=== PATIENT | male | born 1950 | race Caucasian/White ===

== ENCOUNTER → 2016-09-09 | Outpatient (CLI) | payer MEDICARE ==
[~2016-09-09] MED LIST: ALPR1TAB7 PO; ATO40T PO; BUPR100T14 PO; HYDR-3682 PO; LISI-285 PO; LUBI24CA6 PO; MORP60TA25 PO; OXYC30TA50 PO; POLY335015 PO; ZOLP10TA6 PO
[2016-09-09 11:48] LABS: Basophils # (auto) 0 uL; Basophils % (auto) 0.6 % (0.0-2.0); Eosinophils # (auto) 0.1 uL; Eosinophils % (auto) 1.3 % (0.0-7.0); Hematocrit 43.7 % (41.0-53.0); Hemoglobin 13.8 g/dL (13.5-17.5); Lymphocytes # (auto) 1.8 uL; Lymphocytes % (auto) 26.9 % (10.0-50.0); Mean Corpuscular Hemoglobin 28.5 pg (28.0-32.0); Mean Corpuscular Hgb Conc. 31.6 g/dL (32.0-36.0); Mean Corpuscular Volume 90.1 fL (80.0-100.0); Mean Platelet Volume 8.8 fL (7.4-10.4); Monocytes # (auto) 0.6 uL; Monocytes % (auto) 8.8 % (0.0-12.0); Neutrophils # (auto) 4.1 uL; Neutrophils % (auto) 62.4 % (37.0-80.0); Platelet Count (auto) 281 10^3/uL (140-450); Red Cell Distribution Width 14.2 % (11.6-16.0); White Blood Cell 6.5 10^3/uL (4.4-10.8)
[2016-09-09 12:27] LABS: Albumin 3.5 g/dL (3.4-5.0); BUN/Creatinine Ratio 10.4; Potassium 3.2 mmol/L (3.5-5.1); Total Protein 7.3 g/dL (6.4-8.2)
== END | disposition home or self-care (01) ==
LOC: LAB 10:18
DX: F33.3 Major depressive disorder, recurrent, severe with psychotic symptoms (principal)
CPT/HCPCS: 36415; 80053; 80061; 84439; 84443; 85025

== ENCOUNTER → 2017-02-18 | Outpatient (CLI) | payer MEDICARE ==
[2017-02-18 10:31] LABS: Basophils # (auto) 0.1 uL; Basophils % (auto) 1.1 % (0.0-2.0); CONDITION Y; Eosinophils # (auto) 0.1 uL; Eosinophils % (auto) 0.9 % (0.0-7.0); Hematocrit 45.3 % (41.0-53.0); Hemoglobin 15.1 g/dL (13.5-17.5); Lymphocytes # (auto) 2.7 uL; Lymphocytes % (auto) 30.8 % (10.0-50.0); Mean Corpuscular Hemoglobin 29.3 pg (28.0-32.0); Mean Corpuscular Hgb Conc. 33.3 g/dL (32.0-36.0); Mean Corpuscular Volume 88.1 fL (80.0-100.0); Mean Platelet Volume 8.5 fL (7.4-10.4); Monocytes # (auto) 0.7 uL; Monocytes % (auto) 8.5 % (0.0-12.0); Neutrophils # (auto) 5.1 uL; Neutrophils % (auto) 58.7 % (37.0-80.0); Platelet Count (auto) 320 10^3/uL (140-450); Red Cell Distribution Width 13.4 % (11.6-16.0); White Blood Cell 8.7 10^3/uL (4.4-10.8)
[2017-02-18 15:36] LABS: Cholesterol 141 mg/dL (< 200); HDL Cholesterol 52 mg/dL (40-59); LDL Cholesterol 76 mg/dL (< 100); Triglycerides 124 mg/dL (< 150)
== END | disposition home or self-care (01) ==
LOC: LAB 10:10
PROVIDERS: ATTEND Internal Medicine
DX: N40.0 Benign prostatic hyperplasia without lower urinary tract symptoms (principal); I10 Essential (primary) hypertension; K59.00 Constipation, unspecified
CPT/HCPCS: 36415; 80061; 84153; 85025

== ENCOUNTER → 2017-12-21 | Outpatient (CLI) | payer MEDICARE ==
[2017-12-21 15:01] LABS: Basophils # (auto) 0 uL; Basophils % (auto) 0.7 % (0.0-2.0); Eosinophils # (auto) 0.1 uL; Eosinophils % (auto) 1.3 % (0.0-7.0); Hematocrit 46.1 % (41.0-53.0); Hemoglobin 15.3 g/dL (13.5-17.5); Lymphocytes # (auto) 1.9 uL; Lymphocytes % (auto) 32.4 % (10.0-50.0); Mean Corpuscular Hemoglobin 28.4 pg (28.0-32.0); Mean Corpuscular Hgb Conc. 33.2 g/dL (32.0-36.0); Mean Corpuscular Volume 85.4 fL (80.0-100.0); Monocytes # (auto) 0.6 uL; Monocytes % (auto) 9.2 % (0.0-12.0); Neutrophils # (auto) 3.4 uL; Neutrophils % (auto) 56.4 % (37.0-80.0); Nucleated Red Blood Cells % 0.1 %; Platelet Count (auto) 254 10^3/uL (140-450); Red Cell Distribution Width 13.3 % (11.8-14.3)
[2017-12-21 15:08] LABS: Urine Bacteria NONE SEEN /hpf (None Seen); Urine Blood TRACE /uL (Negative); Urine Specific Gravity 1.019 (1.001-1.035); Urine WBC 6 /hpf (0 - 3)
[2017-12-21 18:02] LABS: Albumin 3.5 g/dL (3.4-5.0); BUN/Creatinine Ratio 11.2; Bilirubin, Total 0.8 mg/dL (0.2-1.0); Calcium 9.1 mg/dL (8.5-10.1); Total Protein 7.8 g/dL (6.4-8.2)
[2017-12-21 18:37] LABS: Potassium 2.8 mmol/L (3.5-5.1)
== END | disposition home or self-care (01) ==
LOC: LAB 14:23
PROVIDERS: ATTEND Internal Medicine
DX: I10 Essential (primary) hypertension (principal); E78.00 Pure hypercholesterolemia, unspecified; M06.9 Rheumatoid arthritis, unspecified
CPT/HCPCS: 36415; 80053; 80061; 81001; 82043; 84439; 84443; 85025; 85652

== ENCOUNTER → 2018-03-07 | Outpatient (CLI) | payer MEDICARE ==
[2018-03-07 11:37] LABS: Magnesium 2.1 mg/dL (1.6-2.6)
== END | disposition home or self-care (01) ==
LOC: LAB 11:04
PROVIDERS: ATTEND Internal Medicine
DX: E83.51 Hypocalcemia (principal); R25.1 Tremor, unspecified; I10 Essential (primary) hypertension; Z79.899 Other long term (current) drug therapy; Z86.73 Personal history of transient ischemic attack (TIA), and cerebral infarction without residual deficits
CPT/HCPCS: 36415; 83735; 84132; 84439; 84443

== ENCOUNTER → 2018-07-22 | Outpatient (CLI) | payer MEDICARE ==
[2018-07-22 15:39] LABS: Basophils # (auto) 0 uL; Basophils % (auto) 0.5 % (0.0-2.0); Eosinophils # (auto) 0.1 uL; Eosinophils % (auto) 1.6 % (0.0-7.0); Hemoglobin 13.7 g/dL (13.5-17.5); Lymphocytes % (auto) 32.2 % (10.0-50.0); Mean Corpuscular Hemoglobin 27.8 pg (28.0-32.0); Mean Corpuscular Hgb Conc. 32.7 g/dL (32.0-36.0); Mean Corpuscular Volume 85.1 fL (80.0-100.0); Monocytes # (auto) 0.7 uL; Monocytes % (auto) 11.1 % (0.0-12.0); Neutrophils # (auto) 3.4 uL; Neutrophils % (auto) 54.6 % (37.0-80.0); Nucleated Red Blood Cells % 0.1 %; Platelet Count (auto) 199 10^3/uL (140-450); Red Blood Cells 4.94 10^6/uL (4.5-5.90); Red Cell Distribution Width 13.8 % (11.8-14.3); White Blood Cell 6.2 10^3/uL (4.4-10.8)
[2018-07-22 16:32] LABS: Albumin 3.5 g/dL (3.4-5.0); Calcium 8.6 mg/dL (8.5-10.1); Potassium 3.7 mmol/L (3.5-5.1)
[2018-07-22 16:38] LABS: BUN/Creatinine Ratio 9.9; Bilirubin, Total 1.5 mg/dL (0.2-1.0); Total Protein 7.3 g/dL (6.4-8.2)
[2018-07-22 16:43] LABS: Free T4 (Free Thyroxine) 0.96 ng/dL (0.89-1.76); Prostate Specific Antigen 0.31 ng/mL (0.0-4.0)
[2018-07-22 16:44] LABS: Free T3 3.48 pg/mL (2.3-4.2)
== END | disposition home or self-care (01) ==
LOC: LAB 14:56
PROVIDERS: ATTEND Internal Medicine
DX: I10 Essential (primary) hypertension (principal); E78.5 Hyperlipidemia, unspecified; R35.1 Nocturia; Z79.899 Other long term (current) drug therapy
CPT/HCPCS: 36415; 80053; 80061; 82306; 82607; 84153; 84403; 84436; 84439; 84443; 84481; 85025; 86376

== ENCOUNTER → 2018-09-07 | Outpatient (CLI) | payer MEDICARE ==
[2018-09-07 13:08] LABS: Basophils # (auto) 0 uL; Basophils % (auto) 0.3 % (0.0-2.0); Eosinophils # (auto) 0.1 uL; Eosinophils % (auto) 0.9 % (0.0-7.0); Hematocrit 42.8 % (41.0-53.0); Hemoglobin 14.3 g/dL (13.5-17.5); Lymphocytes # (auto) 2.5 uL; Lymphocytes % (auto) 38.5 % (10.0-50.0); Mean Corpuscular Hgb Conc. 33.4 g/dL (32.0-36.0); Mean Corpuscular Volume 83.9 fL (80.0-100.0); Monocytes # (auto) 0.7 uL; Monocytes % (auto) 11.1 % (0.0-12.0); Neutrophils # (auto) 3.2 uL; Neutrophils % (auto) 49.2 % (37.0-80.0); Nucleated Red Blood Cells % 0.1 %; Platelet Count (auto) 194 10^3/uL (140-450); Red Cell Distribution Width 13.7 % (11.8-14.3); White Blood Cell 6.4 10^3/uL (4.4-10.8)
[2018-09-07 13:41] LABS: Chloride 103 mmol/L (98-107); Potassium 3.4 mmol/L (3.5-5.1); Sodium 139 mmol/L (136-145)
[2018-09-07 13:54] LABS: Alanine Aminotransferase 38 U/L (16-61); Albumin 3.5 g/dL (3.4-5.0); Alkaline Phosphatase 153 U/L (45-117); Anion Gap 4 (5-15); Aspartate Aminotransferase 21 U/L (15-37); BUN/Creatinine Ratio 12.4; Blood Urea Nitrogen 14 mg/dL (7-18); Calcium 8.6 mg/dL (8.5-10.1); Carbon Dioxide 32 mmol/L (21-32); GFR African American 83 mL/min; GFR Non-African American 69 mL/min; Glucose 113 mg/dL (74-106); Magnesium 2.3 mg/dL (1.6-2.6); Total Protein 7.2 g/dL (6.4-8.2)
== END | disposition home or self-care (01) ==
LOC: LAB 11:50
PROVIDERS: ATTEND Internal Medicine
DX: R42 Dizziness and giddiness (principal); I10 Essential (primary) hypertension
CPT/HCPCS: 36415; 80053; 83735; 84439; 84443; 84484; 85025

== ENCOUNTER 2018-11-13 02:09 | Emergency (ER) | payer MEDICARE ==
[~2018-11-13] VITALS: Ht 175.3 cm; Wt 122.5 kg
[2018-11-13 04:36] LABS: Basophils # (auto) 0 uL; Basophils % (auto) 0.5 % (0.0-2.0); Eosinophils # (auto) 0 uL; Eosinophils % (auto) 0.1 % (0.0-7.0); Hematocrit 45.3 % (41.0-53.0); Hemoglobin 14.9 g/dL (13.5-17.5); Lymphocytes # (auto) 1.6 uL; Lymphocytes % (auto) 18.9 % (10.0-50.0); Mean Corpuscular Hemoglobin 28.2 pg (28.0-32.0); Mean Corpuscular Hgb Conc. 32.8 g/dL (32.0-36.0); Mean Corpuscular Volume 85.9 fL (80.0-100.0); Monocytes # (auto) 0.6 uL; Monocytes % (auto) 7.3 % (0.0-12.0); Neutrophils # (auto) 6.2 uL; Neutrophils % (auto) 73.2 % (37.0-80.0); Platelet Count (auto) 230 10^3/uL (140-450); Red Blood Cells 5.27 10^6/uL (4.5-5.90); Red Cell Distribution Width 14.1 % (11.8-14.3); White Blood Cell 8.5 10^3/uL (4.4-10.8)
[2018-11-13 04:42] LABS: Alanine Aminotransferase 74 U/L (16-61); Albumin 3.5 g/dL (3.4-5.0); Anion Gap 7 (5-15); Aspartate Aminotransferase 64 U/L (15-37); BUN/Creatinine Ratio 18.4; Blood Urea Nitrogen 21 mg/dL (7-18); Calcium 8.4 mg/dL (8.5-10.1); Carbon Dioxide 28 mmol/L (21-32); Chloride 103 mmol/L (98-107); GFR African American 83 mL/min; GFR Non-African American 68 mL/min; Glucose 133 mg/dL (74-106); Potassium 3.4 mmol/L (3.5-5.1); Sodium 138 mmol/L (136-145)
[2018-11-13 04:47] LABS: Alkaline Phosphatase 139 U/L (45-117); Bilirubin, Total 1.1 mg/dL (0.2-1.0); Total Protein 7.6 g/dL (6.4-8.2)
[2018-11-13] MEDS ORDERED: SODIUM CHLORIDE 0.9% 1,000 ML IV ONE (08:51)
[2018-11-13] MEDS ORDERED: POTASSIUM CHL 10% (20 MEQ/15ML) 15ml ORAL SOLN PO ONE (09:00)
[2018-11-13] MEDS ORDERED: FUROSEMIDE 20 MG/2 ML VIAL IV ONE (09:00)
[2018-11-13] MEDS ORDERED: LORazepam 2MG/ML-1ML VIAL IV ONE (09:00)
[2018-11-13] MEDS ORDERED: MECLIZINE HCL 25 MG TAB PO ONE (09:00)
[2018-11-13 10:59] LABS: Urine Bacteria NONE SEEN /hpf (None Seen); Urine Blood Negative /uL (Negative); Urine Mucus FEW (None Seen); Urine WBC <1 /hpf (0 - 3)
[2018-11-13 11:56] LABS: Alcohol, Urine < 3.0 mg/dL (0-5); Amphetamine Screen, Urine NEGATIVE (NEGATIVE); Barbiturate Scree,Urine NEGATIVE (NEGATIVE); Benzodiazephine Screen, Urine NEGATIVE (NEGATIVE); Cannabinoid Screen, Urine NEGATIVE (NEGATIVE); Cocaine Screen, Urine NEGATIVE (NEGATIVE); Opiate Scree,Urine POSITIVE (NEGATIVE); Phencyclidine Screen, Urine NEGATIVE (NEGATIVE)
[2018-11-13] MEDS ORDERED: PROMETHAZINE HCL 25 MG/ML 1ML ONE (12:29)
[2018-11-13] MEDS ORDERED: MORPHINE SULF INJ 2 MG/ML SYRINGE 1ML ONE (12:29)
[2018-11-13] MEDS ORDERED: PROMETHAZINE HCL 25 MG/ML 1ML IV ONE (12:45)
[2018-11-13 13:04] VITALS: BP 143/86
[2018-11-15] MEDS ORDERED: MORPHINE SULF INJ 2 MG/ML SYRINGE 1ML IV ONE (09:15)
== END 2018-11-13 13:27 | disposition home or self-care (01) ==
LOC: ER 02:10
DX: R42 Dizziness and giddiness (principal); G89.4 Chronic pain syndrome; F11.20 Opioid dependence, uncomplicated; E87.6 Hypokalemia; R73.9 Hyperglycemia, unspecified; R74.8 Abnormal levels of other serum enzymes; I10 Essential (primary) hypertension; E78.5 Hyperlipidemia, unspecified; Z86.73 Personal history of transient ischemic attack (TIA), and cerebral infarction without residual deficits; Z90.49 Acquired absence of other specified parts of digestive tract
CPT/HCPCS: 36415; 70450; 71046; 80053; 80307; 81001; 82962; 83735; 84443; 84484; 85025; 93005; 94761; 96361; 96374; 96375; 99284; J1940; J2060; J2270; J2550; J7030; J8597

== ENCOUNTER → 2019-03-22 | Outpatient (CLI) | payer MEDICARE ==
[2019-03-22 16:34] LABS: Potassium 3.3 mmol/L (3.5-5.1)
== END | disposition home or self-care (01) ==
LOC: LAB 14:46
PROVIDERS: ATTEND Internal Medicine
DX: I10 Essential (primary) hypertension (principal); E87.6 Hypokalemia; F41.1 Generalized anxiety disorder
CPT/HCPCS: 36415; 84132; 84450; 84460

== ENCOUNTER → 2019-03-24 | Outpatient (CLI) | payer MEDICARE | END | disposition home or self-care (01) | LOC: LAB 11:25 | PROVIDERS: ATTEND Internal Medicine | DX: E87.6 Hypokalemia (principal); R63.5 Abnormal weight gain | CPT/HCPCS: 36415; 82088; 84132; 84439; 84443 ==

== ENCOUNTER → 2019-05-03 | Outpatient (CLI) | payer MEDICARE ==
[2019-05-03 13:58] LABS: BUN/Creatinine Ratio 15.4; Calcium 8.8 mg/dL (8.5-10.1)
== END | disposition home or self-care (01) ==
LOC: LAB 12:55
PROVIDERS: ATTEND Internal Medicine
DX: I10 Essential (primary) hypertension (principal)
CPT/HCPCS: 36415; 80048; 83735

== ENCOUNTER → 2019-06-05 | Outpatient (CLI) | payer MEDICARE ==
[~2019-06-05] MED LIST changes: +ALBUTEROL SULF 2.5 MG/0.5ML(0.5%) NEB SOLN ONE
== END | disposition home or self-care (01) ==
LOC: RT 08:41
PROVIDERS: ATTEND Internal Medicine
DX: R06.02 Shortness of breath (principal); F41.9 Anxiety disorder, unspecified; F17.210 Nicotine dependence, cigarettes, uncomplicated
CPT/HCPCS: 94060; J7611; 36415; 80048

== ENCOUNTER → 2019-06-05 | Outpatient (CLI) | payer MEDICARE ==
[~2019-06-05] MED LIST changes: -ALBUTEROL SULF 2.5 MG/0.5ML(0.5%) NEB SOLN ONE
[2019-06-05 10:54] LABS: BUN/Creatinine Ratio 10.3; Calcium 8.7 mg/dL (8.5-10.1); Potassium 3.9 mmol/L (3.5-5.1)
== END | disposition home or self-care (01) ==
LOC: LAB 09:54
PROVIDERS: ATTEND Internal Medicine
DX: E78.5 Hyperlipidemia, unspecified (principal); I10 Essential (primary) hypertension; E87.6 Hypokalemia; F41.9 Anxiety disorder, unspecified
CPT/HCPCS: 36415; 80048

== ENCOUNTER → 2019-06-21 | Outpatient (CLI) | payer MEDICARE | END | disposition home or self-care (01) | LOC: XYW 07:41 | PROVIDERS: ATTEND Internal Medicine | DX: I37.1 Nonrheumatic pulmonary valve insufficiency (principal); I11.0 Hypertensive heart disease with heart failure; I50.9 Heart failure, unspecified; E78.5 Hyperlipidemia, unspecified; F41.9 Anxiety disorder, unspecified; Z86.73 Personal history of transient ischemic attack (TIA), and cerebral infarction without residual deficits; Z90.49 Acquired absence of other specified parts of digestive tract; Z79.899 Other long term (current) drug therapy | CPT/HCPCS: 36415; 80061; 82607; 83036; 84153; 84207; 93306 ==

== ENCOUNTER → 2019-06-21 | Outpatient (CLI) | payer MEDICARE ==
[2019-06-21 09:54] LABS: Cholesterol 127 mg/dL (< 200); HDL Cholesterol 49 mg/dL (40-59); LDL Cholesterol 72 mg/dL (< 100); Triglycerides 133 mg/dL (< 150)
[2019-06-21 09:55] LABS: Prostate Specific Antigen 0.45 ng/mL (0.0-4.0)
== END | disposition home or self-care (01) ==
LOC: LAB 08:56
PROVIDERS: ATTEND Internal Medicine
DX: N40.0 Benign prostatic hyperplasia without lower urinary tract symptoms (principal); I10 Essential (primary) hypertension; G62.9 Polyneuropathy, unspecified; R73.01 Impaired fasting glucose
CPT/HCPCS: 36415; 80061; 82607; 83036; 84153; 84207

== ENCOUNTER 2019-07-18 07:47 | Emergency (ER) | payer MEDICARE ==
[~2019-07-18] VITALS: Ht 172.7 cm; Wt 131.5 kg
[~2019-07-18 07:47] MED LIST changes: +MORP1TAB14 PO; -MORP60TA25 PO
[2019-07-18 08:15] VITALS: BP 151/76
== END 2019-07-18 09:37 | disposition home or self-care (01) ==
LOC: ER 07:47
DX: M79.605 Pain in left leg (principal); I11.0 Hypertensive heart disease with heart failure; I50.9 Heart failure, unspecified; E78.00 Pure hypercholesterolemia, unspecified; Z90.49 Acquired absence of other specified parts of digestive tract; Z90.89 Acquired absence of other organs; Z79.899 Other long term (current) drug therapy; W19.XXXA Unspecified fall, initial encounter; Y93.89 Activity, other specified; Y92.89 Other specified places as the place of occurrence of the external cause; Y99.8 Other external cause status
CPT/HCPCS: 93971

== ENCOUNTER 2019-08-30 08:40 | Day surgery (SDC) | payer MEDICARE ==
[~2019-08-30] VITALS: Ht 175.3 cm; Wt 133.8 kg
[~2019-08-30 08:40] MED LIST changes: -ALPR1TAB7 PO; +ASPI-404 PO; -BUPR100T14 PO; +BUSP30TA11 PO; +FURO40TA4 PO; -HYDR-3682 PO; +HYDR50CA2 PO; -LISI-285 PO; +LISI-646 PO; -LUBI24CA6 PO; +ONDA-144 PO; +OXYC-904 PO; -OXYC30TA50 PO; +POTA-220 PO; +PREG20SO PO; +TAMS0.4C36 PO
[2019-08-30 09:29] LABS: Basophils # (auto) 0 uL; Basophils % (auto) 0.5 % (0.0-2.0); Eosinophils # (auto) 0.1 uL; Eosinophils % (auto) 1.4 % (0.0-7.0); Hematocrit 42.4 % (41.0-53.0); Lymphocytes # (auto) 2.3 uL; Lymphocytes % (auto) 31.1 % (10.0-50.0); Mean Corpuscular Hemoglobin 29.2 pg (28.0-32.0); Mean Corpuscular Volume 88.5 fL (80.0-100.0); Monocytes # (auto) 0.7 uL; Monocytes % (auto) 9.7 % (0.0-12.0); Neutrophils # (auto) 4.2 uL; Neutrophils % (auto) 57.3 % (37.0-80.0); Nucleated Red Blood Cells % 0.1 %; Platelet Count (auto) 213 10^3/uL (140-450); Red Blood Cells 4.79 10^6/uL (4.5-5.90); Red Cell Distribution Width 14.1 % (11.8-14.3); White Blood Cell 7.4 10^3/uL (4.4-10.8)
[2019-08-30 09:31] LABS: INR 1.05 (0.9-1.15); Partial Thromboplastin Time 27.4 sec (23.64-32.05)
[2019-08-30 09:35] LABS: Albumin 3.4 g/dL (3.4-5.0); Calcium 8.8 mg/dL (8.5-10.1); Potassium 3.8 mmol/L (3.5-5.1)
[2019-08-30 09:39] LABS: BUN/Creatinine Ratio 12.2; Bilirubin, Total 1.6 mg/dL (0.2-1.0); Total Protein 7.7 g/dL (6.4-8.2)
[2019-08-30] MEDS ORDERED: VERAPAMIL 2.5MG/ML INJ 2ML VIAL IV ONE (10:14)
[2019-08-30] MEDS ORDERED: ANGIOMAX 250 MG VIAL IV ONE (10:14)
[2019-08-30] MEDS ORDERED: fentaNYL CITRATE 100 MCG/2 ML VL ONE (10:14)
[2019-08-30] MEDS ORDERED: MIDAZOLAM HCL 1MG/1ML-2 ML VIAL ONE ×2 (10:14→11:11)
[2019-08-30] MEDS ORDERED: SODIUM CHL 0.9% 0 ML ONE (10:15)
[2019-08-30] MEDS ORDERED: IOHEXOL 350 MG/ML 100ML IJ ONE (10:18)
[2019-08-30] MEDS ORDERED: LIDOCAINE 2%HCL (LOCAL ANESTH.) INJ 20ML MDV ONE (10:18)
[2019-08-30] MEDS ORDERED: diphenhdrAMINE HCL 50 MG/1 ML VL ONE (11:11)
== END 2019-08-30 14:22 | disposition home or self-care (01) ==
LOC: CATH 08:40
PROVIDERS: ATTEND Internal Medicine
DX: R07.9 Chest pain, unspecified (principal); I10 Essential (primary) hypertension; E78.5 Hyperlipidemia, unspecified; J44.9 Chronic obstructive pulmonary disease, unspecified; E66.01 Morbid (severe) obesity due to excess calories; F41.9 Anxiety disorder, unspecified; Z79.82 Long term (current) use of aspirin; Z79.899 Other long term (current) drug therapy; Z68.42 Body mass index [BMI] 45.0-49.9, adult; Z87.891 Personal history of nicotine dependence
CPT/HCPCS: 36415; 80053; 85025; 85610; 85730; 93460; C1751; C1760; C1894; J1200; J1644; J2250; J3010; Q9967; 99152; 99153

== ENCOUNTER → 2019-09-11 | Outpatient (CLI) | payer MEDICARE ==
[2019-09-11 14:16] LABS: BUN/Creatinine Ratio 14.5; Calcium 8.3 mg/dL (8.5-10.1); Magnesium 2.1 mg/dL (1.6-2.6); Potassium 3.7 mmol/L (3.5-5.1)
== END | disposition home or self-care (01) ==
LOC: LAB 13:31
PROVIDERS: ATTEND Internal Medicine
DX: I50.23 Acute on chronic systolic (congestive) heart failure (principal); R06.02 Shortness of breath; R60.9 Edema, unspecified
CPT/HCPCS: 36415; 80048; 83735; 83880

== ENCOUNTER → 2019-10-02 | Outpatient (CLI) | payer MEDICARE ==
[2019-10-02 12:36] LABS: BUN/Creatinine Ratio 14.4; Calcium 8.6 mg/dL (8.5-10.1); Potassium 3.6 mmol/L (3.5-5.1)
== END | disposition home or self-care (01) ==
LOC: LAB 10:29
PROVIDERS: ATTEND Internal Medicine
DX: I48.91 Unspecified atrial fibrillation (principal); I10 Essential (primary) hypertension; J44.9 Chronic obstructive pulmonary disease, unspecified; R60.9 Edema, unspecified; R06.02 Shortness of breath
CPT/HCPCS: 36415; 80048; 83880

== ENCOUNTER → 2019-10-30 | Outpatient (CLI) | payer MEDICARE ==
[2019-10-30 10:50] LABS: Calcium 8.8 mg/dL (8.5-10.1); Potassium 3.6 mmol/L (3.5-5.1)
== END | disposition home or self-care (01) ==
LOC: LAB 10:11
PROVIDERS: ATTEND Internal Medicine
DX: I50.813 Acute on chronic right heart failure (principal); R60.9 Edema, unspecified
CPT/HCPCS: 36415; 80048; 83880

== ENCOUNTER → 2019-11-27 | Outpatient (CLI) | payer MEDICARE ==
[2019-11-27 11:14] LABS: BUN/Creatinine Ratio 13.9; Calcium 8.3 mg/dL (8.5-10.1); Potassium 3.8 mmol/L (3.5-5.1)
== END | disposition home or self-care (01) ==
LOC: LAB 10:18
PROVIDERS: ATTEND Internal Medicine
DX: R06.02 Shortness of breath (principal); I10 Essential (primary) hypertension
CPT/HCPCS: 36415; 80048; 83880

== ENCOUNTER → 2020-01-17 | Outpatient (CLI) | payer MEDICARE ==
[~2020-01-17] MED LIST changes: -ASPI-404 PO; +ASPI-543 PO
== END | disposition home or self-care (01) ==
LOC: XYW 11:10
PROVIDERS: ATTEND Internal Medicine
DX: I35.8 Other nonrheumatic aortic valve disorders (principal); I50.23 Acute on chronic systolic (congestive) heart failure
CPT/HCPCS: 93306

== ENCOUNTER → 2020-03-27 | Outpatient (CLI) | payer MEDICARE ==
[2020-03-27 10:16] LABS: Basophils # (auto) 0.1 10 ^3/uL (0-0.2); Basophils % (auto) 0.6 % (0.0-2.0); Eosinophils # (auto) 0.1 10 ^3/uL (0-0.8); Eosinophils % (auto) 1.7 % (0.0-7.0); Hematocrit 41.6 % (41.0-53.0); Hemoglobin 13.6 g/dL (13.5-17.5); Lymphocytes # (auto) 2.2 10 ^3/uL (0.4-5.4); Lymphocytes % (auto) 27.3 % (10.0-50.0); Mean Corpuscular Hemoglobin 28.9 pg (28.0-32.0); Mean Corpuscular Hgb Conc. 32.8 g/dL (32.0-36.0); Mean Corpuscular Volume 88.3 fL (80.0-100.0); Monocytes # (auto) 0.8 10 ^3/uL (0-1.3); Monocytes % (auto) 10.4 % (0.0-12.0); Neutrophils # (auto) 4.9 10 ^3/uL (1.6-8.6); Nucleated Red Blood Cells % 0.1 %; Platelet Count (auto) 238 10^3/uL (140-450); Red Blood Cells 4.71 10^6/uL (4.5-5.90); Red Cell Distribution Width 14.7 % (11.8-14.3); White Blood Cell 8.1 10^3/uL (4.4-10.8)
[2020-03-27 10:41] LABS: Potassium 3.9 mmol/L (3.5-5.1)
[2020-03-27 10:52] LABS: Albumin 3.4 g/dL (3.4-5.0); BUN/Creatinine Ratio 14.5; Bilirubin, Total 0.8 mg/dL (0.2-1.0); Calcium 8.7 mg/dL (8.5-10.1); Total Protein 7.2 g/dL (6.4-8.2)
== END | disposition home or self-care (01) ==
LOC: LAB 09:56
PROVIDERS: ATTEND Internal Medicine
DX: I10 Essential (primary) hypertension (principal); R35.0 Frequency of micturition; R73.03 Prediabetes
CPT/HCPCS: 36415; 80053; 83036; 85025

== ENCOUNTER 2020-04-21 18:58 | Emergency (ER) | payer MEDICARE ==
[~2020-04-21] VITALS: Ht 172.7 cm; Wt 133.8 kg
[2020-04-21] MEDS ORDERED: cloNIDine HCL 0.1 MG TAB PO ONE (19:45)
[2020-04-21] MEDS ORDERED: ONDANSETRON ODT 4 MG TAB PO ONE (20:30)
[2020-04-21 22:00] LABS: Basophils # (auto) 0 10 ^3/uL (0-0.2); Basophils % (auto) 0.6 % (0.0-2.0); Eosinophils # (auto) 0 10 ^3/uL (0-0.8); Eosinophils % (auto) 0.3 % (0.0-7.0); Hematocrit 43.8 % (41.0-53.0); Hemoglobin 14.1 g/dL (13.5-17.5); Lymphocytes # (auto) 1.4 10 ^3/uL (0.4-5.4); Lymphocytes % (auto) 17.9 % (10.0-50.0); Mean Corpuscular Hemoglobin 28.8 pg (28.0-32.0); Mean Corpuscular Hgb Conc. 32.2 g/dL (32.0-36.0); Mean Corpuscular Volume 89.3 fL (80.0-100.0); Monocytes # (auto) 0.6 10 ^3/uL (0-1.3); Monocytes % (auto) 8.2 % (0.0-12.0); Neutrophils # (auto) 5.8 10 ^3/uL (1.6-8.6); Platelet Count (auto) 207 10^3/uL (140-450); Red Cell Distribution Width 15.3 % (11.8-14.3); White Blood Cell 7.9 10^3/uL (4.4-10.8)
[2020-04-21 22:29] LABS: INR 1.08 (0.9-1.15); Partial Thromboplastin Time 27.8 sec (23.0-31.2)
[2020-04-21 22:30] LABS: Chloride 105 mmol/L (98-107); Potassium 4.2 mmol/L (3.5-5.1); Sodium 140 mmol/L (136-145)
[2020-04-21 22:43] LABS: Alanine Aminotransferase 41 U/L (16-61); Albumin 3.5 g/dL (3.4-5.0); Alkaline Phosphatase 111 U/L (45-117); Anion Gap 1 (5-15); Aspartate Aminotransferase 22 U/L (15-37); BUN/Creatinine Ratio 17.1; Blood Urea Nitrogen 21 mg/dL (7-18); Calcium 8.9 mg/dL (8.5-10.1); Carbon Dioxide 34 mmol/L (21-32); GFR African American 75 mL/min; GFR Non-African American 62 mL/min; Glucose 132 mg/dL (74-106); Total Protein 7.5 g/dL (6.4-8.2)
[2020-04-21 23:01] VITALS: BP 154/99
== END 2020-04-22 00:20 | disposition home or self-care (01) ==
LOC: ER 18:58
DX: R06.02 Shortness of breath (principal); F41.9 Anxiety disorder, unspecified; I11.0 Hypertensive heart disease with heart failure; I50.9 Heart failure, unspecified; R42 Dizziness and giddiness; E78.5 Hyperlipidemia, unspecified; F32.9 Major depressive disorder, single episode, unspecified; Z86.73 Personal history of transient ischemic attack (TIA), and cerebral infarction without residual deficits
CPT/HCPCS: 36415; 71045; 80053; 83880; 84484; 85025; 85610; 85730; 87426; 99285; Q0162

== ENCOUNTER 2020-04-23 18:46 | Emergency (ER) | payer MEDICARE ==
[~2020-04-23] VITALS: Ht 175.3 cm; Wt 133.8 kg
[2020-04-23] MEDS ORDERED: cloNIDine HCL 0.1 MG TAB PO ONE (19:45)
[2020-04-23 20:46] VITALS: BP 191/86
== END 2020-04-23 21:02 | disposition home or self-care (01) ==
LOC: ER 18:46
DX: I16.0 Hypertensive urgency (principal); E78.5 Hyperlipidemia, unspecified; I11.0 Hypertensive heart disease with heart failure; I50.9 Heart failure, unspecified; F41.9 Anxiety disorder, unspecified; Z79.899 Other long term (current) drug therapy; Z79.82 Long term (current) use of aspirin

== ENCOUNTER → 2020-05-01 | Outpatient (CLI) | payer MEDICARE ==
[2020-05-01 09:44] LABS: Urine Bacteria NONE SEEN /hpf (None Seen); Urine Blood TRACE /uL (Negative); Urine Mucus FEW (None Seen); Urine Specific Gravity 1.027 (1.001-1.035); Urine WBC 1 /hpf (0 - 3)
[2020-05-01 10:10] LABS: Amphetamine Screen, Urine NEGATIVE (NEGATIVE); Barbiturate Scree,Urine NEGATIVE (NEGATIVE); Benzodiazephine Screen, Urine NEGATIVE (NEGATIVE); Cannabinoid Screen, Urine NEGATIVE (NEGATIVE); Cocaine Screen, Urine NEGATIVE (NEGATIVE)
[2020-05-01 10:18] LABS: Opiate Scree,Urine POSITIVE (NEGATIVE); Phencyclidine Screen, Urine NEGATIVE (NEGATIVE)
== END | disposition home or self-care (01) ==
LOC: LAB 09:15
PROVIDERS: ATTEND Internal Medicine
DX: I10 Essential (primary) hypertension (principal); R09.89 Other specified symptoms and signs involving the circulatory and respiratory systems; Z79.899 Other long term (current) drug therapy
CPT/HCPCS: 80307; 81001; 82088; 82384

== ENCOUNTER 2020-05-24 09:21 | Inpatient (IN) | payer MEDICARE ==
[~2020-05-24] VITALS: Ht 175.3 cm; Wt 128.0 kg
[2020-05-24] MEDS ORDERED: SODIUM CHLORIDE 0.9% 1,000 ML IV ONE (10:00)
[2020-05-24] MEDS ORDERED: cefTRIAXone 1GM/50ML D5W 50 ML IV ONE ×2 (10:00→11:45)
[2020-05-24] MEDS ORDERED: CLINDAMYCIN 600MG IV 50 ML IV ONE (10:00)
[2020-05-24] MEDS ORDERED: MORPHINE SULF INJ 2 MG/ML SYRINGE 1ML IV PRN ×2 (10:15→10:30)
[2020-05-24] MEDS ORDERED: NITROGLYCERIN 0.4 MG SL TAB SL PRN ×2 (10:15→10:30)
[2020-05-24] MEDS ORDERED: DOCUSATE SOD 100 MG CAP PO PRN (10:30)
[2020-05-24] MEDS ORDERED: ALUM & MAG HYDROX-SIMETH LIQ(MAALOX) 30 ML PO PRN (10:30)
[2020-05-24] MEDS ORDERED: ACETAMINOPHEN 325 MG TAB PO PRN (10:30)
[2020-05-24 10:42] LABS: Basophils # (auto) 0 10 ^3/uL (0-0.2); Basophils % (auto) 0.3 % (0.0-2.0); Eosinophils # (auto) 0 10 ^3/uL (0-0.8); Eosinophils % (auto) 0.3 % (0.0-7.0); Hematocrit 40.6 % (41.0-53.0); Hemoglobin 13.2 g/dL (13.5-17.5); Lymphocytes # (auto) 1.7 10 ^3/uL (0.4-5.4); Lymphocytes % (auto) 19.1 % (10.0-50.0); Mean Corpuscular Hemoglobin 28.2 pg (28.0-32.0); Mean Corpuscular Hgb Conc. 32.6 g/dL (32.0-36.0); Mean Corpuscular Volume 86.5 fL (80.0-100.0); Monocytes # (auto) 1.1 10 ^3/uL (0-1.3); Monocytes % (auto) 11.9 % (0.0-12.0); Neutrophils # (auto) 6.1 10 ^3/uL (1.6-8.6); Neutrophils % (auto) 68.4 % (37.0-80.0); Nucleated Red Blood Cells % 0.1 %; Platelet Count (auto) 198 10^3/uL (140-450); Red Blood Cells 4.69 10^6/uL (4.5-5.90); Red Cell Distribution Width 13.7 % (11.8-14.3)
[2020-05-24 10:59] LABS: INR 1.03 (0.9-1.15); Partial Thromboplastin Time 24.4 sec (23.0-31.2)
[2020-05-24 11:02] LABS: Albumin 3.1 g/dL (3.4-5.0); Anion Gap 7 (5-15); Blood Urea Nitrogen 11 mg/dL (7-18); Calcium 8.8 mg/dL (8.5-10.1); Carbon Dioxide 27 mmol/L (21-32); Chloride 100 mmol/L (98-107); Glucose 142 mg/dL (74-106); Potassium 3.1 mmol/L (3.5-5.1); Sodium 134 mmol/L (136-145)
[2020-05-24 11:06] LABS: Alanine Aminotransferase 97 U/L (16-61); Alkaline Phosphatase 197 U/L (45-117); Aspartate Aminotransferase 43 U/L (15-37); BUN/Creatinine Ratio 11.1; Bilirubin, Total 1.4 mg/dL (0.2-1.0); GFR African American 97 mL/min; GFR Non-African American 80 mL/min; Total Protein 7.5 g/dL (6.4-8.2)
[2020-05-24] MEDS ORDERED: POTASSIUM CHLORIDE 40 MEQ, LIDOCAINE 1% (LOCAL ANESTH.) 4 ML in SODIUM CHL 0.9% 250 ML IV ONE (11:15)
[2020-05-24] MEDS ORDERED: FUROSEMIDE 40 MG/4 ML VIAL IV ONE (11:15)
[2020-05-24] MEDS ORDERED: hydrALAZINE HCL 25 MG TAB PO PRN (11:15)
[2020-05-24 11:16] LABS: Cholesterol 136 mg/dL (< 200); HDL Cholesterol 55 mg/dL (40-59); LDL Cholesterol 74 mg/dL (< 100); Triglycerides 107 mg/dL (< 150)
[2020-05-24] MEDS ORDERED: ENOXAPARIN SOD 40 MG/0.4 ML SYRINGE SC ONE (11:45)
[2020-05-24] MEDS ORDERED: ASPirin 81 mg TAB PO ONE (11:45)
[2020-05-24] MEDS ORDERED: LISINOPRIL 10 MG TAB PO ONE (11:45)
[2020-05-24] MEDS ORDERED: busPIRone HCL 10 MG TAB PO ONE (11:45)
[2020-05-24] MEDS ORDERED: CARVEDILOL 3.125 MG TAB PO ONE (11:45)
[2020-05-24] MEDS ORDERED: PREGABALIN 25 MG CAP PO ONE (11:45)
[2020-05-24] MEDS ORDERED: NIFEdipine ER 30 MG TAB PO ONE (11:45)
[2020-05-24] MEDS ORDERED: POTASSIUM CHL 20 Meq TABLET PO ONE (11:45)
[2020-05-24] MEDS ORDERED: SACUBITRIL-VALSARTAN 24mg/26mg TAB PO ONE (11:45)
--- NOTE | 2020-05-24 13:15 | NUR ---
Report Received report from [employer] WORKER, Tristan Amin.
[2020-05-24 13:20] VITALS: BP 117/57
--- NOTE | 2020-05-24 13:20 | NUR ---
Patient Arrived Patient arrived to unit from ER. No signs of distress at this time. Respirations even and unlabored; VS within normal limits. Safety precautions are in place. Will continue to monitor q 1hr and PRN.
[2020-05-24] MEDS ORDERED: LISI40TA11 PO (13:38)
[2020-05-24] MEDS ORDERED: PREG75CA PO (13:38)
[2020-05-24] MEDS ORDERED: MULT-1018 PO (13:39)
[2020-05-24] MEDS ORDERED: OMEP-260 PO (13:39)
[2020-05-24] MEDS ORDERED: VITA100T3 PO (13:39)
[2020-05-24] MEDS ORDERED: AMLO10TA13 PO (13:40)
[2020-05-24] MEDS ORDERED: CLON0.1D TD (13:41)
[2020-05-24] MEDS ORDERED: ONDA-155 PO (13:42)
[2020-05-24] MEDS: MORPHINE SULF INJ 2 MG/ML SYRINGE 1ML IV PRN ×2 (14:01→20:14)
[2020-05-24 16:00] LABS: Urine Bacteria FEW /hpf (None Seen); Urine Blood Negative /uL (Negative); Urine Mucus FEW (None Seen); Urine Specific Gravity 1.006 (1.001-1.035); Urine WBC <1 /hpf (0 - 3)
[2020-05-24 16:14] LABS: Alcohol, Urine < 3.0 mg/dL (0-10); Amphetamine Screen, Urine NEGATIVE (NEGATIVE); Barbiturate Scree,Urine NEGATIVE (NEGATIVE); Benzodiazephine Screen, Urine NEGATIVE (NEGATIVE); Cannabinoid Screen, Urine NEGATIVE (NEGATIVE); Cocaine Screen, Urine NEGATIVE (NEGATIVE); Opiate Scree,Urine POSITIVE (NEGATIVE); Phencyclidine Screen, Urine NEGATIVE (NEGATIVE)
[2020-05-24] MEDS: metroNIDAZOLE 500MG/100ML 100 ML IV SCH ×2 (16:56→21:44)
[2020-05-24 17:00] VITALS: BP 123/73
[2020-05-24] MEDS: LORazepam 0.5 MG TAB PO PRN ×2 (17:10→23:27)
[2020-05-24] MEDS: HYDROcodone-ACET 5/325MG TAB PO PRN (17:10)
[2020-05-24] MEDS: TAMSULOSIN HYDROCHLORIDE 0.4 MG CAP PO SCH (18:11)
[2020-05-24] MEDS: FUROSEMIDE 40 MG/4 ML VIAL IV SCH (18:11)
--- NOTE | 2020-05-24 18:27 | NUR ---
COVID Swab Covid swab obtained per Dr. Rodriguez orders; patient tolerated well with no signs of distress at this time. Specimen walked and signed into lab.
[2020-05-24] MEDS: ONDANSETRON HCL 4 MG/2 ML VIAL IV PRN ×2 (18:55→21:56)
--- NOTE | 2020-05-24 19:17 | NUR ---
Closing Shift Note Report given to NOC RN, Remedios. Patient shows no signs of distress at this time. Respirations even and unlabored. Endorsed med rec to RN as patient's just dropped off list.
--- NOTE | 2020-05-24 20:00 | NUR ---
Opening Shift Note Assumed care of patient, awake and alert. No S/S of distress/SOB or pain. Instructed on POC and to call for assist PRN, will continue to monitor for changes Q1hr and PRN.Right lower extremities is very red and warmth o touch.
[2020-05-24] MEDS: ATORVASTATIN 20 MG TAB PO SCH (21:30)
[2020-05-24] MEDS: traZODone HCL 50 MG TAB PO SCH (21:30)
[2020-05-24] MEDS: busPIRone HCL 10 MG TAB PO SCH (21:31)
[2020-05-24] MEDS: PREGABALIN 25 MG CAP PO SCH (21:31)
[2020-05-24] MEDS: SACUBITRIL-VALSARTAN 24mg/26mg TAB PO SCH ×2 (21:38→22:00)
[2020-05-24 22:00] VITALS: BP 124/76
[2020-05-24] MEDS: CARVEDILOL 3.125 MG TAB PO SCH (22:04)
[2020-05-25] MEDS: MORPHINE SULF INJ 2 MG/ML SYRINGE 1ML IV PRN ×2 (02:11→10:34)
[2020-05-25] MEDS: ONDANSETRON HCL 4 MG/2 ML VIAL IV PRN ×2 (04:13→17:40)
[2020-05-25 05:00] VITALS: BP 124/77
[2020-05-25] MEDS: metroNIDAZOLE 500MG/100ML 100 ML IV SCH (05:37)
[2020-05-25] MEDS: FUROSEMIDE 40 MG/4 ML VIAL IV SCH ×2 (05:37→17:43)
--- NOTE | 2020-05-25 07:36 | NUR ---
Opening Shift Note Assumed care of patient from noc shift rn, asleep but aroused by name and light touch. Requested to have 2L NC on. No S/S of distress, denies pain at this time. Instructed on POC and to call for assist PRN. Bed in locked and lowest position. Will continue to monitor for changes Q1hr and PRN. Noted redness on right lower extremities, warm to touch. Patient encouraged to eat breakfast.
[2020-05-25 08:00] VITALS: BP 105/52
[2020-05-25] MEDS: cefTRIAXone 1GM/50ML D5W 50 ML IV SCH (08:37)
[2020-05-25 08:40] VITALS: BP 105/52
[2020-05-25] MEDS: ASPirin 81 mg TAB PO SCH (09:48)
[2020-05-25] MEDS: POTASSIUM CHL 20 Meq TABLET PO SCH (09:49)
[2020-05-25] MEDS: CARVEDILOL 3.125 MG TAB PO SCH ×2 (09:49→21:53)
[2020-05-25] MEDS: PREGABALIN 25 MG CAP PO SCH ×2 (09:50→21:26)
[2020-05-25] MEDS: NIFEdipine ER 30 MG TAB PO SCH (09:50)
[2020-05-25] MEDS: ENOXAPARIN SOD 40 MG/0.4 ML SYRINGE SC SCH (09:50)
[2020-05-25] MEDS: LISINOPRIL 10 MG TAB PO SCH (09:51)
[2020-05-25] MEDS: busPIRone HCL 10 MG TAB PO SCH ×2 (09:51→21:26)
[2020-05-25] MEDS: SACUBITRIL-VALSARTAN 24mg/26mg TAB PO SCH (09:52)
[2020-05-25] MEDS: LORazepam 0.5 MG TAB PO PRN ×3 (10:35→23:15)
--- NOTE | 2020-05-25 11:25 | NUR ---
Dr. Marissa Gaytan at bedside, discussed plan of care with patient. Per MD, discontinue Flagyl and Entresto. Will start Vancomycin. Discontinue morphine 2mg to 4mg Q4 Will carry out order accordingly.
[2020-05-25 12:30] VITALS: BP 107/72
[2020-05-25] MEDS ORDERED: LOPERAMIDE HCL 2 MG CAP PO ONE (12:30)
[2020-05-25] MEDS ORDERED: LOPERAMIDE HCL 2 MG CAP PO PRN (12:30)
[2020-05-25] MEDS: MORPHINE SULFATE 4 MG/ML SYR/VIAL IV PRN ×2 (16:01→20:22)
[2020-05-25 16:39] VITALS: BP 111/71
[2020-05-25] MEDS: TAMSULOSIN HYDROCHLORIDE 0.4 MG CAP PO SCH (17:46)
[2020-05-25] MEDS ORDERED: VANCOMYCIN 1GM/250ML 250 ML IV ONE ×2 (19:15→20:00)
[2020-05-25] MEDS ORDERED: VANCOMYCIN PER PHARMACY 0 MG IV SCH (20:00)
--- NOTE | 2020-05-25 20:22 | NUR ---
Opening Shift Note Assumed care of patient, awake and alert. No S/S of distress/SOB c/o right leg pain. Instructed on POC and to call for assist PRN, will continue to monitor for changes Q1hr and PRN.Medicated with Morphine 4mg.i.v.p. for pain level of 7/10 as needed.Right leg still very red little bit subsiding.
[2020-05-25] MEDS: traZODone HCL 50 MG TAB PO SCH (21:26)
[2020-05-25] MEDS: ATORVASTATIN 20 MG TAB PO SCH (21:27)
[2020-05-25 22:00] VITALS: BP 105/60
[2020-05-26] MEDS: MORPHINE SULFATE 4 MG/ML SYR/VIAL IV PRN ×4 (03:04→22:25)
[2020-05-26 05:00] VITALS: BP 104/67
[2020-05-26] MEDS: FUROSEMIDE 40 MG/4 ML VIAL IV SCH ×2 (05:44→17:20)
[2020-05-26] MEDS: LORazepam 0.5 MG TAB PO PRN ×2 (05:53→14:43)
--- NOTE | 2020-05-26 07:19 | NUR ---
Report given to Mateo Eisenberg, patient is resting no distress.
--- NOTE | 2020-05-26 07:30 | NUR ---
Opening Shift Note Assumed care of patient, resting comfortably. No S/S of distress/SOB or pain. Instructed on POC and to call for assist PRN, will continue to monitor for changes Q1hr and PRN. Bed in low and locked position, rails up x2, no-slip socks on.
[2020-05-26 08:57] VITALS: BP 100/63
[2020-05-26] MEDS: cefTRIAXone 1GM/50ML D5W 50 ML IV SCH (09:09)
[2020-05-26] MEDS: ASPirin 81 mg TAB PO SCH (09:09)
[2020-05-26] MEDS: busPIRone HCL 10 MG TAB PO SCH ×2 (09:10→22:21)
[2020-05-26] MEDS: CARVEDILOL 3.125 MG TAB PO SCH ×2 (09:10→22:23)
[2020-05-26] MEDS: HYDROcodone-ACET 5/325MG TAB PO PRN ×2 (09:10→16:46)
[2020-05-26] MEDS: NIFEdipine ER 30 MG TAB PO SCH (09:10)
[2020-05-26] MEDS: PREGABALIN 25 MG CAP PO SCH ×2 (09:11→22:22)
[2020-05-26] MEDS: LISINOPRIL 10 MG TAB PO SCH (09:11)
[2020-05-26] MEDS: POTASSIUM CHL 20 Meq TABLET PO SCH (09:11)
[2020-05-26] MEDS: ENOXAPARIN SOD 40 MG/0.4 ML SYRINGE SC SCH (09:12)
--- NOTE | 2020-05-26 10:30 | NUR ---
DR Bertha TRONCOSO AT BEDSIDE NEW ORDERS ADDED FOR CPAP AND AMBIEN HS PRN.
[2020-05-26] MEDS: VANCOMYCIN 1GM/250ML 250 ML IV SCH ×2 (11:03→22:24)
[2020-05-26 12:29] VITALS: BP 97/64
--- NOTE | 2020-05-26 13:30 | NUR ---
IV insertion/IV removal IV access obtained, via clean sterile technique by inserting 20 gauge catheter at left forearm after 1 attempt. IV secured properly. No trauma to site. Patient tolerated well. IV DC'd with clean sterile technique to right AC due to pain and reddness to site, catheter fully intact. Pressure dressing applied to site. Patient tolerated well.
[2020-05-26 16:55] VITALS: BP 121/73
[2020-05-26] MEDS: TAMSULOSIN HYDROCHLORIDE 0.4 MG CAP PO SCH (17:19)
[2020-05-26] MEDS: ONDANSETRON HCL 4 MG/2 ML VIAL IV PRN ×2 (18:15→22:25)
--- NOTE | 2020-05-26 19:30 | NUR ---
Opening Shift Note Assumed care of patient, awake and alert. No S/S of distress/SOB or pain. Instructed on POC and to call for assist PRN, will continue to monitor for changes Q1hr and PRN.
[2020-05-26 21:00] VITALS: BP 108/65
[2020-05-26 21:16] VITALS: BP 121/73
[2020-05-26] MEDS: ATORVASTATIN 20 MG TAB PO SCH (22:22)
[2020-05-26] MEDS: traZODone HCL 50 MG TAB PO SCH (22:22)
[2020-05-26] MEDS: ZOLPIDEM TARTRATE 5 MG TAB PO PRN (23:00)
--- NOTE | 2020-05-27 02:00 | NUR ---
Respiratory note: ENTERED PT'S ROOM FOR ROUTINE CPAP CHECK. PT REMOVED CPAP OFF HIMSELF STATING HE DID NOT WANT TO WEAR THE CPAP ANY LONGER. PLACED PT BACK ON 2L NC. NO S/S OF ANY DISTRESS NOTED. HERNÁN MARK.
[2020-05-27] MEDS: MORPHINE SULFATE 4 MG/ML SYR/VIAL IV PRN ×4 (04:01→21:26)
[2020-05-27] MEDS: ONDANSETRON HCL 4 MG/2 ML VIAL IV PRN ×2 (04:01→21:26)
[2020-05-27 05:00] VITALS: BP 114/60
[2020-05-27] MEDS: FUROSEMIDE 40 MG/4 ML VIAL IV SCH ×2 (06:11→17:25)
--- NOTE | 2020-05-27 08:00 | NUR ---
Opening Shift Note Assumed care of patient, awake and alert. No S/S of distress/SOB or pain. Instructed on POC and to call for assist PRN. Will continue to monitor for changes Q1hr and PRN.
[2020-05-27] MEDS: cefTRIAXone 1GM/50ML D5W 50 ML IV SCH (08:21)
[2020-05-27] MEDS: ASPirin 81 mg TAB PO SCH (08:21)
[2020-05-27] MEDS: NIFEdipine ER 30 MG TAB PO SCH (08:22)
[2020-05-27] MEDS: PREGABALIN 25 MG CAP PO SCH ×2 (08:22→22:36)
[2020-05-27] MEDS: POTASSIUM CHL 20 Meq TABLET PO SCH (08:22)
[2020-05-27] MEDS: CARVEDILOL 3.125 MG TAB PO SCH ×2 (08:23→22:35)
[2020-05-27] MEDS: LORazepam 0.5 MG TAB PO PRN ×2 (08:23→19:55)
[2020-05-27] MEDS: LISINOPRIL 10 MG TAB PO SCH (08:23)
[2020-05-27] MEDS: busPIRone HCL 10 MG TAB PO SCH ×2 (08:29→22:35)
[2020-05-27 08:30] LABS: Basophils # (auto) 0.1 10 ^3/uL (0-0.2); Basophils % (auto) 0.6 % (0.0-2.0); Eosinophils # (auto) 0.1 10 ^3/uL (0-0.8); Eosinophils % (auto) 1.4 % (0.0-7.0); Hematocrit 44.7 % (41.0-53.0); Hemoglobin 14.6 g/dL (13.5-17.5); Lymphocytes # (auto) 2.7 10 ^3/uL (0.4-5.4); Lymphocytes % (auto) 28.3 % (10.0-50.0); Mean Corpuscular Hemoglobin 28.2 pg (28.0-32.0); Mean Corpuscular Hgb Conc. 32.6 g/dL (32.0-36.0); Mean Corpuscular Volume 86.4 fL (80.0-100.0); Monocytes % (auto) 10.7 % (0.0-12.0); Neutrophils # (auto) 5.6 10 ^3/uL (1.6-8.6); Nucleated Red Blood Cells % 0.1 %; Platelet Count (auto) 335 10^3/uL (140-450); Red Blood Cells 5.17 10^6/uL (4.5-5.90); Red Cell Distribution Width 13.3 % (11.8-14.3); White Blood Cell 9.5 10^3/uL (4.4-10.8)
[2020-05-27 08:57] LABS: BUN/Creatinine Ratio 18.4; Calcium 8.9 mg/dL (8.5-10.1); Potassium 3.4 mmol/L (3.5-5.1)
[2020-05-27 09:43] VITALS: BP 107/73
[2020-05-27] MEDS: VANCOMYCIN 1GM/250ML 250 ML IV SCH ×2 (09:55→22:34)
[2020-05-27] MEDS: ENOXAPARIN SOD 40 MG/0.4 ML SYRINGE SC SCH (10:00)
--- NOTE | 2020-05-27 11:40 | NUR ---
MD ROUNDS DR Bertha TRONCOSO AT BEDSIDE. NEW ORDERS RECEIVED/WILL CARRY OUT. WILL CONTINUE TO MONITOR
[2020-05-27] MEDS ORDERED: PANTOPRAZOLE 40 MG/10 ML VIAL INJ IV ONE (12:00)
[2020-05-27 13:00] VITALS: BP 119/76
--- NOTE | 2020-05-27 14:44 | NUR ---
Nutrition Assessment Notes please see attached link for complete assessment Est energy needs ABW 100 [id number] kcal (17-20 kcal/kg ABW) Est protein needs: 100-110 g (1-1.1 g/kg ABW) Will reassess prn. Addendum: 05/27/20 at [address] Amended: Links added.
[2020-05-27 17:00] VITALS: BP 140/77
[2020-05-27] MEDS: TAMSULOSIN HYDROCHLORIDE 0.4 MG CAP PO SCH (17:25)
[2020-05-27] MEDS: HYDROcodone-ACET 5/325MG TAB PO PRN (17:29)
[2020-05-27 22:00] VITALS: BP 129/64
[2020-05-27] MEDS: traZODone HCL 50 MG TAB PO SCH (22:36)
[2020-05-27] MEDS: ATORVASTATIN 20 MG TAB PO SCH (22:36)
[2020-05-27] MEDS: ZOLPIDEM TARTRATE 5 MG TAB PO PRN (22:37)
--- NOTE | 2020-05-28 00:40 | NUR ---
Respiratory note: PT TAKEN OFF CPAP AT THIS TIME. PT STATED THAT HE CAN'T GET USED TO THE HOSPITAL MACHINE AND MASK AND HAVEN'T BEEN ABLE TO SLEEP. PT PLACED BACK ON 2L NASAL CANNULA. PT AWARE TO CALL IF HE WISHES TO TRY WEARING CPAP AGAIN.
[2020-05-28] MEDS: MORPHINE SULFATE 4 MG/ML SYR/VIAL IV PRN (03:26)
[2020-05-28] MEDS: ONDANSETRON HCL 4 MG/2 ML VIAL IV PRN ×2 (03:27→08:04)
[2020-05-28] MEDS: LORazepam 0.5 MG TAB PO PRN ×2 (05:30→11:26)
[2020-05-28] MEDS: FUROSEMIDE 40 MG/4 ML VIAL IV SCH (05:37)
[2020-05-28 05:45] VITALS: BP 109/57
[2020-05-28] MEDS: ASPirin 81 mg TAB PO SCH (08:04)
[2020-05-28] MEDS: cefTRIAXone 1GM/50ML D5W 50 ML IV SCH (08:04)
[2020-05-28] MEDS: PREGABALIN 25 MG CAP PO SCH (08:04)
[2020-05-28] MEDS: ENOXAPARIN SOD 40 MG/0.4 ML SYRINGE SC SCH (08:04)
[2020-05-28] MEDS: POTASSIUM CHL 20 Meq TABLET PO SCH (08:05)
[2020-05-28] MEDS: busPIRone HCL 10 MG TAB PO SCH (08:05)
[2020-05-28] MEDS: HYDROcodone-ACET 5/325MG TAB PO PRN (08:07)
[2020-05-28] MEDS: VANCOMYCIN 1GM/250ML 250 ML IV SCH (09:16)
[2020-05-28] MEDS: CARVEDILOL 3.125 MG TAB PO SCH (09:17)
[2020-05-28] MEDS: LISINOPRIL 10 MG TAB PO SCH (09:17)
[2020-05-28] MEDS: NIFEdipine ER 30 MG TAB PO SCH (09:18)
[2020-05-28] MEDS ORDERED: PANTOPRAZOLE 40 MG/10 ML VIAL INJ IV SCH (10:00)
[2020-05-28 12:14] VITALS: BP 112/65
--- NOTE | 2020-05-28 12:38 | NUR ---
FAX FAXED PATIENT HEALTH SUMMARY TO DR BRUNER
--- NOTE | 2020-05-28 13:54 | NUR ---
Discharge instructions given as ordered. Encourage to follow up with PMD as instructed. All questions and concerns addressed. Patient verbalized understanding. IV removed with catheter intact, pressure dressing applied. Telemetry unit returned to ICU. Patient taken to vehicle via wheelchair with all personal belongings, accompanied by staff. No distress noted at time of departure.
== END 2020-05-28 14:00 | disposition home or self-care (01) | DRG 602 ==
LOC: ER 09:21 → TELE 09:22 → TELE-WESTW 14:07
PROVIDERS: ADMIT Hospitalist; ATTEND Family Medicine
DX: L03.115 Cellulitis of right lower limb (principal); I50.33 Acute on chronic diastolic (congestive) heart failure; E87.1 Hypo-osmolality and hyponatremia; Z68.41 Body mass index [BMI] 40.0-44.9, adult; D64.9 Anemia, unspecified; E66.01 Morbid (severe) obesity due to excess calories; E78.5 Hyperlipidemia, unspecified; E87.6 Hypokalemia; F32.9 Major depressive disorder, single episode, unspecified; F41.9 Anxiety disorder, unspecified; K76.0 Fatty (change of) liver, not elsewhere classified; M19.90 Unspecified osteoarthritis, unspecified site; N40.0 Benign prostatic hyperplasia without lower urinary tract symptoms; G62.9 Polyneuropathy, unspecified; G47.30 Sleep apnea, unspecified; G47.00 Insomnia, unspecified; E78.00 Pure hypercholesterolemia, unspecified; I11.0 Hypertensive heart disease with heart failure; K21.9 Gastro-esophageal reflux disease without esophagitis; Z79.899 Other long term (current) drug therapy; Z79.82 Long term (current) use of aspirin; Z79.891 Long term (current) use of opiate analgesic; Z90.49 Acquired absence of other specified parts of digestive tract; Z80.9 Family history of malignant neoplasm, unspecified; Z82.49 Family history of ischemic heart disease and other diseases of the circulatory system; Z86.73 Personal history of transient ischemic attack (TIA), and cerebral infarction without residual deficits
CPT/HCPCS: 36415; 71045; 80048; 80053; 80061; 80202; 80307; 81001; 83036; 83605; 83880; 84484; 85025; 85379; 85610; 85730; 87040; 87086; 93971; 94660; C9113; G0378; J0696; J2001; J2405; J3490

== ENCOUNTER → 2020-06-11 | Outpatient (CLI) | payer MEDICARE ==
[~2020-06-11] MED LIST changes: +AMLO10TA13 PO; +CLON0.1D TD; -LISI-646 PO; +LISI40TA11 PO; +MULT-1018 PO; +OMEP-260 PO; -ONDA-144 PO; +ONDA-155 PO; -POLY335015 PO; -PREG20SO PO; +PREG75CA PO; +VITA100T3 PO
[2020-06-11 15:56] LABS: Albumin 3.1 g/dL (3.4-5.0); BUN/Creatinine Ratio 10.4; Calcium 8.5 mg/dL (8.5-10.1); Potassium 4.3 mmol/L (3.5-5.1)
[2020-06-11 15:59] LABS: Bilirubin, Total 1.2 mg/dL (0.2-1.0); Total Protein 7.4 g/dL (6.4-8.2)
== END | disposition home or self-care (01) ==
LOC: LAB 15:01
PROVIDERS: ATTEND Internal Medicine
DX: I10 Essential (primary) hypertension (principal); G62.9 Polyneuropathy, unspecified; E55.9 Vitamin D deficiency, unspecified
CPT/HCPCS: 36415; 80053; 82306; 82550; 82607; 84207

== ENCOUNTER → 2020-09-05 | Outpatient (CLI) | payer MEDICARE ==
[~2020-09-05] MED LIST changes: +AMLO-496 PO; -AMLO10TA13 PO; +BUSP30TA PO; -BUSP30TA11 PO; +PREG-109 PO; -PREG75CA PO
== END | disposition home or self-care (01) ==
LOC: XY 10:53
PROVIDERS: ATTEND Internal Medicine
DX: I70.203 Unspecified atherosclerosis of native arteries of extremities, bilateral legs (principal)
CPT/HCPCS: 93925

== ENCOUNTER → 2021-02-25 | Outpatient (CLI) | payer MEDICARE | END | disposition home or self-care (01) | LOC: XYW 10:52 | PROVIDERS: ATTEND Internal Medicine | DX: I11.9 Hypertensive heart disease without heart failure (principal) | CPT/HCPCS: 93306 ==

== ENCOUNTER 2021-06-22 13:26 | Inpatient (IN) | payer MEDICARE ==
[~2021-06-22] VITALS: Ht 175.3 cm; Wt 136.1 kg
[2021-06-22 14:26] LABS: Urine Bacteria NONE SEEN /hpf (None Seen); Urine Blood 1+ /uL (Negative); Urine Mucus FEW (None Seen); Urine Specific Gravity 1.033 (1.001-1.035); Urine WBC 2 /hpf (0 - 3)
[2021-06-22 16:25] LABS: Basophils # (auto) 0.1 10 ^3/uL (0-0.2); Basophils % (auto) 0.6 % (0.0-2.0); Eosinophils # (auto) 0 10 ^3/uL (0-0.8); Eosinophils % (auto) 0.2 % (0.0-7.0); Hematocrit 43.7 % (41.0-53.0); Lymphocytes # (auto) 1.4 10 ^3/uL (0.4-5.4); Lymphocytes % (auto) 11.3 % (10.0-50.0); Mean Corpuscular Hemoglobin 29.2 pg (28.0-32.0); Mean Corpuscular Hgb Conc. 32.1 g/dL (32.0-36.0); Mean Corpuscular Volume 90.8 fL (80.0-100.0); Monocytes % (auto) 7.9 % (0.0-12.0); Neutrophils # (auto) 9.9 10 ^3/uL (1.6-8.6); Nucleated Red Blood Cells % 0.1 %; Red Blood Cells 4.81 10^6/uL (4.5-5.90); Red Cell Distribution Width 13.7 % (11.8-14.3); White Blood Cell 12.4 10^3/uL (4.4-10.8)
[2021-06-22 16:37] LABS: Albumin 2.6 g/dL (3.4-5.0); Calcium 8.3 mg/dL (8.5-10.1)
[2021-06-22 16:47] LABS: BUN/Creatinine Ratio 21.3; Bilirubin, Total 1.3 mg/dL (0.2-1.0); Total Protein 7.2 g/dL (6.4-8.2)
[2021-06-22] MEDS ORDERED: SODIUM CHLORIDE 0.9% 1,000 ML IV ONE (21:00)
[2021-06-22] MEDS ORDERED: PIPERACILLIN-TAZOB 3.375GM 100 ML IV ONE (21:00)
[2021-06-22] MEDS ORDERED: VANCOMYCIN 1GM/250ML 250 ML IV ONE (21:00)
[2021-06-22] MEDS ORDERED: ACETAMINOPHEN 325 MG TAB PO PRN (22:00)
[2021-06-22] MEDS: busPIRone HCL 10 MG TAB PO SCH (22:51)
[2021-06-22] MEDS: ATORVASTATIN 20 MG TAB PO SCH (22:51)
[2021-06-22] MEDS: HYDROcodone-ACET 5/325MG TAB PO PRN (23:05)
[2021-06-23] VITALS (7 sets, daily range): BP systolic 112–131; BP diastolic 73–88
[2021-06-23 00:04] LABS: INR 1.08 (0.9-1.15)
[2021-06-23] MEDS: TEMAZEPAM 15 MG CAP PO PRN ×2 (02:17→22:53)
[2021-06-23] MEDS: MORPHINE SULFATE 4 MG/ML SYR/VIAL IV PRN ×2 (02:38→08:50)
[2021-06-23] MEDS: HYDROcodone-ACET 5/325MG TAB PO PRN ×2 (05:35→11:35)
[2021-06-23] MEDS: ONDANSETRON HCL 4 MG/2 ML VIAL IV PRN ×2 (05:45→08:49)
[2021-06-23 06:04] LABS: Basophils # (auto) 0.1 10 ^3/uL (0-0.2); Basophils % (auto) 0.4 % (0.0-2.0); Eosinophils # (auto) 0.1 10 ^3/uL (0-0.8); Eosinophils % (auto) 1.1 % (0.0-7.0); Hematocrit 39.5 % (41.0-53.0); Hemoglobin 12.8 g/dL (13.5-17.5); Lymphocytes # (auto) 1.8 10 ^3/uL (0.4-5.4); Lymphocytes % (auto) 14.6 % (10.0-50.0); Mean Corpuscular Hemoglobin 29.4 pg (28.0-32.0); Mean Corpuscular Hgb Conc. 32.5 g/dL (32.0-36.0); Mean Corpuscular Volume 90.6 fL (80.0-100.0); Monocytes # (auto) 1.2 10 ^3/uL (0-1.3); Monocytes % (auto) 9.4 % (0.0-12.0); Neutrophils # (auto) 9.2 10 ^3/uL (1.6-8.6); Neutrophils % (auto) 74.5 % (37.0-80.0); Red Blood Cells 4.36 10^6/uL (4.5-5.90); Red Cell Distribution Width 13.6 % (11.8-14.3); White Blood Cell 12.4 10^3/uL (4.4-10.8)
[2021-06-23] MEDS ORDERED: HYDR-4798 PO (06:17)
[2021-06-23] MEDS ORDERED: CLON0.1T PO (06:17)
[2021-06-23] MEDS ORDERED: CLON0.1D TD (06:17)
[2021-06-23 06:19] LABS: Potassium 4.1 mmol/L (3.5-5.1)
[2021-06-23 06:25] LABS: Albumin 2.2 g/dL (3.4-5.0); Calcium 8.4 mg/dL (8.5-10.1)
[2021-06-23 06:38] LABS: Bilirubin, Total 1.1 mg/dL (0.2-1.0); Total Protein 5.7 g/dL (6.4-8.2)
[2021-06-23] MEDS: PANTOPRAZOLE 40 MG TAB PO SCH (08:48)
[2021-06-23] MEDS: busPIRone HCL 10 MG TAB PO SCH ×2 (08:48→21:30)
[2021-06-23] MEDS: PREGABALIN CAPSULE 75 MG CAP PO SCH (08:48)
[2021-06-23] MEDS: LISINOPRIL 20 MG TAB PO SCH (08:48)
[2021-06-23] MEDS: amLODIPine BESYLATE 5 MG TAB PO SCH (08:49)
[2021-06-23] MEDS: ENOXAPARIN SOD 40 MG/0.4 ML SYRINGE SC SCH (08:50)
[2021-06-23] MEDS ORDERED: MORPHINE SULFATE INJECTION 2 MG/ML SYRG IV PRN (11:30)
[2021-06-23] MEDS ORDERED: FUROSEMIDE 20 MG/2 ML VIAL IV ONE (13:00)
[2021-06-23] MEDS ORDERED: POTASSIUM CHL 20 Meq TABLET PO ONE (13:00)
[2021-06-23] MEDS ORDERED: MORPHINE SULF 30 mg ER tab PO ONE (13:00)
[2021-06-23] MEDS ORDERED: CLINDAMYCIN 600MG IV 50 ML IV ONE (13:00)
[2021-06-23] MEDS ORDERED: metroNIDAZOLE 500 MG TAB PO SCH (14:00)
[2021-06-23] MEDS ORDERED: levoFLOXacin 500MG 100 ML IV ONE (14:30)
[2021-06-23] MEDS: CLINDAMYCIN 600MG IV 50 ML IV SCH ×2 (15:43→21:59)
[2021-06-23] MEDS: TAMSULOSIN HYDROCHLORIDE 0.4 MG CAP PO SCH (18:21)
[2021-06-23] MEDS: OXYCODONE W/ ACETAMINOPHEN 5/325MG TABLET PO PRN (18:25)
[2021-06-23] MEDS: MORPHINE SULF 30 mg ER tab PO SCH (21:31)
[2021-06-23] MEDS: ATORVASTATIN 20 MG TAB PO SCH (21:31)
[2021-06-24 05:22] VITALS: BP 122/80
[2021-06-24] MEDS: CLINDAMYCIN 600MG IV 50 ML IV SCH ×3 (06:00→21:42)
[2021-06-24 07:31] LABS: Hematocrit 41.1 % (41.0-53.0); Hemoglobin 13.7 g/dL (13.5-17.5); Mean Corpuscular Hemoglobin 29.7 pg (28.0-32.0); Mean Corpuscular Hgb Conc. 33.3 g/dL (32.0-36.0); Mean Corpuscular Volume 89.1 fL (80.0-100.0); Red Blood Cells 4.61 10^6/uL (4.5-5.90); Red Cell Distribution Width 13.5 % (11.8-14.3); White Blood Cell 8.2 10^3/uL (4.4-10.8)
[2021-06-24 07:50] LABS: Basophils % (manual) 0 (0.0-2.0); Blast Cells 0; Metamyelocytes % 0; Myelocytes % 0; Promyelocytes % 0; Reactive Lymphocytes 0
[2021-06-24 07:56] LABS: BUN/Creatinine Ratio 17.5; Calcium 8.1 mg/dL (8.5-10.1)
[2021-06-24] MEDS: OXYCODONE W/ ACETAMINOPHEN 5/325MG TABLET PO PRN ×2 (08:13→20:07)
[2021-06-24 08:15] VITALS: BP 131/77
[2021-06-24 08:20] LABS: Band Neutrophils % (manual) 7; Eosinophils % (manual) 4 (0-7); Lymphocytes % (manual) 22 (10.0-50.0); Monocytes % (manual) 15 (0-12)
[2021-06-24 09:00] VITALS: BP 131/77
[2021-06-24] MEDS ORDERED: levoFLOXacin 500MG 100 ML IV SCH (10:00)
[2021-06-24] MEDS: MORPHINE SULF 30 mg ER tab PO SCH ×2 (10:21→21:56)
[2021-06-24] MEDS: busPIRone HCL 10 MG TAB PO SCH ×2 (10:22→21:55)
[2021-06-24] MEDS: amLODIPine BESYLATE 5 MG TAB PO SCH (10:22)
[2021-06-24] MEDS: PANTOPRAZOLE 40 MG TAB PO SCH (10:22)
[2021-06-24] MEDS: LISINOPRIL 20 MG TAB PO SCH (10:22)
[2021-06-24] MEDS: PREGABALIN CAPSULE 75 MG CAP PO SCH (10:23)
[2021-06-24] MEDS: ENOXAPARIN SOD 40 MG/0.4 ML SYRINGE SC SCH (10:27)
[2021-06-24 13:00] VITALS: BP 101/72
[2021-06-24] MEDS ORDERED: AMPICILLIN & SULBACTAM SODIUM 3 GM in SODIUM CHL 0.9% 100 ML IV SCH (13:00)
[2021-06-24] MEDS ORDERED: POTASSIUM CHL 20 Meq TABLET PO ONE (13:00)
[2021-06-24] MEDS ORDERED: ZOLPIDEM TARTRATE 5 MG TAB PO PRN (13:00)
[2021-06-24] MEDS ORDERED: FUROSEMIDE 20 MG/2 ML VIAL IV ONE (13:00)
[2021-06-24] MEDS: AMPICILLIN & SULBACTAM SODIUM 3 GM in SODIUM CHL 0.9% 100 ML IV SCH ×2 (16:45→22:49)
[2021-06-24 16:47] VITALS: BP 116/78
[2021-06-24] MEDS: TAMSULOSIN HYDROCHLORIDE 0.4 MG CAP PO SCH (16:56)
[2021-06-24] MEDS: ATORVASTATIN 20 MG TAB PO SCH (21:56)
[2021-06-24 22:00] VITALS: BP 118/67
[2021-06-25] MEDS: AMPICILLIN & SULBACTAM SODIUM 3 GM in SODIUM CHL 0.9% 100 ML IV SCH ×4 (04:00→23:14)
[2021-06-25 05:08] VITALS: BP 120/77
[2021-06-25] MEDS: CLINDAMYCIN 600MG IV 50 ML IV SCH ×3 (06:11→21:16)
[2021-06-25 09:00] VITALS: BP 112/82
[2021-06-25] MEDS: PREGABALIN CAPSULE 75 MG CAP PO SCH (09:14)
[2021-06-25] MEDS: FLORASTOR (S. BOULARDII) 250 MG CAP PO SCH (09:14)
[2021-06-25] MEDS: amLODIPine BESYLATE 5 MG TAB PO SCH (09:15)
[2021-06-25] MEDS: PANTOPRAZOLE 40 MG TAB PO SCH (09:15)
[2021-06-25] MEDS: ONDANSETRON HCL 4 MG/2 ML VIAL IV PRN (09:16)
[2021-06-25] MEDS: ENOXAPARIN SOD 40 MG/0.4 ML SYRINGE SC SCH (09:16)
[2021-06-25] MEDS: busPIRone HCL 10 MG TAB PO SCH ×2 (10:24→21:16)
[2021-06-25] MEDS: MORPHINE SULF 30 mg ER tab PO SCH ×2 (10:25→21:17)
[2021-06-25] MEDS: LISINOPRIL 20 MG TAB PO SCH (10:25)
[2021-06-25] MEDS ORDERED: FUROSEMIDE 20 MG TAB PO ONE (11:45)
[2021-06-25] MEDS ORDERED: POTASSIUM CHL 10 Meq TABLET PO ONE (11:45)
[2021-06-25 13:00] VITALS: BP 118/63
[2021-06-25] MEDS: OXYCODONE W/ ACETAMINOPHEN 5/325MG TABLET PO PRN (15:40)
[2021-06-25 17:00] VITALS: BP 123/82
[2021-06-25] MEDS: TAMSULOSIN HYDROCHLORIDE 0.4 MG CAP PO SCH (17:51)
[2021-06-25] MEDS: ATORVASTATIN 20 MG TAB PO SCH (21:17)
[2021-06-25] MEDS: TEMAZEPAM 15 MG CAP PO PRN (23:16)
[2021-06-26] MEDS: AMPICILLIN & SULBACTAM SODIUM 3 GM in SODIUM CHL 0.9% 100 ML IV SCH ×4 (04:19→22:50)
[2021-06-26] MEDS: ONDANSETRON HCL 4 MG/2 ML VIAL IV PRN (04:50)
[2021-06-26 05:00] VITALS: BP 134/89
[2021-06-26] MEDS: CLINDAMYCIN 600MG IV 50 ML IV SCH ×3 (05:32→21:07)
[2021-06-26 08:00] VITALS: BP 135/78
[2021-06-26] MEDS: POTASSIUM CHL 10 Meq TABLET PO SCH (08:42)
[2021-06-26] MEDS: busPIRone HCL 10 MG TAB PO SCH ×2 (08:43→21:05)
[2021-06-26] MEDS: FLORASTOR (S. BOULARDII) 250 MG CAP PO SCH (08:43)
[2021-06-26] MEDS: FUROSEMIDE 20 MG TAB PO SCH (08:43)
[2021-06-26] MEDS: LISINOPRIL 20 MG TAB PO SCH (08:44)
[2021-06-26] MEDS: amLODIPine BESYLATE 5 MG TAB PO SCH (08:45)
[2021-06-26] MEDS: PANTOPRAZOLE 40 MG TAB PO SCH (08:46)
[2021-06-26] MEDS: ENOXAPARIN SOD 40 MG/0.4 ML SYRINGE SC SCH (08:46)
[2021-06-26] MEDS: PREGABALIN CAPSULE 75 MG CAP PO SCH (08:46)
[2021-06-26 09:00] VITALS: BP 135/78
[2021-06-26] MEDS: MORPHINE SULF 30 mg ER tab PO SCH ×2 (10:05→21:05)
[2021-06-26 13:00] VITALS: BP 106/64
[2021-06-26] MEDS: OXYCODONE W/ ACETAMINOPHEN 5/325MG TABLET PO PRN (14:36)
[2021-06-26 17:00] VITALS: BP 125/69
[2021-06-26] MEDS: TAMSULOSIN HYDROCHLORIDE 0.4 MG CAP PO SCH (18:23)
[2021-06-26] MEDS: ATORVASTATIN 20 MG TAB PO SCH (21:05)
[2021-06-26 22:00] VITALS: BP 114/68
[2021-06-26] MEDS: TEMAZEPAM 15 MG CAP PO PRN (22:57)
[2021-06-27] MEDS: AMPICILLIN & SULBACTAM SODIUM 3 GM in SODIUM CHL 0.9% 100 ML IV SCH ×2 (04:13→10:08)
[2021-06-27 05:00] VITALS: BP 112/81
[2021-06-27] MEDS: CLINDAMYCIN 600MG IV 50 ML IV SCH (05:36)
[2021-06-27] MEDS: busPIRone HCL 10 MG TAB PO SCH ×2 (08:32→20:45)
[2021-06-27] MEDS: ONDANSETRON HCL 4 MG/2 ML VIAL IV PRN (08:33)
[2021-06-27 09:00] VITALS: BP 139/67
[2021-06-27 09:03] LABS: Basophils # (auto) 0.1 10 ^3/uL (0-0.2); Basophils % (auto) 0.8 % (0.0-2.0); Eosinophils # (auto) 0.2 10 ^3/uL (0-0.8); Eosinophils % (auto) 2.8 % (0.0-7.0); Hematocrit 41.5 % (41.0-53.0); Hemoglobin 13.5 g/dL (13.5-17.5); Lymphocytes # (auto) 2.4 10 ^3/uL (0.4-5.4); Lymphocytes % (auto) 31.4 % (10.0-50.0); Mean Corpuscular Hemoglobin 29.3 pg (28.0-32.0); Mean Corpuscular Hgb Conc. 32.6 g/dL (32.0-36.0); Mean Corpuscular Volume 89.7 fL (80.0-100.0); Monocytes # (auto) 0.8 10 ^3/uL (0-1.3); Monocytes % (auto) 10.5 % (0.0-12.0); Neutrophils # (auto) 4.1 10 ^3/uL (1.6-8.6); Neutrophils % (auto) 54.5 % (37.0-80.0); Nucleated Red Blood Cells % 0.1 %; Red Blood Cells 4.63 10^6/uL (4.5-5.90); Red Cell Distribution Width 13.4 % (11.8-14.3); White Blood Cell 7.6 10^3/uL (4.4-10.8)
[2021-06-27 09:28] LABS: Potassium 4.1 mmol/L (3.5-5.1)
[2021-06-27 09:34] LABS: Albumin 2.5 g/dL (3.4-5.0); BUN/Creatinine Ratio 17.4; Bilirubin, Total 1.1 mg/dL (0.2-1.0); Calcium 8.2 mg/dL (8.5-10.1); Total Protein 6.6 g/dL (6.4-8.2)
[2021-06-27] MEDS: POTASSIUM CHL 10 Meq TABLET PO SCH (09:58)
[2021-06-27] MEDS: FUROSEMIDE 20 MG TAB PO SCH (09:59)
[2021-06-27] MEDS: amLODIPine BESYLATE 5 MG TAB PO SCH (09:59)
[2021-06-27] MEDS: LISINOPRIL 20 MG TAB PO SCH (10:00)
[2021-06-27] MEDS: PANTOPRAZOLE 40 MG TAB PO SCH (10:00)
[2021-06-27] MEDS: ENOXAPARIN SOD 40 MG/0.4 ML SYRINGE SC SCH (10:00)
[2021-06-27] MEDS: MORPHINE SULF 30 mg ER tab PO SCH ×3 (10:00→20:45)
[2021-06-27] MEDS: FLORASTOR (S. BOULARDII) 250 MG CAP PO SCH (10:08)
[2021-06-27] MEDS: PREGABALIN CAPSULE 75 MG CAP PO SCH (10:08)
[2021-06-27] MEDS ORDERED: OXYCODONE W/ ACETAMINOPHEN 5/325MG TABLET PO PRN (12:45)
[2021-06-27] MEDS ORDERED: cloNIDine 0.3 mg/24hr 7DAY PATCH TD ONE (12:45)
[2021-06-27 13:00] VITALS: BP 114/63
[2021-06-27] MEDS: CLINDAMYCIN HCL 150 MG CAP PO SCH ×2 (14:00→20:45)
[2021-06-27] MEDS ORDERED: AMPICILLIN & SULBACTAM SODIUM 3 GM in SODIUM CHL 0.9% 100 ML IV SCH (14:00)
[2021-06-27 17:00] VITALS: BP 114/68
[2021-06-27] MEDS: TAMSULOSIN HYDROCHLORIDE 0.4 MG CAP PO SCH (17:51)
[2021-06-27 20:00] VITALS: BP 135/84
[2021-06-27 22:00] VITALS: BP 135/84
[2021-06-27] MEDS: TEMAZEPAM 15 MG CAP PO PRN (22:56)
[2021-06-28 05:00] VITALS: BP 129/94
[2021-06-28] MEDS: CLINDAMYCIN HCL 150 MG CAP PO SCH (06:46)
[2021-06-28 07:20] LABS: Potassium 4.2 mmol/L (3.5-5.1)
[2021-06-28 07:27] LABS: Albumin 2.6 g/dL (3.4-5.0); BUN/Creatinine Ratio 12.8; Bilirubin, Total 1.2 mg/dL (0.2-1.0); Calcium 8.5 mg/dL (8.5-10.1); Total Protein 6.7 g/dL (6.4-8.2)
[2021-06-28 08:00] VITALS: BP 122/79
[2021-06-28] MEDS: ONDANSETRON HCL 4 MG/2 ML VIAL IV PRN (08:10)
[2021-06-28 09:00] VITALS: BP 122/79
[2021-06-28] MEDS: FLORASTOR (S. BOULARDII) 250 MG CAP PO SCH (09:32)
[2021-06-28] MEDS: ENOXAPARIN SOD 40 MG/0.4 ML SYRINGE SC SCH (09:32)
[2021-06-28] MEDS: PREGABALIN CAPSULE 75 MG CAP PO SCH (09:33)
[2021-06-28] MEDS: FUROSEMIDE 20 MG TAB PO SCH (09:34)
[2021-06-28] MEDS: amLODIPine BESYLATE 5 MG TAB PO SCH (09:34)
[2021-06-28] MEDS: PANTOPRAZOLE 40 MG TAB PO SCH (09:35)
[2021-06-28] MEDS: LISINOPRIL 20 MG TAB PO SCH (09:35)
[2021-06-28] MEDS: MORPHINE SULF 30 mg ER tab PO SCH (09:36)
[2021-06-28] MEDS: busPIRone HCL 10 MG TAB PO SCH (09:36)
[2021-06-28] MEDS: POTASSIUM CHL 10 Meq TABLET PO SCH (09:37)
[2021-06-28 12:06] VITALS: BP 122/79
[2021-06-28 12:42] VITALS: BP 117/84
[2021-07-04] MEDS ORDERED: cloNIDine 0.3 mg/24hr 7DAY PATCH TD SCH (12:45)
== END 2021-06-28 13:30 | disposition home or self-care (01) | DRG 871 ==
LOC: ER 13:26 → OVERFLOW 21:55 → WEST WING 23:27
PROVIDERS: ADMIT Nurse Practitioner; ATTEND Internal Medicine
DX: A41.9 Sepsis, unspecified organism (principal); I50.33 Acute on chronic diastolic (congestive) heart failure; L03.115 Cellulitis of right lower limb; Z68.42 Body mass index [BMI] 45.0-49.9, adult; G47.33 Obstructive sleep apnea (adult) (pediatric); E66.01 Morbid (severe) obesity due to excess calories; K76.0 Fatty (change of) liver, not elsewhere classified; I11.0 Hypertensive heart disease with heart failure; F32.A Depression, unspecified; N40.0 Benign prostatic hyperplasia without lower urinary tract symptoms; G89.29 Other chronic pain; Z20.822 Contact with and (suspected) exposure to COVID-19; F41.9 Anxiety disorder, unspecified; M54.9 Dorsalgia, unspecified; E78.5 Hyperlipidemia, unspecified; Z80.9 Family history of malignant neoplasm, unspecified; Z82.49 Family history of ischemic heart disease and other diseases of the circulatory system; Z86.73 Personal history of transient ischemic attack (TIA), and cerebral infarction without residual deficits; Z90.49 Acquired absence of other specified parts of digestive tract
CPT/HCPCS: 36415; 71046; 73590; 80048; 80053; 81001; 82962; 83605; 83880; 84484; 85007; 85025; 85027; 85610; 87040; 87426; 93005; 93971; 94640; 96361; 96365; 96366; G0378; J1956; J2405; J2543; J3490

== ENCOUNTER → 2021-07-21 | Outpatient (CLI) | payer MEDICARE ==
[~2021-07-21] MED LIST changes: +CLON0.1T PO; +HYDR-4798 PO
[2021-07-21 13:19] LABS: Basophils # (auto) 0.1 10 ^3/uL (0-0.2); Basophils % (auto) 0.7 % (0.0-2.0); Eosinophils # (auto) 0.2 10 ^3/uL (0-0.8); Eosinophils % (auto) 2.1 % (0.0-7.0); Hematocrit 39.5 % (41.0-53.0); Hemoglobin 12.9 g/dL (13.5-17.5); Lymphocytes # (auto) 2.4 10 ^3/uL (0.4-5.4); Mean Corpuscular Hemoglobin 29.5 pg (28.0-32.0); Mean Corpuscular Hgb Conc. 32.7 g/dL (32.0-36.0); Mean Corpuscular Volume 90.1 fL (80.0-100.0); Monocytes # (auto) 0.7 10 ^3/uL (0-1.3); Monocytes % (auto) 9.4 % (0.0-12.0); Neutrophils # (auto) 3.9 10 ^3/uL (1.6-8.6); Neutrophils % (auto) 54.8 % (37.0-80.0); Red Blood Cells 4.38 10^6/uL (4.5-5.90); Red Cell Distribution Width 13.6 % (11.8-14.3); White Blood Cell 7.2 10^3/uL (4.4-10.8)
[2021-07-21 13:55] LABS: Albumin 3.1 g/dL (3.4-5.0); Calcium 8.5 mg/dL (8.5-10.1); Magnesium 2.8 mg/dL (1.6-2.6); Potassium 4.3 mmol/L (3.5-5.1)
[2021-07-21 13:59] LABS: BUN/Creatinine Ratio 17.5
[2021-07-21 14:00] LABS: Bilirubin, Total 1.1 mg/dL (0.2-1.0); Total Protein 7.2 g/dL (6.4-8.2)
== END | disposition home or self-care (01) ==
LOC: LAB 13:03
PROVIDERS: ATTEND Internal Medicine
DX: I10 Essential (primary) hypertension (principal); R19.7 Diarrhea, unspecified
CPT/HCPCS: 36415; 80053; 83735; 85025; 87045; 87177; 87427; 87493

== ENCOUNTER 2022-05-17 10:18 | Inpatient (IN) | payer MEDICARE, OTHER ==
[~2022-05-17] VITALS: Ht 175.3 cm; Wt 135.2 kg
[2022-05-17 12:14] LABS: Basophils # (auto) 0.1 10 ^3/uL (0-0.2); Basophils % (auto) 0.5 % (0.0-2.0); Eosinophils # (auto) 0 10 ^3/uL (0-0.8); Hematocrit 43.9 % (41.0-53.0); Hemoglobin 14.1 g/dL (13.5-17.5); Lymphocytes # (auto) 0.9 10 ^3/uL (0.4-5.4); Lymphocytes % (auto) 7.5 % (10.0-50.0); Mean Corpuscular Hemoglobin 28.1 pg (28.0-32.0); Mean Corpuscular Hgb Conc. 32.2 g/dL (32.0-36.0); Mean Corpuscular Volume 87.2 fL (80.0-100.0); Monocytes # (auto) 0.9 10 ^3/uL (0-1.3); Monocytes % (auto) 7.5 % (0.0-12.0); Neutrophils # (auto) 9.7 10 ^3/uL (1.6-8.6); Neutrophils % (auto) 84.5 % (37.0-80.0); Red Blood Cells 5.04 10^6/uL (4.5-5.90); Red Cell Distribution Width 13.3 % (11.8-14.3); White Blood Cell 11.5 10^3/uL (4.4-10.8)
[2022-05-17 12:15] LABS: Albumin 3.3 g/dL (3.4-5.0); Calcium 8.5 mg/dL (8.5-10.1); Potassium 4.7 mmol/L (3.5-5.1)
[2022-05-17 12:18] LABS: BUN/Creatinine Ratio 12.7; Bilirubin, Total 1.2 mg/dL (0.2-1.0); Total Protein 7.3 g/dL (6.4-8.2)
[2022-05-17] MEDS ORDERED: NITROGLYCERIN 0.4 MG SL TAB SL PRN (17:45)
[2022-05-17] MEDS ORDERED: amLODIPine BESYLATE 5 MG TAB PO SCH (17:45)
[2022-05-17] MEDS ORDERED: MORPHINE SULFATE INJ 2 MG/ml SYRG IV PRN (17:45)
[2022-05-17] MEDS ORDERED: cefTRIAXone 1GM/50ML D5W 50 ML IV ONE (17:45)
[2022-05-17] MEDS ORDERED: FUROSEMIDE 40 MG/4 ML VIAL IV ONE (17:45)
[2022-05-17] MEDS ORDERED: ACETAMINOPHEN 325 MG TAB PO PRN (17:45)
[2022-05-17] MEDS ORDERED: cloNIDine HCL 0.1 MG TAB PO SCH (17:45)
[2022-05-17] MEDS: TAMSULOSIN HYDROCHLORIDE 0.4 MG CAP PO SCH (18:31)
[2022-05-17 18:51] LABS: Cholesterol 93 mg/dL (< 200); Triglycerides 83 mg/dL (< 150)
[2022-05-17 18:53] LABS: HDL Cholesterol 43 mg/dL (40-59); LDL Cholesterol 46 mg/dL (< 100)
[2022-05-17] MEDS: MORPHINE SULFATE INJ 2 MG/ml SYRG IV PRN (20:52)
[2022-05-17 21:38] LABS: Urine Bacteria NONE SEEN /hpf (None Seen); Urine Blood Negative /uL (Negative); Urine Mucus FEW (None Seen); Urine Specific Gravity 1.019 (1.001-1.035); Urine WBC <1 /hpf (0 - 3)
[2022-05-17 22:33] VITALS: BP 126/59
[2022-05-17] MEDS: CLINDAMYCIN 600MG IV 50 ML IV SCH (22:40)
[2022-05-17] MEDS: busPIRone HCL 10 MG TAB PO SCH (22:40)
[2022-05-17] MEDS: PREGABALIN CAPSULE 75 MG CAP PO SCH (22:40)
[2022-05-17] MEDS: HYDROcodone-ACET 5/325MG TAB PO PRN (23:41)
[2022-05-18] MEDS: ONDANSETRON HCL 4 MG/2 ML VIAL IV PRN ×3 (00:57→18:01)
[2022-05-18] MEDS: MORPHINE SULFATE INJ 2 MG/ml SYRG IV PRN ×2 (01:47→05:07)
[2022-05-18] MEDS ORDERED: SPIR50TA5 PO (02:14)
[2022-05-18 05:00] VITALS: BP 131/57
[2022-05-18] MEDS: CLINDAMYCIN 600MG IV 50 ML IV SCH ×3 (05:12→21:37)
[2022-05-18 06:17] LABS: Hematocrit 39.3 % (41.0-53.0); Hemoglobin 13.2 g/dL (13.5-17.5); Mean Corpuscular Hemoglobin 29.4 pg (28.0-32.0); Mean Corpuscular Hgb Conc. 33.5 g/dL (32.0-36.0); Mean Corpuscular Volume 87.8 fL (80.0-100.0); Red Blood Cells 4.48 10^6/uL (4.5-5.90); Red Cell Distribution Width 13.1 % (11.8-14.3); White Blood Cell 7.3 10^3/uL (4.4-10.8)
[2022-05-18 06:35] LABS: Albumin 2.8 g/dL (3.4-5.0); Calcium 8.4 mg/dL (8.5-10.1); Potassium 4.1 mmol/L (3.5-5.1)
[2022-05-18 06:41] LABS: BUN/Creatinine Ratio 12.5; Bilirubin, Total 0.8 mg/dL (0.2-1.0); Total Protein 6.8 g/dL (6.4-8.2)
[2022-05-18 06:43] LABS: Basophils % (manual) 0 (0.0-2.0); Blast Cells 0; Eosinophils % (manual) 0 (0-7); Metamyelocytes % 0; Myelocytes % 0; Promyelocytes % 0; Reactive Lymphocytes 0
[2022-05-18 08:10] VITALS: BP 141/70
[2022-05-18 08:56] LABS: Band Neutrophils % (manual) 1; Lymphocytes % (manual) 12 (10.0-50.0); Monocytes % (manual) 19 (0-12)
[2022-05-18] MEDS: ENOXAPARIN SOD 40 MG/0.4 ML SYRINGE SC SCH (09:37)
[2022-05-18] MEDS: ASPirin-EC 81 mg tab PO SCH (09:38)
[2022-05-18] MEDS: busPIRone HCL 10 MG TAB PO SCH ×2 (09:39→21:36)
[2022-05-18] MEDS: LISINOPRIL 20 MG TAB PO SCH (09:39)
[2022-05-18] MEDS: cefTRIAXone 1GM/50ML D5W 50 ML IV SCH (09:40)
[2022-05-18] MEDS: FUROSEMIDE 20 MG/2 ML VIAL IV SCH (09:40)
[2022-05-18] MEDS ORDERED: MORPHINE SULF 30 mg ER tab PO SCH (10:00)
[2022-05-18] MEDS ORDERED: OPTISON 3ml Vial for INJ IV ONE (10:45)
[2022-05-18] MEDS: MORPHINE SULF 30 mg ER tab PO SCH ×2 (11:11→21:34)
[2022-05-18 12:20] VITALS: BP 103/60
[2022-05-18 16:20] VITALS: BP 103/61
[2022-05-18] MEDS: TAMSULOSIN HYDROCHLORIDE 0.4 MG CAP PO SCH (18:01)
[2022-05-18 21:22] VITALS: BP 90/48
[2022-05-18] MEDS: PREGABALIN CAPSULE 75 MG CAP PO SCH (21:35)
[2022-05-18] MEDS: ATORVASTATIN 20 MG TAB PO SCH (21:36)
[2022-05-19 04:32] VITALS: BP 96/54
[2022-05-19] MEDS: CLINDAMYCIN 600MG IV 50 ML IV SCH ×3 (05:23→21:36)
[2022-05-19] MEDS: ONDANSETRON HCL 4 MG/2 ML VIAL IV PRN (05:23)
[2022-05-19 08:30] VITALS: BP 115/63
[2022-05-19] MEDS: POTASSIUM CHL 20 Meq TABLET PO SCH (09:14)
[2022-05-19] MEDS: ASPirin-EC 81 mg tab PO SCH (09:14)
[2022-05-19] MEDS: MORPHINE SULF 30 mg ER tab PO SCH ×2 (09:15→21:33)
[2022-05-19] MEDS: LISINOPRIL 20 MG TAB PO SCH (09:16)
[2022-05-19] MEDS: ENOXAPARIN SOD 40 MG/0.4 ML SYRINGE SC SCH (09:16)
[2022-05-19] MEDS: FUROSEMIDE 20 MG/2 ML VIAL IV SCH (09:16)
[2022-05-19] MEDS: busPIRone HCL 10 MG TAB PO SCH ×2 (09:16→21:35)
[2022-05-19] MEDS: cefTRIAXone 1GM/50ML D5W 50 ML IV SCH (09:17)
[2022-05-19 12:30] VITALS: BP 115/74
[2022-05-19 16:30] VITALS: BP 134/83
[2022-05-19] MEDS: TAMSULOSIN HYDROCHLORIDE 0.4 MG CAP PO SCH (16:58)
[2022-05-19] MEDS: PREGABALIN CAPSULE 75 MG CAP PO SCH (21:34)
[2022-05-19] MEDS: ATORVASTATIN 20 MG TAB PO SCH (21:35)
[2022-05-19 21:40] VITALS: BP 107/85
[2022-05-20] MEDS: HYDROcodone-ACET 5/325MG TAB PO PRN ×2 (04:40→16:03)
[2022-05-20 04:42] VITALS: BP 123/84
[2022-05-20] MEDS: CLINDAMYCIN 600MG IV 50 ML IV SCH ×3 (05:47→21:40)
[2022-05-20 09:00] VITALS: BP 123/80
[2022-05-20] MEDS: cefTRIAXone 1GM/50ML D5W 50 ML IV SCH (09:24)
[2022-05-20] MEDS: ENOXAPARIN SOD 40 MG/0.4 ML SYRINGE SC SCH (09:25)
[2022-05-20] MEDS: FUROSEMIDE 20 MG/2 ML VIAL IV SCH (09:26)
[2022-05-20] MEDS: LISINOPRIL 20 MG TAB PO SCH (09:27)
[2022-05-20] MEDS: ASPirin 81 mg TAB PO SCH (09:28)
[2022-05-20] MEDS: busPIRone HCL 10 MG TAB PO SCH ×2 (09:28→21:39)
[2022-05-20] MEDS: MORPHINE SULF 30 mg ER tab PO SCH ×2 (09:29→21:38)
[2022-05-20 13:00] VITALS: BP 106/68
[2022-05-20 16:39] VITALS: BP 119/78
[2022-05-20] MEDS: TAMSULOSIN HYDROCHLORIDE 0.4 MG CAP PO SCH (17:25)
[2022-05-20] MEDS: PREGABALIN CAPSULE 75 MG CAP PO SCH (21:39)
[2022-05-20] MEDS: ATORVASTATIN 20 MG TAB PO SCH (21:39)
[2022-05-20 22:00] VITALS: BP 129/75
[2022-05-21] VITALS (10 sets, daily range): BP systolic 103–165; BP diastolic 67–105
[2022-05-21] MEDS: HYDROcodone-ACET 5/325MG TAB PO PRN ×3 (03:53→19:58)
[2022-05-21] MEDS: ONDANSETRON HCL 4 MG/2 ML VIAL IV PRN (05:26)
[2022-05-21] MEDS: CLINDAMYCIN 600MG IV 50 ML IV SCH ×3 (05:26→21:21)
[2022-05-21] MEDS ORDERED: VANCOMYCIN 1GM/250ML 250 ML IV ONE ×2 (06:00→14:45)
[2022-05-21] MEDS: cefTRIAXone 1GM/50ML D5W 50 ML IV SCH (09:26)
[2022-05-21] MEDS: POTASSIUM CHL 20 Meq TABLET PO SCH (09:26)
[2022-05-21] MEDS: MORPHINE SULF 30 mg ER tab PO SCH ×2 (09:26→21:20)
[2022-05-21] MEDS: ASPirin 81 mg TAB PO SCH (09:27)
[2022-05-21] MEDS: ENOXAPARIN SOD 40 MG/0.4 ML SYRINGE SC SCH (09:28)
[2022-05-21] MEDS: FUROSEMIDE 20 MG/2 ML VIAL IV SCH (09:29)
[2022-05-21] MEDS: busPIRone HCL 10 MG TAB PO SCH ×2 (09:35→21:19)
[2022-05-21] MEDS: LISINOPRIL 20 MG TAB PO SCH (09:38)
[2022-05-21] MEDS: DAKINS QUARTER STR 0.125% (NaHypochlorite) 473 ML TOPICAL SOL TOP SCH ×2 (10:00→21:20)
[2022-05-21 14:56] LABS: INR 1.06 (0.9-1.15)
[2022-05-21] MEDS ORDERED: fentaNYL CITRATE 100 MCG/2 ML VL ONE (16:04)
[2022-05-21] MEDS ORDERED: VANCOMYCIN HCL 1000 MG VL ONE (16:04)
[2022-05-21] MEDS ORDERED: MIDAZOLAM HCL 2MG/2ML 2ml VIAL (1mg/ml) ONE (16:05)
[2022-05-21] MEDS ORDERED: LIDOCAINE 2%HCL (LOCAL ANESTH.) INJ 20ML MDV ONE (16:25)
[2022-05-21] MEDS: TAMSULOSIN HYDROCHLORIDE 0.4 MG CAP PO SCH (18:49)
[2022-05-21] MEDS: ATORVASTATIN 20 MG TAB PO SCH (21:19)
[2022-05-21] MEDS: PREGABALIN CAPSULE 75 MG CAP PO SCH (21:20)
[2022-05-21] MEDS: ceFAZolin 1GM/50ML 50 ML IV SCH (21:21)
[2022-05-22 05:00] VITALS: BP 131/65
[2022-05-22] MEDS: ceFAZolin 1GM/50ML 50 ML IV SCH ×2 (05:21→14:00)
[2022-05-22] MEDS: CLINDAMYCIN 600MG IV 50 ML IV SCH ×2 (05:21→14:00)
[2022-05-22] MEDS ORDERED: VANCOMYCIN 1GM/250ML 250 ML IV ONE (06:00)
[2022-05-22] MEDS: HYDROcodone-ACET 5/325MG TAB PO PRN (06:06)
[2022-05-22] MEDS: ONDANSETRON HCL 4 MG/2 ML VIAL IV PRN (07:32)
[2022-05-22 08:47] VITALS: BP 135/61
[2022-05-22] MEDS: ASPirin 81 mg TAB PO SCH (09:19)
[2022-05-22] MEDS: busPIRone HCL 10 MG TAB PO SCH (09:19)
[2022-05-22] MEDS: MORPHINE SULF 30 mg ER tab PO SCH (09:19)
[2022-05-22] MEDS: LISINOPRIL 20 MG TAB PO SCH (09:22)
[2022-05-22] MEDS: DAKINS QUARTER STR 0.125% (NaHypochlorite) 473 ML TOPICAL SOL TOP SCH (10:00)
[2022-05-22] MEDS ORDERED: METOPROLOL SUCCINATE XL 50 MG TAB PO SCH (10:00)
[2022-05-22] MEDS ORDERED: CLIN300C8 PO (11:21)
[2022-05-22] MEDS ORDERED: HYDR-4902 PO (11:21)
[2022-05-22 11:40] VITALS: BP 116/72
[2022-05-22] MEDS: FUROSEMIDE 20 MG/2 ML VIAL IV SCH (12:48)
== END 2022-05-22 14:55 | disposition home health service (06) | DRG 242 ==
LOC: ER 10:18 → TELE 17:42 → TELE-WESTW 22:18
PROVIDERS: ADMIT Registered Nurse; ATTEND Family Medicine
PROC: 0JH606Z Insertion of Pacemaker, Dual Chamber into Chest Subcutaneous Tissue and Fascia, Open Approach (ICD-10-PCS; principal; 2022-05-21)
PROC: 02H63JZ Insertion of Pacemaker Lead into Right Atrium, Percutaneous Approach (ICD-10-PCS; 2022-05-21)
PROC: 02HK3JZ Insertion of Pacemaker Lead into Right Ventricle, Percutaneous Approach (ICD-10-PCS; 2022-05-21)
PROC: B5171ZZ Fluoroscopy of Left Subclavian Vein using Low Osmolar Contrast (ICD-10-PCS; 2022-05-21)
DX: I49.5 Sick sinus syndrome (principal); I50.33 Acute on chronic diastolic (congestive) heart failure; L03.116 Cellulitis of left lower limb; Z68.41 Body mass index [BMI] 40.0-44.9, adult; G62.9 Polyneuropathy, unspecified; I48.0 Paroxysmal atrial fibrillation; E66.01 Morbid (severe) obesity due to excess calories; E78.00 Pure hypercholesterolemia, unspecified; F31.9 Bipolar disorder, unspecified; F41.9 Anxiety disorder, unspecified; Z20.822 Contact with and (suspected) exposure to COVID-19; G89.29 Other chronic pain; I11.0 Hypertensive heart disease with heart failure; N40.0 Benign prostatic hyperplasia without lower urinary tract symptoms; M54.9 Dorsalgia, unspecified; Z82.3 Family history of stroke; Z82.49 Family history of ischemic heart disease and other diseases of the circulatory system; Z86.73 Personal history of transient ischemic attack (TIA), and cerebral infarction without residual deficits; Z90.49 Acquired absence of other specified parts of digestive tract
CPT/HCPCS: 36415; 71045; 80053; 80061; 81001; 83036; 83880; 84443; 84484; 85007; 85025; 85027; 85610; 87205; 87426; 93005; 93306; 93925; 93970; 96365; 96375; 99152; C1785; G0378; J0690; J0696; J2250; J2405; J3490; Q9956

== ENCOUNTER 2022-05-30 11:03 | Emergency (ER) | payer MEDICARE ==
[~2022-05-30] VITALS: Ht 175.3 cm; Wt 135.9 kg
[~2022-05-30 11:03] MED LIST changes: +CLIN300C8 PO; +HYDR-4902 PO; +SPIR50TA5 PO
[2022-05-30 11:52] VITALS: BP 110/62
[2022-05-30] MEDS ORDERED: PRED20TA2 PO (12:32)
[2022-05-30] MEDS ORDERED: MELO7.5T9 PO (12:32)
== END 2022-05-30 12:40 | disposition home or self-care (01) ==
LOC: ER 11:03
DX: S83.91XA Sprain of unspecified site of right knee, initial encounter (principal); M17.9 Osteoarthritis of knee, unspecified; E66.01 Morbid (severe) obesity due to excess calories; Z68.41 Body mass index [BMI] 40.0-44.9, adult; I11.0 Hypertensive heart disease with heart failure; I50.9 Heart failure, unspecified; E78.5 Hyperlipidemia, unspecified; Z86.73 Personal history of transient ischemic attack (TIA), and cerebral infarction without residual deficits; Z90.49 Acquired absence of other specified parts of digestive tract; Z95.0 Presence of cardiac pacemaker; Z90.89 Acquired absence of other organs; Z79.82 Long term (current) use of aspirin; Z79.899 Other long term (current) drug therapy; Z79.2 Long term (current) use of antibiotics; W18.39XA Other fall on same level, initial encounter; Y93.89 Activity, other specified; Y92.89 Other specified places as the place of occurrence of the external cause; Y99.8 Other external cause status
CPT/HCPCS: 73562

== ENCOUNTER → 2022-06-15 | Outpatient (CLI) | payer MEDICARE ==
[~2022-06-15] VITALS: Ht 175.3 cm; Wt 135.6 kg
[~2022-06-15] MED LIST changes: +ADENOSINE 114 MG in GIVE UN-DILUTED 0 ML IV ONE; +ADENOSINE 90 MG/30 ML INJ IV ONE; +MELO7.5T9 PO; +PRED20TA2 PO
== END | disposition home or self-care (01) ==
LOC: Rad HDHVI 13:54
PROVIDERS: ATTEND Internal Medicine Cardiovascular Disease
DX: I11.0 Hypertensive heart disease with heart failure (principal); I50.33 Acute on chronic diastolic (congestive) heart failure; I87.2 Venous insufficiency (chronic) (peripheral); I49.5 Sick sinus syndrome; E78.5 Hyperlipidemia, unspecified; Z95.0 Presence of cardiac pacemaker
CPT/HCPCS: 78452; 93005; 96374; 96375; A9500; J0153

== ENCOUNTER → 2022-11-04 | Outpatient (CLI) | payer MEDICARE ==
[~2022-11-04] MED LIST changes: -ADENOSINE 114 MG in GIVE UN-DILUTED 0 ML IV ONE; -ADENOSINE 90 MG/30 ML INJ IV ONE
[2022-11-04 15:26] LABS: Basophils # (auto) 0.1 10 ^3/uL (0-0.2); Basophils % (auto) 0.8 % (0.0-2.0); Eosinophils # (auto) 0.2 10 ^3/uL (0-0.8); Eosinophils % (auto) 1.9 % (0.0-7.0); Hematocrit 43.3 % (41.0-53.0); Hemoglobin 14.1 g/dL (13.5-17.5); Lymphocytes # (auto) 2.4 10 ^3/uL (0.4-5.4); Lymphocytes % (auto) 29.5 % (10.0-50.0); Mean Corpuscular Hemoglobin 28.8 pg (28.0-32.0); Mean Corpuscular Hgb Conc. 32.5 g/dL (32.0-36.0); Mean Corpuscular Volume 88.8 fL (80.0-100.0); Monocytes # (auto) 0.9 10 ^3/uL (0-1.3); Monocytes % (auto) 11.1 % (0.0-12.0); Neutrophils # (auto) 4.5 10 ^3/uL (1.6-8.6); Neutrophils % (auto) 56.7 % (37.0-80.0); Red Blood Cells 4.87 10^6/uL (4.5-5.90); Red Cell Distribution Width 13.2 % (11.8-14.3)
[2022-11-04 15:59] LABS: Calcium 8.6 mg/dL (8.5-10.1); Potassium 3.8 mmol/L (3.5-5.1); Uric Acid 5.7 mg/dL (3.5-7.2)
[2022-11-04 16:02] LABS: Bilirubin, Total 1.5 mg/dL (0.2-1.0); Total Protein 7.5 g/dL (6.4-8.2)
[2022-11-05 07:07] LABS: Immunoglobulin G, Serum 1730 mg/dL (603-1613)
== END | disposition home or self-care (01) ==
LOC: LAB 15:08
PROVIDERS: ATTEND Internal Medicine
DX: E11.9 Type 2 diabetes mellitus without complications (principal); I10 Essential (primary) hypertension; M25.50 Pain in unspecified joint
CPT/HCPCS: 36415; 80053; 82784; 83036; 84550; 85025; 86200; 86334; 86431

== ENCOUNTER → 2023-09-02 | Outpatient (CLI) | payer MEDICARE ==
[~2023-09-02] MED LIST changes: -AMLO-496 PO; +AMLO1TAB23 PO; +CLIN300C70 PO; -CLIN300C8 PO; -CLON0.1D TD; +CLON0.1D13 TD; -LISI40TA11 PO; +LISI40TA16 PO; -OMEP-260 PO; +OMEP1CAP70 PO; -OXYC-904 PO; +OXYC-998 PO
[2023-09-02 16:24] LABS: Basophils # (auto) 0 10 ^3/uL (0-0.2); Basophils % (auto) 0.5 % (0.0-2.0); Eosinophils # (auto) 0.1 10 ^3/uL (0-0.8); Eosinophils % (auto) 1.2 % (0.0-7.0); Hematocrit 44.6 % (41.0-53.0); Hemoglobin 14.3 g/dL (13.5-17.5); Lymphocytes # (auto) 2.5 10 ^3/uL (0.4-5.4); Lymphocytes % (auto) 34.6 % (10.0-50.0); Mean Corpuscular Hemoglobin 28.6 pg (28.0-32.0); Mean Corpuscular Hgb Conc. 32.1 g/dL (32.0-36.0); Mean Corpuscular Volume 89.1 fL (80.0-100.0); Monocytes # (auto) 0.6 10 ^3/uL (0-1.3); Monocytes % (auto) 8.5 % (0.0-12.0); Neutrophils % (auto) 55.2 % (37.0-80.0); Red Cell Distribution Width 13.5 % (11.8-14.3); White Blood Cell 7.2 10^3/uL (4.4-10.8)
[2023-09-02 16:59] LABS: Erythrocyte Sedimentation Rate 4 mm/hr (0-20)
[2023-09-02 17:37] LABS: Prostate Specific Antigen 0.27 ng/mL (0.0-4.0)
[2023-09-02 17:38] LABS: Alanine Aminotransferase 57 U/L (7-40); Albumin 3.8 g/dL (3.2-4.8); Alkaline Phosphatase 164 U/L (46-116); Anion Gap 4 (5-15); Aspartate Aminotransferase 49 U/L (13-40); BUN/Creatinine Ratio 9.1 (10.0-20.0); Bilirubin, Total 1.3 mg/dL (0.2-1.0); Blood Urea Nitrogen 10 mg/dL (9-23); Calcium 9.1 mg/dL (8.5-10.1); Carbon Dioxide 27 mmol/L (20-30); Chloride 108 mmol/L (98-107); Glucose 120 mg/dL (74-106); Potassium 3.9 mmol/L (3.5-5.1); Sodium 139 mmol/L (136-145)
== END | disposition home or self-care (01) ==
LOC: LAB 16:02
PROVIDERS: ATTEND Internal Medicine
DX: I10 Essential (primary) hypertension (principal); E11.9 Type 2 diabetes mellitus without complications; I50.9 Heart failure, unspecified
CPT/HCPCS: 36415; 80053; 83036; 83880; 84153; 84439; 84443; 85025; 85652

== ENCOUNTER → 2023-10-11 | Outpatient (CLI) | payer MEDICARE ==
[~2023-10-11] VITALS: Ht 175.3 cm; Wt 140.6 kg
[~2023-10-11] MED LIST changes: +ADENOSINE 118 MG in GIVE UN-DILUTED 0 ML IV ONE; +ADENOSINE 90 MG/30 ML INJ IV ONE
== END | disposition home or self-care (01) ==
LOC: Rad HDHVI 14:20
PROVIDERS: ATTEND Internal Medicine Cardiovascular Disease
DX: I11.0 Hypertensive heart disease with heart failure (principal); I50.32 Chronic diastolic (congestive) heart failure; R07.9 Chest pain, unspecified; E11.42 Type 2 diabetes mellitus with diabetic polyneuropathy; I49.5 Sick sinus syndrome; E78.5 Hyperlipidemia, unspecified; I42.9 Cardiomyopathy, unspecified; Z95.0 Presence of cardiac pacemaker
CPT/HCPCS: 78452; 93005; 96374; 96375; A9500; J0153

== ENCOUNTER 2023-12-25 10:28 | Emergency (ER) | payer MEDICARE ==
[~2023-12-25] VITALS: Ht 172.7 cm; Wt 149.0 kg
[~2023-12-25 10:28] MED LIST changes: -ADENOSINE 118 MG in GIVE UN-DILUTED 0 ML IV ONE; -ADENOSINE 90 MG/30 ML INJ IV ONE; -ATO40T PO; +ATOR-507 PO; +CLIN1CAP70 PO; -CLIN300C70 PO; -PREG-109 PO; +PREG75CA90 PO
[2023-12-25] MEDS: SODIUM CHLORIDE 0.9% 250 ML IV ONE (11:30)
[2023-12-25] MEDS: ONDANSETRON HCL 4 MG/2 ML VIAL IV ONE (11:35)
[2023-12-25] MEDS: HYDROmorphone HCL 2 MG/ML VL/or syr IV ONE (11:37)
[2023-12-25 11:58] LABS: Basophils # (auto) 0.1 10 ^3/uL (0-0.2); Basophils % (auto) 0.9 % (0.0-2.0); Eosinophils # (auto) 0.1 10 ^3/uL (0-0.8); Eosinophils % (auto) 1.7 % (0.0-7.0); Hemoglobin 13.8 g/dL (13.5-17.5); Mean Corpuscular Hemoglobin 29.4 pg (28.0-32.0); Mean Corpuscular Hgb Conc. 32.9 g/dL (32.0-36.0); Mean Corpuscular Volume 89.3 fL (80.0-100.0); Monocytes # (auto) 0.9 10 ^3/uL (0-1.3); Monocytes % (auto) 11.4 % (0.0-12.0); Neutrophils # (auto) 4.6 10 ^3/uL (1.6-8.6); Red Blood Cells 4.71 10^6/uL (4.5-5.90); Red Cell Distribution Width 13.4 % (11.8-14.3); White Blood Cell 7.6 10^3/uL (4.4-10.8)
[2023-12-25 12:13] LABS: INR 1.11 (0.9-1.15); Partial Thromboplastin Time 25.8 SEC (24.5-34.5); Prothrombin Time 11.7 sec (9.3-11.8)
[2023-12-25 12:15] LABS: Alanine Aminotransferase 68 U/L (7-40); Albumin 3.7 g/dL (3.2-4.8); Alkaline Phosphatase 243 U/L (46-116); Anion Gap 3 (5-15); Aspartate Aminotransferase 54 U/L (13-40); Bilirubin, Total 1.1 mg/dL (0.2-1.0); Blood Urea Nitrogen 9 mg/dL (9-23); Calcium 9.5 mg/dL (8.5-10.1); Carbon Dioxide 30 mmol/L (20-30); Chloride 105 mmol/L (98-107); Glucose 185 mg/dL (74-106); Magnesium 1.9 mg/dL (1.6-2.6); Potassium 3.7 mmol/L (3.5-5.1); Sodium 138 mmol/L (136-145)
[2023-12-25] MEDS ORDERED: CYCL-839 PO (13:00)
[2023-12-25] MEDS ORDERED: DICL50TA2 PO (13:00)
[2023-12-25 13:07] VITALS: BP 141/86; PULSE 66; RESP 17; TEMP 97; O2SAT 97
== END 2023-12-25 12:54 | disposition home or self-care (01) ==
LOC: ER 10:28
DX: S70.02XA Contusion of left hip, initial encounter (principal); M16.12 Unilateral primary osteoarthritis, left hip; E11.65 Type 2 diabetes mellitus with hyperglycemia; R74.8 Abnormal levels of other serum enzymes; E66.01 Morbid (severe) obesity due to excess calories; Z95.0 Presence of cardiac pacemaker; Z68.42 Body mass index [BMI] 45.0-49.9, adult; W01.0XXA Fall on same level from slipping, tripping and stumbling without subsequent striking against object, initial encounter; Y93.89 Activity, other specified; Y92.098 Other place in other non-institutional residence as the place of occurrence of the external cause; Y99.8 Other external cause status
CPT/HCPCS: 36415; 71045; 73700; 80053; 83735; 85025; 85610; 85730; 96361; 96374; 96375; 99285; J1170; J2405; J7050

== ENCOUNTER → 2024-02-24 | Outpatient (CLI) | payer MEDICARE ==
[~2024-02-24] MED LIST changes: +CYCL-839 PO; +DICL50TA2 PO
[2024-02-24 14:36] LABS: Basophils # (auto) 0.1 10 ^3/uL (0-0.2); Eosinophils # (auto) 0.1 10 ^3/uL (0-0.8); Eosinophils % (auto) 1.5 % (0.0-7.0); Hematocrit 45.6 % (41.0-53.0); Hemoglobin 15.1 g/dL (13.5-17.5); Lymphocytes # (auto) 2.5 10 ^3/uL (0.4-5.4); Lymphocytes % (auto) 33.2 % (10.0-50.0); Mean Corpuscular Hemoglobin 29.5 pg (28.0-32.0); Mean Corpuscular Hgb Conc. 33.2 g/dL (32.0-36.0); Mean Corpuscular Volume 88.8 fL (80.0-100.0); Monocytes % (auto) 13.1 % (0.0-12.0); Neutrophils # (auto) 3.8 10 ^3/uL (1.6-8.6); Neutrophils % (auto) 51.2 % (37.0-80.0); Red Blood Cells 5.13 10^6/uL (4.5-5.90); Red Cell Distribution Width 13.4 % (11.8-14.3); White Blood Cell 7.4 10^3/uL (4.4-10.8)
[2024-02-24 15:30] LABS: Alanine Aminotransferase 63 U/L (7-40); Albumin 3.7 g/dL (3.2-4.8); Alkaline Phosphatase 237 U/L (46-116); Anion Gap 5 (5-15); Aspartate Aminotransferase 62 U/L (13-40); BUN/Creatinine Ratio 8.3 (10.0-20.0); Blood Urea Nitrogen 9 mg/dL (9-23); Calcium 9.2 mg/dL (8.7-10.4); Carbon Dioxide 29 mmol/L (20-30); Chloride 106 mmol/L (98-107); Glucose 139 mg/dL (74-106); Potassium 4.2 mmol/L (3.5-5.1); Sodium 140 mmol/L (136-145)
[2024-02-24 15:32] LABS: Bilirubin, Total 1.6 mg/dL (0.2-1.0); Total Protein 6.9 g/dL (5.7-8.2)
== END | disposition home or self-care (01) ==
LOC: LAB 14:21
PROVIDERS: ATTEND Internal Medicine
DX: I10 Essential (primary) hypertension (principal); E11.9 Type 2 diabetes mellitus without complications
CPT/HCPCS: 36415; 80053; 83036; 85025

== ENCOUNTER 2024-07-31 21:54 | Inpatient (IN) | payer MEDICARE ==
[~2024-07-31] VITALS: Ht 172.7 cm; Wt 148.6 kg
[~2024-07-31 21:54] MED LIST changes: +HYDR1CAP27 PO; +PREG100C66 PO; +QUET100T47 PO; +SPIR25TA8 PO; -TAMS0.4C36 PO; +TAMS0.4C39 PO; +ZOFR4T PO
--- NOTE | 2024-07-31 22:09 | ED.PDOC ---
History of Present Illness HPI Comments 74-year-old male with PMHx CHF presents with a chief complaint of chest pain and SOB x 2 days. Patient reports that his pain is localized to his sternal region, non-radiating, describes as heaviness/pressure like sensation. Patient reports that his main concern is his inability to catch his breath. Patient reports SOB at rest and with exertion. Patient is not on home O2. No other symptoms or modifying factors present at this time. Chief Complaint: Chest Pain Time Seen by MD: 22:02 Primary Care Provider: YANIRA MCKENZIE Reviewed Notes: Medications, Allergies Allergies: Coded Allergies: NO KNOWN ALLERGIES (Unverified , 08/29/19) Home Meds Active Scripts Cyclobenzaprine Hcl (Cyclobenzaprine Hcl) 10 Mg Tab, 10 MG PO TID for 5 Days, #15 TAB Prov:RUSTY COMBS MD 12/25/23 Diclofenac Potassium (Diclofenac Potassium) 50 Mg Tab, 1 TAB PO TIDP for 5 Days, #15 TAB Prov:RUSTY COMBS MD 12/25/23 Prednisone (Prednisone) 20 Mg Tab, 60 MG PO DAILY, #15 MG Prov:YAYA SOTO 05/30/22 Meloxicam (Mobic) 7.5 Mg Tab, 7.5 MG PO BID, #30 TAB Prov:YAYA SOTO 05/30/22 Hydrocodone-Acetaminophen (Hydrocodone Bitartrate/AC 5-325 mg) 1 Tab Tab, 1 TAB PO TID PRN, #30 TAB Prov:JULIANA TRONCOSO MD 05/22/22 Clindamycin Hcl (Clindamycin Hcl) 300 Mg Cap, 1 CAP PO TID, #60 CAP Prov:JULIANA TRONCOSO MD 05/22/22 Reported Medications Spironolactone (Spironolactone) 50 Mg Tab, 40 MG PO, TAB 05/18/22 Clonidine Hcl ([id number] PATCH) 0.1 Mg/24 Hr Ph, 0.1 MG TD, PATCH 06/23/21 Clonidine Hydrochloride (Clonidine Hcl) 0.1 Mg Tab, 0.1 MG PO PRN for SBP>160 for 30 Days, MG 06/23/21 Hydrocodone-Acetaminophen (Hydrocodone Bitartrate/AC 10-325 mg) 1 Tab Tab, 1 TAB PO Q6HR, TAB 06/23/21 Ondansetron HCl (Ondansetron) 4 Mg Tab, 4 MG PO Q6HP, TAB ONDANSETRON ODT 05/24/20 Amlodipine Besylate (Amlodipine Besylate) 10 Mg Tab, 1 TAB PO DAILY AT DINNER, #30 TAB 5 Refills 05/24/20 Omeprazole (Omeprazole Dr) 20 Mg Cap, 20 MG PO DAILY, CAP 05/24/20 Multiple Vitamin (Multivitamins) Tab, 1 TAB PO DAILY, #90 TAB 3 Refills 05/24/20 Alpha Tocopheryl Acid Succinat (VITAMIN E) Unknown Strength Tab, PO DAILY, TAB 05/24/20 Lisinopril (Lisinopril) 40 Mg Tab, 1 TAB PO BID, #30 TAB 5 Refills 05/24/20 Pregabalin (Pregabalin) 75 Mg Cap, 75 MG PO HS, CAP 05/24/20 Furosemide (Furosemide) 40 Mg Tab, 40 MG PO DAILY for 30 Days 08/29/19 Aspirin (Aspir-Low) 81 Mg Tab, 81 MG PO DAILY for 30 Days, MG 08/29/19 Potassium Chloride (Klor-Con M20) 20 Meq Tab, 1 TAB PO BID, TAB 08/29/19 Tamsulosin Hcl (Tamsulosin Hcl) 0.4 Mg Cap, 0.4 MG PO HS for 30 Days, MG 08/29/19 Hydroxyzine Pamoate (Hydroxyzine Pamoate) 50 Mg Cap, 100 MG PO HS, CAP 08/29/19 Buspirone Hcl (Buspirone Hcl) 30 Mg Tab, 30 MG PO BID, TAB 08/29/19 Oxycodone HCl (Oxycodone Hydrochloride) 10 Mg Tab, 10 MG PO Q6HR, TAB 08/29/19 Zolpidem Tartrate (Zolpidem Tartrate) 10 Mg Tab, 1 TAB PO QPM, #30 TAB 2 Refills 01/03/16 Morphine Sulfate (Morphine Sulfate Er) 60 Mg Tab, 1 TAB PO Q12HR, #60 TAB 01/03/16 Atorvastatin Calcium (Lipitor) 40 Mg Tab, 1 TAB PO HS, #90 TAB 1 Refill 01/03/16 Information Source: Patient Mode of Arrival: Ambulatory Severity: Moderate Timing: Days Duration: Since onset Prehospital treatment: None Past Medical History PAST MEDICAL HISTORY: Anxiety, CHF, Depression, High Lipids, HTN, TIA Surgical History: Cholecystectomy, Pacemaker, Tonsillectomy Family History Family History: Reviewed,noncontributory to illness, Family hx of Cancer, Family hx of HTN Social History Smoker: Non-Smoker Alcohol: Denies ETOH Use Drugs: Denies Drug Use Lives In: Home Constitutional: denies: chills, diaphoresis, fatigue, fever, malaise, sweats, weakness, others EENTM: denies: blurred vision, double vision, ear bleeding, ear discharge, ear drainage, ear pain, ear ringing, eye pain, eye redness, hearing loss, mouth pain, mouth swelling, nasal discharge, nose bleeding, nose congestion, nose pain, photophobia, tearing, throat pain, throat swelling, voice changes, others Respiratory: reports: shortness of breath; denies: cough, hemoptysis, orthopnea, SOB at rest, SOB with excertion, stridor, wheezing, others Cardiovascular: reports: chest pain; denies: dizzy spells, diaphoresis, Dyspnea on exertion, edema, irregular heart beat, left arm pain, lightheadedness, palpitations, PND, syncope, others Gastrointestinal: denies: abdomen distended, abdominal pain, blood streaked bowels, constipated, diarrhea, dysphagia, difficulty swallowing, hematemesis, melena, nausea, poor appetite, poor fluid intake, rectal bleeding, rectal pain, vomiting, others Genitourinary: denies: burning, dysuria, flank pain, frequency, hematuria, incontinence, penile discharge, penile sore, pain, testicle pain, testicle swelling, urgency, others Neurological: denies: dizziness, fainting, headache, left sided numbness, left sided weakness, numbness, paresthesia, pre-existing deficit, right sided numbness, right sided weakness, seizure, speech problems, tingling, tremors, weakness, others Musculoskeletal: denies: back pain, gout, joint pain, joint swelling, muscle pain, muscle stiffness, neck pain, others Integumetry: denies: bruises, change in color, change in hair/nails, dryness, laceration, lesions, lumps, rash, wounds, others Allergic/Immunocompromised: denies: Difficulty Healing, Frequent Infections, Hives, Itching, others Hematologic/Lymphatic: denies: anemia, blood clots, easy bleeding, easy bruising, swollen glands, others Endocrine: denies: excessive hunger, excessive sweating, excessive thirst, excessive urination, flushing, intolerance to cold, intolerance to heat, unexplained weight gain, unexplained weight loss, others Psychiatric: denies: anxiety, bipolar disorder, depression, hopeless, panic disorder, schizophrenia, sleepless, suicidal, others All Other Systems: Reviewed and Negative Physical Exam General Appearance: No Apparent Distress, Normal HEENT: Normal ENT Inspection, Pharynx Normal, TMs Normal Neck: Full Range of Motion, Non-Tender, Normal, Normal Inspection Respiratory: Chest Non-Tender, Lungs Clear, No Accessory Muscle Use, No Respira tory Distress, Normal Breath Sounds Cardiovascular: No Edema, No JVD, No Murmur, No Gallop, Normal Peripheral Pulses, Regular Rate/Rhythm Breast Exam: Deferred Gastrointestinal: No Organomegaly, Non Tender, No Pulsatile Mass, Normal Bowel Sounds, Soft Genitalia: Deferred Pelvic: Deferred Rectal: Deferred Extremities: No calf tenderness, Normal capillary refill, Normal inspection, Normal range of motion, Non-tender, No pedal edema Musculoskeletal : Apperance: Normal Neurologic: Alert, product sales engineer II-XII nml as Tested, No Motor Deficits, Normal Affect, Normal Mood, No Sensory Deficits Cerebellar Function: Normal Reflexes: Normal Skin: Dry, Normal Color, Warm Lymphatic: No Adenopathy Was a procedure done? Was a procedure done?: No Differential Dx Considerations may include: Differential diagnosis includes but not limited to: angina, myocardial infarction, pulmonary embolus, pleurisy, musculoskeletal etiology and others X-Ray, Labs, Meds, VS Vital Signs Date Time Temp Pulse Resp B/P (MAP) Pulse Ox O2 Delivery O2 Flow Rate FiO2 07/31/24 22:03 98.5 76 18 161/93 (115) 95 07/31/24 21:59 70 Lab Test 07/31/24 22:04 Range/Units White Blood Count 7.2 4.4-10.8 10^3/uL Red Blood Count 4.72 4.5-5.90 10^6/uL Hemoglobin 14.3 13.5-17.5 g/dL Hematocrit 43.5 41.0-53.0 % Mean Corpuscular Volume 92.1 80.0-100.0 fL Mean Corpuscular Hemoglobin 30.3 28.0-32.0 pg Mean Corpuscular Hemoglobin Concent 32.9 32.0-36.0 g/dL Red Cell Distribution Width 13.5 11.8-14.3 % Platelet Count 178 140-450 10^3/uL Mean Platelet Volume 9.0 6.9-10.8 fL Neutrophils (%) (Auto) 61.9 37.0-80.0 % Lymphocytes (%) (Auto) 26.7 10.0-50.0 % Monocytes (%) (Auto) 9.9 0.0-12.0 % Eosinophils (%) (Auto) 0.8 0.0-7.0 % Basophils (%) (Auto) 0.7 0.0-2.0 % Neutrophils # (Auto) 4.4 1.6-8.6 10 ^3/uL Lymphocytes # (Auto) 1.9 0.4-5.4 10 ^3/uL Monocytes # (Auto) 0.7 0-1.3 10 ^3/uL Eosinophils # (Auto) 0.1 0-0.8 10 ^3/uL Basophils # (Auto) 0 0-0.2 10 ^3/uL Nucleated Red Blood Cells 0.0 % Prothrombin Time 11.8 9.3-11.8 sec Prothrombin Time INR 1.12 0.9-1.15 Sodium Level 139 136-145 mmol/L Potassium Level 3.8 3.5-5.1 mmol/L Chloride Level 106 98-107 mmol/L Carbon Dioxide Level 27 20-31 mmol/L Anion Gap 6 5-15 Blood Urea Nitrogen 12 9-23 mg/dL Creatinine 1.06 0.700-1.30 mg/dL Glomerular Filtration Rate Calc 75 >90 mL/min BUN/Creatinine Ratio 11.3 10.0-20.0 Serum Glucose 197 H 74-106 mg/dL Calcium Level 9.2 8.7-10.4 mg/dL Total Bilirubin 1.6 H 0.2-1.0 mg/dL Aspartate Amino Transferase (AST) 51 H 13-40 U/L Alanine Aminotransferase (ALT) 61 H 7-40 U/L Alkaline Phosphatase 204 H 46-116 U/L Troponin I High Sensitivity 3 L </=54 ng/L Total Protein 6.8 5.7-8.2 g/dL Albumin 3.7 3.2-4.8 g/dL Time of 1ST Reevaluation: :32 Reevaluation 1ST: Unchanged Time of 2ND Reevaluation: 00:51 Reevaluation 2ND: Unchanged Patient Education/Counseling: Diagnosis, Treatment, Prognosis Family Education/Counseling: No Family Present Departure 1 Departure Time of Disposition: 00:51 Impression: Primary Impression: Unstable angina Disposition: ADMITTED INPATIENT Admit to: Tele Condition: Guarded Critical Care Note Critical Care Time?: No Stability Stability form required: No I personally scribed for RUSSELL HUMPHREY MD ([email or web address]) on 07/31/24 at 22:09. Electronically submitted by Brodie Mcconnell ([email or web address]). RUSSELL HUMPHREY MD Jul 31, 2024 22:09
[2024-07-31 22:28] LABS: Basophils # (auto) 0 10 ^3/uL (0-0.2); Basophils % (auto) 0.7 % (0.0-2.0); Eosinophils # (auto) 0.1 10 ^3/uL (0-0.8); Eosinophils % (auto) 0.8 % (0.0-7.0); Hematocrit 43.5 % (41.0-53.0); Hemoglobin 14.3 g/dL (13.5-17.5); Lymphocytes # (auto) 1.9 10 ^3/uL (0.4-5.4); Lymphocytes % (auto) 26.7 % (10.0-50.0); Mean Corpuscular Hemoglobin 30.3 pg (28.0-32.0); Mean Corpuscular Hgb Conc. 32.9 g/dL (32.0-36.0); Mean Corpuscular Volume 92.1 fL (80.0-100.0); Monocytes # (auto) 0.7 10 ^3/uL (0-1.3); Monocytes % (auto) 9.9 % (0.0-12.0); Neutrophils # (auto) 4.4 10 ^3/uL (1.6-8.6); Neutrophils % (auto) 61.9 % (37.0-80.0); Platelet Count (auto) 178 10^3/uL (140-450); Red Blood Cells 4.72 10^6/uL (4.5-5.90); Red Cell Distribution Width 13.5 % (11.8-14.3); White Blood Cell 7.2 10^3/uL (4.4-10.8)
[2024-07-31 22:40] LABS: INR 1.12 (0.9-1.15); Prothrombin Time 11.8 sec (9.3-11.8)
[2024-07-31 22:50] LABS: Albumin 3.7 g/dL (3.2-4.8); Anion Gap 6 (5-15); Blood Urea Nitrogen 12 mg/dL (9-23); Calcium 9.2 mg/dL (8.7-10.4); Carbon Dioxide 27 mmol/L (20-31); Chloride 106 mmol/L (98-107); Potassium 3.8 mmol/L (3.5-5.1); Sodium 139 mmol/L (136-145); Total Protein 6.8 g/dL (5.7-8.2)
--- NOTE | 2024-07-31 22:50 | DVH ---
CHEST RADIOGRAPH Indication: chest pain Technique: Single frontal view of the chest was obtained Comparison: XY CHEST PORTABLE on DOS: 12/25/23, CXR1 on DOS: 05/22/22, CHEST XRAY 1 VIEW on DOS: 05/22 FINDINGS: Lines and Tubes: Pacemaker is in place with pulse generator over the left chest. This does not appear significantly changed from 12/25/2023 Lungs: No focal consolidation. Pleura: No effusion. No pneumothorax. Cardiomediastinal contours: Unremarkable Bones: No acute osseous abnormality. IMPRESSION: 1. No acute cardiopulmonary disease. 2. No significant change from 12/25/2023 HS:Y
[2024-07-31 23:04] LABS: Alanine Aminotransferase 61 U/L (7-40); Alkaline Phosphatase 204 U/L (46-116); Aspartate Aminotransferase 51 U/L (13-40); Bilirubin, Total 1.6 mg/dL (0.2-1.0); Glucose 197 mg/dL (74-106)
[2024-07-31 23:13] LABS: BUN/Creatinine Ratio 11.3 (10.0-20.0)
[2024-08-01] MEDS: ASPirin 81 mg TAB PO ONE (01:44)
[2024-08-01 01:49] VITALS: RESP 18; O2SAT 98
[2024-08-01 01:51] LABS: INR 1.11 (0.9-1.15); Prothrombin Time 11.7 sec (9.3-11.8)
[2024-08-01] MEDS ORDERED: DEXTROSE (50%) 50ML SYRG IV PRN (04:45)
[2024-08-01] MEDS ORDERED: cloNIDine HCL 0.1 MG TAB PO PRN (04:45)
[2024-08-01 05:22] LABS: Albumin 3.8 g/dL (3.2-4.8); Anion Gap 10 (5-15); BUN/Creatinine Ratio 12.6 (10.0-20.0); Blood Urea Nitrogen 13 mg/dL (9-23); Calcium 9.6 mg/dL (8.7-10.4); Carbon Dioxide 24 mmol/L (20-31); Chloride 107 mmol/L (98-107); Potassium 4.3 mmol/L (3.5-5.1); Sodium 141 mmol/L (136-145)
[2024-08-01 05:23] LABS: Total Protein 6.9 g/dL (5.7-8.2)
[2024-08-01] MEDS: PANTOPRAZOLE 40 MG TAB PO SCH (05:37)
[2024-08-01 05:40] LABS: Alanine Aminotransferase 59 U/L (7-40); Alkaline Phosphatase 190 U/L (46-116); Aspartate Aminotransferase 53 U/L (13-40); Bilirubin, Total 1.7 mg/dL (0.2-1.0); Glucose 163 mg/dL (74-106)
[2024-08-01] MEDS: FUROSEMIDE 40 MG/4 ML VIAL IV ONE (05:57)
[2024-08-01] MEDS: ACCU-CHEK COMFORT CURVE STRIP VI SCH (07:58)
[2024-08-01] MEDS: InsuLIN REG 1unit/0.01ml Soln (100units/ml) SC SCH (07:59)
--- NOTE | 2024-08-01 09:42 | DVH ---
Bilateral lower extremity venous duplex Clinical History: rule of DVT Comparison: BLDVT on DOS: 05/17/22 Technique: Duplex Doppler evaluation of the deep venous systems of both lower extremities from the common femora l veins to the popliteal veins including color Doppler and spectral/pulsed waveform analysis was perf ormed. Findings: RIGHT SIDE: The common femoral vein demonstrates appropriate compressibility and waveform variability. There is compressibility/patency of the great saphenous vein at the proximal thigh. The femoral vein demonstrates appropriate compressibility and waveform variability. The deep femoral vein demonstrates appropriate compressibility and waveform variability. The popliteal vein demonstrates appropriate compressibility and waveform variability. There is normal compressibility at the tibioperoneal trunk. LEFT SIDE: The common femoral vein demonstrates appropriate compressibility and waveform variability. There is compressibility/patency of the great saphenous vein at the proximal thigh. The femoral vein demonstrates appropriate compressibility and waveform variability. The deep femoral vein demonstrates appropriate compressibility and waveform variability. The popliteal vein demonstrates appropriate compressibility and waveform variability. There is normal compressibility at the tibioperoneal trunk. Impression: No right or left femoropopliteal venous thrombosis.
[2024-08-01] MEDS: SPIRONOLACTONE 25 MG TAB PO SCH (09:46)
[2024-08-01] MEDS: ASPirin 81 mg TAB PO SCH (09:54)
[2024-08-01] MEDS: LISINOPRIL 20 MG TAB PO SCH (09:54)
[2024-08-01] MEDS: busPIRone HCL 10 MG TAB PO SCH (09:56)
[2024-08-01] MEDS: MORPHINE SULF 30 mg ER tab PO SCH (09:58)
[2024-08-01] MEDS ORDERED: oxyCODONE ER 10 MG TAB PO SCH (10:00)
--- NOTE | 2024-08-01 10:02 | DVHHPRES ---
History of Present Illness Resident Creating Document: JHGITARONDA RESIDENT History of Present Illness Patient is a 74-year-old male with past medical history of hypertension, hyperlipidemia, type 2 diabetes mellitus, congestive heart failure with ?Improved ejection fraction came to the ED with a chief complaint of chest pain and shortness of breath. Patient reported that since about a week he has been having episodes of sudden onset shortness of breath associated with a substernal chest pain which is nonradiating, sharp, short lasting and when during the episode he checks his blood pressure usually elevated with a his SBP in 180s and DBP in 90s and he also experiences shaking. Patient has been taking clonidine 0.1 mg which is his p.r.n. medication for high blood pressure. Before coming to the hospital today he took clonidine 4 times to lower his blood pressure and in the evening it was still high at 175/95 following which she came to the hospital for further evaluation. Patient's echocardiogram from October 2023 shows ejection fraction 55%, but he reports that previously 8 was low and he had been given something to wear around his neck for about 2 years. Past medical history: Hypertension, hyperlipidemia, type 2 diabetes mellitus, congestive heart failure with ?Improved ejection fraction, anxiety, depression Past surgical history: Pacemaker, cholecystectomy Social history: Patient lives at home denies smoking, alcohol, drug use Home medications: Lisinopril 20 mg, spironolactone 25 mg, atorvastatin 40 mg, tamsulosin 0.4 mg, buspirone 25 mg, quetiapine 100 mg Review of Systems Review of Systems Patient reports feeling better Denies shortness of breath, chest pain, any episode of shaking Denies dizziness, anxiety at present Allergies: Coded Allergies: NO KNOWN ALLERGIES (Unverified , 08/29/19) Medications Current Medications Medications Dose Ordered Sig/Camille Route Start Time Stop Time Status Last Admin Dose Admin Lisinopril 20 mg DAILY PO 08/01/24 10:00 Spironolactone 25 mg DAILY PO 08/01/24 10:00 Atorvastatin Calcium 40 mg HS PO 08/01/24 22:00 Pantoprazole Sodium 40 mg DAILY@0600 PO 08/01/24 06:00 08/01/24 05:37 40 MG Tamsulosin HCl 0.4 mg QPM PO 08/01/24 18:00 Diagnostic Test (Pha) 1 strip IQ4HR 08/01/24 08:00 08/01/24 07:58 1 STRIP Insulin Human Regular IQ4HR SC 08/01/24 08:00 08/01/24 07:59 3 UNITS Dextrose 50 ml UD PRN IV 08/01/24 04:45 Buspirone HCl 15 mg Q12HR PO 08/01/24 10:00 Morphine Sulfate 60 mg Q12HR PO 08/01/24 10:00 Oxycodone HCl 10 mg Q12HR PO 08/01/24 10:00 UNV Aspirin 81 mg DAILY PO 08/01/24 10:00 Clonidine HCl 0.1 mg Q6HP PRN PO 08/01/24 04:45 Exam Vital Signs Vital Signs Date Time Temp Pulse Resp B/P (MAP) Pulse Ox O2 Delivery O2 Flow Rate FiO2 08/01/24 06:31 98.3 70 16 153/79 (103) 99 98.3 08/01/24 01:49 Room Air* 0 21 Exam Physical Examination Constitutional: Patient was alert and oriented to time, place and person does not appear to be in any acute distress. Patient is morbidly obese Gen - no pallor, no icterus, no cyanosis, no clubbing, no LAD, 1+ bilateral pedal edema Skin - Patients skin is warm and dry. HEENT - normocephalic, atraumatic, moist mucous membranes. Neck - full ROM, no LAD, no JVD Pulmonary - B/L vesicular breath sounds. no crackles , no wheezing cardiovascular - faint S1,S2 heard. no murmurs heard. peripheral pulses radial 2+, pedal 2+. GI - soft abdomen without tenderness to palpation . no hepatospleenomegaly. Bowel sounds normoactive Neurological - Bilateral upper extremity strength 5/5, bilateral lower extremity strength 5/5, no facial droop, normal speech, no tremor, no sensory deficiets. Labs/Xrays Labs Test 08/01/24 07:51 08/01/24 01:23 08/01/24 00:26 07/31/24 22:04 Range/Units POC Glucose 170 H 70-106 mg/dl Prothrombin Time 11.7 9.3-11.8 sec Prothrombin Time INR 1.11 0.9-1.15 Sodium Level 141 136-145 mmol/L Potassium Level 4.3 3.5-5.1 mmol/L Chloride Level 107 98-107 mmol/L Carbon Dioxide Level 24 20-31 mmol/L Anion Gap 10 5-15 Blood Urea Nitrogen 13 9-23 mg/dL Creatinine 1.03 0.700-1.30 mg/dL Glomerular Filtration Rate Calc 77 >90 mL/min BUN/Creatinine Ratio 12.6 10.0-20.0 Serum Glucose 163 H 74-106 mg/dL Calcium Level 9.6 8.7-10.4 mg/dL Total Bilirubin 1.7 H 0.2-1.0 mg/dL Aspartate Amino Transferase (AST) 53 H 13-40 U/L Alanine Aminotransferase (ALT) 59 H 7-40 U/L Alkaline Phosphatase 190 H 46-116 U/L Troponin I High Sensitivity 5 </=54 ng/L Total Protein 6.9 5.7-8.2 g/dL Albumin 3.8 3.2-4.8 g/dL Thyroid Stimulating Hormone (TSH) 1.69 0.55-4.78 uIU/mL White Blood Count 7.2 4.4-10.8 10^3/uL Red Blood Count 4.72 4.5-5.90 10^6/uL Hemoglobin 14.3 13.5-17.5 g/dL Hematocrit 43.5 41.0-53.0 % Mean Corpuscular Volume 92.1 80.0-100.0 fL Mean Corpuscular Hemoglobin 30.3 28.0-32.0 pg Mean Corpuscular Hemoglobin Concent 32.9 32.0-36.0 g/dL Red Cell Distribution Width 13.5 11.8-14.3 % Platelet Count 178 140-450 10^3/uL Mean Platelet Volume 9.0 6.9-10.8 fL Neutrophils (%) (Auto) 61.9 37.0-80.0 % Lymphocytes (%) (Auto) 26.7 10.0-50.0 % Monocytes (%) (Auto) 9.9 0.0-12.0 % Eosinophils (%) (Auto) 0.8 0.0-7.0 % Basophils (%) (Auto) 0.7 0.0-2.0 % Neutrophils # (Auto) 4.4 1.6-8.6 10 ^3/uL Lymphocytes # (Auto) 1.9 0.4-5.4 10 ^3/uL Monocytes # (Auto) 0.7 0-1.3 10 ^3/uL Eosinophils # (Auto) 0.1 0-0.8 10 ^3/uL Basophils # (Auto) 0 0-0.2 10 ^3/uL Nucleated Red Blood Cells 0.0 % B-Type Natriuretic Peptide 64.16 0-100 pg/mL Assessment/Plan Assessment/Plan # Acute chest pain, rule out ACS # Hypertensive heart disease with uncontrolled hypertension # Suspected heart failure with improved versus preserved ejection fraction - ECG showed atrial paced rhythm with no acute ST segment or T-wave changes -troponin level trended under normal limits -patient on lisinopril 20 mg and spironolactone 25 mg q.d. - clonidine 0.1 mg q.6 p.r.n. - aspirin 81 mg and atorvastatin 40 mg q.d. - 1 dose of furosemide 20 mg IV given - echo pending - cardiology consulted # chronic pain syndrome, lower back - continued on home dose of morphine 60 mg q.12 hours # BPH - continued on tamsulosin 0.4 mg # h/o depression, anxiety - on buspirone 15 mg q.12 hours - at home also taking quetiapine 100 mg which can be continued. # T2DM - mild insulin sliding scale - on consistent carbohydrate diet DVT prophylaxis: Enoxaparin 40 mg sc q.d. Goals of care discussed with the patient and the daughter for over 25 minutes. Full code Plan discussed with Dr. Daugherty Plan discussed with: Patient, Daughter My Orders Orders - RONDA BANGURA RESIDENT Procedure Category Date Status Time Admit ADMIT 08/01/24 Transmitted 04:41 Stat Ekg For Chest [facility] 08/01/24 In Process Pain 04:41 Notify Md Of Changes SILVA 08/01/24 In Process From Base 04:41 Screwhead Polisher For SILVA 08/01/24 In Process 24 Hours 04:41 Emergency Dysrhythmia SILVA 08/01/24 In Process Protocol 04:41 Urinalysis LAB 08/01/24 Logged 04:41 Drug Screen LAB 08/01/24 Logged 04:41 Covid19 Antigen Areli LAB 08/01/24 Logged Rapid Influenza A&B LAB 08/01/24 Logged 04:41 Echo 2d Mode Cardiac US 08/01/24 Logged DOP 04:41 Lisinopril Tablet PHA 08/01/24 In Process (Zestril Tablet) 10:00 Spironolactone PHA 08/01/24 In Process (Aldactone) 10:00 Atorvastatin (Lipitor) PHA 08/01/24 In Process 22:00 Pantoprazole Tablet PHA 08/01/24 In Process (Protonix Tablet) 06:00 Tamsulosin PHA 08/01/24 In Process Hydrochloride (Flomax) 18:00 Glucose Blood PHA 08/01/24 In Process (Accu-Chek Comfort 08:00 Insulin R (Human) PHA 08/01/24 In Process (Insulin R) 08:00 Dextrose 50% Syringe PHA 08/01/24 In Process 04:45 Buspirone Hcl Tablet PHA 08/01/24 In Process (Buspar Tablet) 10:00 Morphine Extended PHA 08/01/24 In Process Release Tab (Oramorph 10:00 Aspirin Tablet PHA 08/01/24 In Process 10:00 Clonidine Hcl Tablet PHA 08/01/24 In Process (Catapres Tablet) 04:45 Code Status CODE 08/01/24 Transmitted 04:41 Cardiac DIET 08/01/24 Transmitted Diet-2gna,Lofat,Lochol Breakfast Consistent DIET 08/01/24 Transmitted Carb(Ccho)Diabetes Breakfast Bilat Lower Dvt US 08/01/24 Taken 04:55 * Cardiology Consult CONS 08/01/24 Transmitted 06:55 Date of Service: Aug 01, 2024 Billing Provider: ESTELLE DAUGHERTY MD Common Visit Codes: [id number] INP/OBS CARE (HIGH) Secondary Visit Codes: [id number] CARE PLAN 30 MINUTES RONDA BANGURA RESIDENT Aug 01, 2024 10:02 ESTELLE DAUGHERTY MD Aug 01, 2024 11:27
[2024-08-01] MEDS: ENOXAPARIN SOD 40 MG/0.4 ML SYRINGE SC SCH (11:24)
[2024-08-01 11:40] LABS: COVID19 ANTIGEN SOFIA FIA NEGATIVE (NEGATIVE)
[2024-08-01 11:40] LABS: Rapid Influenza A Negative (Negative); Rapid Influenza B Negative (Negative)
--- NOTE | 2024-08-01 13:05 | DVH ---
INDICATION: elevated lfts TECHNIQUE: Multiple real-time sonographic images were obtained of the right upper quadrant. COMPARISON: None FINDINGS: The liver demonstrates increased echotexture without focal mass lesions. The liver measures 17 cm. There is extrahepatic ductal dilatation. The common duct measures 18 mm. Gallbladder is surgically absent. The right kidney measures 11 cm. The right kidney is normal in contour, size, and shape. The echog enicity is normal. There is no hydronephrosis. The pancreas is not well visualized due to overlying bowel gas. IMPRESSION: Evaluation is limited due to obscuration from bowel gas. Hepatic steatosis. Status post cholecystecto my. Extrahepatic biliary ductal dilatation measuring 18 mm. This may be related to post reservoir eff ect however obstruction can not be excluded. Recommend correlation with MRCP.
--- NOTE | 2024-08-01 13:15 | DVHPN2 ---
Subjective Patient denies any chest pain at this time Reviewed: Care Plan, H&P, Labs, Medications Changes from previous H/P or p: No Changes General: Per HPI Objective Vitals Vital Signs Date Time Temp Pulse Resp B/P (MAP) Pulse Ox O2 Delivery O2 Flow Rate FiO2 08/01/24 09:54 138/78 08/01/24 06:31 98.3 70 16 99 98.3 08/01/24 01:49 Room Air* 0 21 General Appearance: Alert, Oriented X3, Cooperative, No acute distress HEENT: Atraumatic, PERRLA Lungs: Clear to auscultation, Normal air movement Cardiovascular: Normal S1, Normal S2 Abdomen: Normal bowel sounds, Soft Genitourinary: No Apparent Abnormalities Musculoskeletal: Normal sensory function, Normal motor function Neuro: Normal gait, Normal speech Psych/Mental Status: Mental status NL, Mood NL Medications Current Medications Medications Dose Ordered Sig/Camille Route Start Time Stop Time Status Last Admin Dose Admin Lisinopril 20 mg DAILY PO 08/01/24 10:00 08/01/24 09:54 20 MG Spironolactone 25 mg DAILY PO 08/01/24 10:00 08/01/24 09:46 25 MG Atorvastatin Calcium 40 mg HS PO 08/01/24 22:00 Pantoprazole Sodium 40 mg DAILY@0600 PO 08/01/24 06:00 08/01/24 05:37 40 MG Tamsulosin HCl 0.4 mg QPM PO 08/01/24 18:00 Diagnostic Test (Pha) 1 strip IQ4HR 08/01/24 08:00 08/01/24 11:55 1 STRIP Insulin Human Regular IQ4HR SC 08/01/24 08:00 08/01/24 11:48 3 UNITS Dextrose 50 ml UD PRN IV 08/01/24 04:45 Buspirone HCl 15 mg Q12HR PO 08/01/24 10:00 08/01/24 09:56 15 MG Morphine Sulfate 60 mg Q12HR PO 08/01/24 10:00 08/01/24 09:58 60 MG Oxycodone HCl 10 mg Q12HR PO 08/01/24 10:00 UNV Aspirin 81 mg DAILY PO 08/01/24 10:00 08/01/24 09:54 81 MG Clonidine HCl 0.1 mg Q6HP PRN PO 08/01/24 04:45 Enoxaparin Sodium 40 mg DAILY SC 08/01/24 10:00 08/01/24 11:24 40 MG Laboratory Results Laboratory Tests 07/31/24 22:04 08/01/24 00:26 Chemistry Test 07/31/24 22:04 08/01/24 00:26 Albumin 3.7 g/dL (3.2-4.8) 3.8 g/dL (3.2-4.8) Calcium Level 9.2 mg/dL (8.7-10.4) 9.6 mg/dL (8.7-10.4) Total Protein 6.8 g/dL (5.7-8.2) 6.9 g/dL (5.7-8.2) Coagulation Test 07/31/24 22:04 08/01/24 01:23 Prothrombin Time 11.8 sec (9.3-11.8) 11.7 sec (9.3-11.8) Prothrombin Time INR 1.12 (0.9-1.15) 1.11 (0.9-1.15) Cardiac Markers Test 07/31/24 22:04 B-Type Natriuretic Peptide 64.16 pg/mL (0-100) LFT Test 07/31/24 22:04 08/01/24 00:26 Alanine Aminotransferase (ALT) 61 U/L (7-40) H 59 U/L (7-40) H Alkaline Phosphatase 204 U/L (46-116) H 190 U/L (46-116) H Aspartate Amino Transferase (AST) 51 U/L (13-40) H 53 U/L (13-40) H Total Bilirubin 1.6 mg/dL (0.2-1.0) H 1.7 mg/dL (0.2-1.0) H HgA1c, TSH Test 08/01/24 00:26 08/01/24 10:36 Thyroid Stimulating Hormone (TSH) 1.69 uIU/mL (0.55-4.78) Hemoglobin A1c 7.4 % A1C (<5.7) H Urinalysis Test 08/01/24 09:40 Urine Color Pending Urine Clarity Pending Urine pH Pending Urine Specific [place] Pending Urine Protein Pending Urine Ketones Pending Urine Blood Pending Urine Nitrite Pending Urine Bilirubin Pending Urine Urobilinogen Pending Urine Leukocyte Esterase Pending Urine RBC Pending Urine WBC Pending Urine Squamous Epithelial Cells Pending Urine Bacteria Pending Urine Glucose Pending Labs and/or images reviewed: Labs reviewed by me, Image(s) reviewed by me Assessment/Plan Assessment/Plan Impression: -chest pain, rule out ACS -history of permanent pacemaker implant -transaminitis -chronic pain syndrome -primary hypertension -obstructive sleep apnea Plan: -cardiology consultation, pending -liver ultrasound -continue extended release morphine -hold statin given LFTs -CPAP at night -further course of care per Cardiology Total time spent with patient discussing and formulating plan of care: 35 minutes. This medical document was created using an electronic medical record system with [employer] dictation system. Although this document has been carefully reviewed, there may still be some phonetic and typographical errors. These areas are purely typographical due to imperfections of the software programs, and do not reflect any compromise in the patient's medical care. Plan discussed with: Patient, Other (RN) My Orders Orders - KULWINDER SHEEHAN NP Procedure Category Date Status Time Gallbladder 08/01/24 Resulted 11:59 Date of Service: Aug 01, 2024 Billing Provider: KULWINDER SHEEHAN NP Common Visit Codes: [id number] INP/OBS CARE(HIGH) KULWINDER SHEEHAN NP Aug 01, 2024 13:15
[2024-08-01 13:32] LABS: Albumin 3.8 g/dL (3.2-4.8); Anion Gap 5 (5-15); BUN/Creatinine Ratio 9.9 (10.0-20.0); Blood Urea Nitrogen 11 mg/dL (9-23); Calcium 9.7 mg/dL (8.7-10.4); Chloride 102 mmol/L (98-107); Potassium 4.3 mmol/L (3.5-5.1); Sodium 138 mmol/L (136-145)
[2024-08-01 13:37] LABS: Triglycerides 111 mg/dL (< 150)
[2024-08-01 13:38] LABS: LDL Cholesterol 59 mg/dL (< 100)
[2024-08-01 13:39] LABS: HDL Cholesterol 56 mg/dL (40-59)
[2024-08-01 13:40] LABS: Cholesterol 135 mg/dL (< 200)
[2024-08-01 13:43] LABS: Alanine Aminotransferase 66 U/L (7-40); Alkaline Phosphatase 199 U/L (46-116); Aspartate Aminotransferase 63 U/L (13-40); Bilirubin, Total 2.4 mg/dL (0.2-1.0); Carbon Dioxide 31 mmol/L (20-31); Glucose 169 mg/dL (74-106)
[2024-08-01 14:06] VITALS: BP 138/78; PULSE 70; RESP 16; TEMP 98.3; O2SAT 95
[2024-08-01 14:13] VITALS: RESP 16; O2SAT 95
[2024-08-01] MEDS: HYDROmorphone HCL 2 MG/ML VL/or syr IV PRN (15:56)
[2024-08-01] MEDS: TAMSULOSIN HYDROCHLORIDE 0.4 MG CAP PO SCH (17:50)
[2024-08-01] MEDS: hydrOXYzine HCL 10 MG TAB PO PRN (18:48)
[2024-08-01 20:20] VITALS: O2SAT 96
[2024-08-01 20:30] VITALS: RESP 20; O2SAT 97
[2024-08-01] MEDS ORDERED: ATORVASTATIN 20 MG TAB PO SCH (22:00)
[2024-08-02] VITALS (9 sets, daily range): BP systolic 115–156; BP diastolic 57–92; PULSE 60–81; RESP 16–20; TEMP 97.7–98.3; O2SAT 94–98
[2024-08-02 09:14] LABS: Urine Bacteria FEW /hpf (None Seen); Urine Blood Negative /uL (Negative); Urine Clarity Clear (Clear); Urine Color Yellow (Yellow); Urine Protein, UAD Negative (Negative); Urine Specific Gravity 1.018 (1.001-1.035); Urine Squamous Epithelial Cell FEW /hpf (<5); Urine Urobilinogen 8 mg/dL (Negative); Urine WBC 2 /hpf (0 - 3); Urine pH 7.5 (5.0-9.0)
[2024-08-02 09:31] LABS: Amphetamine Screen, Urine Neg (NEGATIVE); Barbiturate Scree,Urine Neg (NEGATIVE); Benzodiazephine Screen, Urine Neg (NEGATIVE); Cannabinoid Screen, Urine Neg (NEGATIVE); Cocaine Screen, Urine Neg (NEGATIVE); Opiate Scree,Urine Pos (NEGATIVE); Phencyclidine Screen, Urine Neg (NEGATIVE)
[2024-08-02] MEDS ORDERED: DEXTROSE (50%) 50ML SYRG IV PRN (09:45)
--- NOTE | 2024-08-02 09:53 | DVHPN2 ---
Subjective Patient reporting lower back pain, left lower extremity pain. Patient also reports having shortness of breath and requested oxygen last night. Also reports that he did not want to wear CPAP provided by the hospital. Reviewed: Care Plan, H&P, Labs, Medications Changes from previous H/P or p: Changes General: Per HPI Objective Vitals Vital Signs Date Time Temp Pulse Resp B/P (MAP) Pulse Ox O2 Delivery O2 Flow Rate FiO2 08/02/24 05:00 97.9 62 17 139/80 (99) 98 97.9 08/01/24 20:36 Room Air 08/01/24 20:30 0 21 Intake/Output Intake and Output 08/02/24 06:59 Intake Total 350 ml Balance 350 ml Intake Oral 350 ml # Voids 2 General Appearance: Alert, Oriented X3, Cooperative, No acute distress HEENT: Atraumatic, PERRLA Lungs: Clear to auscultation, Normal air movement Cardiovascular: Normal S1, Normal S2 Abdomen: Normal bowel sounds, Soft Genitourinary: No Apparent Abnormalities Musculoskeletal: Normal sensory function, Normal motor function Neuro: Normal gait, Normal speech Psych/Mental Status: Mental status NL, Mood NL Medications Current Medications Medications Dose Ordered Sig/Camille Route Start Time Stop Time Status Last Admin Dose Admin Lisinopril 20 mg DAILY PO 08/01/24 10:00 08/01/24 09:54 20 MG Spironolactone 25 mg DAILY PO 08/01/24 10:00 08/01/24 09:46 25 MG Pantoprazole Sodium 40 mg DAILY@0600 PO 08/01/24 06:00 08/02/24 06:16 40 MG Tamsulosin HCl 0.4 mg QPM PO 08/01/24 18:00 08/01/24 17:50 0.4 MG Diagnostic Test (Pha) 1 strip IQ4HR 08/01/24 08:00 08/02/24 04:00 1 STRIP Dextrose 50 ml UD PRN IV 08/01/24 04:45 Buspirone HCl 15 mg Q12HR PO 08/01/24 10:00 08/01/24 22:03 15 MG Morphine Sulfate 60 mg Q12HR PO 08/01/24 10:00 08/01/24 22:03 60 MG Oxycodone HCl 10 mg Q12HR PO 08/01/24 10:00 UNV Aspirin 81 mg DAILY PO 08/01/24 10:00 08/01/24 09:54 81 MG Clonidine HCl 0.1 mg Q6HP PRN PO 08/01/24 04:45 Enoxaparin Sodium 40 mg DAILY SC 08/01/24 10:00 08/01/24 11:24 40 MG Hydromorphone HCl 0.5 mg Q3HPRN PRN IV 08/01/24 14:30 08/02/24 03:10 0.5 MG Hydroxyzine HCl 20 mg BID PRN PO 08/01/24 18:15 08/01/24 18:48 20 MG Diagnostic Test (Pha) 1 strip ACHS 08/02/24 11:30 UNV Insulin Human Regular ACHS SC 08/02/24 11:30 UNV Dextrose 50 ml UD PRN IV 08/02/24 09:45 UNV Laboratory Results Laboratory Tests 07/31/24 22:04 08/01/24 10:36 Chemistry Test 08/01/24 10:36 Albumin 3.8 g/dL (3.2-4.8) Calcium Level 9.7 mg/dL (8.7-10.4) Total Protein 7.0 g/dL (5.7-8.2) Lipid panel Test 08/01/24 13:36 Cholesterol Level 135 mg/dL (< 200) HDL Cholesterol 56 mg/dL (40-59) Lipase 33 U/L (12-53) Triglycerides Level 111 mg/dL (< 150) LFT Test 08/01/24 10:36 Alanine Aminotransferase (ALT) 66 U/L (7-40) H Alkaline Phosphatase 199 U/L (46-116) H Aspartate Amino Transferase (AST) 63 U/L (13-40) H Total Bilirubin 2.4 mg/dL (0.2-1.0) H HgA1c, TSH Test 08/01/24 10:36 Hemoglobin A1c 7.4 % A1C (<5.7) H Urinalysis Test 08/01/24 09:40 Urine Color Yellow (Yellow) Urine Clarity Clear (Clear) Urine pH 7.5 (5.0-9.0) Urine Specific [place] 1.018 (1.001-1.035) Urine Protein Negative (Negative) Urine Ketones Negative (Negative) Urine Blood Negative /uL (Negative) Urine Nitrite Negative (Negative) Urine Bilirubin Negative (Negative) Urine Urobilinogen 8 mg/dL (Negative) H Urine Leukocyte Esterase Negative /uL (Negative) Urine RBC 1 /hpf (0 - 3) Urine WBC 2 /hpf (0 - 3) Urine Squamous Epithelial Cells Few /hpf (<5) Urine Bacteria Few /hpf (None Seen) H Urine Glucose Normal mg/dL (Normal) Labs and/or images reviewed: Labs reviewed by me, Image(s) reviewed by me Assessment/Plan Assessment/Plan Impression: -chest pain, rule out ACS -history of permanent pacemaker implant -transaminitis -chronic pain syndrome -primary hypertension -obstructive sleep apnea Plan: -cardiology consultation, pending -troponins negative -continue current pain management with extended release morphine and breakthrough IV narcotic medication -LFTs increasing. MRCP ordered. Patient has MRI compatible pacemaker. -CPAP at night : Refusing -bowel regimen -repeat LFT in a.m. Total time spent with patient discussing and formulating plan of care: 35 minutes. This medical document was created using an electronic medical record system with [employer] dictation system. Although this document has been carefully reviewed, there may still be some phonetic and typographical errors. These areas are purely typographical due to imperfections of the software programs, and do not reflect any compromise in the patient's medical care. Plan discussed with: Patient, Other (RN) My Orders Orders - KULWINDER SHEEHAN NP Procedure Category Date Status Time [facility] 08/01/24 Resulted 11:59 Bipap/Cpap For Sleep RT 08/01/24 Logged Apnea 13:21 Hydromorphone PHA 08/01/24 In Process Injection (Dilaudid 14:30 Mrcp Mri MRI 08/02/24 Logged 08:09 Glucose Blood PHA 08/02/24 Logged (Accu-Chek Comfort 11:30 Insulin R (Human) PHA 08/02/24 Logged (Insulin R) 11:30 Dextrose 50% Syringe PHA 08/02/24 Logged 09:45 Comprehensive LAB 08/03/24 Verified Metabolic Panel 04:00 D-Dimer LAB 08/02/24 Transmitted 09:48 Quetiapine Fumarate PHA 08/02/24 Transmitted Tablet (Seroquel Tab 10:00 Date of Service: Aug 02, 2024 Billing Provider: KULWINDER SHEEHAN NP Common Visit Codes: [id number] INP/OBS CARE(HIGH) KULWINDER SHEEHAN [employer] Aug 02, 2024 09:53
[2024-08-02] MEDS: ACCU-CHEK COMFORT CURVE STRIP VI SCH (11:30)
[2024-08-02] MEDS: POLYETHYLENE GLYCOL 17 GM PWDR PO SCH (12:21)
[2024-08-02] MEDS: InsuLIN REG 1unit/0.01ml Soln (100units/ml) SC SCH (12:24)
[2024-08-02] MEDS: QUEtiapine FUMARATE 100 MG TAB PO SCH (12:45)
[2024-08-03] VITALS (8 sets, daily range): BP systolic 108–144; BP diastolic 57–90; PULSE 60–66; RESP 18–20; TEMP 97.7–98.7; O2SAT 90–98
[2024-08-03 05:35] LABS: Albumin 3.5 g/dL (3.2-4.8); Anion Gap 6 (5-15); BUN/Creatinine Ratio 10.4 (10.0-20.0); Blood Urea Nitrogen 10 mg/dL (9-23); Calcium 9.5 mg/dL (8.7-10.4); Carbon Dioxide 27 mmol/L (20-31); Chloride 105 mmol/L (98-107); Sodium 138 mmol/L (136-145)
[2024-08-03 05:36] LABS: Total Protein 6.6 g/dL (5.7-8.2)
[2024-08-03 06:09] LABS: Alkaline Phosphatase 217 U/L (46-116); Aspartate Aminotransferase 102 U/L (13-40); Glucose 138 mg/dL (74-106)
[2024-08-03 06:10] LABS: Alanine Aminotransferase 89 U/L (7-40); Bilirubin, Total 3.2 mg/dL (0.2-1.0)
--- NOTE | 2024-08-03 11:31 | DVHPN2 ---
Progress Note - Dictate Date Seen: Aug 02, 2024 Medical Necessity Reason Pt with a Central, PICC or Fol: No Subjective PT WITH CHEST PAIN TROPONIN NEGATIVE ECG NEGATIVE C 2019 NEGATIVE S/P DUAL PPI vital signs Vital Sign Date Time Temp Pulse Resp B/P (MAP) Pulse Ox O2 Delivery O2 Flow Rate FiO2 08/03/24 09:00 98.4 62 20 137/71 (93) 97 98.4 08/03/24 08:00 Nasal Cannula* 2 28 Total Intake and Output 08/02/24 08/02/24 08/03/24 15:00 23:00 07:00 Intake Total 250 ml 900 ml Output Total 500 ml Balance 250 ml 400 ml medications Current Medications Medications Dose Ordered Sig/Camille Route Start Time Stop Time Status Last Admin Dose Admin Lisinopril 20 mg DAILY PO 08/01/24 10:00 08/03/24 08:39 20 MG Spironolactone 25 mg DAILY PO 08/01/24 10:00 08/03/24 08:37 25 MG Pantoprazole Sodium 40 mg DAILY@0600 PO 08/01/24 06:00 08/03/24 06:00 40 MG Tamsulosin HCl 0.4 mg QPM PO 08/01/24 18:00 08/02/24 16:57 0.4 MG Buspirone HCl 15 mg Q12HR PO 08/01/24 10:00 08/03/24 08:38 15 MG Morphine Sulfate 60 mg Q12HR PO 08/01/24 10:00 08/03/24 08:40 60 MG Oxycodone HCl 10 mg Q12HR PO 08/01/24 10:00 UNV Aspirin 81 mg DAILY PO 08/01/24 10:00 08/03/24 08:37 81 MG Clonidine HCl 0.1 mg Q6HP PRN PO 08/01/24 04:45 Enoxaparin Sodium 40 mg DAILY SC 08/01/24 10:00 08/03/24 08:40 40 MG Hydromorphone HCl 0.5 mg Q3HPRN PRN IV 08/01/24 14:30 08/03/24 04:25 0.5 MG Hydroxyzine HCl 20 mg BID PRN PO 08/01/24 18:15 08/03/24 08:39 20 MG Diagnostic Test (Pha) 1 strip ACHS 08/02/24 11:30 1/1/25 21:50 1 STRIP Insulin Human Regular ACHS SC 08/02/24 11:30 08/02/24 22:09 3 UNITS Dextrose 50 ml UD PRN IV 08/02/24 09:45 Quetiapine Fumarate 100 mg DAILY PO 08/02/24 10:00 08/03/24 08:38 100 MG Polyethylene Glycol 17 gm DAILY PO 08/02/24 10:00 08/03/24 08:40 17 GM laboratory and microbiology Laboratory Tests 08/03/24 04:55 07/31/24 22:04 Test 08/03/24 04:55 Range/Units Serum Glucose 138 H 74-106 mg/dL Problem List CHEST PAIN TROPONIN NEGATIVE ECG NEGATIVE [facility] 2019 NEGATIVE S/P DUAL PPI Assessment/Plan ECHO LVH EF >55% DIASTOLIC DYSFUNCTION Dietary Evaluation Review Comments: CCHO-60, 2GNa Lo fat Lo cholesterol cardiac diet, no caffeine Expected Outcomes/Goals: controlled DM< gradual weight loss, gradually healed wounds. Plan discussed with: Patient KEILY DOLAN MD Aug 03, 2024 11:31
--- NOTE | 2024-08-03 11:56 | DVHINCON2 ---
GI Consult Consult Note GI consult note Date of Consultation: 08/03/2024 Chief Complaint: Elevated LFTs Referring Physician: Akin APCHECO H&P: 74-year-old male presented to ER with chest pain and shortness of breath. Cardiology consult pending Patient also has elevated LFTs. No abdominal pain. Patient has nausea, no vomiting Denies history of elevated LFTs in past, no history of alcohol abuse. SP cholecystectomy more than 10 years ago Patient admits to taking pain medication on a regular basis No weight loss. SP colonoscopy five years ago WNL. No EGD in past Past Medical History: Anxiety, CHF, Depression, High Lipids, HTN, TIA Past Surgical History: Cholecystectomy, Pacemaker, Tonsillectomy Social History: NO smoking, drinking ETOH and use of illegal drugs. Family History: Noncontributory Review of Systems: Constitutional: no fever, chill, weight loss HEENT: no eye pain, no hearing loss, no oral lesion, no scleral icterus Heart: + chest pain Lung: Shortness of breath Abdomen: see HPI Physical exam: General: NAD, AAOX3 Chest: lung bustillos clear to auscultation Heart: RRR, no murmur Abdomen: non-distended, no tenderness to palpation, +BS Labs: Labs Test 08/03/24 11:23 08/03/24 04:55 08/02/24 10:35 08/01/24 13:36 Range/Units POC Glucose 122 H 70-106 mg/dl Sodium Level 138 136-145 mmol/L Potassium Level 4.0 3.5-5.1 mmol/L Chloride Level 105 98-107 mmol/L Carbon Dioxide Level 27 20-31 mmol/L Anion Gap 6 5-15 Blood Urea Nitrogen 10 9-23 mg/dL Creatinine 0.96 0.700-1.30 mg/dL Glomerular Filtration Rate Calc 84 >90 mL/min BUN/Creatinine Ratio 10.4 10.0-20.0 Serum Glucose 138 H 74-106 mg/dL Calcium Level 9.5 8.7-10.4 mg/dL Total Bilirubin 3.2 H 0.2-1.0 mg/dL Aspartate Amino Transferase (AST) 102 H 13-40 U/L Alanine Aminotransferase (ALT) 89 H 7-40 U/L Alkaline Phosphatase 217 H 46-116 U/L Total Protein 6.6 5.7-8.2 g/dL Albumin 3.5 3.2-4.8 g/dL D-Dimer, Quantitative 0.53 H 0.0-0.49 mg/L FEU Triglycerides Level 111 < 150 mg/dL Cholesterol Level 135 < 200 mg/dL LDL Cholesterol 59 < 100 mg/dL HDL Cholesterol 56 40-59 mg/dL Lipase 33 12-53 U/L Test 08/01/24 10:36 08/01/24 09:40 08/01/24 04:41 08/01/24 01:23 Range/Units Hemoglobin A1c 7.4 H <5.7 % A1C Urine Color Yellow Yellow Urine Clarity Clear Clear Urine pH 7.5 5.0-9.0 Urine Specific [place] 1.018 1.001-1.035 Urine Protein Negative Negative Urine Ketones Negative Negative Urine Blood Negative Negative /uL Urine Nitrite Negative Negative Urine Bilirubin Negative Negative Urine Urobilinogen 8 H Negative mg/dL Urine Leukocyte Esterase Negative Negative /uL Urine RBC 1 0 - 3 /hpf Urine WBC 2 0 - 3 /hpf Urine Squamous Epithelial Cells Few <5 /hpf Urine Bacteria Few H None Seen /hpf Urine Glucose Normal Normal mg/dL Urine Opiates Screen Pos NEGATIVE Urine Fentanyl Screen Neg NEGATIVE Urine Barbiturates Screen Neg NEGATIVE Urine Phencyclidine Screen Neg NEGATIVE Urine Amphetamines Screen Neg NEGATIVE Urine Benzodiazepines Screen Neg NEGATIVE Urine Cocaine Screen Neg NEGATIVE Urine Cannabinoids Screen Neg NEGATIVE Influenza Type A Antigen Negative Negative Influenza Type B Antigen Negative Negative Prothrombin Time 11.7 9.3-11.8 sec Prothrombin Time INR 1.11 0.9-1.15 Test 08/01/24 00:26 08/01/24 00:00 07/31/24 22:04 Range/Units Troponin I High Sensitivity 5 </=54 ng/L Thyroid Stimulating Hormone (TSH) 1.69 0.55-4.78 uIU/mL SARS-CoV-2 Antigen (Rapid) Negative NEGATIVE White Blood Count 7.2 4.4-10.8 10^3/uL Red Blood Count 4.72 4.5-5.90 10^6/uL Hemoglobin 14.3 13.5-17.5 g/dL Hematocrit 43.5 41.0-53.0 % Mean Corpuscular Volume 92.1 80.0-100.0 fL Mean Corpuscular Hemoglobin 30.3 28.0-32.0 pg Mean Corpuscular Hemoglobin Concent 32.9 32.0-36.0 g/dL Red Cell Distribution Width 13.5 11.8-14.3 % Platelet Count 178 140-450 10^3/uL Mean Platelet Volume 9.0 6.9-10.8 fL Neutrophils (%) (Auto) 61.9 37.0-80.0 % Lymphocytes (%) (Auto) 26.7 10.0-50.0 % Monocytes (%) (Auto) 9.9 0.0-12.0 % Eosinophils (%) (Auto) 0.8 0.0-7.0 % Basophils (%) (Auto) 0.7 0.0-2.0 % Neutrophils # (Auto) 4.4 1.6-8.6 10 ^3/uL Lymphocytes # (Auto) 1.9 0.4-5.4 10 ^3/uL Monocytes # (Auto) 0.7 0-1.3 10 ^3/uL Eosinophils # (Auto) 0.1 0-0.8 10 ^3/uL Basophils # (Auto) 0 0-0.2 10 ^3/uL Nucleated Red Blood Cells 0.0 % B-Type Natriuretic Peptide 64.16 0-100 pg/mL Imaging: Abdominal ultrasound IMPRESSION: Evaluation is limited due to obscuration from bowel gas. Hepatic steatosis. Status post cholecystectomy. Extrahepatic biliary ductal dilatation measuring 18 mm. This may be related to post reservoir effect however obstruction can not be excluded. Recommend correlation with MRCP. Assessment: Chest pain Elevated LFTs Chronic pain syndrome Obstructive sleep apnea Plan: Discussed with Dr. Baker MRCP MRI pending, rule out CBD stone. If MRCP negative, possible plan for EGD with biopsy to be considered, if cleared by Cardiology Hepatitis panel,, ferritin CA 19-9, CMP in a.m. We will continue to monitor the patient discussed with patient, RN and Akin PACHECO Thank you for this consult Date of Service: Aug 03, 2024 Billing Provider: BI TRONCOSO Common Visit Codes: CONSULT ONLY Consultation Codes: [id number] CONSULT <45MIN BI TRONCOSO Aug 03, 2024 11:56
--- NOTE | 2024-08-03 12:17 | DVHPN2 ---
Subjective Patient reporting lower back pain, left lower extremity pain. Patient also reports having shortness of breath and requested oxygen last night. Also reports that he did not want to wear CPAP provided by the hospital. Reviewed: Care Plan, H&P, Labs, Medications Changes from previous H/P or p: No Changes General: Per HPI Objective Vitals Vital Signs Date Time Temp Pulse Resp B/P (MAP) Pulse Ox O2 Delivery O2 Flow Rate FiO2 08/03/24 09:00 98.4 62 20 137/71 (93) 97 98.4 08/03/24 08:00 Nasal Cannula* 2 28 Intake/Output Intake and Output 08/03/24 07:00 Intake Total 1150 ml Output Total 500 ml Balance 650 ml Intake Oral 1150 ml Output Urine Total 500 ml # Voids 5 # Bowel Movements 1 General Appearance: Alert, Oriented X3, Cooperative, No acute distress HEENT: Atraumatic, PERRLA Lungs: Clear to auscultation, Normal air movement Cardiovascular: Normal S1, Normal S2 Abdomen: Normal bowel sounds, Soft Genitourinary: No Apparent Abnormalities Musculoskeletal: Normal sensory function, Normal motor function Neuro: Normal gait, Normal speech Psych/Mental Status: Mental status NL, Mood NL Medications Current Medications Medications Dose Ordered Sig/Camille Route Start Time Stop Time Status Last Admin Dose Admin Lisinopril 20 mg DAILY PO 08/01/24 10:00 08/03/24 08:39 20 MG Spironolactone 25 mg DAILY PO 08/01/24 10:00 08/03/24 08:37 25 MG Pantoprazole Sodium 40 mg DAILY@0600 PO 08/01/24 06:00 08/03/24 06:00 40 MG Tamsulosin HCl 0.4 mg QPM PO 08/01/24 18:00 08/02/24 16:57 0.4 MG Buspirone HCl 15 mg Q12HR PO 08/01/24 10:00 08/03/24 08:38 15 MG Morphine Sulfate 60 mg Q12HR PO 08/01/24 10:00 08/03/24 08:40 60 MG Oxycodone HCl 10 mg Q12HR PO 08/01/24 10:00 UNV Aspirin 81 mg DAILY PO 08/01/24 10:00 08/03/24 08:37 81 MG Clonidine HCl 0.1 mg Q6HP PRN PO 08/01/24 04:45 Enoxaparin Sodium 40 mg DAILY SC 08/01/24 10:00 08/03/24 08:40 40 MG Hydromorphone HCl 0.5 mg Q3HPRN PRN IV 08/01/24 14:30 08/03/24 04:25 0.5 MG Hydroxyzine HCl 20 mg BID PRN PO 08/01/24 18:15 08/03/24 08:39 20 MG Diagnostic Test (Pha) 1 strip ACHS 08/02/24 11:30 08/02/24 21:50 1 STRIP Insulin Human Regular ACHS SC 08/02/24 11:30 08/02/24 22:09 3 UNITS Dextrose 50 ml UD PRN IV 08/02/24 09:45 Quetiapine Fumarate 100 mg DAILY PO 08/02/24 10:00 08/03/24 08:38 100 MG Polyethylene Glycol 17 gm DAILY PO 08/02/24 10:00 08/03/24 08:40 17 GM Ondansetron HCl 4 mg Q4HP PRN PO 08/03/24 12:00 Laboratory Results Laboratory Tests 07/31/24 22:04 08/03/24 04:55 Chemistry Test 08/03/24 04:55 Albumin 3.5 g/dL (3.2-4.8) Calcium Level 9.5 mg/dL (8.7-10.4) Total Protein 6.6 g/dL (5.7-8.2) LFT Test 08/03/24 04:55 Alanine Aminotransferase (ALT) 89 U/L (7-40) H Alkaline Phosphatase 217 U/L (46-116) H Aspartate Amino Transferase (AST) 102 U/L (13-40) H Total Bilirubin 3.2 mg/dL (0.2-1.0) H Urinalysis Test 08/01/24 09:40 Urine Color Yellow (Yellow) Urine Clarity Clear (Clear) Urine pH 7.5 (5.0-9.0) Urine Specific [place] 1.018 (1.001-1.035) Urine Protein Negative (Negative) Urine Ketones Negative (Negative) Urine Blood Negative /uL (Negative) Urine Nitrite Negative (Negative) Urine Bilirubin Negative (Negative) Urine Urobilinogen 8 mg/dL (Negative) H Urine Leukocyte Esterase Negative /uL (Negative) Urine RBC 1 /hpf (0 - 3) Urine WBC 2 /hpf (0 - 3) Urine Squamous Epithelial Cells Few /hpf (<5) Urine Bacteria Few /hpf (None Seen) H Urine Glucose Normal mg/dL (Normal) Labs and/or images reviewed: Labs reviewed by me, Image(s) reviewed by me Assessment/Plan Assessment/Plan Impression: -chest pain, rule out ACS -history of permanent pacemaker implant -transaminitis -chronic pain syndrome -primary hypertension -obstructive sleep apnea Plan: Events: Bilirubin continues to increase. Patient continues to have generalized lower back and left lower extremity pain. MRCP pending -GI consultation -cardiology consultation, pending -troponins negative -continue current pain management with extended release morphine and breakthrough IV narcotic medication -LFTs increasing. MRCP ordered. Patient has MRI compatible pacemaker. -CPAP at night : Refusing -bowel regimen -repeat LFT in a.m. Total time spent with patient discussing and formulating plan of care: 35 minutes. This medical document was created using an electronic medical record system with [employer] dictation system. Although this document has been carefully reviewed, there may still be some phonetic and typographical errors. These areas are purely typographical due to imperfections of the software programs, and do not reflect any compromise in the patient's medical care. Plan discussed with: Other (RN) My Orders Orders - KULWINDER SHEEHAN NP Procedure Category Date Status Time * Gi [facility] CONS 08/03/24 Transmitted 10:58 Ondansetron Po PHA 08/03/24 In Process (Zofran Po) 12:00 Hydroxyzine Oral PHA 08/03/24 Transmitted (Vistaril Oral) 12:15 Comprehensive LAB 08/04/24 Verified Metabolic Panel 04:00 Date of Service: Aug 03, 2024 Billing Provider: KULWINDER SHEEHAN NP Common Visit Codes: [id number] INP/OBS CARE(HIGH) KULWINDER SHEEHAN NP Aug 03, 2024 12:17
[2024-08-03 13:04] LABS: Hepatitis B Core Total AB Negative (Negative)
[2024-08-03 13:47] LABS: Hepatitis A Total Antibody Positive (Negative); Hepatitis B Surface Antibody Negative (Negative); Hepatitis B Surface Antigen Negative (Negative); Hepatitis C Antibody Negative (Negative)
--- NOTE | 2024-08-03 14:27 | DVH ---
MRI Abdomen, MRCP without IV Contrast Exam Date: 08/03/2024 01:32 PM Comparison: None History: rule out cbd obstruction Technique: Multisequence multiplanar MRI images were obtained of the abomen. MRCP including 3D SPACE, Radial 3D slabs and SPACE 3D MIP images Findings: Liver: The liver is normal in size without focal lesions. Normal liver contour. Spleen: Unremarkable. Pancreas: The pancreas is normal in appearance without focal lesions. Gallbladder and ducts: Gallbladder is surgically absent. There is marked intrahepatic and extrahepat ic biliary dilation. No obstructing calculus identified. The pancreatic duct is within normal limits . Adrenal glands: Unremarkable. Kidneys: Bilateral renal cysts. No hydronephrosis. Visualized bowel: Grossly unremarkable. Vasculature: Unremarkable. Lymphadenopathy: No evidence for lymphadenopathy. Ascites: Absent. Musculoskeletal: Bone marrow signal is normal. IMPRESSION: 1. Marked intrahepatic and extrahepatic biliary dilation which can be normal status post cholecystect violette. No choledocholithiasis. Correlate with serum bilirubin. Bilateral renal cysts. HS:YJhonny
[2024-08-03] MEDS: hydrOXYzine HCL 10 MG TAB PO PRN (21:16)
[2024-08-04] VITALS (7 sets, daily range): BP systolic 84–146; BP diastolic 49–78; PULSE 56–89; RESP 15–19; TEMP 97.7–98.2; O2SAT 91–98
[2024-08-04 06:15] LABS: Anion Gap 8 (5-15); BUN/Creatinine Ratio 13.3 (10.0-20.0); Blood Urea Nitrogen 12 mg/dL (9-23); Calcium 9.8 mg/dL (8.7-10.4); Carbon Dioxide 28 mmol/L (20-31); Chloride 102 mmol/L (98-107); Sodium 138 mmol/L (136-145)
[2024-08-04 06:16] LABS: Albumin 3.7 g/dL (3.2-4.8); Total Protein 6.8 g/dL (5.7-8.2)
[2024-08-04 06:21] LABS: Alanine Aminotransferase 111 U/L (7-40); Alkaline Phosphatase 231 U/L (46-116); Aspartate Aminotransferase 135 U/L (13-40); Bilirubin, Total 3.4 mg/dL (0.2-1.0); Glucose 111 mg/dL (74-106)
--- NOTE | 2024-08-04 11:48 | DVHPN2 ---
Subjective Patient denies any symptoms at this time. Reviewed: Care Plan, H&P, Labs, Medications Changes from previous H/P or p: No Changes General: Per HPI Objective Vitals Vital Signs Date Time Temp Pulse Resp B/P (MAP) Pulse Ox O2 Delivery O2 Flow Rate FiO2 08/04/24 09:22 146/78 08/04/24 08:51 98.2 57 18 98 98.2 08/03/24 20:00 Room Air* 0 21 Intake/Output Intake and Output 08/04/24 07:00 Intake Total 1600 ml Output Total 1200 ml Balance 400 ml Intake Oral 1600 ml Output Urine Total 1200 ml General Appearance: Alert, Oriented X3, Cooperative, No acute distress HEENT: Atraumatic, PERRLA Lungs: Clear to auscultation, Normal air movement Cardiovascular: Normal S1, Normal S2 Abdomen: Normal bowel sounds, Soft Genitourinary: No Apparent Abnormalities Musculoskeletal: Normal sensory function, Normal motor function Neuro: Normal gait, Normal speech Psych/Mental Status: Mental status NL, Mood NL Medications Current Medications Medications Dose Ordered Sig/Camille Route Start Time Stop Time Status Last Admin Dose Admin Lisinopril 20 mg DAILY PO 08/01/24 10:00 08/04/24 09:22 20 MG Spironolactone 25 mg DAILY PO 08/01/24 10:00 08/04/24 09:22 25 MG Pantoprazole Sodium 40 mg DAILY@0600 PO 08/01/24 06:00 08/04/24 05:46 40 MG Tamsulosin HCl 0.4 mg QPM PO 08/01/24 18:00 08/03/24 17:18 0.4 MG Buspirone HCl 15 mg Q12HR PO 08/01/24 10:00 08/04/24 09:21 15 MG Morphine Sulfate 60 mg Q12HR PO 08/01/24 10:00 08/04/24 09:23 60 MG Oxycodone HCl 10 mg Q12HR PO 08/01/24 10:00 UNV Aspirin 81 mg DAILY PO 08/01/24 10:00 08/04/24 09:22 81 MG Clonidine HCl 0.1 mg Q6HP PRN PO 08/01/24 04:45 Enoxaparin Sodium 40 mg DAILY SC 08/01/24 10:00 08/03/24 08:40 40 MG Hydromorphone HCl 0.5 mg Q3HPRN PRN IV 08/01/24 14:30 08/04/24 05:48 0.5 MG Diagnostic Test (Pha) 1 strip ACHS 08/02/24 11:30 08/04/24 11:21 1 STRIP Insulin Human Regular ACHS SC 08/02/24 11:30 08/03/24 22:00 3 UNITS Dextrose 50 ml UD PRN IV 08/02/24 09:45 Quetiapine Fumarate 100 mg DAILY PO 08/02/24 10:00 08/04/24 09:20 100 MG Polyethylene Glycol 17 gm DAILY PO 08/02/24 10:00 08/03/24 08:40 17 GM Ondansetron HCl 4 mg Q4HP PRN PO 08/03/24 12:00 Hydroxyzine HCl 20 mg Q8HP PRN PO 08/03/24 14:00 08/04/24 03:54 20 MG Laboratory Results Laboratory Tests 07/31/24 22:04 08/04/24 04:40 Chemistry Test 08/04/24 04:40 Albumin 3.7 g/dL (3.2-4.8) Calcium Level 9.8 mg/dL (8.7-10.4) Total Protein 6.8 g/dL (5.7-8.2) LFT Test 08/04/24 04:40 Alanine Aminotransferase (ALT) 111 U/L (7-40) H Alkaline Phosphatase 231 U/L (46-116) H Aspartate Amino Transferase (AST) 135 U/L (13-40) H Total Bilirubin 3.4 mg/dL (0.2-1.0) H Urinalysis Test 08/01/24 09:40 Urine Color Yellow (Yellow) Urine Clarity Clear (Clear) Urine pH 7.5 (5.0-9.0) Urine Specific [place] 1.018 (1.001-1.035) Urine Protein Negative (Negative) Urine Ketones Negative (Negative) Urine Blood Negative /uL (Negative) Urine Nitrite Negative (Negative) Urine Bilirubin Negative (Negative) Urine Urobilinogen 8 mg/dL (Negative) H Urine Leukocyte Esterase Negative /uL (Negative) Urine RBC 1 /hpf (0 - 3) Urine WBC 2 /hpf (0 - 3) Urine Squamous Epithelial Cells Few /hpf (<5) Urine Bacteria Few /hpf (None Seen) H Urine Glucose Normal mg/dL (Normal) Labs and/or images reviewed: Labs reviewed by me, Image(s) reviewed by me Assessment/Plan Assessment/Plan Impression: -chest pain, rule out ACS -history of permanent pacemaker implant -transaminitis -chronic pain syndrome -primary hypertension -obstructive sleep apnea Plan: Events: Patient continues to have increasing LFTs. Denies any pain. Negative Lyons's sign or pain to epigastric or right upper quadrant this time. Discussed case with Dr. Jo Baker who states she will proceed with performing EGD today. Depending on her findings, patient may need to be transferred to higher level care for ERCP. CA 19-9 negative. Lipase normal. -GI consultation -cardiology consultation, pending -troponins negative -continue current pain management with extended release morphine and breakthrough IV narcotic medication -LFTs increasing. MRCP ordered. Patient has MRI compatible pacemaker. -CPAP at night : Refusing -bowel regimen -repeat labs in am Total time spent with patient discussing and formulating plan of care: 35 minutes. This medical document was created using an electronic medical record system with [employer] dictation system. Although this document has been carefully reviewed, there may still be some phonetic and typographical errors. These areas are purely typographical due to imperfections of the software programs, and do not reflect any compromise in the patient's medical care. A.m. Plan discussed with: Patient, Other (RN) My Orders Orders - KULWINDER SHEEHAN NP Procedure Category Date Status Time Ondansetron Po PHA 08/03/24 In Process (Zofran Po) 12:00 Hydroxyzine Oral PHA 08/03/24 In Process (Vistaril Oral) 14:00 Date of Service: Aug 04, 2024 Billing Provider: KULWINDER SHEEHAN NP Common Visit Codes: [id number] INP/OBS CARE(HIGH) KULWINDER SHEEHAN NP Aug 04, 2024 11:48
[2024-08-04] MEDS ORDERED: LACTULOSE 20Gm/30ML SOLN PO PRN (12:00)
--- NOTE | 2024-08-04 13:41 | DVHPN2 ---
Progress Note - Dictate Date Seen: Aug 03, 2024 Medical Necessity Reason Pt with a Central, PICC or Fol: No Subjective PT WITH CHEST PAIN TROPONIN NEGATIVE ECG NEGATIVE C 2019 NEGATIVE S/P DUAL PPI vital signs Vital Sign Date Time Temp Pulse Resp B/P (MAP) Pulse Ox O2 Delivery O2 Flow Rate FiO2 08/04/24 13:00 97.7 56 18 104/49 (67) 91 97.7 08/03/24 20:00 Room Air* 0 21 Total Intake and Output 08/03/24 08/03/24 08/04/24 15:00 23:00 07:00 Intake Total 400 ml 1200 ml Output Total 1200 ml Balance -800 ml 1200 ml medications Current Medications Medications Dose Ordered Sig/Camille Route Start Time Stop Time Status Last Admin Dose Admin Lisinopril 20 mg DAILY PO 08/01/24 10:00 08/04/24 09:22 20 MG Spironolactone 25 mg DAILY PO 08/01/24 10:00 08/04/24 09:22 25 MG Pantoprazole Sodium 40 mg DAILY@0600 PO 08/01/24 06:00 08/04/24 05:46 40 MG Tamsulosin HCl 0.4 mg QPM PO 08/01/24 18:00 08/03/24 17:18 0.4 MG Buspirone HCl 15 mg Q12HR PO 08/01/24 10:00 08/04/24 09:21 15 MG Morphine Sulfate 60 mg Q12HR PO 08/01/24 10:00 08/04/24 09:23 60 MG Oxycodone HCl 10 mg Q12HR PO 08/01/24 10:00 UNV Aspirin 81 mg DAILY PO 08/01/24 10:00 08/04/24 09:22 81 MG Clonidine HCl 0.1 mg Q6HP PRN PO 08/01/24 04:45 Enoxaparin Sodium 40 mg DAILY SC 08/01/24 10:00 08/03/24 08:40 40 MG Hydromorphone HCl 0.5 mg Q3HPRN PRN IV 08/01/24 14:30 08/04/24 05:48 0.5 MG Diagnostic Test (Pha) 1 strip ACHS 08/02/24 11:30 08/04/24 11:21 1 STRIP Insulin Human Regular ACHS SC 08/02/24 11:30 08/03/24 22:00 3 UNITS Dextrose 50 ml UD PRN IV 08/02/24 09:45 Quetiapine Fumarate 100 mg DAILY PO 08/02/24 10:00 08/04/24 09:20 100 MG Polyethylene Glycol 17 gm DAILY PO 08/02/24 10:00 08/03/24 08:40 17 GM Ondansetron HCl 4 mg Q4HP PRN PO 08/03/24 12:00 Hydroxyzine HCl 20 mg Q8HP PRN PO 08/03/24 14:00 08/04/24 03:54 20 MG Lactulose 30 ml Q6HPRN PRN PO 08/04/24 12:00 laboratory and microbiology Laboratory Tests 08/04/24 04:40 07/31/24 22:04 Test 08/04/24 04:40 Range/Units Serum Glucose 111 H 74-106 mg/dL Problem List CHEST PAIN TROPONIN NEGATIVE ECG NEGATIVE C 2019 NEGATIVE S/P DUAL PPI Assessment/Plan ECHO LVH EF >55% DIASTOLIC DYSFUNCTION CARDIAC STATUS STABLE Dietary Evaluation Review Comments: CCHO-60, 2GNa Lo fat Lo cholesterol cardiac diet, no caffeine Expected Outcomes/Goals: controlled DM< gradual weight loss, gradually healed wounds. Plan discussed with: Patient KEILY DOLAN MD Aug 04, 2024 13:41
--- NOTE | 2024-08-04 13:48 | DVHPN2 ---
Progress Note - Dictate Date Seen: Aug 04, 2024 Medical Necessity Reason Pt with a Central, PICC or Fol: No Subjective PT WITH CHEST PAIN TROPONIN NEGATIVE ECG NEGATIVE C 2019 NEGATIVE S/P DUAL PPI vital signs Vital Sign Date Time Temp Pulse Resp B/P (MAP) Pulse Ox O2 Delivery O2 Flow Rate FiO2 08/04/24 13:00 97.7 56 18 104/49 (67) 91 97.7 08/03/24 20:00 Room Air* 0 21 Total Intake and Output 08/03/24 08/03/24 08/04/24 15:00 23:00 07:00 Intake Total 400 ml 1200 ml Output Total 1200 ml Balance -800 ml 1200 ml medications Current Medications Medications Dose Ordered Sig/Camille Route Start Time Stop Time Status Last Admin Dose Admin Lisinopril 20 mg DAILY PO 08/01/24 10:00 08/04/24 09:22 20 MG Spironolactone 25 mg DAILY PO 08/01/24 10:00 08/04/24 09:22 25 MG Pantoprazole Sodium 40 mg DAILY@0600 PO 08/01/24 06:00 08/04/24 05:46 40 MG Tamsulosin HCl 0.4 mg QPM PO 08/01/24 18:00 08/03/24 17:18 0.4 MG Buspirone HCl 15 mg Q12HR PO 08/01/24 10:00 08/04/24 09:21 15 MG Morphine Sulfate 60 mg Q12HR PO 08/01/24 10:00 08/04/24 09:23 60 MG Oxycodone HCl 10 mg Q12HR PO 08/01/24 10:00 UNV Aspirin 81 mg DAILY PO 08/01/24 10:00 08/04/24 09:22 81 MG Clonidine HCl 0.1 mg Q6HP PRN PO 08/01/24 04:45 Enoxaparin Sodium 40 mg DAILY SC 08/01/24 10:00 08/03/24 08:40 40 MG Hydromorphone HCl 0.5 mg Q3HPRN PRN IV 08/01/24 14:30 08/04/24 05:48 0.5 MG Diagnostic Test (Pha) 1 strip ACHS 08/02/24 11:30 08/04/24 11:21 1 STRIP Insulin Human Regular ACHS SC 08/02/24 11:30 08/03/24 22:00 3 UNITS Dextrose 50 ml UD PRN IV 08/02/24 09:45 Quetiapine Fumarate 100 mg DAILY PO 08/02/24 10:00 08/04/24 09:20 100 MG Polyethylene Glycol 17 gm DAILY PO 08/02/24 10:00 08/03/24 08:40 17 GM Ondansetron HCl 4 mg Q4HP PRN PO 08/03/24 12:00 Hydroxyzine HCl 20 mg Q8HP PRN PO 08/03/24 14:00 08/04/24 03:54 20 MG Lactulose 30 ml Q6HPRN PRN PO 08/04/24 12:00 laboratory and microbiology Laboratory Tests 08/04/24 04:40 07/31/24 22:04 Test 08/04/24 04:40 Range/Units Serum Glucose 111 H 74-106 mg/dL Problem List CHEST PAIN TROPONIN NEGATIVE ECG NEGATIVE C 2019 NEGATIVE S/P DUAL PPI Assessment/Plan ECHO LVH EF >55% DIASTOLIC DYSFUNCTION CARDIAC STATUS STABLE MORBID OBESITY SLEEPING ALL THE TIME COMPONENT OF SLEEP APNEA MRCP DILATED DUCTS WITH ELEVATED LFT MAY NEED ERCP MAY PROCEED WITH ANY INTERVENTION ASA II/III Dietary Evaluation Review Comments: CCHO-60, 2GNa Lo fat Lo cholesterol cardiac diet, no caffeine Expected Outcomes/Goals: controlled DM< gradual weight loss, gradually healed wounds. Plan discussed with: Patient KEILY DOLAN MD Aug 04, 2024 13:48
[2024-08-04] MEDS ORDERED: KETAMINE 50mg/ML 1ml syringe ONE (14:34)
--- NOTE | 2024-08-04 14:53 | DVHOP2 ---
Operative Report DATE OF OPERATION: 08/04/24 PROCEDURE: Upper Endoscopy with biopsy. PREOPERATIVE INDICATION: The patient is a 74 -year-old male undergoing endoscopy for abdominal pain elevated liver enzymes rule out ampullary tumor POSTOPERATIVE DIAGNOSES: 1. Patient had a 1 cm sliding-type hiatal hernia with slightly irregular squamocolumnar junction from which GE junction biopsies were obtained 2. Mild antral gastritis 3. Otherwise normal examination up to the 2nd and 3rd part of the duodenal with no ampullary tumor and there was good bile drainage PROCEDURE PERFORMED BY: Ren Baker GI NURSE: Neo SCOPE: Olympus videoendoscope. ASA CLASS: 3. PREOPERATIVE MEDICATIONS: Mac sedationDr. Noland PROCEDURE IN DETAIL: After obtaining an informed consent, the patient was placed on left lateral decubitus position. The patient was then sedated with the above medications. A bite block was placed between his teeth. The endoscope was then passed through the oropharynx, into the esophagus, and through the stomach and pylorus up to the second and third part of the duodenum. The endoscope was then withdrawn. The 2nd and 3rd part of the duodenal and the duodenal bulb were normal. There was good bile drainage and no ampullary tumor or duodenal ulceration or mass The pre-pyloric area and antrum showed mild antral gastritis with superficial gastric erosions. Duodenal and gastric biopsies were obtained. On retroflexion the fundus cardia and angularis were normal. The endoscope was then straightened withdrawn into the distal esophagus. Patient had a 1 cm sliding-type hiatal hernia with slightly irregular squamocolumnar junction. GE junction biopsies were obtained. The remaining distal and proximal esophagus and oropharynx were unremarkable The patient tolerated the procedure well without difficulty. COMPLICATIONS : None SPECIMENS: Duodenal biopsies Gastric biopsies GE junction biopsies DISPOSITION: Transfer back to the floor Stable PLAN: 1. Await for biopsy results 2. Protonix 40 mg p.o. daily 3. Carafate 1 g p.o. twice a day 4. DC aspirin NSAIDs smoking alcohol 5. Patient will likely need referral higher level of care for ERCP and/or EUS because of dilated bile ducts and elevated liver enzymes REN BAKER MD Aug 04, 2024 14:53
[2024-08-04] MEDS: SUCRALFATE 1 GM TAB PO SCH (21:36)
[2024-08-04] MEDS: ONDANSETRON ODT 4 MG TAB PO PRN (23:48)
[2024-08-05] VITALS (8 sets, daily range): BP systolic 91–150; BP diastolic 51–94; PULSE 69–121; RESP 19–20; TEMP 97.8–98.1; O2SAT 92–96
--- NOTE | 2024-08-05 18:14 | DVHPN2 ---
Subjective SOME SHORTNESS A BREATH Reviewed: Care Plan, H&P, Labs, Medications, Previous Orders, Radiology, Other (CONSULTANTS) Changes from previous H/P or p: No Changes General: Per HPI Objective Vitals Vital Signs Date Time Temp Pulse Resp B/P (MAP) Pulse Ox O2 Delivery O2 Flow Rate FiO2 08/05/24 17:01 98.0 79 20 150/94 (112) 96 98.0 08/05/24 08:00 Room Air* 0 21 Intake/Output Intake and Output 08/05/24 07:00 Intake Total 1020 ml Balance 1020 ml Intake Oral 970 ml IV Total 50 ml # Voids 5 # Bowel Movements 1 General Appearance: Alert, Oriented X3, Cooperative, No acute distress HEENT: Atraumatic Lungs: Clear to auscultation, Normal air movement Cardiovascular: Other (Borderline tachycardia) Abdomen: Normal bowel sounds, Soft Extremities: Other (Bilateral lower extremities edema more so on the left side with redness and warmth in the left pretibial area) Neuro: Normal speech Psych/Mental Status: Mental status NL, Mood NL Medications Current Medications Medications Dose Ordered Sig/Camille Route Start Time Stop Time Status Last Admin Dose Admin Spironolactone 25 mg DAILY PO 08/01/24 10:00 08/05/24 08:53 25 MG Pantoprazole Sodium 40 mg DAILY@0600 PO 08/01/24 06:00 08/05/24 06:24 40 MG Tamsulosin HCl 0.4 mg QPM PO 08/01/24 18:00 08/05/24 16:55 0.4 MG Buspirone HCl 15 mg Q12HR PO 08/01/24 10:00 08/05/24 08:54 15 MG Morphine Sulfate 60 mg Q12HR PO 08/01/24 10:00 08/05/24 08:56 60 MG Oxycodone HCl 10 mg Q12HR PO 08/01/24 10:00 UNV Aspirin 81 mg DAILY PO 08/01/24 10:00 08/05/24 08:53 81 MG Clonidine HCl 0.1 mg Q6HP PRN PO 08/01/24 04:45 Enoxaparin Sodium 40 mg DAILY SC 08/01/24 10:00 08/05/24 08:56 40 MG Hydromorphone HCl 0.5 mg Q3HPRN PRN IV 08/01/24 14:30 08/05/24 16:56 0.5 MG Diagnostic Test (Pha) 1 strip ACHS 08/02/24 11:30 08/05/24 17:05 1 STRIP Insulin Human Regular ACHS SC 08/02/24 11:30 08/05/24 16:54 3 UNITS Dextrose 50 ml UD PRN IV 08/02/24 09:45 Quetiapine Fumarate 100 mg DAILY PO 08/02/24 10:00 08/05/24 08:54 100 MG Polyethylene Glycol 17 gm DAILY PO 08/02/24 10:00 08/03/24 08:40 17 GM Ondansetron HCl 4 mg Q4HP PRN PO 08/03/24 12:00 08/04/24 23:48 4 MG Hydroxyzine HCl 20 mg Q8HP PRN PO 08/03/24 14:00 08/05/24 06:24 20 MG Lactulose 30 ml Q6HPRN PRN PO 08/04/24 12:00 Sucralfate 1 gm BID PO 08/04/24 22:00 08/04/24 21:36 1 GM Lisinopril 5 mg DAILY PO 08/06/24 10:00 Laboratory Results Laboratory Tests 07/31/24 22:04 08/04/24 04:40 Urinalysis Test 08/01/24 09:40 Urine Color Yellow (Yellow) Urine Clarity Clear (Clear) Urine pH 7.5 (5.0-9.0) Urine Specific [place] 1.018 (1.001-1.035) Urine Protein Negative (Negative) Urine Ketones Negative (Negative) Urine Blood Negative /uL (Negative) Urine Nitrite Negative (Negative) Urine Bilirubin Negative (Negative) Urine Urobilinogen 8 mg/dL (Negative) H Urine Leukocyte Esterase Negative /uL (Negative) Urine RBC 1 /hpf (0 - 3) Urine WBC 2 /hpf (0 - 3) Urine Squamous Epithelial Cells Few /hpf (<5) Urine Bacteria Few /hpf (None Seen) H Urine Glucose Normal mg/dL (Normal) Assessment/Plan Assessment/Plan Chest pain Sinus tachycardia Elevated liver function tests Left lower extremity cellulitis Dilated intra and extrahepatic bile duct/normal finding post cholecystectomy Small hiatal hernia Chronic pain syndrome Hypertension Obstructive sleep apnea Bilateral renal cysts Elevated D-dimer : Plan Chest CT angiogram lot PE IV antibiotic for left lower extremity cellulitis Resume patient's Seroquel 100 mg at bedtime per patient request Repeat labs Plan discussed with: Patient My Orders Orders - DELLA BARAKAT MD Procedure Category Date Status Time Comprehensive LAB 08/06/24 Verified Metabolic Panel 06:00 Creatine Kinase LAB 08/06/24 Verified 06:00 Lisinopril Tablet PHA 08/06/24 In Process (Zestril Tablet) 10:00 Date of Service: Aug 05, 2024 Billing Provider: DELLA BARAKAT MD Common Visit Codes: [id number] INP/OBS CARE(HIGH) DELLA BARAKAT MD Aug 05, 2024 18:14
[2024-08-05] MEDS ORDERED: LABETALOL HCL 20 MG/4 ML VL IV PRN (18:15)
[2024-08-05] MEDS: DOXYCYCLINE 100MG/250ML 250 ML IV SCH (18:15)
--- NOTE | 2024-08-05 21:09 | DVHPN2 ---
Progress Note - Dictate Date Seen: Aug 05, 2024 Medical Necessity Reason Pt with a Central, PICC or Fol: No Subjective No new complaints Patient is sleeping comfortably No new labs today EGD showed small hiatal hernia mild gastritis and no ampullary tumor, there was good bile drainage Patient complains of some insomnia and is Seroquel timing was adjusted, patient was given a dose of melatonin tonight vital signs Vital Sign Date Time Temp Pulse Resp B/P (MAP) Pulse Ox O2 Delivery O2 Flow Rate FiO2 08/05/24 18:44 68 16 142/62 08/05/24 17:01 98.0 96 98.0 08/05/24 08:00 Room Air* 0 21 Total Intake and Output 08/04/24 08/04/24 08/05/24 15:00 23:00 07:00 Intake Total 50 ml 420 ml 550 ml Balance 50 ml 420 ml 550 ml medications Current Medications Medications Dose Ordered Sig/Camille Route Start Time Stop Time Status Last Admin Dose Admin Spironolactone 25 mg DAILY PO 08/01/24 10:00 08/05/24 08:53 25 MG Pantoprazole Sodium 40 mg DAILY@0600 PO 08/01/24 06:00 08/05/24 06:24 40 MG Tamsulosin HCl 0.4 mg QPM PO 08/01/24 18:00 08/05/24 16:55 0.4 MG Buspirone HCl 15 mg Q12HR PO 08/01/24 10:00 08/05/24 08:54 15 MG Morphine Sulfate 60 mg Q12HR PO 08/01/24 10:00 08/05/24 08:56 60 MG Oxycodone HCl 10 mg Q12HR PO 08/01/24 10:00 UNV Aspirin 81 mg DAILY PO 08/01/24 10:00 08/05/24 08:53 81 MG Clonidine HCl 0.1 mg Q6HP PRN PO 08/01/24 04:45 Enoxaparin Sodium 40 mg DAILY SC 08/01/24 10:00 08/05/24 08:56 40 MG Hydromorphone HCl 0.5 mg Q3HPRN PRN IV 08/01/24 14:30 08/05/24 16:56 0.5 MG Diagnostic Test (Pha) 1 strip ACHS 08/02/24 11:30 08/05/24 17:05 1 STRIP Insulin Human Regular ACHS SC 08/02/24 11:30 08/05/24 16:54 3 UNITS Dextrose 50 ml UD PRN IV 08/02/24 09:45 Quetiapine Fumarate 100 mg DAILY PO 08/02/24 10:00 08/05/24 08:54 100 MG Polyethylene Glycol 17 gm DAILY PO 08/02/24 10:00 08/03/24 08:40 17 GM Ondansetron HCl 4 mg Q4HP PRN PO 08/03/24 12:00 08/04/24 23:48 4 MG Hydroxyzine HCl 20 mg Q8HP PRN PO 08/03/24 14:00 08/05/24 06:24 20 MG Lactulose 30 ml Q6HPRN PRN PO 08/04/24 12:00 Sucralfate 1 gm BID PO 08/04/24 22:00 08/04/24 21:36 1 GM Lisinopril 5 mg DAILY PO 08/06/24 10:00 Quetiapine Fumarate 100 mg HS PO 08/05/24 22:00 Doxycycline Hyclate 250 ml @ 125 mls/hr Q12H IV 08/05/24 18:15 Trimethoprim/ Sulfamethoxazole 1 tab Q12HR PO 08/05/24 22:00 Labetalol HCl 10 mg Q2HPRN PRN IV 08/05/24 18:15 objective General Appearance: Alert, Oriented X3, Cooperative, No acute distress HEENT: Atraumatic Lungs: Clear to auscultation, Normal air movement Cardiovascular: S1-S2 regular rate rhythm Abdomen: Normal bowel sounds, Soft;, obese Extremities: Other (Bilateral lower extremities edema more so on the left side with redness and warmth in the left pretibial area) Neuro: Normal speech Psych/Mental Status: Mental status NL, Mood NL laboratory and microbiology Laboratory Tests 08/04/24 04:40 07/31/24 22:04 Test 08/04/24 04:40 Range/Units Serum Glucose 111 H 74-106 mg/dL Problems(with codes): (1) Morbid obesity (2) Elevated liver enzymes (3) Cardiac pacemaker in situ (4) Cellulitis of right leg (5) Shortness of breath Prognosis Plan Repeat labs in a.m. MRI shows moderate dilation intra and extrahepatic ducts There was no ampullary tumor seen on endoscopy CA 19 nine is negative and no clear-cut pancreatic mass was identified Recommend referral to higher level of care for ERCP possible endoscopic ultrasound Dietary Evaluation Review Comments: CCHO-60, 2GNa Lo fat Lo cholesterol cardiac diet, no caffeine Expected Outcomes/Goals: controlled DM< gradual weight loss, gradually healed wounds. Plan discussed with: Patient, Other (Nurse) REN PATTON MD Aug 05, 2024 21:09
[2024-08-05] MEDS: MELATONIN 5 MG TAB PO ONE (21:17)
[2024-08-05] MEDS: SULFAMETHOX W/TRIMETH(800/160MG) DS TAB PO SCH (21:17)
[2024-08-05] MEDS: QUEtiapine FUMARATE 100 MG TAB PO SCH (21:18)
[2024-08-06] VITALS (11 sets, daily range): BP systolic 99–114; BP diastolic 53–86; PULSE 69–98; RESP 18–19; TEMP 97.4–98.4; O2SAT 90–100
[2024-08-06 06:13] LABS: Basophils # (auto) 0.1 10 ^3/uL (0-0.2); Basophils % (auto) 0.8 % (0.0-2.0); Eosinophils # (auto) 0 10 ^3/uL (0-0.8); Eosinophils % (auto) 0.4 % (0.0-7.0); Hematocrit 46.7 % (41.0-53.0); Hemoglobin 15.3 g/dL (13.5-17.5); Lymphocytes # (auto) 2.4 10 ^3/uL (0.4-5.4); Lymphocytes % (auto) 23.9 % (10.0-50.0); Mean Corpuscular Hgb Conc. 32.8 g/dL (32.0-36.0); Mean Corpuscular Volume 91.5 fL (80.0-100.0); Monocytes # (auto) 1.1 10 ^3/uL (0-1.3); Monocytes % (auto) 10.9 % (0.0-12.0); Neutrophils # (auto) 6.4 10 ^3/uL (1.6-8.6); Nucleated Red Blood Cells % 0.1 %; Platelet Count (auto) 195 10^3/uL (140-450); Red Cell Distribution Width 13.3 % (11.8-14.3)
[2024-08-06 06:29] LABS: Albumin 3.6 g/dL (3.2-4.8); Anion Gap 6 (5-15); BUN/Creatinine Ratio 9.4 (10.0-20.0); Blood Urea Nitrogen 10 mg/dL (9-23); Calcium 9.7 mg/dL (8.7-10.4); Carbon Dioxide 30 mmol/L (20-31); Chloride 101 mmol/L (98-107); Creatine Kinase IFCC 94 U/L (46-171); Potassium 3.7 mmol/L (3.5-5.1); Sodium 137 mmol/L (136-145); Total Protein 6.9 g/dL (5.7-8.2)
[2024-08-06 06:38] LABS: Alanine Aminotransferase 132 U/L (7-40); Alkaline Phosphatase 259 U/L (46-116); Aspartate Aminotransferase 134 U/L (13-40); Bilirubin, Total 3.4 mg/dL (0.2-1.0); Glucose 140 mg/dL (74-106)
[2024-08-06] MEDS: LISINOPRIL 5 MG TAB PO SCH (08:35)
--- NOTE | 2024-08-06 10:35 | DVHPN2 ---
Progress Note - Dictate Date Seen: Aug 06, 2024 Medical Necessity Reason Pt with a Central, PICC or Fol: No Subjective Patient required CPAP last night I also gave him a dose of melatonin His Seroquel will be changed to nighttime dosing to help him sleep better Repeat labs show persistent elevation in his liver enzymes with mild obstructive pattern MRCP had shown moderate dilation of the intra and extrahepatic bile ducts with no stone EGD showed small hiatal hernia mild gastritis and no ampullary tumor, there was good bile drainage vital signs Vital Sign Date Time Temp Pulse Resp B/P (MAP) Pulse Ox O2 Delivery O2 Flow Rate FiO2 08/06/24 09:08 92 Nasal Cannula 2.0 08/06/24 09:08 28 08/06/24 08:35 104/86 08/06/24 08:30 85 20 08/06/24 05:00 98.3 98.3 Total Intake and Output 08/05/24 08/05/24 08/06/24 14:59 22:59 06:59 Intake Total 800 ml 800 ml Output Total 600 ml Balance 800 ml 200 ml medications Current Medications Medications Dose Ordered Sig/Camille Route Start Time Stop Time Status Last Admin Dose Admin Spironolactone 25 mg DAILY PO 08/01/24 10:00 08/06/24 08:33 25 MG Pantoprazole Sodium 40 mg DAILY@0600 PO 08/01/24 06:00 08/06/24 05:51 40 MG Tamsulosin HCl 0.4 mg QPM PO 08/01/24 18:00 08/05/24 16:55 0.4 MG Buspirone HCl 15 mg Q12HR PO 08/01/24 10:00 08/06/24 08:35 15 MG Morphine Sulfate 60 mg Q12HR PO 08/01/24 10:00 08/06/24 08:34 60 MG Oxycodone HCl 10 mg Q12HR PO 08/01/24 10:00 UNV Aspirin 81 mg DAILY PO 08/01/24 10:00 08/06/24 08:33 81 MG Clonidine HCl 0.1 mg Q6HP PRN PO 08/01/24 04:45 Enoxaparin Sodium 40 mg DAILY SC 08/01/24 10:00 08/06/24 08:39 40 MG Hydromorphone HCl 0.5 mg Q3HPRN PRN IV 08/01/24 14:30 08/06/24 08:30 0.5 MG Diagnostic Test (Pha) 1 strip ACHS 08/02/24 11:30 08/06/24 06:05 1 STRIP Insulin Human Regular ACHS SC 08/02/24 11:30 08/06/24 06:11 2 UNITS Dextrose 50 ml UD PRN IV 08/02/24 09:45 Quetiapine Fumarate 100 mg DAILY PO 08/02/24 10:00 08/06/24 08:33 100 MG Polyethylene Glycol 17 gm DAILY PO 08/02/24 10:00 08/06/24 08:37 17 GM Ondansetron HCl 4 mg Q4HP PRN PO 08/03/24 12:00 08/04/24 23:48 4 MG Hydroxyzine HCl 20 mg Q8HP PRN PO 08/03/24 14:00 08/06/24 05:51 20 MG Lactulose 30 ml Q6HPRN PRN PO 08/04/24 12:00 Sucralfate 1 gm BID PO 08/04/24 22:00 08/06/24 08:33 1 GM Lisinopril 5 mg DAILY PO 08/06/24 10:00 08/06/24 08:35 5 MG Quetiapine Fumarate 100 mg HS PO 08/05/24 22:00 08/05/24 21:18 100 MG Doxycycline Hyclate 250 ml @ 125 mls/hr Q12H IV 08/05/24 18:15 08/06/24 05:51 125 MLS/HR Trimethoprim/ Sulfamethoxazole 1 tab Q12HR PO 08/05/24 22:00 08/06/24 08:33 1 TAB Labetalol HCl 10 mg Q2HPRN PRN IV 08/05/24 18:15 objective General Appearance: Alert, Oriented X3, Cooperative, No acute distress HEENT: Atraumatic Lungs: Clear to auscultation, Normal air movement Cardiovascular: S1-S2 regular rate rhythm Abdomen: Normal bowel sounds, Soft;, obese Extremities: Other (Bilateral lower extremities edema more so on the left side with redness and warmth in the left pretibial area) Neuro: Normal speech Psych/Mental Status: Mental status NL, Mood NL laboratory and microbiology Laboratory Tests 08/06/24 05:45 Test 08/06/24 05:45 Range/Units Serum Glucose 140 H 74-106 mg/dL Problems(with codes): (1) Cellulitis of right leg (2) Elevated liver enzymes (3) Cardiac pacemaker in situ (4) Morbid obesity (5) Shortness of breath (6) CHF (congestive heart failure) (7) Hypertension Prognosis Plan Patient is awaiting a CT chest angiogram Patient will need to be referred to higher level of care for ERCP possible endoscopic ultrasound CA 19-9 is normal and there was no ampullary tumor on EGD; no clear-cut evidence of a pancreatic mass Hepatitis profile is negative Dietary Evaluation Review Comments: CCHO-60, 2GNa Lo fat Lo cholesterol cardiac diet, no caffeine Expected Outcomes/Goals: controlled DM< gradual weight loss, gradually healed wounds. Plan discussed with: Patient, Other (Nurse) REN PATTON MD Aug 06, 2024 10:34
--- NOTE | 2024-08-06 15:55 | DVHPN2 ---
Subjective SOME SHORTNESS A BREATH Reviewed: Care Plan, H&P, Labs, Medications, Previous Orders, Radiology, Other (CONSULTANTS) Changes from previous H/P or p: No Changes General: Per HPI Objective Vitals Vital Signs Date Time Temp Pulse Resp B/P (MAP) Pulse Ox O2 Delivery O2 Flow Rate FiO2 08/06/24 13:00 98.0 74 19 109/53 (71) 91 98.0 08/06/24 09:08 Nasal Cannula 2.0 08/06/24 09:08 28 Intake/Output Intake and Output 08/06/24 07:00 Intake Total 1600 ml Output Total 600 ml Balance 1000 ml Intake Oral 1600 ml Output Urine Total 600 ml # Voids 3 # Bowel Movements 2 General Appearance: Alert, Oriented X3, Cooperative, No acute distress HEENT: Atraumatic Lungs: Clear to auscultation, Normal air movement Cardiovascular: Other (Borderline tachycardia) Abdomen: Normal bowel sounds, Soft Extremities: Other (Bilateral lower extremities edema more so on the left side with redness and warmth in the left pretibial area) Neuro: Normal speech Psych/Mental Status: Mental status NL, Mood NL Medications Current Medications Medications Dose Ordered Sig/Camille Route Start Time Stop Time Status Last Admin Dose Admin Spironolactone 25 mg DAILY PO 08/01/24 10:00 08/06/24 08:33 25 MG Pantoprazole Sodium 40 mg DAILY@0600 PO 08/01/24 06:00 08/06/24 05:51 40 MG Tamsulosin HCl 0.4 mg QPM PO 08/01/24 18:00 08/05/24 16:55 0.4 MG Buspirone HCl 15 mg Q12HR PO 08/01/24 10:00 08/06/24 08:35 15 MG Morphine Sulfate 60 mg Q12HR PO 08/01/24 10:00 08/06/24 08:34 60 MG Oxycodone HCl 10 mg Q12HR PO 08/01/24 10:00 UNV Aspirin 81 mg DAILY PO 08/01/24 10:00 08/06/24 08:33 81 MG Clonidine HCl 0.1 mg Q6HP PRN PO 08/01/24 04:45 Enoxaparin Sodium 40 mg DAILY SC 08/01/24 10:00 08/06/24 08:39 40 MG Hydromorphone HCl 0.5 mg Q3HPRN PRN IV 08/01/24 14:30 08/06/24 08:30 0.5 MG Diagnostic Test (Pha) 1 strip ACHS 08/02/24 11:30 08/06/24 11:30 1 STRIP Insulin Human Regular ACHS SC 08/02/24 11:30 08/06/24 12:22 3 UNITS Dextrose 50 ml UD PRN IV 08/02/24 09:45 Quetiapine Fumarate 100 mg DAILY PO 08/02/24 10:00 08/06/24 08:33 100 MG Polyethylene Glycol 17 gm DAILY PO 08/02/24 10:00 08/06/24 08:37 17 GM Ondansetron HCl 4 mg Q4HP PRN PO 08/03/24 12:00 08/04/24 23:48 4 MG Hydroxyzine HCl 20 mg Q8HP PRN PO 08/03/24 14:00 08/06/24 05:51 20 MG Lactulose 30 ml Q6HPRN PRN PO 08/04/24 12:00 Sucralfate 1 gm BID PO 08/04/24 22:00 08/06/24 08:33 1 GM Lisinopril 5 mg DAILY PO 08/06/24 10:00 08/06/24 08:35 5 MG Quetiapine Fumarate 100 mg HS PO 08/05/24 22:00 08/05/24 21:18 100 MG Doxycycline Hyclate 250 ml @ 125 mls/hr Q12H IV 08/05/24 18:15 08/06/24 05:51 125 MLS/HR Trimethoprim/ Sulfamethoxazole 1 tab Q12HR PO 08/05/24 22:00 08/06/24 08:33 1 TAB Labetalol HCl 10 mg Q2HPRN PRN IV 08/05/24 18:15 Laboratory Results Laboratory Tests 08/06/24 05:45 Chemistry Test 08/06/24 05:45 Albumin 3.6 g/dL (3.2-4.8) Calcium Level 9.7 mg/dL (8.7-10.4) Total Protein 6.9 g/dL (5.7-8.2) LFT Test 08/06/24 05:45 Alanine Aminotransferase (ALT) 132 U/L (7-40) H Alkaline Phosphatase 259 U/L (46-116) H Aspartate Amino Transferase (AST) 134 U/L (13-40) H Total Bilirubin 3.4 mg/dL (0.2-1.0) H Urinalysis Test 08/01/24 09:40 Urine Color Yellow (Yellow) Urine Clarity Clear (Clear) Urine pH 7.5 (5.0-9.0) Urine Specific [place] 1.018 (1.001-1.035) Urine Protein Negative (Negative) Urine Ketones Negative (Negative) Urine Blood Negative /uL (Negative) Urine Nitrite Negative (Negative) Urine Bilirubin Negative (Negative) Urine Urobilinogen 8 mg/dL (Negative) H Urine Leukocyte Esterase Negative /uL (Negative) Urine RBC 1 /hpf (0 - 3) Urine WBC 2 /hpf (0 - 3) Urine Squamous Epithelial Cells Few /hpf (<5) Urine Bacteria Few /hpf (None Seen) H Urine Glucose Normal mg/dL (Normal) Assessment/Plan Assessment/Plan Chest pain Sinus tachycardia Elevated liver function tests Left lower extremity cellulitis Dilated intra and extrahepatic bile duct/normal finding post cholecystectomy Small hiatal hernia Chronic pain syndrome Hypertension Obstructive sleep apnea Bilateral renal cysts Elevated D-dimer : Plan Still awaiting for chest CT angiogram. Liver tests are stabilizing. I think the liver enzymes went up due to the atorvastatin. ERCP negative for choledocholithiasis and the intrahepatic and extrahepatic biliary dilatation is due to the cholecystectomy. Repeat liver tests we will follow the enzymes accordingly. Plan discussed with: Patient My Orders Orders - DELLA BARAKAT MD Procedure Category Date Status Time Ct Angio Chest CT 08/05/24 Logged Contrast 18:09 Quetiapine Fumarate PHA 08/05/24 In Process Tablet (Seroquel Tab 22:00 Doxycycline PHA 08/05/24 In Process 100mg/250ml 18:15 Sulfamethoxazole PHA 08/05/24 In Process W/Trimeth Tab (Bactrim 22:00 Labetalol Hcl PHA 08/05/24 In Process (Labetalol Hcl) 18:15 Date of Service: Aug 06, 2024 Billing Provider: DELLA BARAKAT MD Common Visit Codes: [id number] INP/OBS CARE(HIGH) DELLA BARAKAT MD Aug 06, 2024 15:55
[2024-08-07] VITALS (10 sets, daily range): BP systolic 92–126; BP diastolic 52–72; PULSE 62–101; RESP 18–20; TEMP 97.3–98; O2SAT 93–97
[2024-08-07 07:01] LABS: Anion Gap 7 (5-15); BUN/Creatinine Ratio 8.8 (10.0-20.0); Blood Urea Nitrogen 11 mg/dL (9-23); Calcium 9.4 mg/dL (8.7-10.4); Carbon Dioxide 29 mmol/L (20-31); Chloride 103 mmol/L (98-107); Potassium 4.1 mmol/L (3.5-5.1); Sodium 139 mmol/L (136-145)
[2024-08-07 07:02] LABS: Albumin 3.4 g/dL (3.2-4.8)
[2024-08-07 07:03] LABS: Total Protein 6.4 g/dL (5.7-8.2)
[2024-08-07 07:13] LABS: Alanine Aminotransferase 125 U/L (7-40); Alkaline Phosphatase 253 U/L (46-116); Aspartate Aminotransferase 95 U/L (13-40); Bilirubin, Total 2.5 mg/dL (0.2-1.0); Glucose 160 mg/dL (74-106)
--- NOTE | 2024-08-07 09:04 | DVHPN2 ---
Progress Note - Dictate Date Seen: Aug 05, 2024 Medical Necessity Reason Pt with a Central, PICC or Fol: No Subjective PT WITH CHEST PAIN TROPONIN NEGATIVE ECG NEGATIVE [facility] 2019 NEGATIVE S/P DUAL PPI vital signs Vital Sign Date Time Temp Pulse Resp B/P (MAP) Pulse Ox O2 Delivery O2 Flow Rate FiO2 08/07/24 08:18 118/55 08/07/24 08:00 Room Air* 0 21 08/07/24 06:13 90 18 08/07/24 05:00 98.0 94 98.0 Total Intake and Output 08/06/24 08/06/24 08/07/24 15:00 23:00 07:00 Intake Total 250 ml 650 ml 650 ml Output Total 300 ml 650 ml Balance 250 ml 350 ml 0 ml medications Current Medications Medications Dose Ordered Sig/Camille Route Start Time Stop Time Status Last Admin Dose Admin Spironolactone 25 mg DAILY PO 08/01/24 10:00 08/07/24 08:20 25 MG Pantoprazole Sodium 40 mg DAILY@0600 PO 08/01/24 06:00 08/07/24 05:34 40 MG Tamsulosin HCl 0.4 mg QPM PO 08/01/24 18:00 08/06/24 17:59 0.4 MG Buspirone HCl 15 mg Q12HR PO 08/01/24 10:00 08/07/24 08:19 15 MG Morphine Sulfate 60 mg Q12HR PO 08/01/24 10:00 08/07/24 08:19 60 MG Oxycodone HCl 10 mg Q12HR PO 08/01/24 10:00 UNV Aspirin 81 mg DAILY PO 08/01/24 10:00 08/07/24 08:18 81 MG Clonidine HCl 0.1 mg Q6HP PRN PO 08/01/24 04:45 Enoxaparin Sodium 40 mg DAILY SC 08/01/24 10:00 08/07/24 08:24 40 MG Hydromorphone HCl 0.5 mg Q3HPRN PRN IV 08/01/24 14:30 08/07/24 05:43 0.5 MG Diagnostic Test (Pha) 1 strip ACHS 08/02/24 11:30 08/07/24 05:49 1 STRIP Insulin Human Regular ACHS SC 08/02/24 11:30 08/07/24 05:53 3 UNITS Dextrose 50 ml UD PRN IV 08/02/24 09:45 Quetiapine Fumarate 100 mg DAILY PO 08/02/24 10:00 08/07/24 08:20 100 MG Polyethylene Glycol 17 gm DAILY PO 08/02/24 10:00 08/07/24 08:14 17 GM Ondansetron HCl 4 mg Q4HP PRN PO 08/03/24 12:00 08/04/24 23:48 4 MG Hydroxyzine HCl 20 mg Q8HP PRN PO 08/03/24 14:00 08/06/24 16:56 20 MG Lactulose 30 ml Q6HPRN PRN PO 08/04/24 12:00 Sucralfate 1 gm BID PO 08/04/24 22:00 08/07/24 08:18 1 GM Lisinopril 5 mg DAILY PO 08/06/24 10:00 08/07/24 08:18 5 MG Quetiapine Fumarate 100 mg HS PO 08/05/24 22:00 08/06/24 21:58 100 MG Doxycycline Hyclate 250 ml @ 125 mls/hr Q12H IV 08/05/24 18:15 08/07/24 05:31 125 MLS/HR Trimethoprim/ Sulfamethoxazole 1 tab Q12HR PO 08/05/24 22:00 08/07/24 08:20 1 TAB Labetalol HCl 10 mg Q2HPRN PRN IV 08/05/24 18:15 laboratory and microbiology Laboratory Tests 08/07/24 05:05 08/06/24 05:45 Test 08/07/24 05:05 Range/Units Serum Glucose 160 H 74-106 mg/dL Problem List CHEST PAIN TROPONIN NEGATIVE ECG NEGATIVE [facility] 2019 NEGATIVE S/P DUAL PPI Assessment/Plan ECHO LVH EF >55% DIASTOLIC DYSFUNCTION CARDIAC STATUS STABLE MORBID OBESITY SLEEPING ALL THE TIME COMPONENT OF SLEEP APNEA MRCP DILATED DUCTS WITH ELEVATED LFT MAY NEED ERCP MAY PROCEED WITH ANY INTERVENTION ASA II/III CARDIAC STATUS STABLE Dietary Evaluation Review Comments: CCHO-60, 2GNa Lo fat Lo cholesterol cardiac diet, no caffeine Expected Outcomes/Goals: controlled DM< gradual weight loss, gradually healed wounds. Plan discussed with: Patient KEILY DOLAN MD Aug 07, 2024 09:04
--- NOTE | 2024-08-07 12:56 | DVHPN2 ---
Progress Note - Dictate Date Seen: Aug 07, 2024 Medical Necessity Reason Pt with a Central, PICC or Fol: No Subjective Patient required Bipap for sleep apnea His Seroquel will be changed to nighttime dosing to help him sleep better Liver enzymes slightly improved today MRCP had shown moderate dilation of the intra and extrahepatic bile ducts with no stone EGD showed small hiatal hernia mild gastritis and no ampullary tumor, there was good bile drainage vital signs Vital Sign Date Time Temp Pulse Resp B/P (MAP) Pulse Ox O2 Delivery O2 Flow Rate FiO2 08/07/24 09:00 97.4 84 19 118/55 (76) 95 97.4 08/07/24 08:00 Room Air* 0 21 Total Intake and Output 08/06/24 08/06/24 08/07/24 15:00 23:00 07:00 Intake Total 250 ml 650 ml 650 ml Output Total 300 ml 650 ml Balance 250 ml 350 ml 0 ml medications Current Medications Medications Dose Ordered Sig/Camille Route Start Time Stop Time Status Last Admin Dose Admin Spironolactone 25 mg DAILY PO 08/01/24 10:00 08/07/24 08:20 25 MG Pantoprazole Sodium 40 mg DAILY@0600 PO 08/01/24 06:00 08/07/24 05:34 40 MG Tamsulosin HCl 0.4 mg QPM PO 08/01/24 18:00 08/06/24 17:59 0.4 MG Buspirone HCl 15 mg Q12HR PO 08/01/24 10:00 08/07/24 08:19 15 MG Morphine Sulfate 60 mg Q12HR PO 08/01/24 10:00 08/07/24 08:19 60 MG Oxycodone HCl 10 mg Q12HR PO 08/01/24 10:00 UNV Aspirin 81 mg DAILY PO 08/01/24 10:00 08/07/24 08:18 81 MG Clonidine HCl 0.1 mg Q6HP PRN PO 08/01/24 04:45 Enoxaparin Sodium 40 mg DAILY SC 08/01/24 10:00 08/07/24 08:24 40 MG Hydromorphone HCl 0.5 mg Q3HPRN PRN IV 08/01/24 14:30 08/07/24 05:43 0.5 MG Diagnostic Test (Pha) 1 strip ACHS 08/02/24 11:30 08/07/24 11:30 1 STRIP Insulin Human Regular ACHS SC 08/02/24 11:30 08/07/24 12:09 3 UNITS Dextrose 50 ml UD PRN IV 08/02/24 09:45 Quetiapine Fumarate 100 mg DAILY PO 08/02/24 10:00 08/07/24 08:20 100 MG Polyethylene Glycol 17 gm DAILY PO 08/02/24 10:00 08/07/24 08:14 17 GM Ondansetron HCl 4 mg Q4HP PRN PO 08/03/24 12:00 08/04/24 23:48 4 MG Hydroxyzine HCl 20 mg Q8HP PRN PO 08/03/24 14:00 08/06/24 16:56 20 MG Lactulose 30 ml Q6HPRN PRN PO 08/04/24 12:00 Sucralfate 1 gm BID PO 08/04/24 22:00 08/07/24 08:18 1 GM Lisinopril 5 mg DAILY PO 08/06/24 10:00 08/07/24 08:18 5 MG Quetiapine Fumarate 100 mg HS PO 08/05/24 22:00 08/06/24 21:58 100 MG Doxycycline Hyclate 250 ml @ 125 mls/hr Q12H IV 08/05/24 18:15 08/07/24 05:31 125 MLS/HR Trimethoprim/ Sulfamethoxazole 1 tab Q12HR PO 08/05/24 22:00 08/07/24 08:20 1 TAB Labetalol HCl 10 mg Q2HPRN PRN IV 08/05/24 18:15 objective General Appearance: Alert, Oriented X3, Cooperative, No acute distress HEENT: Atraumatic Lungs: Clear to auscultation, Normal air movement Cardiovascular: S1-S2 regular rate rhythm Abdomen: Normal bowel sounds, Soft;, obese Extremities: Other (Bilateral lower extremities edema more so on the left side with redness and warmth in the left pretibial area) Neuro: Normal speech Psych/Mental Status: Mental status NL, Mood NL laboratory and microbiology Laboratory Tests 08/07/24 05:05 08/06/24 05:45 Test 08/07/24 05:05 Range/Units Serum Glucose 160 H 74-106 mg/dL Problems(with codes): (1) Hypertension (2) CHF (congestive heart failure) (3) Cellulitis of right leg (4) Elevated liver enzymes (5) Cardiac pacemaker in situ (6) Morbid obesity (7) Shortness of breath Prognosis Plan Patient is scheduled for a CT angiogram to rule out pulmonary embolism Continue to monitor labs Diet as tolerated Patient will likely need ERCP and EUS if his liver enzymes are persistently elevated Otherwise imaging study and tumor markers are negative at this time Dietary Evaluation Review Comments: CCHO-60, 2GNa Lo fat Lo cholesterol cardiac diet, no caffeine Expected Outcomes/Goals: controlled DM< gradual weight loss, gradually healed wounds. Plan discussed with: Other (Dr Smith) REN PATTON MD Aug 07, 2024 12:56
--- NOTE | 2024-08-07 14:30 | DVH ---
CTA Chest with intravenous contrast INDICATION: ro PE COMPARISON: None TECHNIQUE: Multidetector spiral CTA of the chest was performed of the chest with intravenous contrast . PULMONARY ANGIOGRAPHY PROTOCOL was utilized using a bolus-tracking technique centered on the main p ulmonary artery. Axial, coronal and sagittal multiplanar and MIP reformats were performed. CONTRAST: Type of contrast: Omni 350 Contrast injected: 100 ml Radiation dose : Chest: CTDI volume is 38 mGy. Dose-length product is 951.05 mGy*cm The dose indicators for CT are the volume computed Tomography (CT) dose Index (CTDIvol) and the dose Length product (DLP), and are measured in units of mGy and mGy-cm, respectively. These indicators are not patient dose, but values generated from the CT scanner acquisition factors. The report includes radiation exposure data for exposures received during this examination. Findings: Pulmonary artery: Limited by motion. No large central or large segmental pulmonary embolism. Lower neck: Normal thyroid. Lungs: No focal consolidation, pleural effusion or pneumothorax. Heart/Vascular Structures: Normal heart size. No pericardial effusion. Lymph Nodes: No adenopathy Pleura: No pleural effusion or significant pneumothorax. Musculoskeletal: No acute osseous abnormality. Soft tissues: Normal. Upper abdomen: Limited portions of the upper abdomen are unremarkable. IMPRESSION: 1. Limited by motion. No large central pulmonary embolism. 2. No acute thoracic finding. HS:Y
--- NOTE | 2024-08-07 17:39 | DVHPN2 ---
Subjective Patient denies any symptoms at this time. Reviewed: Care Plan, H&P, Labs, Medications, Previous Orders, Radiology, Other (CONSULTANTS) Changes from previous H/P or p: No Changes General: Per HPI Objective Vitals Vital Signs Date Time Temp Pulse Resp B/P (MAP) Pulse Ox O2 Delivery O2 Flow Rate FiO2 08/07/24 17:00 97.5 74 18 92/52 (65) 93 97.5 08/07/24 08:00 Room Air* 0 21 Intake/Output Intake and Output 08/07/24 07:00 Intake Total 1550 ml Output Total 950 ml Balance 600 ml Intake Oral 1050 ml IV Total 500 ml Output Urine Total 950 ml General Appearance: Alert, Oriented X3, Cooperative, No acute distress HEENT: Atraumatic, PERRLA Lungs: Clear to auscultation, Normal air movement Cardiovascular: Other (Borderline tachycardia) Abdomen: Normal bowel sounds, Soft Extremities: Other (Bilateral lower extremities edema more so on the left side with redness and warmth in the left pretibial area) Neuro: Normal speech Psych/Mental Status: Mental status NL, Mood NL Medications Current Medications Medications Dose Ordered Sig/Camille Route Start Time Stop Time Status Last Admin Dose Admin Spironolactone 25 mg DAILY PO 08/01/24 10:00 08/07/24 08:20 25 MG Pantoprazole Sodium 40 mg DAILY@0600 PO 08/01/24 06:00 08/07/24 05:34 40 MG Tamsulosin HCl 0.4 mg QPM PO 08/01/24 18:00 08/06/24 17:59 0.4 MG Buspirone HCl 15 mg Q12HR PO 08/01/24 10:00 08/07/24 08:19 15 MG Morphine Sulfate 60 mg Q12HR PO 08/01/24 10:00 08/07/24 08:19 60 MG Oxycodone HCl 10 mg Q12HR PO 08/01/24 10:00 UNV Aspirin 81 mg DAILY PO 08/01/24 10:00 08/07/24 08:18 81 MG Clonidine HCl 0.1 mg Q6HP PRN PO 08/01/24 04:45 Enoxaparin Sodium 40 mg DAILY SC 08/01/24 10:00 08/07/24 08:24 40 MG Hydromorphone HCl 0.5 mg Q3HPRN PRN IV 08/01/24 14:30 08/07/24 05:43 0.5 MG Diagnostic Test (Pha) 1 strip ACHS 08/02/24 11:30 08/07/24 16:17 1 STRIP Insulin Human Regular ACHS SC 08/02/24 11:30 08/07/24 16:19 2 UNITS Dextrose 50 ml UD PRN IV 08/02/24 09:45 Quetiapine Fumarate 100 mg DAILY PO 08/02/24 10:00 08/07/24 08:20 100 MG Polyethylene Glycol 17 gm DAILY PO 08/02/24 10:00 08/07/24 08:14 17 GM Ondansetron HCl 4 mg Q4HP PRN PO 08/03/24 12:00 08/04/24 23:48 4 MG Hydroxyzine HCl 20 mg Q8HP PRN PO 08/03/24 14:00 08/06/24 16:56 20 MG Lactulose 30 ml Q6HPRN PRN PO 08/04/24 12:00 Sucralfate 1 gm BID PO 08/04/24 22:00 08/07/24 08:18 1 GM Lisinopril 5 mg DAILY PO 08/06/24 10:00 08/07/24 08:18 5 MG Quetiapine Fumarate 100 mg HS PO 08/05/24 22:00 08/06/24 21:58 100 MG Doxycycline Hyclate 250 ml @ 125 mls/hr Q12H IV 08/05/24 18:15 08/07/24 05:31 125 MLS/HR Trimethoprim/ Sulfamethoxazole 1 tab Q12HR PO 08/05/24 22:00 08/07/24 08:20 1 TAB Labetalol HCl 10 mg Q2HPRN PRN IV 08/05/24 18:15 Laboratory Results Laboratory Tests 08/06/24 05:45 08/07/24 05:05 Chemistry Test 08/07/24 05:05 Albumin 3.4 g/dL (3.2-4.8) Calcium Level 9.4 mg/dL (8.7-10.4) Total Protein 6.4 g/dL (5.7-8.2) LFT Test 08/07/24 05:05 Alanine Aminotransferase (ALT) 125 U/L (7-40) H Alkaline Phosphatase 253 U/L (46-116) H Aspartate Amino Transferase (AST) 95 U/L (13-40) H Total Bilirubin 2.5 mg/dL (0.2-1.0) H Urinalysis Test 08/01/24 09:40 Urine Color Yellow (Yellow) Urine Clarity Clear (Clear) Urine pH 7.5 (5.0-9.0) Urine Specific [place] 1.018 (1.001-1.035) Urine Protein Negative (Negative) Urine Ketones Negative (Negative) Urine Blood Negative /uL (Negative) Urine Nitrite Negative (Negative) Urine Bilirubin Negative (Negative) Urine Urobilinogen 8 mg/dL (Negative) H Urine Leukocyte Esterase Negative /uL (Negative) Urine RBC 1 /hpf (0 - 3) Urine WBC 2 /hpf (0 - 3) Urine Squamous Epithelial Cells Few /hpf (<5) Urine Bacteria Few /hpf (None Seen) H Urine Glucose Normal mg/dL (Normal) Labs and/or images reviewed: Labs reviewed by me, Image(s) reviewed by me Assessment/Plan Assessment/Plan Impression: -chest pain, rule out ACS -history of permanent pacemaker implant -transaminitis -chronic pain syndrome -primary hypertension -obstructive sleep apnea Plan: Events: Clinically patient reports improvement with overall status. Denies any abdominal pain. EGD results reviewed. Social service consultation already placed for transfer to higher level care for ERCP. -GI consultation -cardiology consultation, recommendations reviewed -continue current pain management with extended release morphine and breakthrough IV narcotic medication -CPAP at night : Refusing -bowel regimen -repeat labs in am -long discussion made with the patient and daughter was bedside. Total time spent with patient and family regarding advance care plannin minutes. Total time spent with patient discussing and formulating plan of care: 35 minutes. This medical document was created using an electronic medical record system with [employer] dictation system. Although this document has been carefully reviewed, there may still be some phonetic and typographical errors. These areas are purely typographical due to imperfections of the software programs, and do not reflect any compromise in the patient's medical care. A.m. Plan discussed with: Patient, Daughter, Other (RN) My Orders Orders - KULWINDER SHEEHAN [employer]AY TESTER HELPER Procedure Category Date Status Time Comprehensive LAB 08/08/24 Verified Metabolic Panel 04:00 Date of Service: Aug 07, 2024 Billing Provider: KULWINDER SHEEHAN NP Common Visit Codes: [id number] INP/OBS CARE(HIGH) KULWINDER SHEEHAN NP Aug 07, 2024 17:39
[2024-08-08] VITALS (15 sets, daily range): BP systolic 96–121; BP diastolic 50–73; PULSE 70–98; RESP 17–20; TEMP 97.2–98.4; O2SAT 95–100
[2024-08-08 08:15] LABS: Albumin 3.5 g/dL (3.2-4.8); Anion Gap 9 (5-15); BUN/Creatinine Ratio 9.7 (10.0-20.0); Blood Urea Nitrogen 10 mg/dL (9-23); Calcium 9.7 mg/dL (8.7-10.4); Carbon Dioxide 26 mmol/L (20-31); Chloride 104 mmol/L (98-107); Sodium 139 mmol/L (136-145); Total Protein 6.8 g/dL (5.7-8.2)
[2024-08-08 08:22] LABS: Alanine Aminotransferase 142 U/L (7-40); Alkaline Phosphatase 269 U/L (46-116); Aspartate Aminotransferase 147 U/L (13-40); Bilirubin, Total 2.5 mg/dL (0.2-1.0); Glucose 121 mg/dL (74-106)
--- NOTE | 2024-08-08 12:57 | DVHPN2 ---
Subjective Patient denies any symptoms at this time. Reviewed: Care Plan, H&P, Labs, Medications, Previous Orders, Radiology, Other (CONSULTANTS) Changes from previous H/P or p: No Changes General: Per HPI Objective Vitals Vital Signs Date Time Temp Pulse Resp B/P (MAP) Pulse Ox O2 Delivery O2 Flow Rate FiO2 08/08/24 08:41 97.9 98 20 113/55 (74) 96 97.9 08/08/24 08:09 Nasal Cannula* 4 36 Intake/Output Intake and Output 08/08/24 07:00 Intake Total 1950 ml Output Total 925 ml Balance 1025 ml Intake Oral 1450 ml IV Total 500 ml Output Urine Total 925 ml General Appearance: Alert, Oriented X3, Cooperative, No acute distress HEENT: Atraumatic, PERRLA Lungs: Clear to auscultation, Normal air movement Cardiovascular: Other (Borderline tachycardia) Abdomen: Normal bowel sounds, Soft Extremities: Other (Bilateral lower extremities edema more so on the left side with redness and warmth in the left pretibial area) Neuro: Normal speech Psych/Mental Status: Mental status NL, Mood NL Medications Current Medications Medications Dose Ordered Sig/Camille Route Start Time Stop Time Status Last Admin Dose Admin Spironolactone 25 mg DAILY PO 08/01/24 10:00 08/08/24 07:53 25 MG Pantoprazole Sodium 40 mg DAILY@0600 PO 08/01/24 06:00 08/08/24 05:48 40 MG Tamsulosin HCl 0.4 mg QPM PO 08/01/24 18:00 08/07/24 18:13 0.4 MG Buspirone HCl 15 mg Q12HR PO 08/01/24 10:00 08/08/24 07:52 15 MG Morphine Sulfate 60 mg Q12HR PO 08/01/24 10:00 08/08/24 07:51 60 MG Oxycodone HCl 10 mg Q12HR PO 08/01/24 10:00 UNV Aspirin 81 mg DAILY PO 08/01/24 10:00 08/08/24 07:51 81 MG Clonidine HCl 0.1 mg Q6HP PRN PO 08/01/24 04:45 Enoxaparin Sodium 40 mg DAILY SC 08/01/24 10:00 08/08/24 07:54 40 MG Hydromorphone HCl 0.5 mg Q3HPRN PRN IV 08/01/24 14:30 08/07/24 05:43 0.5 MG Diagnostic Test (Pha) 1 strip ACHS 08/02/24 11:30 08/08/24 10:45 1 STRIP Insulin Human Regular ACHS SC 08/02/24 11:30 08/08/24 10:47 3 UNITS Dextrose 50 ml UD PRN IV 08/02/24 09:45 Quetiapine Fumarate 100 mg DAILY PO 08/02/24 10:00 08/08/24 07:51 100 MG Polyethylene Glycol 17 gm DAILY PO 08/02/24 10:00 08/08/24 07:54 17 GM Ondansetron HCl 4 mg Q4HP PRN PO 08/03/24 12:00 08/04/24 23:48 4 MG Hydroxyzine HCl 20 mg Q8HP PRN PO 08/03/24 14:00 08/07/24 18:10 20 MG Lactulose 30 ml Q6HPRN PRN PO 08/04/24 12:00 Sucralfate 1 gm BID PO 08/04/24 22:00 08/08/24 07:53 1 GM Lisinopril 5 mg DAILY PO 08/06/24 10:00 08/08/24 07:52 5 MG Quetiapine Fumarate 100 mg HS PO 08/05/24 22:00 08/07/24 21:29 100 MG Doxycycline Hyclate 250 ml @ 125 mls/hr Q12H IV 08/05/24 18:15 08/08/24 05:40 125 MLS/HR Trimethoprim/ Sulfamethoxazole 1 tab Q12HR PO 08/05/24 22:00 08/08/24 07:51 1 TAB Labetalol HCl 10 mg Q2HPRN PRN IV 08/05/24 18:15 Laboratory Results Laboratory Tests 08/06/24 05:45 08/08/24 06:43 Chemistry Test 08/08/24 06:43 Albumin 3.5 g/dL (3.2-4.8) Calcium Level 9.7 mg/dL (8.7-10.4) Total Protein 6.8 g/dL (5.7-8.2) LFT Test 08/08/24 06:43 Alanine Aminotransferase (ALT) 142 U/L (7-40) H Alkaline Phosphatase 269 U/L (46-116) H Aspartate Amino Transferase (AST) 147 U/L (13-40) H Total Bilirubin 2.5 mg/dL (0.2-1.0) H Urinalysis Test 08/01/24 09:40 Urine Color Yellow (Yellow) Urine Clarity Clear (Clear) Urine pH 7.5 (5.0-9.0) Urine Specific [place] 1.018 (1.001-1.035) Urine Protein Negative (Negative) Urine Ketones Negative (Negative) Urine Blood Negative /uL (Negative) Urine Nitrite Negative (Negative) Urine Bilirubin Negative (Negative) Urine Urobilinogen 8 mg/dL (Negative) H Urine Leukocyte Esterase Negative /uL (Negative) Urine RBC 1 /hpf (0 - 3) Urine WBC 2 /hpf (0 - 3) Urine Squamous Epithelial Cells Few /hpf (<5) Urine Bacteria Few /hpf (None Seen) H Urine Glucose Normal mg/dL (Normal) Labs and/or images reviewed: Labs reviewed by me, Image(s) reviewed by me Assessment/Plan Assessment/Plan Impression: -chest pain, rule out ACS -history of permanent pacemaker implant -transaminitis -chronic pain syndrome -primary hypertension -obstructive sleep apnea Plan: Events: Clinically patient reports improvement with overall status. Denies any abdominal pain. Patient was LFTs continued to be elevated, slight bump from yesterday. Discussed plan of care with case management. Apparently patient has been accepted to [facility] [place] [facility] and is currently awaiting for a bed. -GI consultation -cardiology consultation, recommendations reviewed -continue current pain management with extended release morphine and breakthrough IV narcotic medication -CPAP at night : Refusing -bowel regimen -repeat labs in am -long discussion made with the patient and daughter was bedside. Total time spent with patient discussing and formulating plan of care: 35 minutes. This medical document was created using an electronic medical record system with [email or web address] dictation system. Although this document has been carefully reviewed, there may still be some phonetic and typographical errors. These areas are purely typographical due to imperfections of the software programs, and do not reflect any compromise in the patient's medical care. A.m. Plan discussed with: Patient, Other (RN) My Orders Orders - KULWINDER SHEEHAN [employer] GRADING SUPERVISOR Procedure Category Date Status Time Comprehensive LAB 08/09/24 Verified Metabolic Panel 04:00 Date of Service: Aug 08, 2024 Billing Provider: KULWINDER SHEEHAN NP Common Visit Codes: [id number] INP/OBS CARE(HIGH) KULWINDER SHEEHAN NP Aug 08, 2024 12:57
--- NOTE | 2024-08-08 14:34 | DVHPN2 ---
Progress Note - Dictate Date Seen: Aug 08, 2024 Medical Necessity Reason Pt with a Central, PICC or Fol: No Subjective PT WITH CHEST PAIN TROPONIN NEGATIVE ECG NEGATIVE C 2019 NEGATIVE S/P DUAL PPI vital signs Vital Sign Date Time Temp Pulse Resp B/P (MAP) Pulse Ox O2 Delivery O2 Flow Rate FiO2 08/08/24 08:41 97.9 98 20 113/55 (74) 96 97.9 08/08/24 08:09 Nasal Cannula* 4 36 Total Intake and Output 08/07/24 08/07/24 08/08/24 15:00 23:00 07:00 Intake Total 250 ml 1300 ml 400 ml Output Total 600 ml 325 ml Balance 250 ml 700 ml 75 ml medications Current Medications Medications Dose Ordered Sig/Camille Route Start Time Stop Time Status Last Admin Dose Admin Spironolactone 25 mg DAILY PO 08/01/24 10:00 08/08/24 07:53 25 MG Pantoprazole Sodium 40 mg DAILY@0600 PO 08/01/24 06:00 08/08/24 05:48 40 MG Tamsulosin HCl 0.4 mg QPM PO 08/01/24 18:00 08/07/24 18:13 0.4 MG Buspirone HCl 15 mg Q12HR PO 08/01/24 10:00 08/08/24 07:52 15 MG Morphine Sulfate 60 mg Q12HR PO 08/01/24 10:00 08/08/24 07:51 60 MG Oxycodone HCl 10 mg Q12HR PO 08/01/24 10:00 UNV Aspirin 81 mg DAILY PO 08/01/24 10:00 08/08/24 07:51 81 MG Clonidine HCl 0.1 mg Q6HP PRN PO 08/01/24 04:45 Enoxaparin Sodium 40 mg DAILY SC 08/01/24 10:00 08/08/24 07:54 40 MG Hydromorphone HCl 0.5 mg Q3HPRN PRN IV 08/01/24 14:30 08/07/24 05:43 0.5 MG Diagnostic Test (Pha) 1 strip ACHS 08/02/24 11:30 08/08/24 10:45 1 STRIP Insulin Human Regular ACHS SC 08/02/24 11:30 08/08/24 10:47 3 UNITS Dextrose 50 ml UD PRN IV 08/02/24 09:45 Quetiapine Fumarate 100 mg DAILY PO 08/02/24 10:00 08/08/24 07:51 100 MG Polyethylene Glycol 17 gm DAILY PO 08/02/24 10:00 08/08/24 07:54 17 GM Ondansetron HCl 4 mg Q4HP PRN PO 08/03/24 12:00 08/04/24 23:48 4 MG Hydroxyzine HCl 20 mg Q8HP PRN PO 08/03/24 14:00 08/07/24 18:10 20 MG Lactulose 30 ml Q6HPRN PRN PO 08/04/24 12:00 Sucralfate 1 gm BID PO 08/04/24 22:00 08/08/24 07:53 1 GM Lisinopril 5 mg DAILY PO 08/06/24 10:00 08/08/24 07:52 5 MG Quetiapine Fumarate 100 mg HS PO 08/05/24 22:00 08/07/24 21:29 100 MG Doxycycline Hyclate 250 ml @ 125 mls/hr Q12H IV 08/05/24 18:15 08/08/24 05:40 125 MLS/HR Trimethoprim/ Sulfamethoxazole 1 tab Q12HR PO 08/05/24 22:00 08/08/24 07:51 1 TAB Labetalol HCl 10 mg Q2HPRN PRN IV 08/05/24 18:15 laboratory and microbiology Laboratory Tests 08/08/24 06:43 08/06/24 05:45 Test 08/08/24 06:43 Range/Units Serum Glucose 121 H 74-106 mg/dL Problem List CHEST PAIN TROPONIN NEGATIVE ECG NEGATIVE [facility] 2019 NEGATIVE S/P DUAL PPI Assessment/Plan ECHO LVH EF >55% DIASTOLIC DYSFUNCTION CARDIAC STATUS STABLE MORBID OBESITY SLEEPING ALL THE TIME COMPONENT OF SLEEP APNEA MRCP DILATED DUCTS WITH ELEVATED LFT MAY NEED ERCP MAY PROCEED WITH ANY INTERVENTION ASA II/III CARDIAC STATUS STABLE Dietary Evaluation Review Comments: CCHO-60, 2GNa Lo fat Lo cholesterol cardiac diet, no caffeine Expected Outcomes/Goals: controlled DM< gradual weight loss, gradually healed wounds. Plan discussed with: Patient KEILY DOLAN MD Aug 08, 2024 14:34
--- NOTE | 2024-08-08 20:00 | DVHPN2 ---
Progress Note - Dictate Date Seen: Aug 08, 2024 Medical Necessity Reason Pt with a Central, PICC or Fol: No Subjective Patient is more awake and alert His CT angiogram was negative for pulmonary embolism His Seroquel will be changed to nighttime dosing to help him sleep better Liver enzymes persistently elevated with mild decrease in bilirubin MRCP had shown moderate dilation of the intra and extrahepatic bile ducts with no stone EGD showed small hiatal hernia mild gastritis and no ampullary tumor, there was good bile drainage vital signs Vital Sign Date Time Temp Pulse Resp B/P (MAP) Pulse Ox O2 Delivery O2 Flow Rate FiO2 08/08/24 17:00 97.8 84 20 108/53 (71) 97 97.8 08/08/24 08:09 Nasal Cannula* 4 36 Total Intake and Output 08/07/24 08/07/24 08/08/24 15:00 23:00 07:00 Intake Total 250 ml 1300 ml 400 ml Output Total 600 ml 325 ml Balance 250 ml 700 ml 75 ml medications Current Medications Medications Dose Ordered Sig/Camille Route Start Time Stop Time Status Last Admin Dose Admin Spironolactone 25 mg DAILY PO 08/01/24 10:00 08/08/24 07:53 25 MG Pantoprazole Sodium 40 mg DAILY@0600 PO 08/01/24 06:00 08/08/24 05:48 40 MG Tamsulosin HCl 0.4 mg QPM PO 08/01/24 18:00 08/08/24 17:11 0.4 MG Buspirone HCl 15 mg Q12HR PO 08/01/24 10:00 08/08/24 07:52 15 MG Morphine Sulfate 60 mg Q12HR PO 08/01/24 10:00 08/08/24 07:51 60 MG Oxycodone HCl 10 mg Q12HR PO 08/01/24 10:00 UNV Aspirin 81 mg DAILY PO 08/01/24 10:00 08/08/24 07:51 81 MG Clonidine HCl 0.1 mg Q6HP PRN PO 08/01/24 04:45 Enoxaparin Sodium 40 mg DAILY SC 08/01/24 10:00 08/08/24 07:54 40 MG Hydromorphone HCl 0.5 mg Q3HPRN PRN IV 08/01/24 14:30 08/07/24 05:43 0.5 MG Diagnostic Test (Pha) 1 strip ACHS 08/02/24 11:30 08/08/24 16:47 1 STRIP Insulin Human Regular ACHS SC 08/02/24 11:30 08/08/24 16:48 2 UNITS Dextrose 50 ml UD PRN IV 08/02/24 09:45 Quetiapine Fumarate 100 mg DAILY PO 08/02/24 10:00 08/08/24 07:51 100 MG Polyethylene Glycol 17 gm DAILY PO 08/02/24 10:00 08/08/24 07:54 17 GM Ondansetron HCl 4 mg Q4HP PRN PO 08/03/24 12:00 08/04/24 23:48 4 MG Hydroxyzine HCl 20 mg Q8HP PRN PO 08/03/24 14:00 08/08/24 17:22 20 MG Lactulose 30 ml Q6HPRN PRN PO 08/04/24 12:00 Sucralfate 1 gm BID PO 08/04/24 22:00 08/08/24 07:53 1 GM Lisinopril 5 mg DAILY PO 08/06/24 10:00 08/08/24 07:52 5 MG Quetiapine Fumarate 100 mg HS PO 08/05/24 22:00 08/07/24 21:29 100 MG Doxycycline Hyclate 250 ml @ 125 mls/hr Q12H IV 08/05/24 18:15 08/08/24 17:11 125 MLS/HR Trimethoprim/ Sulfamethoxazole 1 tab Q12HR PO 08/05/24 22:00 08/08/24 07:51 1 TAB Labetalol HCl 10 mg Q2HPRN PRN IV 08/05/24 18:15 objective General Appearance: Alert, Oriented X3, Cooperative, No acute distress HEENT: Atraumatic Lungs: Clear to auscultation, Normal air movement Cardiovascular: S1-S2 regular rate rhythm Abdomen: Normal bowel sounds, Soft;, obese Extremities: Other (Bilateral lower extremities edema more so on the left side with redness and warmth in the left pretibial area) Neuro: Normal speech Psych/Mental Status: Mental status NL, Mood NL laboratory and microbiology Laboratory Tests 08/08/24 06:43 08/06/24 05:45 Test 08/08/24 06:43 Range/Units Serum Glucose 121 H 74-106 mg/dL Problems(with codes): (1) Hypertension (2) CHF (congestive heart failure) (3) Cellulitis of right leg (4) Elevated liver enzymes (5) Cardiac pacemaker in situ (6) Morbid obesity (7) Shortness of breath Prognosis Plan Patient is awaiting transfer to [facility] when the bed is available for ERCP and EUS In the meantime continue supportive care and monitor his labs I will follow up patient with you as needed Dietary Evaluation Review Comments: CCHO-60, 2GNa Lo fat Lo cholesterol cardiac diet, no caffeine Expected Outcomes/Goals: controlled DM< gradual weight loss, gradually healed wounds. Plan discussed with: Patient, Daughter REN PATTON MD Aug 08, 2024 20:00
[2024-08-09] VITALS (13 sets, daily range): BP systolic 101–129; BP diastolic 44–71; PULSE 64–92; RESP 15–20; TEMP 97.9–98.6; O2SAT 94–100
[2024-08-09 07:38] LABS: Albumin 3.6 g/dL (3.2-4.8); Anion Gap 9 (5-15); BUN/Creatinine Ratio 12.3 (10.0-20.0); Blood Urea Nitrogen 13 mg/dL (9-23); Calcium 9.6 mg/dL (8.7-10.4); Carbon Dioxide 24 mmol/L (20-31); Chloride 104 mmol/L (98-107); Sodium 137 mmol/L (136-145); Total Protein 6.8 g/dL (5.7-8.2)
[2024-08-09 07:40] LABS: Alanine Aminotransferase 177 U/L (7-40); Alkaline Phosphatase 299 U/L (46-116); Aspartate Aminotransferase 163 U/L (13-40); Bilirubin, Total 2.7 mg/dL (0.2-1.0); Glucose 118 mg/dL (74-106)
--- NOTE | 2024-08-09 09:18 | ECG ---
[facility] Test Date: 2024-07-31 Test Time: 21:59:33 Pat Name: MICHELE WESTON Department: ER Room: 0278T A Gender: M [employer]: MEGHAN : 1950 Requested By: RUSSELL HUMPHREY Order Number: [id number] Reading MD: Douglas Escoto Measurements Intervals [place] Rate: 70 P: 62 FL: 176 QRS: -6 QRSD: 92 T: 18 QT: 408 QTc: 441 Interpretive Statements Atrial-paced complexes Abnormal R-wave progression, early transition Left ventricular hypertrophy Electronically Signed On 08-10-2024 9:35:06 PST by Douglas Escoto Please click the below link to view image of tracing.
--- NOTE | 2024-08-09 12:30 | DVHPN2 ---
Subjective Patient denies any symptoms at this time. Reviewed: Care Plan, H&P, Labs, Medications, Previous Orders, Radiology, Other (CONSULTANTS) Changes from previous H/P or p: No Changes General: Per HPI Objective Vitals Vital Signs Date Time Temp Pulse Resp B/P (MAP) Pulse Ox O2 Delivery O2 Flow Rate FiO2 08/09/24 11:52 98.2 67 16 101/44 (63) 98 98.2 08/09/24 08:00 Nasal Cannula* 3 32 Intake/Output Intake and Output 08/09/24 07:00 Intake Total 1800 ml Balance 1800 ml Intake Oral 1300 ml IV Total 500 ml # Voids 5 General Appearance: Alert, Oriented X3, Cooperative, No acute distress HEENT: Atraumatic, PERRLA Lungs: Clear to auscultation, Normal air movement Cardiovascular: Other (Borderline tachycardia) Abdomen: Normal bowel sounds, Soft Extremities: Other (Bilateral lower extremities edema more so on the left side with redness and warmth in the left pretibial area) Neuro: Normal speech Psych/Mental Status: Mental status NL, Mood NL Medications Current Medications Medications Dose Ordered Sig/Camille Route Start Time Stop Time Status Last Admin Dose Admin Spironolactone 25 mg DAILY PO 08/01/24 10:00 08/09/24 09:29 25 MG Pantoprazole Sodium 40 mg DAILY@0600 PO 08/01/24 06:00 08/09/24 06:19 40 MG Tamsulosin HCl 0.4 mg QPM PO 08/01/24 18:00 08/08/24 17:11 0.4 MG Buspirone HCl 15 mg Q12HR PO 08/01/24 10:00 08/09/24 09:30 15 MG Morphine Sulfate 60 mg Q12HR PO 08/01/24 10:00 08/09/24 09:29 60 MG Oxycodone HCl 10 mg Q12HR PO 08/01/24 10:00 UNV Aspirin 81 mg DAILY PO 08/01/24 10:00 08/09/24 09:30 81 MG Clonidine HCl 0.1 mg Q6HP PRN PO 08/01/24 04:45 Enoxaparin Sodium 40 mg DAILY SC 08/01/24 10:00 08/09/24 09:27 40 MG Hydromorphone HCl 0.5 mg Q3HPRN PRN IV 08/01/24 14:30 08/07/24 05:43 0.5 MG Diagnostic Test (Pha) 1 strip ACHS 08/02/24 11:30 08/09/24 11:51 1 STRIP Insulin Human Regular ACHS SC 08/02/24 11:30 08/09/24 11:50 3 UNITS Dextrose 50 ml UD PRN IV 08/02/24 09:45 Quetiapine Fumarate 100 mg DAILY PO 08/02/24 10:00 08/09/24 09:30 100 MG Polyethylene Glycol 17 gm DAILY PO 08/02/24 10:00 08/09/24 09:26 17 GM Ondansetron HCl 4 mg Q4HP PRN PO 08/03/24 12:00 08/04/24 23:48 4 MG Hydroxyzine HCl 20 mg Q8HP PRN PO 08/03/24 14:00 08/08/24 17:22 20 MG Lactulose 30 ml Q6HPRN PRN PO 08/04/24 12:00 Sucralfate 1 gm BID PO 08/04/24 22:00 08/09/24 09:29 1 GM Lisinopril 5 mg DAILY PO 08/06/24 10:00 08/09/24 09:30 5 MG Quetiapine Fumarate 100 mg HS PO 08/05/24 22:00 08/08/24 21:20 100 MG Doxycycline Hyclate 250 ml @ 125 mls/hr Q12H IV 08/05/24 18:15 08/09/24 06:20 125 MLS/HR Trimethoprim/ Sulfamethoxazole 1 tab Q12HR PO 08/05/24 22:00 08/09/24 09:28 1 TAB Labetalol HCl 10 mg Q2HPRN PRN IV 08/05/24 18:15 Laboratory Results Laboratory Tests 08/06/24 05:45 08/09/24 06:40 Chemistry Test 08/09/24 06:40 Albumin 3.6 g/dL (3.2-4.8) Calcium Level 9.6 mg/dL (8.7-10.4) Total Protein 6.8 g/dL (5.7-8.2) LFT Test 08/09/24 06:40 Alanine Aminotransferase (ALT) 177 U/L (7-40) H Alkaline Phosphatase 299 U/L (46-116) H Aspartate Amino Transferase (AST) 163 U/L (13-40) H Total Bilirubin 2.7 mg/dL (0.2-1.0) H Urinalysis Test 08/01/24 09:40 Urine Color Yellow (Yellow) Urine Clarity Clear (Clear) Urine pH 7.5 (5.0-9.0) Urine Specific [place] 1.018 (1.001-1.035) Urine Protein Negative (Negative) Urine Ketones Negative (Negative) Urine Blood Negative /uL (Negative) Urine Nitrite Negative (Negative) Urine Bilirubin Negative (Negative) Urine Urobilinogen 8 mg/dL (Negative) H Urine Leukocyte Esterase Negative /uL (Negative) Urine RBC 1 /hpf (0 - 3) Urine WBC 2 /hpf (0 - 3) Urine Squamous Epithelial Cells Few /hpf (<5) Urine Bacteria Few /hpf (None Seen) H Urine Glucose Normal mg/dL (Normal) Labs and/or images reviewed: Labs reviewed by me, Image(s) reviewed by me Assessment/Plan Assessment/Plan Impression: -chest pain, rule out ACS -history of permanent pacemaker implant -transaminitis -chronic pain syndrome -primary hypertension -obstructive sleep apnea Plan: Events: No events overnight. Awaiting transfer to [facility] [place]. LFts increasing. -GI consultation -cardiology consultation, recommendations reviewed -continue current pain management with extended release morphine and breakthrough IV narcotic medication -CPAP at night : Refusing -bowel regimen -repeat labs in am Total time spent with patient discussing and formulating plan of care: 35 minutes. This medical document was created using an electronic medical record system with [employer] dictation system. Although this document has been carefully reviewed, there may still be some phonetic and typographical errors. These areas are purely typographical due to imperfections of the software programs, and do not reflect any compromise in the patient's medical care. A.m. Plan discussed with: Patient, Other (RN) My Orders Orders - KULWINDER SHEEHAN NP Procedure Category Date Status Time Comprehensive LAB 08/10/24 Verified Metabolic Panel 05:00 Comprehensive LAB 08/11/24 Verified Metabolic Panel 05:00 Comprehensive LAB 08/12/24 Verified Metabolic Panel 05:00 Complete Blood Count LAB 08/10/24 Verified 04:00 PTPTT LAB 08/10/24 Verified 04:00 Date of Service: Aug 09, 2024 Billing Provider: KULWINDER SHEEHAN NP Common Visit Codes: [id number] INP/OBS CARE(HIGH) KULWINDER SHEEHAN NP Aug 09, 2024 12:30
--- NOTE | 2024-08-09 13:19 | DVHPN2 ---
Progress Note - Dictate Date Seen: Aug 09, 2024 Medical Necessity Reason Pt with a Central, PICC or Fol: No Subjective PT WITH CHEST PAIN TROPONIN NEGATIVE ECG NEGATIVE C 2019 NEGATIVE S/P DUAL PPI vital signs Vital Sign Date Time Temp Pulse Resp B/P (MAP) Pulse Ox O2 Delivery O2 Flow Rate FiO2 08/09/24 11:52 98.2 67 16 101/44 (63) 98 98.2 08/09/24 08:00 Nasal Cannula* 3 32 Total Intake and Output 08/08/24 08/08/24 08/09/24 15:00 23:00 07:00 Intake Total 250 ml 650 ml 900 ml Balance 250 ml 650 ml 900 ml medications Current Medications Medications Dose Ordered Sig/Camille Route Start Time Stop Time Status Last Admin Dose Admin Spironolactone 25 mg DAILY PO 08/01/24 10:00 08/09/24 09:29 25 MG Pantoprazole Sodium 40 mg DAILY@0600 PO 08/01/24 06:00 08/09/24 06:19 40 MG Tamsulosin HCl 0.4 mg QPM PO 08/01/24 18:00 08/08/24 17:11 0.4 MG Buspirone HCl 15 mg Q12HR PO 08/01/24 10:00 08/09/24 09:30 15 MG Morphine Sulfate 60 mg Q12HR PO 08/01/24 10:00 08/09/24 09:29 60 MG Oxycodone HCl 10 mg Q12HR PO 08/01/24 10:00 UNV Aspirin 81 mg DAILY PO 08/01/24 10:00 08/09/24 09:30 81 MG Clonidine HCl 0.1 mg Q6HP PRN PO 08/01/24 04:45 Enoxaparin Sodium 40 mg DAILY SC 08/01/24 10:00 08/09/24 09:27 40 MG Hydromorphone HCl 0.5 mg Q3HPRN PRN IV 08/01/24 14:30 08/07/24 05:43 0.5 MG Diagnostic Test (Pha) 1 strip ACHS 08/02/24 11:30 08/09/24 11:51 1 STRIP Insulin Human Regular ACHS SC 08/02/24 11:30 08/09/24 11:50 3 UNITS Dextrose 50 ml UD PRN IV 08/02/24 09:45 Quetiapine Fumarate 100 mg DAILY PO 08/02/24 10:00 08/09/24 09:30 100 MG Polyethylene Glycol 17 gm DAILY PO 08/02/24 10:00 08/09/24 09:26 17 GM Ondansetron HCl 4 mg Q4HP PRN PO 08/03/24 12:00 08/04/24 23:48 4 MG Hydroxyzine HCl 20 mg Q8HP PRN PO 08/03/24 14:00 08/08/24 17:22 20 MG Lactulose 30 ml Q6HPRN PRN PO 08/04/24 12:00 Sucralfate 1 gm BID PO 08/04/24 22:00 08/09/24 09:29 1 GM Lisinopril 5 mg DAILY PO 08/06/24 10:00 08/09/24 09:30 5 MG Quetiapine Fumarate 100 mg HS PO 08/05/24 22:00 08/08/24 21:20 100 MG Doxycycline Hyclate 250 ml @ 125 mls/hr Q12H IV 08/05/24 18:15 08/09/24 06:20 125 MLS/HR Trimethoprim/ Sulfamethoxazole 1 tab Q12HR PO 08/05/24 22:00 08/09/24 09:28 1 TAB Labetalol HCl 10 mg Q2HPRN PRN IV 08/05/24 18:15 laboratory and microbiology Laboratory Tests 08/09/24 06:40 08/06/24 05:45 Test 08/09/24 06:40 Range/Units Serum Glucose 118 H 74-106 mg/dL Problem List CHEST PAIN TROPONIN NEGATIVE ECG NEGATIVE [facility] 2019 NEGATIVE S/P DUAL PPI Assessment/Plan ECHO LVH EF >55% DIASTOLIC DYSFUNCTION CARDIAC STATUS STABLE MORBID OBESITY SLEEPING ALL THE TIME COMPONENT OF SLEEP APNEA MRCP DILATED DUCTS WITH ELEVATED LFT MAY NEED ERCP MAY PROCEED WITH ANY INTERVENTION ASA II/III CARDIAC STATUS STABLE HYPERKALEMIA HOLD ALDACTONE POTASSIUM IN AM Dietary Evaluation Review Comments: CCHO-60, 2GNa Lo fat Lo cholesterol cardiac diet, no caffeine Expected Outcomes/Goals: controlled DM< gradual weight loss, gradually healed wounds. Plan discussed with: Patient KEILY DOLAN MD Aug 09, 2024 13:19
--- NOTE | 2024-08-09 17:28 | DVHPN2 ---
Progress Note - Dictate Date Seen: Aug 09, 2024 Medical Necessity Reason Pt with a Central, PICC or Fol: No Subjective No new complaints Liver enzymes are persistently elevated MRCP had shown moderate dilation of the intra and extrahepatic bile ducts with no stone EGD showed small hiatal hernia mild gastritis and no ampullary tumor, there was good bile drainage vital signs Vital Sign Date Time Temp Pulse Resp B/P (MAP) Pulse Ox O2 Delivery O2 Flow Rate FiO2 08/09/24 16:49 98.6 67 18 102/52 (69) 95 98.6 08/09/24 08:00 Nasal Cannula* 3 32 Total Intake and Output 08/08/24 08/08/24 08/09/24 15:00 23:00 07:00 Intake Total 250 ml 650 ml 900 ml Balance 250 ml 650 ml 900 ml medications Current Medications Medications Dose Ordered Sig/Camille Route Start Time Stop Time Status Last Admin Dose Admin Pantoprazole Sodium 40 mg DAILY@0600 PO 08/01/24 06:00 08/09/24 06:19 40 MG Tamsulosin HCl 0.4 mg QPM PO 08/01/24 18:00 08/09/24 17:14 0.4 MG Buspirone HCl 15 mg Q12HR PO 08/01/24 10:00 08/09/24 09:30 15 MG Morphine Sulfate 60 mg Q12HR PO 08/01/24 10:00 08/09/24 09:29 60 MG Oxycodone HCl 10 mg Q12HR PO 08/01/24 10:00 UNV Aspirin 81 mg DAILY PO 08/01/24 10:00 08/09/24 09:30 81 MG Clonidine HCl 0.1 mg Q6HP PRN PO 08/01/24 04:45 Enoxaparin Sodium 40 mg DAILY SC 08/01/24 10:00 08/09/24 09:27 40 MG Hydromorphone HCl 0.5 mg Q3HPRN PRN IV 08/01/24 14:30 08/07/24 05:43 0.5 MG Diagnostic Test (Pha) 1 strip ACHS 08/02/24 11:30 08/09/24 17:14 1 STRIP Insulin Human Regular ACHS SC 08/02/24 11:30 08/09/24 17:21 3 UNITS Dextrose 50 ml UD PRN IV 08/02/24 09:45 Quetiapine Fumarate 100 mg DAILY PO 08/02/24 10:00 08/09/24 09:30 100 MG Polyethylene Glycol 17 gm DAILY PO 08/02/24 10:00 08/09/24 09:26 17 GM Ondansetron HCl 4 mg Q4HP PRN PO 08/03/24 12:00 08/04/24 23:48 4 MG Hydroxyzine HCl 20 mg Q8HP PRN PO 08/03/24 14:00 08/08/24 17:22 20 MG Lactulose 30 ml Q6HPRN PRN PO 08/04/24 12:00 Sucralfate 1 gm BID PO 08/04/24 22:00 08/09/24 09:29 1 GM Lisinopril 5 mg DAILY PO 08/06/24 10:00 08/09/24 09:30 5 MG Quetiapine Fumarate 100 mg HS PO 08/05/24 22:00 08/08/24 21:20 100 MG Doxycycline Hyclate 250 ml @ 125 mls/hr Q12H IV 08/05/24 18:15 08/09/24 17:15 125 MLS/HR Trimethoprim/ Sulfamethoxazole 1 tab Q12HR PO 08/05/24 22:00 08/09/24 09:28 1 TAB Labetalol HCl 10 mg Q2HPRN PRN IV 08/05/24 18:15 objective General Appearance: Alert, Oriented X3, Cooperative, No acute distress HEENT: Atraumatic Lungs: Clear to auscultation, Normal air movement Cardiovascular: S1-S2 regular rate rhythm Abdomen: Normal bowel sounds, Soft;, obese Extremities: Other (Bilateral lower extremities edema more so on the left side with redness and warmth in the left pretibial area) Neuro: Normal speech Psych/Mental Status: Mental status NL, Mood NL laboratory and microbiology Laboratory Tests 08/09/24 06:40 08/06/24 05:45 Test 08/09/24 06:40 Range/Units Serum Glucose 118 H 74-106 mg/dL Problems(with codes): (1) Hypertension (2) CHF (congestive heart failure) (3) Elevated liver enzymes (4) Cardiac pacemaker in situ (5) Morbid obesity (6) Shortness of breath (7) Unstable angina (8) Degenerative joint disease of left hip Prognosis Plan Patient was apparently denied a [place] [facility] [place] they recommended outpatient follow up Discharge planning as per Dr. Weber and Dar Consider referral to another institution like [place] to get the ERCP done Dietary Evaluation Review Comments: CCHO-60, 2GNa Lo fat Lo cholesterol cardiac diet, no caffeine Expected Outcomes/Goals: controlled DM< gradual weight loss, gradually healed wounds. Plan discussed with: Other (None) REN PATTON MD Aug 09, 2024 17:28
[2024-08-10] VITALS (9 sets, daily range): BP systolic 101–121; BP diastolic 47–74; PULSE 51–82; RESP 14–18; TEMP 97.5–98.1; O2SAT 96–99
[2024-08-10 07:05] LABS: Basophils # (auto) 0.1 10 ^3/uL (0-0.2); Basophils % (auto) 1.1 % (0.0-2.0); Eosinophils # (auto) 0.2 10 ^3/uL (0-0.8); Hematocrit 45.9 % (41.0-53.0); Hemoglobin 15.2 g/dL (13.5-17.5); Lymphocytes # (auto) 1.8 10 ^3/uL (0.4-5.4); Lymphocytes % (auto) 30.3 % (10.0-50.0); Mean Corpuscular Hemoglobin 30.6 pg (28.0-32.0); Mean Corpuscular Volume 92.7 fL (80.0-100.0); Monocytes # (auto) 0.6 10 ^3/uL (0-1.3); Monocytes % (auto) 10.9 % (0.0-12.0); Neutrophils # (auto) 3.2 10 ^3/uL (1.6-8.6); Neutrophils % (auto) 54.7 % (37.0-80.0); Platelet Count (auto) 227 10^3/uL (140-450); Red Blood Cells 4.96 10^6/uL (4.5-5.90); Red Cell Distribution Width 13.8 % (11.8-14.3); White Blood Cell 5.9 10^3/uL (4.4-10.8)
[2024-08-10 07:18] LABS: INR 1.08 (0.9-1.15); Prothrombin Time 11.4 sec (9.3-11.8)
[2024-08-10 07:34] LABS: Anion Gap 7 (5-15); BUN/Creatinine Ratio 8.8 (10.0-20.0); Blood Urea Nitrogen 10 mg/dL (9-23); Carbon Dioxide 27 mmol/L (20-31); Chloride 103 mmol/L (98-107); Potassium 4.1 mmol/L (3.5-5.1); Sodium 137 mmol/L (136-145)
[2024-08-10 07:35] LABS: Alanine Aminotransferase 179 U/L (7-40); Albumin 3.9 g/dL (3.2-4.8); Alkaline Phosphatase 319 U/L (46-116); Glucose 126 mg/dL (74-106)
[2024-08-10 07:36] LABS: Aspartate Aminotransferase 146 U/L (13-40); Bilirubin, Total 3.3 mg/dL (0.2-1.0); Total Protein 7.4 g/dL (5.7-8.2)
--- NOTE | 2024-08-10 12:02 | DVHPN2 ---
Progress Note - Dictate Date Seen: Aug 10, 2024 Medical Necessity Reason Pt with a Central, PICC or Fol: No Subjective PT WITH CHEST PAIN TROPONIN NEGATIVE ECG NEGATIVE [facility] 2019 NEGATIVE S/P DUAL PPI vital signs Vital Sign Date Time Temp Pulse Resp B/P (MAP) Pulse Ox O2 Delivery O2 Flow Rate FiO2 08/10/24 09:22 120/65 08/10/24 09:00 97.8 76 16 99 97.8 08/10/24 08:00 Nasal Cannula* 3 32 Total Intake and Output 08/09/24 08/09/24 08/10/24 15:00 23:00 07:00 Intake Total 250 ml 1050 ml 1000 ml Output Total 500 ml Balance 250 ml 1050 ml 500 ml medications Current Medications Medications Dose Ordered Sig/Camille Route Start Time Stop Time Status Last Admin Dose Admin Pantoprazole Sodium 40 mg DAILY@0600 PO 08/01/24 06:00 08/10/24 06:02 40 MG Tamsulosin HCl 0.4 mg QPM PO 08/01/24 18:00 08/09/24 17:14 0.4 MG Buspirone HCl 15 mg Q12HR PO 08/01/24 10:00 08/10/24 09:22 15 MG Morphine Sulfate 60 mg Q12HR PO 08/01/24 10:00 08/10/24 09:21 60 MG Oxycodone HCl 10 mg Q12HR PO 08/01/24 10:00 UNV Aspirin 81 mg DAILY PO 08/01/24 10:00 08/10/24 09:21 81 MG Clonidine HCl 0.1 mg Q6HP PRN PO 08/01/24 04:45 Enoxaparin Sodium 40 mg DAILY SC 08/01/24 10:00 08/10/24 09:20 40 MG Hydromorphone HCl 0.5 mg Q3HPRN PRN IV 08/01/24 14:30 08/07/24 05:43 0.5 MG Diagnostic Test (Pha) 1 strip ACHS 08/02/24 11:30 08/10/24 11:37 1 STRIP Insulin Human Regular ACHS SC 08/02/24 11:30 08/10/24 11:20 2 UNITS Dextrose 50 ml UD PRN IV 08/02/24 09:45 Quetiapine Fumarate 100 mg DAILY PO 08/02/24 10:00 08/10/24 09:21 100 MG Polyethylene Glycol 17 gm DAILY PO 08/02/24 10:00 08/09/24 09:26 17 GM Ondansetron HCl 4 mg Q4HP PRN PO 08/03/24 12:00 08/04/24 23:48 4 MG Hydroxyzine HCl 20 mg Q8HP PRN PO 08/03/24 14:00 08/10/24 11:18 20 MG Lactulose 30 ml Q6HPRN PRN PO 08/04/24 12:00 Sucralfate 1 gm BID PO 08/04/24 22:00 08/10/24 09:21 1 GM Lisinopril 5 mg DAILY PO 08/06/24 10:00 08/10/24 09:22 5 MG Quetiapine Fumarate 100 mg HS PO 08/05/24 22:00 08/09/24 21:12 100 MG Doxycycline Hyclate 250 ml @ 125 mls/hr Q12H IV 08/05/24 18:15 08/10/24 06:06 125 MLS/HR Trimethoprim/ Sulfamethoxazole 1 tab Q12HR PO 08/05/24 22:00 08/10/24 09:22 1 TAB Labetalol HCl 10 mg Q2HPRN PRN IV 08/05/24 18:15 laboratory and microbiology Laboratory Tests 08/10/24 06:27 Test 08/10/24 06:27 Range/Units Serum Glucose 126 H 74-106 mg/dL Problem List CHEST PAIN TROPONIN NEGATIVE ECG NEGATIVE [facility] 2019 NEGATIVE S/P DUAL PPI Assessment/Plan ECHO LVH EF >55% DIASTOLIC DYSFUNCTION CARDIAC STATUS STABLE MORBID OBESITY SLEEPING ALL THE TIME COMPONENT OF SLEEP APNEA MRCP DILATED DUCTS WITH ELEVATED LFT MAY NEED ERCP MAY PROCEED WITH ANY INTERVENTION ASA II/III CARDIAC STATUS STABLE HYPERKALEMIA HOLD ALDACTONE POTASSIUM IN AM k+ corrected apparently transfer to [facility] [place] denied consider LFTs still not improving Dietary Evaluation Review Comments: CCHO-60, 2GNa Lo fat Lo cholesterol cardiac diet, no caffeine Expected Outcomes/Goals: controlled DM< gradual weight loss, gradually healed wounds. Plan discussed with: Patient KEILY DOLAN MD Aug 10, 2024 12:02
--- NOTE | 2024-08-10 16:19 | DVHDS2 ---
Discharge Summary Date of Admission Aug 01, 2024 at 04:41 Date of Discharge: Aug 10, 2024 Admitting Diagnosis Rule out acute coronary syndrome Labs/Diagnostic Data: Laboratory Results Test 08/10/24 11:13 08/10/24 06:27 08/06/24 05:45 08/03/24 13:02 POC Glucose 146 mg/dl (70-106) White Blood Count 5.9 10^3/uL (4.4-10.8) Red Blood Count 4.96 10^6/uL (4.5-5.90) Hemoglobin 15.2 g/dL (13.5-17.5) Hematocrit 45.9 % (41.0-53.0) Mean Corpuscular Volume 92.7 fL (80.0-100.0) Mean Corpuscular Hemoglobin 30.6 pg (28.0-32.0) Mean Corpuscular Hemoglobin Concent 33.0 g/dL (32.0-36.0) Red Cell Distribution Width 13.8 % (11.8-14.3) Platelet Count 227 10^3/uL (140-450) Mean Platelet Volume 9.1 fL (6.9-10.8) Neutrophils (%) (Auto) 54.7 % (37.0-80.0) Lymphocytes (%) (Auto) 30.3 % (10.0-50.0) Monocytes (%) (Auto) 10.9 % (0.0-12.0) Eosinophils (%) (Auto) 3.0 % (0.0-7.0) Basophils (%) (Auto) 1.1 % (0.0-2.0) Neutrophils # (Auto) 3.2 10 ^3/uL (1.6-8.6) Lymphocytes # (Auto) 1.8 10 ^3/uL (0.4-5.4) Monocytes # (Auto) 0.6 10 ^3/uL (0-1.3) Eosinophils # (Auto) 0.2 10 ^3/uL (0-0.8) Basophils # (Auto) 0.1 10 ^3/uL (0-0.2) Nucleated Red Blood Cells 0.0 % Prothrombin Time 11.4 sec (9.3-11.8) Prothrombin Time INR 1.08 (0.9-1.15) Activated Partial Thromboplast Time 28.0 SEC (24.5-34.5) Sodium Level 137 mmol/L (136-145) Potassium Level 4.1 mmol/L (3.5-5.1) Chloride Level 103 mmol/L (98-107) Carbon Dioxide Level 27 mmol/L (20-31) Anion Gap 7 (5-15) Blood Urea Nitrogen 10 mg/dL (9-23) Creatinine 1.13 mg/dL (0.700-1.30) Glomerular Filtration Rate Calc 69 mL/min (>90) BUN/Creatinine Ratio 8.8 (10.0-20.0) Serum Glucose 126 mg/dL (74-106) Calcium Level 10.0 mg/dL (8.7-10.4) Total Bilirubin 3.3 mg/dL (0.2-1.0) Aspartate Amino Transferase (AST) 146 U/L (13-40) Alanine Aminotransferase (ALT) 179 U/L (7-40) Alkaline Phosphatase 319 U/L (46-116) Total Protein 7.4 g/dL (5.7-8.2) Albumin 3.9 g/dL (3.2-4.8) Creatine Kinase 94 U/L (46-171) CA 19-9 Antigen <2 U/mL (0-35) Test 08/03/24 04:55 08/02/24 10:35 08/01/24 13:36 08/01/24 10:36 Ferritin 103.9 ng/mL (22-322) Hepatitis A Antibody Total Positive (Negative) Hepatitis B Surface Antigen Negative (Negative) Hepatitis B Surface Antibody Negative (Negative) Hepatitis B Core Total Antibody Negative (Negative) Hepatitis C Antibody Negative (Negative) D-Dimer, Quantitative 0.53 mg/L FEU (0.0-0.49) Triglycerides Level 111 mg/dL (< 150) Cholesterol Level 135 mg/dL (< 200) LDL Cholesterol 59 mg/dL (< 100) HDL Cholesterol 56 mg/dL (40-59) Lipase 33 U/L (12-53) Hemoglobin A1c 7.4 % A1C (<5.7) Test 08/01/24 09:40 08/01/24 04:41 08/01/24 00:26 08/01/24 00:00 Urine Color Yellow (Yellow) Urine Clarity Clear (Clear) Urine pH 7.5 (5.0-9.0) Urine Specific [place] 1.018 (1.001-1.035) Urine Protein Negative (Negative) Urine Ketones Negative (Negative) Urine Blood Negative /uL (Negative) Urine Nitrite Negative (Negative) Urine Bilirubin Negative (Negative) Urine Urobilinogen 8 mg/dL (Negative) Urine Leukocyte Esterase Negative /uL (Negative) Urine RBC 1 /hpf (0 - 3) Urine WBC 2 /hpf (0 - 3) Urine Squamous Epithelial Cells Few /hpf (<5) Urine Bacteria Few /hpf (None Seen) Urine Glucose Normal mg/dL (Normal) Urine Opiates Screen Pos (NEGATIVE) Urine Fentanyl Screen Neg (NEGATIVE) Urine Barbiturates Screen Neg (NEGATIVE) Urine Phencyclidine Screen Neg (NEGATIVE) Urine Amphetamines Screen Neg (NEGATIVE) Urine Benzodiazepines Screen Neg (NEGATIVE) Urine Cocaine Screen Neg (NEGATIVE) Urine Cannabinoids Screen Neg (NEGATIVE) Influenza Type A Antigen Negative (Negative) Influenza Type B Antigen Negative (Negative) Troponin I High Sensitivity 5 ng/L (</=54) Thyroid Stimulating Hormone (TSH) 1.69 uIU/mL (0.55-4.78) SARS-CoV-2 Antigen (Rapid) Negative (NEGATIVE) Test 07/31/24 22:04 B-Type Natriuretic Peptide 64.16 pg/mL (0-100) Other Laboratory Tests 08/10/24 06:27 Brief Hx & Hospital Course: History of Present Illness Patient is a 74-year-old male with past medical history of hypertension, hyperlipidemia, type 2 diabetes mellitus, congestive heart failure with ?Improved ejection fraction came to the ED with a chief complaint of chest pain and shortness of breath. Patient reported that since about a week he has been having episodes of sudden onset shortness of breath associated with a substernal chest pain which is nonradiating, sharp, short lasting and when during the episode he checks his blood pressure usually elevated with a his SBP in 180s and DBP in 90s and he also experiences shaking. Patient has been taking clonidine 0.1 mg which is his p.r.n. medication for high blood pressure. Before coming to the hospital today he took clonidine 4 times to lower his blood pressure and in the evening it was still high at 175/95 following which she came to the hospital for further evaluation. Patient's echocardiogram from October 2023 shows ejection fraction 55%, but he reports that previously 8 was low and he had been given something to wear around his neck for about 2 years. Course of hospitalization: Cardiology consultation was obtained. Patient was cleared for any acute coronary syndrome. Patient was found to have elevated LFTs, for which patient had right upper quadrant ultrasound revealing CBD dilatation which was verified with MRCP. Patient's bilirubin and LFTs continue to increase. GI consultation was obtained. Patient underwent EGD without any acute findings. Recommendations are for ERCP to visualize CBD for any obstruction. At this time the patient was agreeable to be transferred to higher level of care. He was tolerating oral intake. He denies any further chest pain. Report was given to Dr. Max at [facility]. Physical examination General: Alert and Oriented x3. No acute distress. Well-nourished. Obese Eyes: EOMI. Anicteric. HENT: Moist mucous membranes. Lungs: Clear to auscultation bilaterally. No accessory muscle use. Cardiovascular: Regular rate and rhythm. No murmur. No JVD. Abdomen: Soft, non-tender and non-distended. No palpable masses. Extremities: No edema. Non-tender. Skin: No rashes or lesions. Warm. Jaundiced Neurologic: No focal neurological deficits. CN II-XII grossly intact, but not individually tested. Psychiatric: Cooperative. Appropriate mood and affect. Total time spent with patient discussing and formulating plan of care: 35 minutes. This medical document was created using an electronic medical record system with [employer] dictation system. Although this document has been carefully reviewed, there may still be some phonetic and typographical errors. These areas are purely typographical due to imperfections of the software programs, and do not reflect any compromise in the patient's medical care. Consults/Reason for consult Cardiology: Rule out ACS Gastroenterology: Elevated LFTs Condition at Discharge: Fair Final Diagnosis/Problems List CBD dilatation Secondary Diagnosis: -chest pain, ruled out ACS -history of permanent pacemaker implant -transaminitis -chronic pain syndrome -primary hypertension -obstructive sleep apnea Discharge Disposition: Acute Care Facility Discharge Instruct/Medications Diet: Cardiac 2g Na,low cholest Activity: No Restrictions, As Tolerated Follow Up/Referral: Per accepting hospitalist Medications: Refer to medication reconciliation form 36 Discharge Statement: "Patient was advised to return to the ER or call 911 if any headaches, dizziness, shortness of breath, chest pain, abdominal pain, bleeding, fevers, or worsening of medical condition. Patient was counseled about treatment plan, medications, possible side effects, patientverbalized understanding. All questions were answered to the best of my ability. This discharge took greater then 30 minutes in planning, reviewing documentation, counseling the patient, and discussing with other team members." ASSESSMENT ASSESSMENT Assessment CBD dilatation Date of Service: Aug 10, 2024 Billing Provider: KULWINDER SHEEHAN NP Common Visit Codes: [id number]/OBS DISCH DAY >30min KULWINDER SHEEHAN NP Aug 10, 2024 16:19
--- NOTE | 2024-08-10 19:20 | DVHPN2 ---
Progress Note - Dictate Date Seen: Aug 10, 2024 Medical Necessity Reason Pt with a Central, PICC or Fol: No Subjective No new complaints Liver enzymes are persistently elevated MRCP had shown moderate dilation of the intra and extrahepatic bile ducts with no stone EGD showed small hiatal hernia mild gastritis and no ampullary tumor, there was good bile drainage vital signs Vital Sign Date Time Temp Pulse Resp B/P (MAP) Pulse Ox O2 Delivery O2 Flow Rate FiO2 08/10/24 16:59 97.5 70 16 115/63 (80) 98 97.5 08/10/24 08:00 Nasal Cannula* 3 32 Total Intake and Output 08/09/24 08/09/24 08/10/24 15:00 23:00 07:00 Intake Total 250 ml 1050 ml 1000 ml Output Total 500 ml Balance 250 ml 1050 ml 500 ml medications Current Medications Medications Dose Ordered Sig/Camille Route Start Time Stop Time Status Last Admin Dose Admin Pantoprazole Sodium 40 mg DAILY@0600 PO 08/01/24 06:00 08/10/24 06:02 40 MG Tamsulosin HCl 0.4 mg QPM PO 08/01/24 18:00 08/10/24 17:24 0.4 MG Buspirone HCl 15 mg Q12HR PO 08/01/24 10:00 08/10/24 09:22 15 MG Morphine Sulfate 60 mg Q12HR PO 08/01/24 10:00 08/10/24 09:21 60 MG Oxycodone HCl 10 mg Q12HR PO 08/01/24 10:00 UNV Aspirin 81 mg DAILY PO 08/01/24 10:00 08/10/24 09:21 81 MG Clonidine HCl 0.1 mg Q6HP PRN PO 08/01/24 04:45 Enoxaparin Sodium 40 mg DAILY SC 08/01/24 10:00 08/10/24 09:20 40 MG Hydromorphone HCl 0.5 mg Q3HPRN PRN IV 08/01/24 14:30 08/07/24 05:43 0.5 MG Diagnostic Test (Pha) 1 strip ACHS 08/02/24 11:30 08/10/24 16:50 1 STRIP Insulin Human Regular ACHS SC 08/02/24 11:30 08/10/24 11:20 2 UNITS Dextrose 50 ml UD PRN IV 08/02/24 09:45 Quetiapine Fumarate 100 mg DAILY PO 08/02/24 10:00 08/10/24 09:21 100 MG Polyethylene Glycol 17 gm DAILY PO 08/02/24 10:00 08/09/24 09:26 17 GM Ondansetron HCl 4 mg Q4HP PRN PO 08/03/24 12:00 08/04/24 23:48 4 MG Lactulose 30 ml Q6HPRN PRN PO 08/04/24 12:00 Sucralfate 1 gm BID PO 08/04/24 22:00 08/10/24 09:21 1 GM Lisinopril 5 mg DAILY PO 08/06/24 10:00 08/10/24 09:22 5 MG Quetiapine Fumarate 100 mg HS PO 08/05/24 22:00 08/09/24 21:12 100 MG Doxycycline Hyclate 250 ml @ 125 mls/hr Q12H IV 08/05/24 18:15 08/10/24 17:25 125 MLS/HR Trimethoprim/ Sulfamethoxazole 1 tab Q12HR PO 08/05/24 22:00 08/10/24 09:22 1 TAB Labetalol HCl 10 mg Q2HPRN PRN IV 08/05/24 18:15 objective General Appearance: Alert, Oriented X3, Cooperative, No acute distress HEENT: Atraumatic Lungs: Clear to auscultation, Normal air movement Cardiovascular: S1-S2 regular rate rhythm Abdomen: Normal bowel sounds, Soft;, obese Extremities: Other (Bilateral lower extremities edema more so on the left side with redness and warmth in the left pretibial area) Neuro: Normal speech Psych/Mental Status: Mental status NL, Mood NL laboratory and microbiology Laboratory Tests 08/10/24 06:27 Test 08/10/24 06:27 Range/Units Serum Glucose 126 H 74-106 mg/dL Problems(with codes): (1) Degenerative joint disease of left hip (2) Hypertension (3) CHF (congestive heart failure) (4) Elevated liver enzymes (5) Cardiac pacemaker in situ (6) Morbid obesity (7) Shortness of breath Prognosis Plan Patient was apparently denied a transfer to [facility] and they recommended outpatient follow up Discharge planning as per Dr. Weber and Dar Possible referral to another institution like [facility] to get the ERCP done Dietary Evaluation Review Comments: CCHO-60, 2GNa Lo fat Lo cholesterol cardiac diet, no caffeine Expected Outcomes/Goals: controlled DM< gradual weight loss, gradually healed wounds. Plan discussed with: Other (None) REN PATTON MD Aug 10, 2024 19:20
[2024-08-11] VITALS (14 sets, daily range): BP systolic 102–127; BP diastolic 49–72; PULSE 60–167; RESP 10–20; TEMP 97.6–98.3; O2SAT 93–99
[2024-08-11 07:53] LABS: Anion Gap 6 (5-15); BUN/Creatinine Ratio 9.1 (10.0-20.0); Blood Urea Nitrogen 10 mg/dL (9-23); Calcium 9.8 mg/dL (8.7-10.4); Carbon Dioxide 29 mmol/L (20-31); Chloride 103 mmol/L (98-107); Sodium 138 mmol/L (136-145)
[2024-08-11 07:55] LABS: Alanine Aminotransferase 155 U/L (7-40); Albumin 3.6 g/dL (3.2-4.8); Alkaline Phosphatase 284 U/L (46-116); Glucose 107 mg/dL (74-106); Total Protein 6.7 g/dL (5.7-8.2)
[2024-08-11 07:56] LABS: Aspartate Aminotransferase 117 U/L (13-40); Bilirubin, Total 2.9 mg/dL (0.2-1.0)
[2024-08-11] MEDS: DOXYCYCLINE 100MG/100ML 100 ML IV SCH (11:00)
--- NOTE | 2024-08-11 15:01 | DVHPN2 ---
Progress Note - Dictate Date Seen: Aug 11, 2024 Medical Necessity Reason Pt with a Central, PICC or Fol: No Subjective PT WITH CHEST PAIN TROPONIN NEGATIVE ECG NEGATIVE [facility] 2019 NEGATIVE S/P DUAL PPI vital signs Vital Sign Date Time Temp Pulse Resp B/P (MAP) Pulse Ox O2 Delivery O2 Flow Rate FiO2 08/11/24 13:03 154 08/11/24 13:00 98.3 18 120/61 (80) 93 98.3 08/11/24 09:11 Nasal Cannula 4.0 08/11/24 09:11 36 Total Intake and Output 08/10/24 08/10/24 08/11/24 15:00 23:00 07:00 Intake Total 250 ml 1050 ml 1600 ml Output Total 1950 ml Balance 250 ml 1050 ml -350 ml medications Current Medications Medications Dose Ordered Sig/Camille Route Start Time Stop Time Status Last Admin Dose Admin Pantoprazole Sodium 40 mg DAILY@0600 PO 08/01/24 06:00 08/11/24 06:29 40 MG Tamsulosin HCl 0.4 mg QPM PO 08/01/24 18:00 08/10/24 17:24 0.4 MG Morphine Sulfate 60 mg Q12HR PO 08/01/24 10:00 08/11/24 08:43 60 MG Oxycodone HCl 10 mg Q12HR PO 08/01/24 10:00 UNV Aspirin 81 mg DAILY PO 08/01/24 10:00 08/11/24 08:42 81 MG Clonidine HCl 0.1 mg Q6HP PRN PO 08/01/24 04:45 Enoxaparin Sodium 40 mg DAILY SC 08/01/24 10:00 08/11/24 08:40 40 MG Hydromorphone HCl 0.5 mg Q3HPRN PRN IV 08/01/24 14:30 08/07/24 05:43 0.5 MG Diagnostic Test (Pha) 1 strip ACHS 08/02/24 11:30 08/11/24 12:43 1 STRIP Insulin Human Regular ACHS SC 08/02/24 11:30 08/10/24 21:42 3 UNITS Dextrose 50 ml UD PRN IV 08/02/24 09:45 Quetiapine Fumarate 100 mg DAILY PO 08/02/24 10:00 08/11/24 08:42 100 MG Polyethylene Glycol 17 gm DAILY PO 08/02/24 10:00 08/11/24 08:40 17 GM Ondansetron HCl 4 mg Q4HP PRN PO 08/03/24 12:00 08/11/24 06:36 4 MG Lactulose 30 ml Q6HPRN PRN PO 08/04/24 12:00 Sucralfate 1 gm BID PO 08/04/24 22:00 08/11/24 08:42 1 GM Lisinopril 5 mg DAILY PO 08/06/24 10:00 08/11/24 08:44 5 MG Quetiapine Fumarate 100 mg HS PO 08/05/24 22:00 08/10/24 21:40 100 MG Trimethoprim/ Sulfamethoxazole 1 tab Q12HR PO 08/05/24 22:00 08/11/24 08:42 1 TAB Labetalol HCl 10 mg Q2HPRN PRN IV 08/05/24 18:15 Doxycycline Hyclate 100 ml @ 50 mls/hr Q12HR IV 08/11/24 11:00 laboratory and microbiology Laboratory Tests 08/11/24 05:12 08/10/24 06:27 Test 08/11/24 05:12 Range/Units Serum Glucose 107 H 74-106 mg/dL Problem List CHEST PAIN TROPONIN NEGATIVE ECG NEGATIVE [facility] 2019 NEGATIVE S/P DUAL PPI Assessment/Plan ECHO LVH EF >55% DIASTOLIC DYSFUNCTION CARDIAC STATUS STABLE MORBID OBESITY SLEEPING ALL THE TIME COMPONENT OF SLEEP APNEA MRCP DILATED DUCTS WITH ELEVATED LFT MAY NEED ERCP MAY PROCEED WITH ANY INTERVENTION ASA II/III CARDIAC STATUS STABLE HYPERKALEMIA HOLD ALDACTONE POTASSIUM IN AM k+ corrected apparently transfer to [facility] [place] denied consider LFTs still not improving LFT TRENDING DOWN Dietary Evaluation Review Comments: CCHO-60, 2GNa Lo fat Lo cholesterol cardiac diet, no caffeine Expected Outcomes/Goals: controlled DM< gradual weight loss, gradually healed wounds. Plan discussed with: Patient KEILY DOLAN MD Aug 11, 2024 15:01
--- NOTE | 2024-08-11 16:36 | DVHPN2 ---
Progress Note - Dictate Date Seen: Aug 11, 2024 Medical Necessity Reason Pt with a Central, PICC or Fol: No Subjective No new complaints Liver enzymes are persistently elevated MRCP had shown moderate dilation of the intra and extrahepatic bile ducts with no stone EGD showed small hiatal hernia mild gastritis and no ampullary tumor, there was good bile drainage vital signs Vital Sign Date Time Temp Pulse Resp B/P (MAP) Pulse Ox O2 Delivery O2 Flow Rate FiO2 08/11/24 15:30 167 08/11/24 15:27 98.3 18 93 08/11/24 15:11 120/61 4.0 08/11/24 09:11 Nasal Cannula 08/11/24 09:11 36 Total Intake and Output 08/10/24 08/10/24 08/11/24 15:00 23:00 07:00 Intake Total 250 ml 1050 ml 1600 ml Output Total 1950 ml Balance 250 ml 1050 ml -350 ml medications Current Medications Medications Dose Ordered Sig/Camille Route Start Time Stop Time Status Last Admin Dose Admin Pantoprazole Sodium 40 mg DAILY@0600 PO 08/01/24 06:00 08/11/24 06:29 40 MG Tamsulosin HCl 0.4 mg QPM PO 08/01/24 18:00 08/10/24 17:24 0.4 MG Morphine Sulfate 60 mg Q12HR PO 08/01/24 10:00 08/11/24 08:43 60 MG Oxycodone HCl 10 mg Q12HR PO 08/01/24 10:00 UNV Aspirin 81 mg DAILY PO 08/01/24 10:00 08/11/24 08:42 81 MG Clonidine HCl 0.1 mg Q6HP PRN PO 08/01/24 04:45 Enoxaparin Sodium 40 mg DAILY SC 08/01/24 10:00 08/11/24 08:40 40 MG Hydromorphone HCl 0.5 mg Q3HPRN PRN IV 08/01/24 14:30 08/07/24 05:43 0.5 MG Diagnostic Test (Pha) 1 strip ACHS 08/02/24 11:30 08/11/24 12:43 1 STRIP Insulin Human Regular ACHS SC 08/02/24 11:30 08/10/24 21:42 3 UNITS Dextrose 50 ml UD PRN IV 08/02/24 09:45 Quetiapine Fumarate 100 mg DAILY PO 08/02/24 10:00 08/11/24 08:42 100 MG Polyethylene Glycol 17 gm DAILY PO 08/02/24 10:00 08/11/24 08:40 17 GM Ondansetron HCl 4 mg Q4HP PRN PO 08/03/24 12:00 08/11/24 06:36 4 MG Lactulose 30 ml Q6HPRN PRN PO 08/04/24 12:00 Sucralfate 1 gm BID PO 08/04/24 22:00 08/11/24 08:42 1 GM Lisinopril 5 mg DAILY PO 08/06/24 10:00 08/11/24 08:44 5 MG Quetiapine Fumarate 100 mg HS PO 08/05/24 22:00 08/10/24 21:40 100 MG Trimethoprim/ Sulfamethoxazole 1 tab Q12HR PO 08/05/24 22:00 08/11/24 08:42 1 TAB Labetalol HCl 10 mg Q2HPRN PRN IV 08/05/24 18:15 Doxycycline Hyclate 100 ml @ 50 mls/hr Q12HR IV 08/11/24 11:00 objective General Appearance: Alert, Oriented X3, Cooperative, No acute distress HEENT: Atraumatic Lungs: Clear to auscultation, Normal air movement Cardiovascular: S1-S2 regular rate rhythm Abdomen: Normal bowel sounds, Soft;, obese Extremities: Other (Bilateral lower extremities edema more so on the left side with redness and warmth in the left pretibial area) Neuro: Normal speech Psych/Mental Status: Mental status NL, Mood NL laboratory and microbiology Laboratory Tests 08/11/24 05:12 08/10/24 06:27 Test 08/11/24 05:12 Range/Units Serum Glucose 107 H 74-106 mg/dL Problems(with codes): (1) Abnormal finding on GI tract imaging (2) Dilated bile duct (3) CHF (congestive heart failure) (4) Elevated liver enzymes (5) Cardiac pacemaker in situ (6) Morbid obesity Prognosis Plan Advance diet as tolerated Discharge planning is in progress Patient has been accepted at [facility] for an ERCP and awaiting bed availability Dietary Evaluation Review Comments: CCHO-60, 2GNa Lo fat Lo cholesterol cardiac diet, no caffeine Expected Outcomes/Goals: controlled DM< gradual weight loss, gradually healed wounds. Plan discussed with: Patient, Other (Dar Gerardo) REN PATTON MD Aug 11, 2024 16:36
[2024-08-11] MEDS ORDERED: hydrOXYzine 25 MG TAB or CAP PO PRN (18:45)
--- NOTE | 2024-08-14 16:57 | DVHSR ---
APPROVED REPORT EXAM: LIMITED Two-dimensional and M-mode echocardiogram with Doppler and color Doppler. Blood Pressure: 139/80 mmHg INDICATION shortness of breathe RISK FACTORS Obesity: Height: 5'8, Weight: 330 DIMENSIONS LVDd4.4 (3.8-5.7cm)LA (2D) (1.9-4.0cm)Aortic Root3.7 (2.0-3.7cm) LVDs3.3 (2.5-4.0cm)LA (MM) (1.9-4.0cm)Aortic Cusp Exc1.6 (1.5-2.0cm) EF (%) 50.0 (55-70%)Rt. Atrium (1.9-4.0cm)Asc. Aorta cm IVSd1.1 (0.7-1.1cm)RV (D) (1.8-2.4cm) PWd1.0 (0.7-1.1cm) Mitral Valve MitralMitral Stenosis E wave0.79m/sMV Mean GR.mmHg A wave1.03m/sMV Peak GR.74mmHg E/A ratio0.82D MVAcm2 DECEL [id number] 1/2 Timems Aortic Valve Aortic ValveAortic Stenosis V11.27m/Mehrdad Mean GR.8mmHg V21.97m/Mehrdad Peak GR.16mmHg LVOT Diameter2.6 (1.8-2.4cm)Doppler AVA3.42cm2 Pulmonic Valve V21.05m/s Tricuspid Valve TR Velocity2.06m/s [id number] Other Information Quality : Technically LimitedRhythm : Technically limited study due to body habitus.patient position. Conclusion EF 55%
== END 2024-08-11 18:57 | disposition short-term general hospital (02) | DRG 305 ==
LOC: ER 21:54 → TELE 08-01 04:41 → TELE-WESTW 08-01 21:23
PROVIDERS: ADMIT Nurse Practitioner Acute Care; ATTEND Nurse Practitioner Acute Care
PROC: 0DB68ZX Excision of Stomach, Via Natural or Artificial Opening Endoscopic, Diagnostic (ICD-10-PCS; 2024-08-04)
PROC: 0DB48ZX Excision of Esophagogastric Junction, Via Natural or Artificial Opening Endoscopic, Diagnostic (ICD-10-PCS; 2024-08-04)
PROC: 0DB98ZX Excision of Duodenum, Via Natural or Artificial Opening Endoscopic, Diagnostic (ICD-10-PCS; principal; 2024-08-04 14:32)
PROC: 5A09357 Assistance with Respiratory Ventilation, Less than 24 Consecutive Hours, Continuous Positive Airway Pressure (ICD-10-PCS; 2024-08-06)
PROC: 5A09357 Assistance with Respiratory Ventilation, Less than 24 Consecutive Hours, Continuous Positive Airway Pressure (ICD-10-PCS; 2024-08-07)
PROC: 5A09357 Assistance with Respiratory Ventilation, Less than 24 Consecutive Hours, Continuous Positive Airway Pressure (ICD-10-PCS; 2024-08-08)
PROC: 5A09357 Assistance with Respiratory Ventilation, Less than 24 Consecutive Hours, Continuous Positive Airway Pressure (ICD-10-PCS; 2024-08-09)
PROC: 5A09357 Assistance with Respiratory Ventilation, Less than 24 Consecutive Hours, Continuous Positive Airway Pressure (ICD-10-PCS; 2024-08-10)
PROC: 5A09357 Assistance with Respiratory Ventilation, Less than 24 Consecutive Hours, Continuous Positive Airway Pressure (ICD-10-PCS; 2024-08-11)
DX: I16.0 Hypertensive urgency (principal); L03.116 Cellulitis of left lower limb; Z68.42 Body mass index [BMI] 45.0-49.9, adult; K25.9 Gastric ulcer, unspecified as acute or chronic, without hemorrhage or perforation; K29.70 Gastritis, unspecified, without bleeding; G89.4 Chronic pain syndrome; G47.33 Obstructive sleep apnea (adult) (pediatric); E66.01 Morbid (severe) obesity due to excess calories; E87.5 Hyperkalemia; K44.9 Diaphragmatic hernia without obstruction or gangrene; N28.1 Cyst of kidney, acquired; Z20.822 Contact with and (suspected) exposure to COVID-19; F41.9 Anxiety disorder, unspecified; F32.A Depression, unspecified; K82.8 Other specified diseases of gallbladder; I11.0 Hypertensive heart disease with heart failure; I50.9 Heart failure, unspecified; E78.5 Hyperlipidemia, unspecified; E11.9 Type 2 diabetes mellitus without complications; N40.0 Benign prostatic hyperplasia without lower urinary tract symptoms; K83.8 Other specified diseases of biliary tract; Z90.49 Acquired absence of other specified parts of digestive tract; Z86.73 Personal history of transient ischemic attack (TIA), and cerebral infarction without residual deficits; Z82.49 Family history of ischemic heart disease and other diseases of the circulatory system; Z80.9 Family history of malignant neoplasm, unspecified; Z95.0 Presence of cardiac pacemaker
CPT/HCPCS: 36415; 71045; 71275; 74181; 76705; 80053; 80061; 80307; 81001; 82550; 82728; 82962; 83036; 83690; 83880; 84443; 84484; 85025; 85379; 85610; 85730; 86301; 86704; 86706; 86708; 86803; 87340; 87426; 87804; 93005; 93306; 93970; 94660; G0378; J1815; J3490; Q0162

== ENCOUNTER 2024-10-07 07:19 | Inpatient (IN) | payer MEDICARE ==
[2024-10-07] VITALS (7 sets, daily range): BP systolic 123–151; BP diastolic 74–87; PULSE 60–70; RESP 12–20; TEMP 98–98.3; O2SAT 94–100
[~2024-10-07] VITALS: Ht 172.7 cm; Wt 141.9 kg
[~2024-10-07 07:19] MED LIST changes: -AMLO1TAB23 PO; -ASPI-543 PO; -CLIN1CAP70 PO; -CLON0.1D13 TD; -CYCL-839 PO; -DICL50TA2 PO; -FURO40TA4 PO; -HYDR-4798 PO; -HYDR-4902 PO; -HYDR50CA2 PO; -MELO7.5T9 PO; -MULT-1018 PO; -ONDA-155 PO; -POTA-220 PO; -PRED20TA2 PO; -PREG75CA90 PO; -SPIR50TA5 PO; -VITA100T3 PO; -ZOLP10TA6 PO
--- NOTE | 2024-10-07 08:00 | ED.PDOC ---
GI ASSESSMENT HPI Comments HPI: Ellie HPI: Leonid Historian. 74-year-old male presents to emergency department for evaluation of one-week history of of epigastric and left-sided abdominal pain that is intermittent in nature for one-week. Pain got worse today. Pain is associated with nausea. Denies any vomiting or diarrhea. The denies any other acute symptoms. He also suggest that the pain is worse with food. Denies any use of alcohol. The Past Medical History: HTN, HLD, ANXIETY, DEPRESSION, TIA, CHF, CHRONIC BACK PAIN Chronic back pain, chronic hip pain on morphine. Morbid obesity Past Surgical History: CHOLECYSTECTOMY, PACEMAKER, TONSILLECTOMY Social History: DENIES Medications: MORPHINE, CLONIDINE, OXYCODONE, SLEEPING AID MEDICATION Allergies: NKDA REVIEW OF SYSTEMS: CONSTITUTIONAL: Denies acute: fever, diaphoresis, chills, generalized weakness. HEAD: Denies acute: headache, photophobia Eyes: Denies acute: Double vision, vision loss, eye pain, eye discharge. EARS: Denies acute: tinnitus, hearing loss, ear discharge, ear pain, THROAT: Denies acute: sore throat, swelling, difficulty swallowing , pain with swallowing, change in voice. NECK: Denies acute: neck pain, neck swelling, stiff neck. HEART: Denies acute : chest pain, palpitations, LUNGS: Denies acute: SOB, wheezing, cough, hemoptysis ABDOMEN: Denies acute: Vomiting, diarrhea, melena , hematemesis, hematochezia SKIN: Denies acute: rash, redness, lesions, itchiness. EXTREMITIES: Denies acute: calf pain, numbness, tingling, weakness, denies pain in extremity. Denies acute: Low back pain. Neuro: Denies acute: focal neurological deficit, motor or sensory focal neurological deficit, tremors, seizure like activity, confusion, dizziness, change in mental status, loss of bowel or bladder function, cauda equina like symptoms. : Denies acute: dysuria, hematuria, flank pain, increase in urinary frequency. PSYCH: Denies acute: hallucination, suicidal ideation, homicidal ideation. PHYSICAL EXAM: General: no acute distress, awake and alert. Head: normocephalic, atraumatic. Neck: supple, trachea is midline, no swelling. Throat: Normal phonation. Eyes:, no erythema, no purulent discharge, no proptosis, no icterus. Heart: regular rate, regular rhythm, no significant murmur appreciated. Lungs: no apparent respiratory distress, Able to speak in full sentences. No wheezing, no rhonchi, no crackles. No stridors Clear to auscultation bilaterally. Abdomen: Epigastric and left upper quadrant tender to palpation, non distended, soft, no guarding, no rebound, + bowel sounds. Morbidly obese Neuro: Awake, Alert, oriented to name, self, situation, follows commands GCS=15. Speech is normal. Skin: no petechia, no purpura, no cyanosis, non-pale, not jaundice. Lower extremities: --2/4 bilateral- Pitting edema no deformity, no focal swelling, no calf TTP. Makes eye contact. moves all four extremities. Face: no apparent facial droop. Ambulating in the ED independently with a walker. Ears: Normal appearing TM b/l, ED COURSE: Chief Complaint: Abdominal Pain Time Seen by MD: 07:35 Primary Care Provider: YANIRA MCKENZIE Reviewed Notes: Nurses Notes, Allergies Allergies: Coded Allergies: NO KNOWN ALLERGIES (Unverified , 08/29/19) Home Meds Reported Medications Quetiapine Fumerate (QUETIAPINE FUMARATE) 100 Mg Tab, 1 TAB PO DAILY for 45 Days, #45 08/01/24 Clonidine Hydrochloride (Clonidine Hcl) 0.1 Mg Tab, 1 TAB PO BID PRN for SBP>160 for 15 Days, #30 08/01/24 Spironolactone (Spironolactone) 25 Mg Tab, 1 TAB PO DAILY for 90 Days, #90 08/01/24 Ondansetron Odt 4MG Tab (ZOFRAN PO) 4 Mg Tb, 1 TAB PO QID for 30 Days, #120 ODT TAB-DISSOLVE IN MOUTH, THEN SWALLOW 08/01/24 Pregabalin (Pregabalin) 100 Mg Cap, 1 CAP PO DAILY for 30 Days, #30 08/01/24 Hydroxyzine Pamoate (Hydroxyzine Pamoate) 25 Mg Cap, 1 CAP PO BID PRN for 30 Days, #60 08/01/24 Omeprazole (Omeprazole Dr) 20 Mg Cap, 1 CAP PO DAILY for 90 Days, #90 05/24/20 Lisinopril (Lisinopril) 40 Mg Tab, 1 TAB PO BID for 90 Days, #180 05/24/20 Tamsulosin Hcl (Tamsulosin Hcl) 0.4 Mg Cap, 1 TAB PO HS for 90 Days, #90 08/29/19 Buspirone Hcl (Buspirone Hcl) 30 Mg Tab, 1 TAB PO BID for 45 Days, #90 08/29/19 Oxycodone HCl (Oxycodone Hydrochloride) 10 Mg Tab, 1 TAB PO Q6HR PRN for 30 Days, #120 08/29/19 Morphine Sulfate (Morphine Sulfate Er) 60 Mg Tab, 1 TAB PO Q12HR for 30 Days, #60 01/03/16 Atorvastatin Calcium (Lipitor) 40 Mg Tab, 1 TAB PO HS for 90 Days, #90 01/03/16 Information Source: Patient Mode of Arrival: Ambulatory Past Medical History PAST MEDICAL HISTORY: Anxiety, CHF, Depression, High Lipids, HTN, TIA Surgical History: Cholecystectomy, Pacemaker, Tonsillectomy Family History Family History: Family hx of Cancer, Family hx of HTN Social History Smoker: Non-Smoker Alcohol: Denies ETOH Use Drugs: Denies Drug Use Lives In: Home EKG EKG : Pulse Rate (adult): 69 [place]: Normal Cardiac Rhythm: NSR Block: None Hypertrophy: None ST: Normal Was a procedure done? Was a procedure done?: No GI differential Dx Differential Diagnosis: Other (DDX include but not limited to diverticulitis, colitis, gastroenteritis, acute abdomen, SBO, enteritis, constipation, volvulus, appendicitis, Gallbladder disease, choledocolithiasis, ascending cholangitis, pancreatitis, intraAbdominal mass/neoplasm, hepatitis, UTI, pylonephritis, kidney stone, aneurysm, dissection, Inflammatory bowel disease, gastroparesis, ischemic bowel.) X-Ray, Labs, Meds, VS Vital Signs Date Time Temp Pulse Resp B/P (MAP) Pulse Ox O2 Delivery O2 Flow Rate FiO2 10/07/24 09:45 66 12 164/92 (116) 94 10/07/24 08:55 155/83 10/07/24 08:46 60 12 95 Nasal Cannula* 2 28 10/07/24 08:00 69 10/07/24 07:48 99.0 61 12 155/76 (102) 94 99.0 10/07/24 07:33 69 10/07/24 07:27 99.3 75 18 164/92 (116) 96 Lab Test 10/07/24 09:07 10/07/24 07:41 10/07/24 07:29 Range/Units Lactic Acid Level 1.1 0.4-2.0 mmol/L Troponin I High Sensitivity 4 4 </=54 ng/L White Blood Count 9.5 4.4-10.8 10^3/uL Red Blood Count 5.28 4.5-5.90 10^6/uL Hemoglobin 15.3 13.5-17.5 g/dL Hematocrit 47.1 41.0-53.0 % Mean Corpuscular Volume 89.2 80.0-100.0 fL Mean Corpuscular Hemoglobin 28.9 28.0-32.0 pg Mean Corpuscular Hemoglobin Concent 32.4 32.0-36.0 g/dL Red Cell Distribution Width 13.7 11.8-14.3 % Platelet Count 205 140-450 10^3/uL Mean Platelet Volume 9.1 6.9-10.8 fL Neutrophils (%) (Auto) 70.8 37.0-80.0 % Lymphocytes (%) (Auto) 19.5 10.0-50.0 % Monocytes (%) (Auto) 8.6 0.0-12.0 % Eosinophils (%) (Auto) 0.9 0.0-7.0 % Basophils (%) (Auto) 0.2 0.0-2.0 % Neutrophils # (Auto) 6.7 1.6-8.6 10 ^3/uL Lymphocytes # (Auto) 1.9 0.4-5.4 10 ^3/uL Monocytes # (Auto) 0.8 0-1.3 10 ^3/uL Eosinophils # (Auto) 0.1 0-0.8 10 ^3/uL Basophils # (Auto) 0 0-0.2 10 ^3/uL Nucleated Red Blood Cells 0.1 % Sodium Level 139 136-145 mmol/L Potassium Level 4.1 3.5-5.1 mmol/L Chloride Level 107 98-107 mmol/L Carbon Dioxide Level 26 20-31 mmol/L Anion Gap 6 5-15 Blood Urea Nitrogen 9 9-23 mg/dL Creatinine 0.99 0.700-1.30 mg/dL Glomerular Filtration Rate Calc 81 >90 mL/min BUN/Creatinine Ratio 9.1 L 10.0-20.0 Serum Glucose 120 H 74-106 mg/dL Calcium Level 9.6 8.7-10.4 mg/dL Total Bilirubin 2.7 H 0.2-1.0 mg/dL Aspartate Amino Transferase (AST) 30 13-40 U/L Alanine Aminotransferase (ALT) 31 7-40 U/L Alkaline Phosphatase 152 H 46-116 U/L Total Protein 7.1 5.7-8.2 g/dL Albumin 4.1 3.2-4.8 g/dL Lipase 32 12-53 U/L POC Glucose 117 H 70-106 mg/dl Current Medications Medications (Trade) Dose Ordered Sig/Camille Route Start Time Stop Time Status Last Admin Fentanyl Citrate 100 mcg ONCE ONCE IV 10/07/24 09:00 10/07/24 09:01 DC 10/07/24 08:55 Fentanyl Citrate 100 mcg ONCE ONCE IV 10/07/24 10:00 10/07/24 10:01 DC 10/07/24 10:28 Ondansetron HCl (Zofran) 8 mg ONCE ONCE IV 10/07/24 10:15 10/07/24 10:16 DC 10/07/24 10:26 [place] [id number] Ph: [phone] DIAGNOSTIC IMAGING Diagnostic Imaging Report : [id number] Signed PATIENT: MICHELE WESTON ACCT: [id number] UNIT: [id number] : 1950 LOC: ER ROOM / BED: / AGE / SEX: 74 / M ADM STATUS: REG ER SERVICE [id number] ORDERING PHYSICIAN: CHAVO RICHARDS DO PROCEDURE(s): ABPL - CT AB PEL WO CON-NO ORAL OR IV REASON: epig pain ORDER NUMBER(s): [id number], ACCESSION NUMBER(s): [id number] Exam: CT CT AB PEL WO CON-NO ORAL OR IV History: Epigastric pain Comparison Study: None available at time of dictation. Technique: Multidetector spiral CT of the abdomen and pelvis was performed from lung bases to pubic symphysis. Imaging was performed without intravenous contr ast. Coronal and sagittal multiplanar reformats were obtained from the axial data set by the technologist. Radiation Dose : 1. Abdomen/Pelvis: CTDIvol 22.3 mGy, DLP 1175.1 mGy*cm. Findings: Evaluation of vasculature and solid organs is limited due to lack of intravenous contrast use. Lung Bases: Lung bases are clear. Visualized portions of the heart and pericardium are unremarkable. Liver: The liver is normal in size. No focal lesions. Gallbladder and Biliary Tree: The gallbladder is surgically absent. No intrahepatic biliary ductal dilatation. The common bile duct is dilated measuring 2.2 cm. Spleen: Unremarkable Pancreas: The pancreas is grossly unremarkable. Adrenal Glands: Unremarkable Kidneys: Kidneys are unremarkable without calculi or hydronephrosis. GI tract: The stomach is distended with fluid. There is a stent in the 2nd portion of the duodenum. There are dilated small bowel loops with collapse of the distal small bowel loops. The transition may be in the left upper quadrant. There is mesenteric edema. Sigmoid and descending colon diverticulosis without acute diverticulitis. Normal caliber appendix. Peritoneum/mesentery/retroperitoneum. No evidence of free intraperitoneal air. Mild free fluid in the abdomen and pelvis. No evidence of suspicious lymphadenopathy. Abdominal Wall: There is a fat containing umbilical hernia. Vasculature: The visualized abdominal aorta is normal in size and caliber. Evaluation of abdominal and pelvic vessels is limited due to lack of intravenous contrast. Urinary Bladder: Grossly unremarkable for degree of distention. Pelvic Organs: Unremarkable Musculoskeletal: No aggressive focal bony lesions, acute fractures or dislocation. Multilevel lumbar spondylosis. Soft tissues: Bilateral fat containing inguinal hernias. IMPRESSION: 1. Small-bowel high-grade obstruction. Possible transition in the left upper quadrant. 2. Stent noted in the duodenum. 3. Descending and sigmoid diverticulosis without acute diverticulitis. 4. Cholecystectomy. Dilated common bile duct ATED BY: SELENE KUMARI MD DICTATED DATE/TIME: 10/07/24856 SIGNED BY: SELENE KUMARI MD SIGNED DATE/TIME: 10/07/24856 Images Reviewed?: Images reviewed and evaluated by me Time of 1ST Reevaluation: 08:05 Reevaluation 1ST: Unchanged Patient Education/Counseling: Diagnosis, Treatment Family Education/Counseling: Other Comments Patient presented with the above HPI.-----abdominal pain-workup was initiated. patient was found with the above mentioned diagnosis. the following medications were ordered: please refer to order lists of meds and tests obtained by myself Dr. Richards. Patient ED course and VS have been stabilized. Patient has been reassessed in the ED and remained in a stable condition. Pertinent incidental findings were discussed with the patient and/or family. Patient/family voices understanding and is agreeable with plan. Patient has been observed in the ED adequate length of time to insure improvement/stability. Escalation of care considered: Consideration of escalation to observation or admission Patient was ADMITTED to the medicine team for further evaluation and treatment of their presentation. General surgery was consulted. NG tube was placed. All the reports of any imaging studies that were ordered by myself were reviewed by myself. Departure 1 Departure Time of Disposition: 09:20 Impression: Primary Impression: SBO (small bowel obstruction) Disposition: ADMITTED INPATIENT Admit to: Tele Condition: Guarded Discharged With: Self Critical Care Note Critical Care Time?: Yes (1 hr-critical care time only) Heart Score Heart Score: Heart Score Response (Comments) Value History N/A 0 EKG N/A 0 Age N/A 0 Risk Factors N/A 0 Troponin N/A 0 Total 0 I personally scribed for CHAVO RICHARDS DO ([email or web address]) on 10/07/24 at 08:00. Electronically submitted by Brodie Mcconnell ([email or web address]). I personally scribed for CHVAO RICHARDS DO ([email or web address]) on 10/07/24 at 09:33. Electronically submitted by Brodie Mcconnell ([email or web address]). CHAVO RICHARDS DO Oct 07, 2024 08:00
[2024-10-07 08:07] LABS: Basophils # (auto) 0 10 ^3/uL (0-0.2); Basophils % (auto) 0.2 % (0.0-2.0); Eosinophils # (auto) 0.1 10 ^3/uL (0-0.8); Eosinophils % (auto) 0.9 % (0.0-7.0); Hematocrit 47.1 % (41.0-53.0); Hemoglobin 15.3 g/dL (13.5-17.5); Lymphocytes # (auto) 1.9 10 ^3/uL (0.4-5.4); Lymphocytes % (auto) 19.5 % (10.0-50.0); Mean Corpuscular Hemoglobin 28.9 pg (28.0-32.0); Mean Corpuscular Hgb Conc. 32.4 g/dL (32.0-36.0); Mean Corpuscular Volume 89.2 fL (80.0-100.0); Monocytes # (auto) 0.8 10 ^3/uL (0-1.3); Monocytes % (auto) 8.6 % (0.0-12.0); Neutrophils # (auto) 6.7 10 ^3/uL (1.6-8.6); Neutrophils % (auto) 70.8 % (37.0-80.0); Nucleated Red Blood Cells % 0.1 %; Platelet Count (auto) 205 10^3/uL (140-450); Red Blood Cells 5.28 10^6/uL (4.5-5.90); Red Cell Distribution Width 13.7 % (11.8-14.3); White Blood Cell 9.5 10^3/uL (4.4-10.8)
[2024-10-07 08:23] LABS: Alanine Aminotransferase 31 U/L (7-40); Albumin 4.1 g/dL (3.2-4.8); Anion Gap 6 (5-15); Aspartate Aminotransferase 30 U/L (13-40); BUN/Creatinine Ratio 9.1 (10.0-20.0); Blood Urea Nitrogen 9 mg/dL (9-23); Calcium 9.6 mg/dL (8.7-10.4); Carbon Dioxide 26 mmol/L (20-31); Potassium 4.1 mmol/L (3.5-5.1); Sodium 139 mmol/L (136-145); Total Protein 7.1 g/dL (5.7-8.2)
[2024-10-07 08:28] LABS: Alkaline Phosphatase 152 U/L (46-116); Bilirubin, Total 2.7 mg/dL (0.2-1.0); Chloride 107 mmol/L (98-107); Glucose 120 mg/dL (74-106)
[2024-10-07 08:42] LABS: Lipase 32 U/L (12-53)
[2024-10-07] MEDS: fentaNYL CITRATE 100 MCG/2 ML VL IV ONE ×2 (08:55→10:28)
--- NOTE | 2024-10-07 09:00 | DVH ---
Exam: CT CT AB PEL WO CON-NO ORAL OR IV History: Epigastric pain Comparison Study: None available at time of dictation. Technique: Multidetector spiral CT of the abdomen and pelvis was performed from lung bases to pubic s ymphysis. Imaging was performed without intravenous contrast. Coronal and sagittal multiplanar reform ats were obtained from the axial data set by the technologist. Radiation Dose : 1. Abdomen/Pelvis: CTDIvol 22.3 mGy, DLP 1175.1 mGy*cm. Findings: Evaluation of vasculature and solid organs is limited due to lack of intravenous contrast use. Lung Bases: Lung bases are clear. Visualized portions of the heart and pericardium are unremarkable. Liver: The liver is normal in size. No focal lesions. Gallbladder and Biliary Tree: The gallbladder is surgically absent. No intrahepatic biliary ductal di latation. The common bile duct is dilated measuring 2.2 cm. Spleen: Unremarkable Pancreas: The pancreas is grossly unremarkable. Adrenal Glands: Unremarkable Kidneys: Kidneys are unremarkable without calculi or hydronephrosis. GI tract: The stomach is distended with fluid. There is a stent in the 2nd portion of the duodenum. T here are dilated small bowel loops with collapse of the distal small bowel loops. The transition may be in the left upper quadrant. There is mesenteric edema. Sigmoid and descending colon diverticulos is without acute diverticulitis. Normal caliber appendix. Peritoneum/mesentery/retroperitoneum. No evidence of free intraperitoneal air. Mild free fluid in the abdomen and pelvis. No evidence of suspicious lymphadenopathy. Abdominal Wall: There is a fat containing umbilical hernia. Vasculature: The visualized abdominal aorta is normal in size and caliber. Evaluation of abdominal a nd pelvic vessels is limited due to lack of intravenous contrast. Urinary Bladder: Grossly unremarkable for degree of distention. Pelvic Organs: Unremarkable Musculoskeletal: No aggressive focal bony lesions, acute fractures or dislocation. Multilevel lumbar spondylosis. Soft tissues: Bilateral fat containing inguinal hernias. IMPRESSION: 1. Small-bowel high-grade obstruction. Possible transition in the left upper quadrant. 2. Stent noted in the duodenum. 3. Descending and sigmoid diverticulosis without acute diverticulitis. 4. Cholecystectomy. Dilated common bile duct
--- NOTE | 2024-10-07 10:18 | DVH ---
EXAM: XR Chest, 1 View CLINICAL INDICATION: CONFIRM NG PLACEMENT TECHNIQUE: Frontal view of the chest. COMPARISON: XY CHEST XRAY 1 VIEW on DOS: 07/31/24, XY CHEST PORTABLE on DOS: 12/25/23, CXR1 on DOS: 05/22/22, CHEST XRAY 1 VIEW on DOS: 05/22/22, CHEST PORTABLE on DOS: 05/21/22 FINDINGS: LUNGS AND PLEURAL SPACES: Mild congestive heart failure. No consolidation. No pneumothorax. HEART: Unremarkable. No cardiomegaly. MEDIASTINUM: Unremarkable. Normal mediastinal contour. BONES/JOINTS: Unremarkable. No acute fracture. TUBES, LINES AND DEVICES: Enteric tube tip cannot be seen but is below the diaphragm. Left-sided c ardiac pacemaker. OTHER FINDINGS: . IMPRESSION: Mild congestive heart failure. .
[2024-10-07] MEDS: ONDANSETRON HCL 4 MG/2 ML VIAL IV ONE (10:26)
--- NOTE | 2024-10-07 10:31 | DVHHP2 ---
History of Present Illness Reason for Visit: Abdominal pain, nausea, vomiting History of Present Illness Patient was a 74-year-old male presenting to the emergency room with complaints of new onset of nausea, vomiting, abdominal pain. Patient reports that his symptoms have become progressively worse since yesterday afternoon. He was multiple bouts of vomiting. Patient had CT scan of the abdomen and pelvis which revealed small bowel obstruction. Patient reports having last BM yesterday evening which was noted to be very hard. Patient does have a significant history chronic opiate use, anxiety disorder, diabetes mellitus, hypertension, permanent pacemaker implant, and recent ERCP for CBD stone. Cardiovascular: HTN Psych: Anxiety, Other (Chronic opiate use) Musculoskeletal: Chronic low back pain, Osteoarthritis Endocrine: Diabetes Past Surgical History: Other (ERCP, pacemaker) Family History: None (Noncontributory) Smoke: # pack years ALCOHOL: none Drugs: None Lives: with Family Review of Systems Constitutional: No: Fever, Chills, Sweats, Weakness, Malaise, Other Eyes: No: Pain, Vision change, Conjunctivae inflammation, Eyelid inflammation, Other, Redness ENT: No: Ear pain, Ear discharge, Nose pain, Nose discharge, Nose congestion, Mouth pain, Mouth swelling, Throat pain, Throat swelling, Other Respiratory: No: Cough, Dry, Shortness of breath, SOB with excertion, Wheezing, Hemoptysis, Pleuritic Pain, Sputum, Wheezing, Other Cardiovascular: No: Chest Pain, Palpitations, Orthopnea, Paroxysmal Noc. Dyspnea, Edema, Lt Headedness, Other Gastrointestinal: Nausea, Vomiting, Abdominal Pain, Constipation Genitourinary: No Dysuria, No Frequency, No Incontinence, No Hematuria, No Retention, No Other Musculoskeletal: No: other, neck pain, shoulder pain, arm pain, back pain, hand pain, leg pain, foot pain Skin: No: Rash, Lesions, Jaundice, Bruising, Other Neurological: No: Weakness, Numbness, Incoordination, Change in speech, Confusion, Seizures, Other Allergies: Coded Allergies: NO KNOWN ALLERGIES (Unverified , 08/29/19) Exam Vital Signs Vital Signs Date Time Temp Pulse Resp B/P (MAP) Pulse Ox O2 Delivery O2 Flow Rate FiO2 10/07/24 08:55 155/83 10/07/24 08:46 60 12 95 Nasal Cannula* 2 28 10/07/24 07:48 99.0 99.0 General Appearance: Alert, Oriented X3, Cooperative, moderate distress HEENT: Atraumatic, PERRLA Respiratory: Clear to auscultation, Normal air movement Cardiovascular: Normal S1, Normal S2 Abdominal: Normal bowel sounds Extremities: No clubbing, No cyanosis, No edema, Normal pulses Skin: No rashes, No breakdown, No significant lesion Neuro: Normal gait, Normal speech, Cranial nerves 3-12 NL Psych/Mental Status: Mental status NL Labs/Xrays Labs Test 10/07/24 09:07 10/07/24 07:41 10/07/24 07:29 Range/Units Lactic Acid Level 1.1 0.4-2.0 mmol/L Troponin I High Sensitivity 4 </=54 ng/L White Blood Count 9.5 4.4-10.8 10^3/uL Red Blood Count 5.28 4.5-5.90 10^6/uL Hemoglobin 15.3 13.5-17.5 g/dL Hematocrit 47.1 41.0-53.0 % Mean Corpuscular Volume 89.2 80.0-100.0 fL Mean Corpuscular Hemoglobin 28.9 28.0-32.0 pg Mean Corpuscular Hemoglobin Concent 32.4 32.0-36.0 g/dL Red Cell Distribution Width 13.7 11.8-14.3 % Platelet Count 205 140-450 10^3/uL Mean Platelet Volume 9.1 6.9-10.8 fL Neutrophils (%) (Auto) 70.8 37.0-80.0 % Lymphocytes (%) (Auto) 19.5 10.0-50.0 % Monocytes (%) (Auto) 8.6 0.0-12.0 % Eosinophils (%) (Auto) 0.9 0.0-7.0 % Basophils (%) (Auto) 0.2 0.0-2.0 % Neutrophils # (Auto) 6.7 1.6-8.6 10 ^3/uL Lymphocytes # (Auto) 1.9 0.4-5.4 10 ^3/uL Monocytes # (Auto) 0.8 0-1.3 10 ^3/uL Eosinophils # (Auto) 0.1 0-0.8 10 ^3/uL Basophils # (Auto) 0 0-0.2 10 ^3/uL Nucleated Red Blood Cells 0.1 % Sodium Level 139 136-145 mmol/L Potassium Level 4.1 3.5-5.1 mmol/L Chloride Level 107 98-107 mmol/L Carbon Dioxide Level 26 20-31 mmol/L Anion Gap 6 5-15 Blood Urea Nitrogen 9 9-23 mg/dL Creatinine 0.99 0.700-1.30 mg/dL Glomerular Filtration Rate Calc 81 >90 mL/min BUN/Creatinine Ratio 9.1 L 10.0-20.0 Serum Glucose 120 H 74-106 mg/dL Calcium Level 9.6 8.7-10.4 mg/dL Total Bilirubin 2.7 H 0.2-1.0 mg/dL Aspartate Amino Transferase (AST) 30 13-40 U/L Alanine Aminotransferase (ALT) 31 7-40 U/L Alkaline Phosphatase 152 H 46-116 U/L Total Protein 7.1 5.7-8.2 g/dL Albumin 4.1 3.2-4.8 g/dL Lipase 32 12-53 U/L POC Glucose 117 H 70-106 mg/dl Assessment/Plan Assessment/Plan Impression: -small-bowel obstruction -constipation -chronic pain use -diabetes mellitus -primary hypertension -obesity Plan: -admit to Medical/Surgical unit -surgical consultation -NG tube to low intermittent suction -small-bowel follow-through with Gastrografin -PPI -IV hydration -pain management -antiemetics -regular insulin sliding scale -repeat labs in a.m. Total time spent with patient discussing and formulating plan of care: 35 minutes. This medical document was created using an electronic medical record system with [employer] dictation system. Although this document has been carefully reviewed, there may still be some phonetic and typographical errors. These areas are purely typographical due to imperfections of the software programs, and do not reflect any compromise in the patient's medical care. Plan discussed with: Patient, Spouse, Other (RN) My Orders Orders - KULWINDER SHEEHAN NP Procedure Category Date Status Time Admit ADMIT 10/07/24 Transmitted 10:19 Oxygen By Nasal RT 10/07/24 Transmitted Cannula 10:19 NS PHA 10/07/24 Transmitted 10:30 Metoclopramide PHA 10/07/24 Transmitted Injection (Reglan 10:30 Ondansetron Hcl PHA 10/07/24 Transmitted (Zofran) 10:30 Npo (Nothing By DIET 10/07/24 Transmitted Mouth) Diet Lunch Small Bowel Series-W XY 10/07/24 Logged Gastrogra 10:19 Morphine Sulfate PHA 10/07/24 Transmitted Injection 10:30 Lorazepam 2mg/Ml Inj PHA 10/07/24 Transmitted (Ativan Inj) 10:30 Pantoprazole PHA 10/07/24 Transmitted (Protonix) 10:30 Basic Metabolic Panel LAB 10/08/24 Verified 04:00 Complete Blood Count LAB 10/08/24 Verified 04:00 Date of Service: Oct 07, 2024 Billing Provider: KULWINDER SHEEHAN NP Common Visit Codes: [id number] INP/OBS CARE (HIGH) KULWINDER SHEEHAN NP Oct 07, 2024 10:31
[2024-10-07] MEDS: SODIUM CHLORIDE 0.9% 1,000 ML IV SCH (11:00)
--- NOTE | 2024-10-07 11:47 | DVHINCON2 ---
Date of service: Oct 07, 2024 Family History: FH: cancer G8 BROTHER, , Cause: Cancer FH: stroke G8 FATHER, , Cause: Stroke Allergies: Coded Allergies: NO KNOWN ALLERGIES (Unverified , 08/29/19) Home Meds Reported Medications Quetiapine Fumerate (QUETIAPINE FUMARATE) 100 Mg Tab, 1 TAB PO DAILY for 45 Days, #45 08/01/24 Clonidine Hydrochloride (Clonidine Hcl) 0.1 Mg Tab, 1 TAB PO BID PRN for SBP>160 for 15 Days, #30 08/01/24 Spironolactone (Spironolactone) 25 Mg Tab, 1 TAB PO DAILY for 90 Days, #90 08/01/24 Ondansetron Odt 4MG Tab (ZOFRAN PO) 4 Mg Tb, 1 TAB PO QID for 30 Days, #120 ODT TAB-DISSOLVE IN MOUTH, THEN SWALLOW 08/01/24 Pregabalin (Pregabalin) 100 Mg Cap, 1 CAP PO DAILY for 30 Days, #30 08/01/24 Hydroxyzine Pamoate (Hydroxyzine Pamoate) 25 Mg Cap, 1 CAP PO BID PRN for 30 Days, #60 08/01/24 Omeprazole (Omeprazole Dr) 20 Mg Cap, 1 CAP PO DAILY for 90 Days, #90 05/24/20 Lisinopril (Lisinopril) 40 Mg Tab, 1 TAB PO BID for 90 Days, #180 05/24/20 Tamsulosin Hcl (Tamsulosin Hcl) 0.4 Mg Cap, 1 TAB PO HS for 90 Days, #90 08/29/19 Buspirone Hcl (Buspirone Hcl) 30 Mg Tab, 1 TAB PO BID for 45 Days, #90 08/29/19 Oxycodone HCl (Oxycodone Hydrochloride) 10 Mg Tab, 1 TAB PO Q6HR PRN for 30 Days, #120 08/29/19 Morphine Sulfate (Morphine Sulfate Er) 60 Mg Tab, 1 TAB PO Q12HR for 30 Days, #60 01/03/16 Atorvastatin Calcium (Lipitor) 40 Mg Tab, 1 TAB PO HS for 90 Days, #90 01/03/16 Current Medications Current Medications Medications (Trade) Dose Ordered Sig/Camille Route PRN Reason Start Time Stop Time Status Last Admin Sodium Chloride 1,000 ml @ 100 mls/hr Q10H IV 10/07/24 10:30 10/07/24 11:00 Metoclopramide HCl (Reglan Injection) 10 mg Q8HPRN PRN IV NAUSEA / VOMITING 10/07/24 10:30 Hold Ondansetron HCl (Zofran) 4 mg Q6HPRN PRN IV NAUSEA / VOMITING 10/07/24 10:30 Morphine Sulfate 1 mg Q4HP PRN IV SEVERE PAIN (7-10 PAIN SCALE) 10/07/24 10:30 Lorazepam (Ativan Inj) 0.5 mg Q12HP PRN IV ANXIETY 10/07/24 10:30 Pantoprazole Sodium (Protonix) 40 mg DAILY IV 10/07/24 10:30 Hydralazine HCl (Apresoline Injection) 10 mg Q6HP PRN IV SBP>150 10/07/24 11:30 Vital Signs Vital Signs Date Time Temp Pulse Resp B/P (MAP) Pulse Ox O2 Delivery O2 Flow Rate FiO2 10/07/24 10:28 153/84 10/07/24 09:45 66 12 94 10/07/24 08:46 Nasal Cannula* 2 28 10/07/24 07:48 99.0 99.0 Labs/Diagnostic Data Labs Test 10/07/24 10:46 10/07/24 09:07 10/07/24 07:41 10/07/24 07:29 Range/Units Troponin I High Sensitivity 4 </=54 ng/L Lactic Acid Level 1.1 0.4-2.0 mmol/L White Blood Count 9.5 4.4-10.8 10^3/uL Red Blood Count 5.28 4.5-5.90 10^6/uL Hemoglobin 15.3 13.5-17.5 g/dL Hematocrit 47.1 41.0-53.0 % Mean Corpuscular Volume 89.2 80.0-100.0 fL Mean Corpuscular Hemoglobin 28.9 28.0-32.0 pg Mean Corpuscular Hemoglobin Concent 32.4 32.0-36.0 g/dL Red Cell Distribution Width 13.7 11.8-14.3 % Platelet Count 205 140-450 10^3/uL Mean Platelet Volume 9.1 6.9-10.8 fL Neutrophils (%) (Auto) 70.8 37.0-80.0 % Lymphocytes (%) (Auto) 19.5 10.0-50.0 % Monocytes (%) (Auto) 8.6 0.0-12.0 % Eosinophils (%) (Auto) 0.9 0.0-7.0 % Basophils (%) (Auto) 0.2 0.0-2.0 % Neutrophils # (Auto) 6.7 1.6-8.6 10 ^3/uL Lymphocytes # (Auto) 1.9 0.4-5.4 10 ^3/uL Monocytes # (Auto) 0.8 0-1.3 10 ^3/uL Eosinophils # (Auto) 0.1 0-0.8 10 ^3/uL Basophils # (Auto) 0 0-0.2 10 ^3/uL Nucleated Red Blood Cells 0.1 % Sodium Level 139 136-145 mmol/L Potassium Level 4.1 3.5-5.1 mmol/L Chloride Level 107 98-107 mmol/L Carbon Dioxide Level 26 20-31 mmol/L Anion Gap 6 5-15 Blood Urea Nitrogen 9 9-23 mg/dL Creatinine 0.99 0.700-1.30 mg/dL Glomerular Filtration Rate Calc 81 >90 mL/min BUN/Creatinine Ratio 9.1 L 10.0-20.0 Serum Glucose 120 H 74-106 mg/dL Calcium Level 9.6 8.7-10.4 mg/dL Total Bilirubin 2.7 H 0.2-1.0 mg/dL Aspartate Amino Transferase (AST) 30 13-40 U/L Alanine Aminotransferase (ALT) 31 7-40 U/L Alkaline Phosphatase 152 H 46-116 U/L Total Protein 7.1 5.7-8.2 g/dL Albumin 4.1 3.2-4.8 g/dL Lipase 32 12-53 U/L POC Glucose 117 H 70-106 mg/dl Assessment [id number] R/O SBO ABD SOFT TENDER UPPER MID ABD NO BM FLATUS + NG IN PLACE CT SCAN R/O SBO GB SURGERY WITH ERCP AND POSSIBLE CBD STENT PLACEMENT CARDIAC ISSUES WITH PACEMAKER HIGH RISK FOR SURGERY KEEP NPO NG CLOSE OBSERVATION CONSIDER EMERGENT SURGERY BASED ON ONGOING EVAL Plan discussed with: Patient THANIA PATTON MD Oct 07, 2024 11:46
[2024-10-07] MEDS: METOCLOPRAMIDE HCL 5MG/ml INJ 2ml VIAL IV ONE (12:17)
[2024-10-07] MEDS: METOCLOPRAMIDE HCL 5MG/ml INJ 2ml VIAL IV PRN (12:17)
[2024-10-07] MEDS: PANTOPRAZOLE 40 MG/10 ML VIAL INJ IV SCH (12:17)
[2024-10-07 14:16] LABS: Urine Bacteria FEW /hpf (None Seen); Urine Blood Negative /uL (Negative); Urine Clarity Clear (Clear); Urine Color Yellow (Yellow); Urine Mucus FEW (None Seen); Urine Protein, UAD TRACE (Negative); Urine Specific Gravity 1.022 (1.001-1.035); Urine Squamous Epithelial Cell FEW /hpf (<5); Urine Urobilinogen 2 mg/dL (Negative); Urine WBC 1 /HPF (0-3)
--- NOTE | 2024-10-07 15:08 | DVHINCON2 ---
DATE OF CONSULTATION: 10/07/2024 HISTORY OF PRESENT ILLNESS: This patient is 74 years old, coming with abdominal pain, nausea, vomiting. He did have a bowel movement yesterday and was passing flatus yesterday, a little bit today. No hematemesis, melena. No bleeding per rectum. PAST MEDICAL HISTORY: Hypertension and a pacemaker placement. Cardiac issues are not known. SURGICAL HISTORY: According to him, there was no surgery done, but according to the records, there is a possibility of cholecystectomy and a stent placement following ERCP for a CBD stone. PHYSICAL EXAMINATION: VITAL SIGNS: Afebrile, stable signs. HEENT: With no evidence of pallor, cyanosis, or jaundice. NECK: Supple, nontender with no thyromegaly or lymphadenopathy. CHEST AND LUNGS: Clear. HEART: Within normal limits. ABDOMEN: Soft, tender in the mid abdomen and upper abdomen. NEUROLOGIC: Not assessed. He is morbidly obese, difficult to evaluate. CLINICAL IMPRESSION: Rule out small bowel obstruction as per CT scan as well. PLAN: The plan will be to keep him n.p.o., allow NG to low continuous suction and maintain close observation and consider surgery based upon ongoing evaluation on an emergent basis and Gastrografin study may be indicated to determine the need for surgery. MD SATNAM Levin/ANA TID: [id number] RECEIPT: [id number] cc: Dar Gerardo NP
[2024-10-07] MEDS: MORPHINE SULFATE INJ 2 MG/ml SYRG IV PRN (15:13)
--- NOTE | 2024-10-07 20:24 | DVH ---
CHEST RADIOGRAPH Indication: ngt placement Technique: Frontal view of the chest. Comparison: XY CHEST XRAY 1 VIEW on DOS: 10/07/24, XY CHEST XRAY 1 VIEW on DOS: 07/31/24, XY CHEST PORT ABLE on DOS: 12/25/23, CXR1 on DOS: 05/22/22, CHEST XRAY 1 VIEW on DOS: 05/22/22, XY CHEST XRAY 1 VIEW on DOS: 10/07/24 FINDINGS: LUNGS AND PLEURAL SPACES: Mild congestive heart failure. No consolidation. No pneumothorax. HEART: Unremarkable. No cardiomegaly. MEDIASTINUM: Unremarkable. Normal mediastinal contour. BONES/JOINTS: Unremarkable. No acute fracture. TUBES, LINES AND DEVICES: Enteric tube tip cannot be seen but is below the diaphragm. Left-sided c ardiac pacemaker. OTHER FINDINGS: . IMPRESSION: Mild congestive heart failure. .
[2024-10-07] MEDS: LORazepam 2MG/ML-1ML VIAL IV PRN (21:12)
[2024-10-08] VITALS (7 sets, daily range): BP systolic 100–145; BP diastolic 46–106; PULSE 59–76; RESP 14–20; TEMP 97.8–98.4; O2SAT 96–99
--- NOTE | 2024-10-08 04:36 | ECG ---
[facility] Test Date: 2024-10-07 Test Time: 07:33:15 Pat Name: MICHELE WESTON Department: ER Room: 0215 B Gender: M Pantographer: ER : 1950 Requested By: CHAVO RICHARDS Order Number: [id number] Reading MD: Douglas Escoto Measurements Intervals Curtis Rate: 69 P: 20 KS: 134 QRS: -32 QRSD: 85 T: -6 QT: 407 QTc: 436 Interpretive Statements Sinus rhythm Abnormal R-wave progression, early transition Left ventricular hypertrophy Anterior Q waves, possibly due to LVH Borderline T abnormalities, inferior leads Electronically Signed On 10-11-2024 16:39:10 PDT by Douglas Escoto Please click the below link to view image of tracing.
[2024-10-08] MEDS: ONDANSETRON HCL 4 MG/2 ML VIAL IV PRN (06:52)
[2024-10-08 06:56] LABS: Chloride 104 mmol/L (98-107); Potassium 3.9 mmol/L (3.5-5.1); Sodium 142 mmol/L (136-145)
[2024-10-08 06:57] LABS: Anion Gap 9 (5-15); Calcium 9.3 mg/dL (8.7-10.4); Carbon Dioxide 29 mmol/L (20-31)
[2024-10-08 07:00] LABS: Basophils # (auto) 0 10 ^3/uL (0-0.2); Basophils % (auto) 0.3 % (0.0-2.0); Eosinophils # (auto) 0 10 ^3/uL (0-0.8); Eosinophils % (auto) 0.1 % (0.0-7.0); Hematocrit 38.9 % (41.0-53.0); Hemoglobin 13.3 g/dL (13.5-17.5); Lymphocytes # (auto) 1.7 10 ^3/uL (0.4-5.4); Lymphocytes % (auto) 18.1 % (10.0-50.0); Mean Corpuscular Hemoglobin 30.2 pg (28.0-32.0); Mean Corpuscular Hgb Conc. 34.2 g/dL (32.0-36.0); Mean Corpuscular Volume 88.3 fL (80.0-100.0); Monocytes # (auto) 1.1 10 ^3/uL (0-1.3); Monocytes % (auto) 11.6 % (0.0-12.0); Neutrophils # (auto) 6.6 10 ^3/uL (1.6-8.6); Neutrophils % (auto) 69.9 % (37.0-80.0); Nucleated Red Blood Cells % 0.1 %; Platelet Count (auto) 177 10^3/uL (140-450); Red Blood Cells 4.41 10^6/uL (4.5-5.90); Red Cell Distribution Width 13.4 % (11.8-14.3); White Blood Cell 9.5 10^3/uL (4.4-10.8)
[2024-10-08 07:02] LABS: Blood Urea Nitrogen 12 mg/dL (9-23)
[2024-10-08 07:24] LABS: Glucose 113 mg/dL (74-106)
--- NOTE | 2024-10-08 10:45 | DVH ---
CHEST RADIOGRAPH Indication: NGT Placement Technique: Single frontal view of the chest was obtained COMPARISON: XY CHEST XRAY 1 VIEW on DOS: 10/07/24, XY CHEST XRAY 1 VIEW on DOS: 10/07/24, XY CHEST XRAY 1 VIEW on DOS: 07/31/24, XY CHEST PORTABLE on DOS: 12/25/23, CXR1 on DOS: 05/22/22 FINDINGS: Lines and Tubes: Nasogastric tube in satisfactory position. Left chest wall pacemaker. Lungs: Congestion Pleura: No effusion. No pneumothorax. Cardiomediastinal contours: Cardiomegaly Bones: Unremarkable IMPRESSION: Nasogastric tube in satisfactory position.
--- NOTE | 2024-10-08 12:28 | DVHPN2 ---
Progress Note Date Seen: Oct 08, 2024 Medical Necessity Reason Pt with a Central, PICC or Fol: No Objective vital signs Vital Sign Date Time Temp Pulse Resp B/P (MAP) Pulse Ox O2 Delivery O2 Flow Rate FiO2 10/08/24 08:52 76 20 120/78 10/08/24 08:30 97.9 98 97.9 10/08/24 08:00 Nasal Cannula* 2 28 Total Intake and Output 10/07/24 10/07/24 10/08/24 15:00 23:00 07:00 Intake Total 0 ml 1000 ml Output Total 1400 ml 210 ml Balance -1400 ml 790 ml medications Current Medications Medications Dose Ordered Sig/Camille Route Start Time Stop Time Status Last Admin Dose Admin Sodium Chloride 1,000 ml @ 100 mls/hr Q10H IV 10/07/24 10:30 10/08/24 06:06 100 MLS/HR Metoclopramide HCl 10 mg Q8HPRN PRN IV 10/07/24 10:30 Hold 10/07/24 12:17 10 MG Ondansetron HCl 4 mg Q6HPRN PRN IV 10/07/24 10:30 10/08/24 06:52 4 MG Lorazepam 0.5 mg Q12HP PRN IV 10/07/24 10:30 10/08/24 11:59 0.5 MG Pantoprazole Sodium 40 mg DAILY IV 10/07/24 10:30 10/08/24 08:51 40 MG Hydralazine HCl 10 mg Q6HP PRN IV 10/07/24 11:30 Hydromorphone HCl 0.5 mg Q4HPRN PRN IV 10/08/24 12:30 UNV laboratory and microbiology Laboratory Tests 10/08/24 06:14 Test 10/08/24 06:14 Range/Units Serum Glucose 113 H 74-106 mg/dL Problem List/Assessment/Plan Problem List/Assessment/Plan AFEBRILE VSS ABD SOFT MORBID OBESITY DIFFICULT EVAL LESS TENDER NO BM FLATUS + NG DRAIN 100 CC CONTINUE CLOSE OBSERVATION KEEP NPO NG Plan discussed with: Patient My Orders My Orders Orders - THANIA PATTON MD Procedure Category Date Status Time Hydromorphone PHA 10/08/24 Logged Injection (Dilaudid 12:30 THANIA PATTON MD Oct 08, 2024 12:28
--- NOTE | 2024-10-08 13:22 | DVHPN2 ---
Reviewed: Care Plan, H&P, Labs, Medications, Previous Orders, Radiology Changes from previous H/P or p: No Changes Eyes: No Pain, No Vision change, No Conjunctivae inflammation, No Eyelid inflammation, No Other, No Redness ENT: No Ear pain, No Ear discharge, No Nose pain, No Nose discharge, No Nose congestion, No Mouth pain, No Mouth swelling, No Throat pain, No Throat swelling, No Other Cardiovascular: No Chest Pain, No Palpitations, No Orthopnea, No Paroxysmal Noc. Dyspnea, No Edema, No Lt Headedness, No Other Respiratory: No Cough, No Dry, No Shortness of breath, No SOB with excertion, No Wheezing, No Hemoptysis, No Pleuritic Pain, No Sputum, No Other Gastrointestinal: Nausea, Vomiting, Abdominal Pain, Constipation Genitourinary: No Dysuria, No Frequency, No Incontinence, No Hematuria, No Retention, No Other Musculoskeletal: No other, No neck pain, No shoulder pain, No arm pain, No back pain, No hand pain, No leg pain, No foot pain Skin: No Rash, No Lesions, No Jaundice, No Bruising, No Other Objective Vitals Vital Signs Date Time Temp Pulse Resp B/P (MAP) Pulse Ox O2 Delivery O2 Flow Rate FiO2 10/08/24 08:52 76 20 120/78 10/08/24 08:30 97.9 98 97.9 10/08/24 08:00 Nasal Cannula* 2 28 Intake/Output Intake and Output 10/08/24 07:00 Intake Total 1000 ml Output Total 1610 ml Balance -610 ml Intake Oral 0 ml IV Total 1000 ml Output Urine Total 400 ml Gastric Drainage Total 1210 ml Medications Current Medications Medications Dose Ordered Sig/Camille Route Start Time Stop Time Status Last Admin Dose Admin Sodium Chloride 1,000 ml @ 100 mls/hr Q10H IV 10/07/24 10:30 10/08/24 06:06 100 MLS/HR Metoclopramide HCl 10 mg Q8HPRN PRN IV 10/07/24 10:30 Hold 10/07/24 12:17 10 MG Ondansetron HCl 4 mg Q6HPRN PRN IV 10/07/24 10:30 10/08/24 06:52 4 MG Lorazepam 0.5 mg Q12HP PRN IV 10/07/24 10:30 10/08/24 11:59 0.5 MG Pantoprazole Sodium 40 mg DAILY IV 10/07/24 10:30 10/08/24 08:51 40 MG Hydralazine HCl 10 mg Q6HP PRN IV 10/07/24 11:30 Hydromorphone HCl 0.5 mg Q4HPRN PRN IV 10/08/24 12:30 Laboratory Results Laboratory Tests 10/08/24 06:14 Chemistry Test 10/08/24 06:14 Calcium Level 9.3 mg/dL (8.7-10.4) Urinalysis Test 10/07/24 13:40 Urine Color Yellow (Yellow) Urine Clarity Clear (Clear) Urine pH 7.0 (5.0-9.0) Urine Specific [place] 1.022 (1.001-1.035) Urine Protein Trace (Negative) H Urine Ketones 1+ (Negative) H Urine Blood Negative /uL (Negative) Urine Nitrite Negative (Negative) Urine Bilirubin Negative (Negative) Urine Urobilinogen 2 mg/dL (Negative) H Urine Leukocyte Esterase Negative /uL (Negative) Urine RBC None seen /hpf (0 - 3) Urine Microscopic WBC 1 /HPF (0-3) Urine Squamous Epithelial Cells Few /hpf (<5) Urine Bacteria Few /hpf (None Seen) H Urine Mucus Few (None Seen) Urine Glucose Normal mg/dL (Normal) Labs and/or images reviewed: Labs reviewed by me, Image(s) reviewed by me Assessment/Plan Assessment/Plan Acute small bowel obstruction: NG suction, surgical consult by Dr. Jimmy Baker appreciated Constipation Chronic narcotic abuse Diabetes Hypertension Obesity Status post recent ERCP for CBD stone with duodenal stent placement History of permanent pacemaker Obstructive sleep apnea Condition guarded Time spent 65 minutes Advanced care planning time 20 minutes Patient is full code Plan discussed with: Patient Date of Service: Oct 08, 2024 Billing Provider: JULIANA TRONCOSO MD Common Visit Codes: [id number] CARE 30-74 MIN JULIANA TRONCOSO MD Oct 08, 2024 13:22
[2024-10-08] MEDS: HYDROmorphone HCL 2 MG/ML VL/or syr IV PRN (13:46)
[2024-10-09] VITALS (7 sets, daily range): BP systolic 125–158; BP diastolic 53–82; PULSE 57–69; RESP 12–19; TEMP 97.8–98.7; O2SAT 94–98
--- NOTE | 2024-10-09 09:55 | DVHPN2 ---
Reviewed: Care Plan, H&P, Labs, Medications, Previous Orders, Radiology Changes from previous H/P or p: No Changes Eyes: No Pain, No Vision change, No Conjunctivae inflammation, No Eyelid inflammation, No Other, No Redness ENT: No Ear pain, No Ear discharge, No Nose pain, No Nose discharge, No Nose congestion, No Mouth pain, No Mouth swelling, No Throat pain, No Throat swelling, No Other Cardiovascular: No Chest Pain, No Palpitations, No Orthopnea, No Paroxysmal Noc. Dyspnea, No Edema, No Lt Headedness, No Other Respiratory: No Cough, No Dry, No Shortness of breath, No SOB with excertion, No Wheezing, No Hemoptysis, No Pleuritic Pain, No Sputum, No Other Gastrointestinal: Nausea, Vomiting, Abdominal Pain, Constipation Genitourinary: No Dysuria, No Frequency, No Incontinence, No Hematuria, No Retention, No Other Musculoskeletal: No other, No neck pain, No shoulder pain, No arm pain, No back pain, No hand pain, No leg pain, No foot pain Skin: No Rash, No Lesions, No Jaundice, No Bruising, No Other Objective Vitals Vital Signs Date Time Temp Pulse Resp B/P (MAP) Pulse Ox O2 Delivery O2 Flow Rate FiO2 10/09/24 08:30 98.7 57 12 129/77 (94) 97 98.7 10/08/24 20:00 Nasal Cannula* 2 28 Intake/Output Intake and Output 10/09/24 07:00 Intake Total 600 ml Output Total 2500 ml Balance -1900 ml Intake Oral 0 ml IV Total 600 ml Output Urine Total 1200 ml Gastric Drainage Total 1300 ml # Voids 3 # Bowel Movements 1 Medications Current Medications Medications Dose Ordered Sig/Camille Route Start Time Stop Time Status Last Admin Dose Admin Sodium Chloride 1,000 ml @ 100 mls/hr Q10H IV 10/07/24 10:30 10/09/24 07:06 100 MLS/HR Metoclopramide HCl 10 mg Q8HPRN PRN IV 10/07/24 10:30 Hold 10/07/24 12:17 10 MG Ondansetron HCl 4 mg Q6HPRN PRN IV 10/07/24 10:30 10/09/24 02:35 4 MG Lorazepam 0.5 mg Q12HP PRN IV 10/07/24 10:30 10/08/24 23:59 0.5 MG Pantoprazole Sodium 40 mg DAILY IV 10/07/24 10:30 10/09/24 09:29 40 MG Hydralazine HCl 10 mg Q6HP PRN IV 10/07/24 11:30 Hydromorphone HCl 0.5 mg Q4HPRN PRN IV 10/08/24 12:30 10/09/24 04:55 0.5 MG Laboratory Results Laboratory Tests 10/08/24 06:14 Urinalysis Test 10/07/24 13:40 Urine Color Yellow (Yellow) Urine Clarity Clear (Clear) Urine pH 7.0 (5.0-9.0) Urine Specific [place] 1.022 (1.001-1.035) Urine Protein Trace (Negative) H Urine Ketones 1+ (Negative) H Urine Blood Negative /uL (Negative) Urine Nitrite Negative (Negative) Urine Bilirubin Negative (Negative) Urine Urobilinogen 2 mg/dL (Negative) H Urine Leukocyte Esterase Negative /uL (Negative) Urine RBC None seen /hpf (0 - 3) Urine Microscopic WBC 1 /HPF (0-3) Urine Squamous Epithelial Cells Few /hpf (<5) Urine Bacteria Few /hpf (None Seen) H Urine Mucus Few (None Seen) Urine Glucose Normal mg/dL (Normal) Labs and/or images reviewed: Labs reviewed by me, Image(s) reviewed by me Assessment/Plan Assessment/Plan Acute small bowel obstruction: NG suction, surgical consult by Dr. Heike Baker appreciated, patient getting Gastrografin study Constipation Chronic narcotic abuse Diabetes Hypertension Obesity Status post recent ERCP for CBD stone with duodenal stent placement History of permanent pacemaker Obstructive sleep apnea Condition guarded Time spent 65 minutes Advanced care planning time 20 minutes Patient is full code Plan discussed with: Patient My Orders Orders - JULIANA TRONCOSO MD Procedure Category Date Status Time Insert Midline ORDERS 10/09/24 Transmitted 09:52 Date of Service: Oct 09, 2024 Billing Provider: JULIANA TRONCOSO MD Common Visit Codes: [id number] INP/OBS CARE(HIGH) JULIANA TRONCOSO MD Oct 09, 2024 09:55
[2024-10-09] MEDS ORDERED: KETOROLAC TROMETH 30 MG/ML 1ML VIAL IV PRN (10:00)
[2024-10-09 11:09] LABS: INR 1.17 (0.9-1.15); Partial Thromboplastin Time 21.8 SEC (24.5-34.5); Prothrombin Time 12.2 sec (9.3-11.8)
[2024-10-09] MEDS: HYDROmorphone HCL 2 MG/ML VL/or syr IV PRN (13:07)
[2024-10-09] MEDS: LIDOCAINE 1% (LOCAL ANESTH.) PF 5ml SDV ID ONE (14:20)
--- NOTE | 2024-10-09 18:18 | DVHPN2 ---
Progress Note Date Seen: Oct 09, 2024 Medical Necessity Reason Pt with a Central, PICC or Fol: No Objective vital signs Vital Sign Date Time Temp Pulse Resp B/P (MAP) Pulse Ox O2 Delivery O2 Flow Rate FiO2 10/09/24 17:09 98.3 61 16 158/82 (107) 98 98.3 10/09/24 07:30 Nasal Cannula* 2 28 Total Intake and Output 10/08/24 10/08/24 10/09/24 15:00 23:00 07:00 Intake Total 600 ml 0 ml Output Total 600 ml 1900 ml Balance 0 ml -1900 ml medications Current Medications Medications Dose Ordered Sig/Camille Route Start Time Stop Time Status Last Admin Dose Admin Sodium Chloride 1,000 ml @ 100 mls/hr Q10H IV 10/07/24 10:30 10/09/24 07:06 100 MLS/HR Metoclopramide HCl 10 mg Q8HPRN PRN IV 10/07/24 10:30 Hold 10/07/24 12:17 10 MG Ondansetron HCl 4 mg Q6HPRN PRN IV 10/07/24 10:30 10/09/24 13:07 4 MG Lorazepam 0.5 mg Q12HP PRN IV 10/07/24 10:30 10/08/24 23:59 0.5 MG Pantoprazole Sodium 40 mg DAILY IV 10/07/24 10:30 10/09/24 09:29 40 MG Hydralazine HCl 10 mg Q6HP PRN IV 10/07/24 11:30 Hydromorphone HCl 2 mg Q6HPRN PRN IV 10/09/24 10:00 10/09/24 13:07 2 MG Sodium Chloride 10 ml QSHIFT@10,22 IV 10/09/24 22:00 laboratory and microbiology Laboratory Tests 10/08/24 06:14 Test 10/08/24 06:14 Range/Units Serum Glucose 113 H 74-106 mg/dL Problem List/Assessment/Plan Problem List/Assessment/Plan AFEBRILE VSS ABD SOFT MORBID OBESITY DIFFICULT EVAL LESS TENDER BM + FLATUS + NG DRAIN 200 CC CONTINUE CLOSE OBSERVATION KEEP NPO NG LCS Plan discussed with: Patient My Orders My Orders Orders - THANIA PATTON MD Procedure Category Date Status Time Ng To Lcs SILVA 3/10/25 In Process 16:56 THANIA PATTON MD Oct 09, 2024 18:18
[2024-10-09] MEDS: SODIUM CHLOR 0.9% PF (SALINE LOCK) 10ML VIAL/SYR IV SCH (23:13)
[2024-10-10] VITALS (7 sets, daily range): BP systolic 121–184; BP diastolic 65–89; PULSE 60–70; RESP 16–20; TEMP 97.6–98.4; O2SAT 92–97
[2024-10-10] MEDS: hydrALAZINE HCL 20 MG/ML VL IV PRN (00:41)
--- NOTE | 2024-10-10 10:05 | DVHPN2 ---
Reviewed: Care Plan, H&P, Labs, Medications, Previous Orders, Radiology Changes from previous H/P or p: No Changes Eyes: No Pain, No Vision change, No Conjunctivae inflammation, No Eyelid inflammation, No Other, No Redness ENT: No Ear pain, No Ear discharge, No Nose pain, No Nose discharge, No Nose congestion, No Mouth pain, No Mouth swelling, No Throat pain, No Throat swelling, No Other Cardiovascular: No Chest Pain, No Palpitations, No Orthopnea, No Paroxysmal Noc. Dyspnea, No Edema, No Lt Headedness, No Other Respiratory: No Cough, No Dry, No Shortness of breath, No SOB with excertion, No Wheezing, No Hemoptysis, No Pleuritic Pain, No Sputum, No Other Gastrointestinal: Nausea, Vomiting, Abdominal Pain, Constipation Genitourinary: No Dysuria, No Frequency, No Incontinence, No Hematuria, No Retention, No Other Musculoskeletal: No other, No neck pain, No shoulder pain, No arm pain, No back pain, No hand pain, No leg pain, No foot pain Skin: No Rash, No Lesions, No Jaundice, No Bruising, No Other Objective Vitals Vital Signs Date Time Temp Pulse Resp B/P (MAP) Pulse Ox O2 Delivery O2 Flow Rate FiO2 10/10/24 09:20 60 18 142/65 10/10/24 07:30 Nasal Cannula* 2 28 10/10/24 05:00 98.0 92 98.0 Intake/Output Intake and Output 10/10/24 07:00 Intake Total 1900 ml Output Total 100 ml Balance 1800 ml Intake Oral 0 ml IV Total 1900 ml Gastric Drainage Total 100 ml # Voids 3 Medications Current Medications Medications Dose Ordered Sig/Camille Route Start Time Stop Time Status Last Admin Dose Admin Sodium Chloride 1,000 ml @ 100 mls/hr Q10H IV 10/07/24 10:30 10/10/24 09:20 100 MLS/HR Metoclopramide HCl 10 mg Q8HPRN PRN IV 10/07/24 10:30 Hold 10/07/24 12:17 10 MG Ondansetron HCl 4 mg Q6HPRN PRN IV 10/07/24 10:30 10/10/24 09:20 4 MG Lorazepam 0.5 mg Q12HP PRN IV 10/07/24 10:30 10/10/24 00:24 0.5 MG Pantoprazole Sodium 40 mg DAILY IV 10/07/24 10:30 10/10/24 09:20 40 MG Hydralazine HCl 10 mg Q6HP PRN IV 10/07/24 11:30 10/10/24 00:41 10 MG Hydromorphone HCl 2 mg Q6HPRN PRN IV 10/09/24 10:00 10/10/24 09:20 2 MG Sodium Chloride 10 ml QSHIFT@10,22 IV 10/09/24 22:00 10/10/24 09:32 10 ML Laboratory Results Laboratory Tests 10/08/24 06:14 Coagulation Test 10/09/24 10:38 Prothrombin Time 12.2 sec (9.3-11.8) H Prothrombin Time INR 1.17 (0.9-1.15) H Activated Partial Thromboplast Time 21.8 SEC (24.5-34.5) L Urinalysis Test 10/07/24 13:40 Urine Color Yellow (Yellow) Urine Clarity Clear (Clear) Urine pH 7.0 (5.0-9.0) Urine Specific [place] 1.022 (1.001-1.035) Urine Protein Trace (Negative) H Urine Ketones 1+ (Negative) H Urine Blood Negative /uL (Negative) Urine Nitrite Negative (Negative) Urine Bilirubin Negative (Negative) Urine Urobilinogen 2 mg/dL (Negative) H Urine Leukocyte Esterase Negative /uL (Negative) Urine RBC None seen /hpf (0 - 3) Urine Microscopic WBC 1 /HPF (0-3) Urine Squamous Epithelial Cells Few /hpf (<5) Urine Bacteria Few /hpf (None Seen) H Urine Mucus Few (None Seen) Urine Glucose Normal mg/dL (Normal) Labs and/or images reviewed: Labs reviewed by me, Image(s) reviewed by me Assessment/Plan Assessment/Plan Acute small bowel obstruction: Now resolving, patient had good bowel movement, surgical consult by Dr. Heike Baker appreciated, patient placed on liquid diet Constipation, now resolved Chronic narcotic abuse Diabetes Hypertension Obesity Status post recent ERCP for CBD stone with duodenal stent placement History of permanent pacemaker Obstructive sleep apnea Condition guarded Time spent 55 minutes Advanced care planning time 20 minutes Patient is full code Plan discussed with: Patient My Orders Orders - JULIANA TRONCOSO MD Procedure Category Date Status Time Change Dressing Prn SILVA 10/09/24 In Process 14:33 Sodium Chloride Lock PHA 10/09/24 In Process (Saline Lock Ns) 22:00 Do Not Use Picc For SILVA 10/09/24 In Process Blood Cult 14:33 May Draw Blood From SILVA 10/09/24 In Process Picc 14:33 Ok To Use Picc SILVA 10/09/24 In Process 14:33 Change Picc Dressing SILVA 10/09/24 In Process Q7 Days 14:33 Us Guided Vascular US 10/09/24 Logged Access 14:33 Date of Service: Oct 10, 2024 Billing Provider: JULIANA TRONCOSO MD Common Visit Codes: [id number] INP/OBS CARE(HIGH) JULIANA TRONCOSO MD Oct 10, 2024 10:05
[2024-10-10 11:23] LABS: Basophils # (auto) 0 10 ^3/uL (0-0.2); Basophils % (auto) 0.4 % (0.0-2.0); Eosinophils # (auto) 0.1 10 ^3/uL (0-0.8); Eosinophils % (auto) 0.5 % (0.0-7.0); Hematocrit 41.3 % (41.0-53.0); Hemoglobin 13.7 g/dL (13.5-17.5); Lymphocytes % (auto) 20.3 % (10.0-50.0); Mean Corpuscular Hemoglobin 29.6 pg (28.0-32.0); Mean Corpuscular Hgb Conc. 33.1 g/dL (32.0-36.0); Mean Corpuscular Volume 89.4 fL (80.0-100.0); Monocytes # (auto) 1.1 10 ^3/uL (0-1.3); Monocytes % (auto) 10.9 % (0.0-12.0); Neutrophils # (auto) 6.7 10 ^3/uL (1.6-8.6); Neutrophils % (auto) 67.9 % (37.0-80.0); Nucleated Red Blood Cells % 0.1 %; Platelet Count (auto) 176 10^3/uL (140-450); Red Blood Cells 4.62 10^6/uL (4.5-5.90); Red Cell Distribution Width 13.5 % (11.8-14.3); White Blood Cell 9.8 10^3/uL (4.4-10.8)
[2024-10-10 11:57] LABS: Alanine Aminotransferase 18 U/L (7-40); Albumin 3.7 g/dL (3.2-4.8); Anion Gap 6 (5-15); Aspartate Aminotransferase 29 U/L (13-40); BUN/Creatinine Ratio 11.8 (10.0-20.0); Blood Urea Nitrogen 11 mg/dL (9-23); Calcium 8.9 mg/dL (8.7-10.4); Carbon Dioxide 30 mmol/L (20-31); Chloride 104 mmol/L (98-107); Glucose 99 mg/dL (74-106); Potassium 3.8 mmol/L (3.5-5.1); Sodium 140 mmol/L (136-145); Total Protein 6.5 g/dL (5.7-8.2)
[2024-10-10 11:59] LABS: Alkaline Phosphatase 119 U/L (46-116); Bilirubin, Total 2.5 mg/dL (0.2-1.0)
[2024-10-11] VITALS (7 sets, daily range): BP systolic 99–136; BP diastolic 66–76; PULSE 55–78; RESP 16–19; TEMP 97.4–98.4; O2SAT 90–98
--- NOTE | 2024-10-11 09:58 | DVHPN2 ---
Reviewed: Care Plan, H&P, Labs, Medications, Previous Orders, Radiology Changes from previous H/P or p: No Changes Eyes: No Pain, No Vision change, No Conjunctivae inflammation, No Eyelid inflammation, No Other, No Redness ENT: No Ear pain, No Ear discharge, No Nose pain, No Nose discharge, No Nose congestion, No Mouth pain, No Mouth swelling, No Throat pain, No Throat swelling, No Other Cardiovascular: No Chest Pain, No Palpitations, No Orthopnea, No Paroxysmal Noc. Dyspnea, No Edema, No Lt Headedness, No Other Respiratory: No Cough, No Dry, No Shortness of breath, No SOB with excertion, No Wheezing, No Hemoptysis, No Pleuritic Pain, No Sputum, No Other Gastrointestinal: Nausea, Vomiting, Abdominal Pain, Constipation Genitourinary: No Dysuria, No Frequency, No Incontinence, No Hematuria, No Retention, No Other Musculoskeletal: No other, No neck pain, No shoulder pain, No arm pain, No back pain, No hand pain, No leg pain, No foot pain Skin: No Rash, No Lesions, No Jaundice, No Bruising, No Other Objective Vitals Vital Signs Date Time Temp Pulse Resp B/P (MAP) Pulse Ox O2 Delivery O2 Flow Rate FiO2 10/11/24 09:52 78 17 107/72 10/11/24 09:18 97.4 90 97.4 10/11/24 07:30 Nasal Cannula* 2 28 Intake/Output Intake and Output 10/11/24 07:00 Intake Total 2030 ml Output Total 850 ml Balance 1180 ml Intake Oral 1030 ml IV Total 1000 ml Output Urine Total 850 ml # Bowel Movements 8 Medications Current Medications Medications Dose Ordered Sig/Camille Route Start Time Stop Time Status Last Admin Dose Admin Sodium Chloride 1,000 ml @ 100 mls/hr Q10H IV 10/07/24 10:30 10/11/24 09:52 100 MLS/HR Metoclopramide HCl 10 mg Q8HPRN PRN IV 10/07/24 10:30 Hold 10/07/24 12:17 10 MG Ondansetron HCl 4 mg Q6HPRN PRN IV 10/07/24 10:30 10/11/24 09:50 4 MG Lorazepam 0.5 mg Q12HP PRN IV 10/07/24 10:30 10/11/24 01:20 0.5 MG Pantoprazole Sodium 40 mg DAILY IV 10/07/24 10:30 10/11/24 09:50 40 MG Hydralazine HCl 10 mg Q6HP PRN IV 10/07/24 11:30 10/10/24 00:41 10 MG Hydromorphone HCl 2 mg Q6HPRN PRN IV 10/09/24 10:00 10/11/24 09:52 2 MG Sodium Chloride 10 ml QSHIFT@10,22 IV 10/09/24 22:00 10/11/24 09:50 10 ML Laboratory Results Laboratory Tests 10/10/24 11:09 Chemistry Test 10/10/24 11:09 Albumin 3.7 g/dL (3.2-4.8) Calcium Level 8.9 mg/dL (8.7-10.4) Total Protein 6.5 g/dL (5.7-8.2) LFT Test 10/10/24 11:09 Alanine Aminotransferase (ALT) 18 U/L (7-40) Alkaline Phosphatase 119 U/L (46-116) H Aspartate Amino Transferase (AST) 29 U/L (13-40) Total Bilirubin 2.5 mg/dL (0.2-1.0) H Urinalysis Test 10/07/24 13:40 Urine Color Yellow (Yellow) Urine Clarity Clear (Clear) Urine pH 7.0 (5.0-9.0) Urine Specific [place] 1.022 (1.001-1.035) Urine Protein Trace (Negative) H Urine Ketones 1+ (Negative) H Urine Blood Negative /uL (Negative) Urine Nitrite Negative (Negative) Urine Bilirubin Negative (Negative) Urine Urobilinogen 2 mg/dL (Negative) H Urine Leukocyte Esterase Negative /uL (Negative) Urine RBC None seen /hpf (0 - 3) Urine Microscopic WBC 1 /HPF (0-3) Urine Squamous Epithelial Cells Few /hpf (<5) Urine Bacteria Few /hpf (None Seen) H Urine Mucus Few (None Seen) Urine Glucose Normal mg/dL (Normal) Labs and/or images reviewed: Labs reviewed by me, Image(s) reviewed by me Assessment/Plan Assessment/Plan Acute small bowel obstruction: Now resolving, patient had good bowel movement, surgical consult by Dr. Heike Baker appreciated, patient placed on liquid diet Constipation, now resolved Chronic narcotic abuse Diabetes Hypertension Obesity Status post recent ERCP for CBD stone with duodenal stent placement History of permanent pacemaker Obstructive sleep apnea Condition guarded Time spent 55 minutes Advanced care planning time 20 minutes Patient is full code Advanced diet as tolerated Plan discussed with: Patient My Orders Orders - JULIANA TRONCOSO MD Procedure Category Date Status Time Pt Request For Service PT 10/10/24 Logged 10:03 Date of Service: Oct 11, 2024 Billing Provider: JULIANA TRONCOSO MD Common Visit Codes: [id number] INP/OBS CARE(HIGH) JULIANA TRONCOSO MD Oct 11, 2024 09:58
[2024-10-11 10:38] LABS: Basophils # (auto) 0 10 ^3/uL (0-0.2); Basophils % (auto) 0.5 % (0.0-2.0); Eosinophils # (auto) 0.1 10 ^3/uL (0-0.8); Eosinophils % (auto) 0.7 % (0.0-7.0); Hematocrit 41.6 % (41.0-53.0); Hemoglobin 13.8 g/dL (13.5-17.5); Lymphocytes % (auto) 23.8 % (10.0-50.0); Mean Corpuscular Hemoglobin 29.5 pg (28.0-32.0); Mean Corpuscular Hgb Conc. 33.2 g/dL (32.0-36.0); Mean Corpuscular Volume 88.9 fL (80.0-100.0); Monocytes # (auto) 0.9 10 ^3/uL (0-1.3); Monocytes % (auto) 11.3 % (0.0-12.0); Neutrophils # (auto) 5.3 10 ^3/uL (1.6-8.6); Neutrophils % (auto) 63.7 % (37.0-80.0); Nucleated Red Blood Cells % 0.1 %; Platelet Count (auto) 187 10^3/uL (140-450); Red Blood Cells 4.68 10^6/uL (4.5-5.90); Red Cell Distribution Width 13.5 % (11.8-14.3); White Blood Cell 8.4 10^3/uL (4.4-10.8)
[2024-10-11 11:08] LABS: Alanine Aminotransferase 19 U/L (7-40); Alkaline Phosphatase 111 U/L (46-116); Anion Gap 8 (5-15); BUN/Creatinine Ratio 10.5 (10.0-20.0); Carbon Dioxide 26 mmol/L (20-31); Chloride 106 mmol/L (98-107); Sodium 140 mmol/L (136-145); Total Protein 5.9 g/dL (5.7-8.2)
[2024-10-11 11:10] LABS: Albumin 3.4 g/dL (3.2-4.8); Aspartate Aminotransferase 31 U/L (13-40)
[2024-10-11 11:11] LABS: Bilirubin, Total 2.1 mg/dL (0.2-1.0); Blood Urea Nitrogen 8 mg/dL (9-23); Calcium 8.7 mg/dL (8.7-10.4); Glucose 106 mg/dL (74-106); Potassium 3.2 mmol/L (3.5-5.1)
[2024-10-11] MEDS: POTASSIUM EFFERVESENT TAB 25 MEQ PO ONE (15:07)
--- NOTE | 2024-10-11 18:38 | DVHPN2 ---
Progress Note Date Seen: Oct 11, 2024 Medical Necessity Reason Pt with a Central, PICC or Fol: No Objective vital signs Vital Sign Date Time Temp Pulse Resp B/P (MAP) Pulse Ox O2 Delivery O2 Flow Rate FiO2 10/11/24 17:40 97.7 66 17 136/76 (96) 98 97.7 10/11/24 07:30 Nasal Cannula* 2 28 Total Intake and Output 10/10/24 10/10/24 10/11/24 15:00 23:00 07:00 Intake Total 300 ml 1480 ml 250 ml Output Total 450 ml 400 ml Balance 300 ml 1030 ml -150 ml medications Current Medications Medications Dose Ordered Sig/Camille Route Start Time Stop Time Status Last Admin Dose Admin Sodium Chloride 1,000 ml @ 100 mls/hr Q10H IV 10/07/24 10:30 10/11/24 16:52 100 MLS/HR Metoclopramide HCl 10 mg Q8HPRN PRN IV 10/07/24 10:30 Hold 10/07/24 12:17 10 MG Ondansetron HCl 4 mg Q6HPRN PRN IV 10/07/24 10:30 10/11/24 16:52 4 MG Lorazepam 0.5 mg Q12HP PRN IV 10/07/24 10:30 10/11/24 01:20 0.5 MG Pantoprazole Sodium 40 mg DAILY IV 10/07/24 10:30 10/11/24 09:50 40 MG Hydralazine HCl 10 mg Q6HP PRN IV 10/07/24 11:30 10/10/24 00:41 10 MG Hydromorphone HCl 2 mg Q6HPRN PRN IV 10/09/24 10:00 10/11/24 16:53 2 MG Sodium Chloride 10 ml QSHIFT@10,22 IV 10/09/24 22:00 10/11/24 16:52 10 ML laboratory and microbiology Laboratory Tests 10/11/24 10:23 Test 10/11/24 10:23 Range/Units Serum Glucose 106 74-106 mg/dL Problem List/Assessment/Plan Problem List/Assessment/Plan AFEBRILE VSS ABD SOFT MORBID OBESITY DIFFICULT EVAL LESS TENDER BM + FLATUS + CONTINUE CLOSE OBSERVATION GLADYS CLEAR LIQUIDS ADVANCE DIET GLADYS Plan discussed with: Patient Dietary Evaluation Review Comments: 1. Advance to 2 gNa CCHO-75 diet if pt tolerates his full liquid diet well without chewing or swollowing issues. 2. encourage high fiber diet and increased physical activities for wt loss as well as constipation prevention, Expected Outcomes/Goals: gradual wt loss, THANIA PATTON MD Oct 11, 2024 18:38
[2024-10-12 01:00] VITALS: BP 152/79; PULSE 65; RESP 18; TEMP 98.4; O2SAT 96
--- NOTE | 2024-10-12 08:05 | DVHPN2 ---
Reviewed: Care Plan, H&P, Labs, Medications, Previous Orders, Radiology Changes from previous H/P or p: No Changes Eyes: No Pain, No Vision change, No Conjunctivae inflammation, No Eyelid inflammation, No Other, No Redness ENT: No Ear pain, No Ear discharge, No Nose pain, No Nose discharge, No Nose congestion, No Mouth pain, No Mouth swelling, No Throat pain, No Throat swelling, No Other Cardiovascular: No Chest Pain, No Palpitations, No Orthopnea, No Paroxysmal Noc. Dyspnea, No Edema, No Lt Headedness, No Other Respiratory: No Cough, No Dry, No Shortness of breath, No SOB with excertion, No Wheezing, No Hemoptysis, No Pleuritic Pain, No Sputum, No Other Gastrointestinal: Nausea, Vomiting, Abdominal Pain, Constipation Genitourinary: No Dysuria, No Frequency, No Incontinence, No Hematuria, No Retention, No Other Musculoskeletal: No other, No neck pain, No shoulder pain, No arm pain, No back pain, No hand pain, No leg pain, No foot pain Skin: No Rash, No Lesions, No Jaundice, No Bruising, No Other Objective Vitals Vital Signs Date Time Temp Pulse Resp B/P (MAP) Pulse Ox O2 Delivery O2 Flow Rate FiO2 10/12/24 05:48 67 16 146/75 10/12/24 01:00 98.4 96 98.4 10/11/24 20:00 Nasal Cannula* 2 28 Intake/Output Intake and Output 10/12/24 07:00 Intake Total 2004 ml Balance 2004 ml Intake Oral 905 ml IV Total 1100 ml # Voids 7 # Bowel Movements 7 Medications Current Medications Medications Dose Ordered Sig/Camille Route Start Time Stop Time Status Last Admin Dose Admin Sodium Chloride 1,000 ml @ 100 mls/hr Q10H IV 10/07/24 10:30 10/11/24 16:52 100 MLS/HR Metoclopramide HCl 10 mg Q8HPRN PRN IV 10/07/24 10:30 Hold 10/07/24 12:17 10 MG Ondansetron HCl 4 mg Q6HPRN PRN IV 10/07/24 10:30 10/11/24 16:52 4 MG Lorazepam 0.5 mg Q12HP PRN IV 10/07/24 10:30 10/12/24 02:16 0.5 MG Pantoprazole Sodium 40 mg DAILY IV 10/07/24 10:30 10/11/24 09:50 40 MG Hydralazine HCl 10 mg Q6HP PRN IV 10/07/24 11:30 10/10/24 00:41 10 MG Hydromorphone HCl 2 mg Q6HPRN PRN IV 10/09/24 10:00 10/12/24 05:18 2 MG Sodium Chloride 10 ml QSHIFT@10,22 IV 10/09/24 22:00 10/11/24 16:52 10 ML Laboratory Results Laboratory Tests 10/11/24 10:23 Chemistry Test 10/11/24 10:23 Albumin 3.4 g/dL (3.2-4.8) Calcium Level 8.7 mg/dL (8.7-10.4) Total Protein 5.9 g/dL (5.7-8.2) LFT Test 10/11/24 10:23 Alanine Aminotransferase (ALT) 19 U/L (7-40) Alkaline Phosphatase 111 U/L (46-116) Aspartate Amino Transferase (AST) 31 U/L (13-40) Total Bilirubin 2.1 mg/dL (0.2-1.0) H Urinalysis Test 10/07/24 13:40 Urine Color Yellow (Yellow) Urine Clarity Clear (Clear) Urine pH 7.0 (5.0-9.0) Urine Specific [place] 1.022 (1.001-1.035) Urine Protein Trace (Negative) H Urine Ketones 1+ (Negative) H Urine Blood Negative /uL (Negative) Urine Nitrite Negative (Negative) Urine Bilirubin Negative (Negative) Urine Urobilinogen 2 mg/dL (Negative) H Urine Leukocyte Esterase Negative /uL (Negative) Urine RBC None seen /hpf (0 - 3) Urine Microscopic WBC 1 /HPF (0-3) Urine Squamous Epithelial Cells Few /hpf (<5) Urine Bacteria Few /hpf (None Seen) H Urine Mucus Few (None Seen) Urine Glucose Normal mg/dL (Normal) Labs and/or images reviewed: Labs reviewed by me, Image(s) reviewed by me Assessment/Plan Assessment/Plan Acute small bowel obstruction: Now resolving, patient had good bowel movement, surgical consult by Dr. Heike Baker appreciated, patient placed on liquid diet Constipation, now resolved Chronic narcotic abuse Diabetes Hypertension Obesity Status post recent ERCP for CBD stone with duodenal stent placement Status post recent admission to [place] for three weeks for sepsis including ICU stay History of permanent pacemaker Obstructive sleep apnea Insomnia: Ambien Condition guarded Time spent 55 minutes Advanced care planning time 20 minutes Patient is full code Advanced diet as tolerated Plan discussed with: Patient My Orders Orders - JULIANA TRONCOSO MD Procedure Category Date Status Time Full Liq Diet DIET 10/11/24 Transmitted Lunch Advance Diet As SILVA 10/11/24 In Process Tolerated 10:02 Soft Diet DIET 10/11/24 Transmitted Dinner Pt Request For Service PT 10/12/24 Transmitted 07:58 Covid19 Antigen [facility] 10/12/24 Transmitted Date of Service: Oct 12, 2024 Billing Provider: JULIANA TRONCOSO MD Common Visit Codes: [id number] INP/OBS CARE(HIGH) JULIANA TRONCOSO MD Oct 12, 2024 08:04
[2024-10-12] MEDS ORDERED: ZOLPIDEM TARTRATE 5 MG TAB PO PRN (08:15)
--- NOTE | 2024-10-12 08:15 | DVHDS2 ---
Discharge Summary Date of Admission Oct 07, 2024 at 10:19 Date of Discharge: Oct 12, 2024 Admitting Diagnosis Abdominal pain nausea and vomiting Wounds: None Labs/Diagnostic Data: Laboratory Results Test 10/11/24 10:23 10/09/24 10:38 10/07/24 13:40 10/07/24 10:46 White Blood Count 8.4 10^3/uL (4.4-10.8) Red Blood Count 4.68 10^6/uL (4.5-5.90) Hemoglobin 13.8 g/dL (13.5-17.5) Hematocrit 41.6 % (41.0-53.0) Mean Corpuscular Volume 88.9 fL (80.0-100.0) Mean Corpuscular Hemoglobin 29.5 pg (28.0-32.0) Mean Corpuscular Hemoglobin Concent 33.2 g/dL (32.0-36.0) Red Cell Distribution Width 13.5 % (11.8-14.3) Platelet Count 187 10^3/uL (140-450) Mean Platelet Volume 9.3 fL (6.9-10.8) Neutrophils (%) (Auto) 63.7 % (37.0-80.0) Lymphocytes (%) (Auto) 23.8 % (10.0-50.0) Monocytes (%) (Auto) 11.3 % (0.0-12.0) Eosinophils (%) (Auto) 0.7 % (0.0-7.0) Basophils (%) (Auto) 0.5 % (0.0-2.0) Neutrophils # (Auto) 5.3 10 ^3/uL (1.6-8.6) Lymphocytes # (Auto) 2.0 10 ^3/uL (0.4-5.4) Monocytes # (Auto) 0.9 10 ^3/uL (0-1.3) Eosinophils # (Auto) 0.1 10 ^3/uL (0-0.8) Basophils # (Auto) 0 10 ^3/uL (0-0.2) Nucleated Red Blood Cells 0.1 % Sodium Level 140 mmol/L (136-145) Potassium Level 3.2 mmol/L (3.5-5.1) Chloride Level 106 mmol/L (98-107) Carbon Dioxide Level 26 mmol/L (20-31) Anion Gap 8 (5-15) Blood Urea Nitrogen 8 mg/dL (9-23) Creatinine 0.76 mg/dL (0.700-1.30) Glomerular Filtration Rate Calc 96 mL/min (>90) BUN/Creatinine Ratio 10.5 (10.0-20.0) Serum Glucose 106 mg/dL (74-106) Calcium Level 8.7 mg/dL (8.7-10.4) Total Bilirubin 2.1 mg/dL (0.2-1.0) Aspartate Amino Transferase (AST) 31 U/L (13-40) Alanine Aminotransferase (ALT) 19 U/L (7-40) Alkaline Phosphatase 111 U/L (46-116) Total Protein 5.9 g/dL (5.7-8.2) Albumin 3.4 g/dL (3.2-4.8) Prothrombin Time 12.2 sec (9.3-11.8) Prothrombin Time INR 1.17 (0.9-1.15) Activated Partial Thromboplast Time 21.8 SEC (24.5-34.5) Urine Color Yellow (Yellow) Urine Clarity Clear (Clear) Urine pH 7.0 (5.0-9.0) Urine Specific [place] 1.022 (1.001-1.035) Urine Protein Trace (Negative) Urine Ketones 1+ (Negative) Urine Blood Negative /uL (Negative) Urine Nitrite Negative (Negative) Urine Bilirubin Negative (Negative) Urine Urobilinogen 2 mg/dL (Negative) Urine Leukocyte Esterase Negative /uL (Negative) Urine RBC None seen /hpf (0 - 3) Urine Microscopic WBC 1 /HPF (0-3) Urine Squamous Epithelial Cells Few /hpf (<5) Urine Bacteria Few /hpf (None Seen) Urine Mucus Few (None Seen) Urine Glucose Normal mg/dL (Normal) Troponin I High Sensitivity 4 ng/L (</=54) Test 10/07/24 09:07 10/07/24 07:41 10/07/24 07:29 Lactic Acid Level 1.1 mmol/L (0.4-2.0) Lipase 32 U/L (12-53) POC Glucose 117 mg/dl (70-106) Other Laboratory Tests 10/11/24 10:23 Brief Hx & Hospital Course: 74-year-old male with a complicated medical history including gallstones CBD stones status post extraction of the gallstone and placement of the biliary stent at [facility] on 08/11/2024. Subsequently discharged home on home health and went to [facility] by ambulance for sepsis where he stayed for three weeks including ICU stay. Subsequently discharged home and got admitted this time to [facility] for small bowel obstruction . The patient was found to have small-bowel obstruction by CT abdomen pelvis without contrast. Seen by surgeon Dr. Heike Baker patient was started on NG suction IV fluids and NPO. He gradually improved and NG tube was removed and patient was started on clear liquid diet and advanced to soft diet. Constipation was relieved with the medication. At the time of discharge patient has having good bowel movement. He received physical therapy. Patient has a history of diabetes hypertension chronic narcotic abuse obesity also a pacemaker and sleep apnea. Discussed with the patient and he is being discharged to [facility] facility for [facility]hab for physical therapy. Consults/Reason for consult Surgeon Dr. Heike Baker Operations or Procedures CT abdomen pelvis without contrast Condition at Discharge: Fair Final Diagnosis/Problems List Acute small bowel obstruction: Now resolving, patient had good bowel movement, surgical consult by Dr. Heike Baker appreciated, patient placed on liquid diet Constipation, now resolved Chronic narcotic abuse Diabetes Hypertension Obesity Status post recent ERCP for CBD stone with duodenal stent placement Status post recent admission to [facility] for three weeks for sepsis including ICU stay History of permanent pacemaker Obstructive sleep apnea Insomnia: Ambien Discharge Disposition: [facility] Facility Discharge Instruct/Medications Diet: Cardiac 2g Na,low cholest Activity: Light activity Follow Up/Referral: Follow up with the [facility] Medications: see list 35 (Time taken for discharge summary 35 minutes) Discharge Statement: "Patient was advised to return to the ER or call 911 if any headaches, dizziness, shortness of breath, chest pain, abdominal pain, bleeding, fevers, or worsening of medical condition. Patient was counseled about treatment plan, medications, possible side effects, patientverbalized understanding. All questions were answered to the best of my ability. This discharge took greater then 30 minutes in planning, reviewing documentation, counseling the patient, and discussing with other team members." ASSESSMENT ASSESSMENT Hospital Course Improved Assessment Acute small bowel obstruction: Now resolving, patient had good bowel movement, surgical consult by Dr. Heike Baker appreciated, patient placed on liquid diet Constipation, now resolved Chronic narcotic abuse Diabetes Hypertension Obesity Status post recent ERCP for CBD stone with duodenal stent placement Status post recent admission to [facility] for three weeks for sepsis including ICU stay History of permanent pacemaker Obstructive sleep apnea Insomnia: José Date of Service: Oct 12, 2024 Billing Provider: JULIANA TRONCOSO MD Common Visit Codes: 53898-HCN/OBS DISCH DAY >30min JULIANA TRONCOSO MD Oct 12, 2024 08:15
[2024-10-12 09:00] VITALS: BP 143/80; PULSE 61; RESP 18; TEMP 97.6; O2SAT 98
[2024-10-12 13:00] VITALS: BP 142/88; PULSE 65; RESP 18; TEMP 97.8; O2SAT 97
[2024-10-12 16:54] VITALS: BP 154/90; PULSE 64; RESP 20; TEMP 97.8; O2SAT 96
== END 2024-10-12 19:30 | DRG 388 ==
LOC: ER 07:19 → OVERFLOW 10:19 → EAST 17:30 → CENTRAL 10-08 03:40
PROVIDERS: ADMIT Family Medicine; ATTEND Family Medicine
PROC: 0D9670Z Drainage of Stomach with Drainage Device, Via Natural or Artificial Opening (ICD-10-PCS; principal; 2024-10-07)
PROC: 02HV33Z Insertion of Infusion Device into Superior Vena Cava, Percutaneous Approach (ICD-10-PCS; 2024-10-09)
PROC: B548ZZA Ultrasonography of Superior Vena Cava, Guidance (ICD-10-PCS; 2024-10-09)
DX: K56.609 Unspecified intestinal obstruction, unspecified as to partial versus complete obstruction (principal); J96.01 Acute respiratory failure with hypoxia; Z68.42 Body mass index [BMI] 45.0-49.9, adult; E11.9 Type 2 diabetes mellitus without complications; I11.0 Hypertensive heart disease with heart failure; F11.10 Opioid abuse, uncomplicated; G47.33 Obstructive sleep apnea (adult) (pediatric); G47.00 Insomnia, unspecified; G89.29 Other chronic pain; E66.01 Morbid (severe) obesity due to excess calories; F41.9 Anxiety disorder, unspecified; E78.5 Hyperlipidemia, unspecified; Z90.49 Acquired absence of other specified parts of digestive tract; Z86.73 Personal history of transient ischemic attack (TIA), and cerebral infarction without residual deficits; Z95.0 Presence of cardiac pacemaker; Z79.891 Long term (current) use of opiate analgesic; Z82.49 Family history of ischemic heart disease and other diseases of the circulatory system; Z82.3 Family history of stroke; I50.9 Heart failure, unspecified
CPT/HCPCS: 36415; 36569; 71045; 74176; 76937; 80048; 80053; 81001; 82962; 83605; 83690; 84484; 85025; 85610; 85730; 93005; 96374; 96375; 96376; 97163; 99291; G0378; J2405; J2470

== ENCOUNTER 2024-12-01 21:29 | Inpatient (IN) | payer MEDICARE ==
[~2024-12-01] VITALS: Ht 172.7 cm; Wt 131.2 kg
--- NOTE | 2024-12-01 22:05 | ED.PDOC ---
GI ASSESSMENT HPI Comments 74-year-old male came to ER due to abdominal pain. Patient has a history of diabetes hypertension chronic narcotic abuse obesity also a pacemaker and sleep apnea. Noted history of constipation and chronic narcotic use. Status post extraction of the gallstone and placement of the biliary stent at [facility] on 08/11/2024. Recently got admitted this time to [facility] for small bowel obstruction last October 07, 2024 . Three days ago, patient started experiencing right upper quadrant abdominal pain again, noted to be constipated, so patient started taking stool softeners and Dulcolax. Yesterday, patient started having diarrhea. Persistence of right upper quadrant pain and concern for possible small bowel obstruction prompted the patient to come to the ER Chief Complaint: Abdominal Pain Time Seen by MD: 22:04 Primary Care Provider: YANIRA MCKENZIE Reviewed Notes: Nurses Notes Allergies: Coded Allergies: NO KNOWN ALLERGIES (Unverified , 08/29/19) Home Meds Reported Medications Quetiapine Fumerate (QUETIAPINE FUMARATE) 100 Mg Tab, 1 TAB PO DAILY for 45 Days, #45 08/01/24 Clonidine Hydrochloride (Clonidine Hcl) 0.1 Mg Tab, 1 TAB PO BID PRN for SBP>160 for 15 Days, #30 08/01/24 Spironolactone (Spironolactone) 25 Mg Tab, 1 TAB PO DAILY for 90 Days, #90 08/01/24 Ondansetron Odt 4MG Tab (ZOFRAN PO) 4 Mg Tb, 1 TAB PO QID for 30 Days, #120 ODT TAB-DISSOLVE IN MOUTH, THEN SWALLOW 08/01/24 Pregabalin (Pregabalin) 100 Mg Cap, 1 CAP PO DAILY for 30 Days, #30 08/01/24 Hydroxyzine Pamoate (Hydroxyzine Pamoate) 25 Mg Cap, 1 CAP PO BID PRN for 30 Days, #60 08/01/24 Omeprazole (Omeprazole Dr) 20 Mg Cap, 1 CAP PO DAILY for 90 Days, #90 05/24/20 Lisinopril (Lisinopril) 40 Mg Tab, 1 TAB PO BID for 90 Days, #180 05/24/20 Tamsulosin Hcl (Tamsulosin Hcl) 0.4 Mg Cap, 1 TAB PO HS for 90 Days, #90 08/29/19 Buspirone Hcl (Buspirone Hcl) 30 Mg Tab, 1 TAB PO BID for 45 Days, #90 08/29/19 Oxycodone HCl (Oxycodone Hydrochloride) 10 Mg Tab, 1 TAB PO Q6HR PRN for 30 Days, #120 08/29/19 Morphine Sulfate (Morphine Sulfate Er) 60 Mg Tab, 1 TAB PO Q12HR for 30 Days, #60 01/03/16 Atorvastatin Calcium (Lipitor) 40 Mg Tab, 1 TAB PO HS for 90 Days, #90 01/03/16 Information Source: Patient Mode of Arrival: Ambulatory Timing: Hours Duration: Since onset Prehospital treatment: None Quality: Aching Vomitus: None Stool: Impaction Severity: Moderate Recent: Possible spoiled food, Other (Small-bowel obstruction) Recent Hx of: Abdominal Surgery Pain Location: RUQ Modifying Factors: Nothing Associated sign and symptoms: Constipation, Abdominal Pain Past Medical History PAST MEDICAL HISTORY: Anxiety, CHF, Depression, High Lipids, HTN, TIA Surgical History: Cholecystectomy, Pacemaker, Tonsillectomy Family History Family History: Family hx of Cancer, Family hx of HTN Social History Smoker: Non-Smoker Alcohol: Denies ETOH Use Drugs: Denies Drug Use Lives In: Home Physical Exam General Appearance: No Apparent Distress HEENT: Pharynx Normal Neck: Non-Tender Respiratory: No Respiratory Distress Cardiovascular: No Edema Breast Exam: Normal Gastrointestinal: Tenderness Genitalia: Deferred Pelvic: Deferred Rectal: Deferred Extremities: No pedal edema Neurologic: No Motor Deficits Cerebellar Function: NOT DONE Reflexes: NOT DONE Skin: Normal Color Lymphatic: NOT DONE Was a procedure done? Was a procedure done?: No GI differential Dx Differential Diagnosis: Cholecystitis, Gastritis/PUD, Gastroenteritis, Pancreatitis, UTI, Dehydration, Electrolyte Imbalance X-Ray, Labs, Meds, VS Vital Signs Date Time Temp Pulse Resp B/P (MAP) Pulse Ox O2 Delivery O2 Flow Rate FiO2 12/01/24 21:40 98.9 85 16 141/104 (116) 97 98.9 Lab Test 12/01/24 22:06 12/01/24 21:45 Range/Units White Blood Count 8.5 4.4-10.8 10^3/uL Red Blood Count 4.81 4.5-5.90 10^6/uL Hemoglobin 14.3 13.5-17.5 g/dL Hematocrit 42.4 41.0-53.0 % Mean Corpuscular Volume 88.1 80.0-100.0 fL Mean Corpuscular Hemoglobin 29.9 28.0-32.0 pg Mean Corpuscular Hemoglobin Concent 33.9 32.0-36.0 g/dL Red Cell Distribution Width 14.3 11.8-14.3 % Platelet Count 182 140-450 10^3/uL Mean Platelet Volume 8.8 6.9-10.8 fL Neutrophils (%) (Auto) 76.7 37.0-80.0 % Lymphocytes (%) (Auto) 12.0 10.0-50.0 % Monocytes (%) (Auto) 10.7 0.0-12.0 % Eosinophils (%) (Auto) 0.1 0.0-7.0 % Basophils (%) (Auto) 0.5 0.0-2.0 % Neutrophils # (Auto) 6.5 1.6-8.6 10 ^3/uL Lymphocytes # (Auto) 1.0 0.4-5.4 10 ^3/uL Monocytes # (Auto) 0.9 0-1.3 10 ^3/uL Eosinophils # (Auto) 0 0-0.8 10 ^3/uL Basophils # (Auto) 0 0-0.2 10 ^3/uL Nucleated Red Blood Cells 0.1 % Sodium Level 137 136-145 mmol/L Potassium Level 3.9 3.5-5.1 mmol/L Chloride Level 103 98-107 mmol/L Carbon Dioxide Level 27 20-31 mmol/L Anion Gap 7 5-15 Blood Urea Nitrogen 7 L 9-23 mg/dL Creatinine 0.94 0.700-1.30 mg/dL Glomerular Filtration Rate Calc 86 >90 mL/min BUN/Creatinine Ratio 7.4 L 10.0-20.0 Serum Glucose 140 H 74-106 mg/dL Lactic Acid Level 1.6 0.4-2.0 mmol/L Calcium Level 9.3 8.7-10.4 mg/dL Total Bilirubin 2.5 H 0.2-1.0 mg/dL Aspartate Amino Transferase (AST) 35 13-40 U/L Alanine Aminotransferase (ALT) 36 7-40 U/L Alkaline Phosphatase 194 H 46-116 U/L Total Protein 7.1 5.7-8.2 g/dL Albumin 3.9 3.2-4.8 g/dL Urine Color Yellow Yellow Urine Clarity Clear Clear Urine pH 8.5 5.0-9.0 Urine Specific [place] 1.021 1.001-1.035 Urine Protein Negative Negative Urine Ketones Negative Negative Urine Blood Negative Negative /uL Urine Nitrite Negative Negative Urine Bilirubin Negative Negative Urine Urobilinogen 2 H Negative mg/dL Urine Leukocyte Esterase Negative Negative /uL Urine RBC 1 0 - 3 /hpf Urine Microscopic WBC 1 0-3 /HPF Urine Squamous Epithelial Cells Few <5 /hpf Urine Bacteria None seen None Seen /hpf Urine Mucus Few None Seen Urine Glucose Normal Normal mg/dL Time of 1ST Reevaluation: 00:12 Reevaluation 1ST: Unchanged Patient Education/Counseling: Diagnosis, Treatment Family Education/Counseling: No Family Present Departure 1 Departure Time of Disposition: 00:13 (Patient presented with abdominal pain that was concerning for possible appendicits, gastritis, cholecystitis, colitis, gastroenteritis, sbo, or orther possible surgical emergency. Data: 1. I ordered and reviewed the result of at least 3 labs including a CBC, BMP, and Urinalysis. 2. I independently interpreted the following tests: CT Abdoment and Pelvis is concerning for dilated bile ducts .Risk:This patient has a high risk of morbidity due to further diagnostic testing or treatment and may suffer from an acute abdominal process disorder. Workup reveals concern for dilated bile ducts and intractable abdominal pain and patient should be admitted for further workup. and possible expert consultation. ) Impression: Primary Impression: Intractable abdominal pain Additional Impression: Dilated bile duct Disposition: ADMITTED INPATIENT Admit to: Med Surg Condition: Serious Critical Care Note Critical Care Time?: Yes Critical care comment: Intractable abdominal pain Authorized and Performed by: Diego Black MD Total critical care time: Approximately 39 minutes Due to a high probability of clinically significant, life threatening deterioration, the patient required my highest level of preparedness to intervene emergently and I personally spent this critical care time directly and personally managing the patient. This critical care time included obtaining a history; examining the patient; pulse oximetry; ordering and review of studies; arranging urgent treatment with development of a management plan; evaluation of patient's response to treatment; frequent reassessment; and, discussions with other providers. This critical care time was performed to assess and manage the high probability of imminent, life-threatening deterioration that could result in multi-organ failure. It was exclusive of separately billable procedures and treating other patients and teaching time. Please see my other sections and the rest of the note for further information on patient assessment and treatment. Stability Stability form required: No I personally scribed for DIEGO BLACK MD ([email or web address]) on 12/01/24 at 22:05. Electronically submitted by Edward Ridley ([facility]). DIEGO BLACK MD December 01, 2024 22:05
[2024-12-01 22:08] LABS: Urine Bacteria None Seen /hpf (None Seen); Urine Blood Negative /uL (Negative); Urine Clarity Clear (Clear); Urine Color Yellow (Yellow); Urine Mucus FEW (None Seen); Urine Protein, UAD Negative (Negative); Urine Specific Gravity 1.021 (1.001-1.035); Urine Squamous Epithelial Cell FEW /hpf (<5); Urine Urobilinogen 2 mg/dL (Negative); Urine WBC 1 /HPF (0-3); Urine pH 8.5 (5.0-9.0)
[2024-12-01 22:15] LABS: Basophils # (auto) 0 10 ^3/uL (0-0.2); Basophils % (auto) 0.5 % (0.0-2.0); Eosinophils # (auto) 0 10 ^3/uL (0-0.8); Eosinophils % (auto) 0.1 % (0.0-7.0); Hematocrit 42.4 % (41.0-53.0); Hemoglobin 14.3 g/dL (13.5-17.5); Mean Corpuscular Hemoglobin 29.9 pg (28.0-32.0); Mean Corpuscular Hgb Conc. 33.9 g/dL (32.0-36.0); Mean Corpuscular Volume 88.1 fL (80.0-100.0); Monocytes # (auto) 0.9 10 ^3/uL (0-1.3); Monocytes % (auto) 10.7 % (0.0-12.0); Neutrophils # (auto) 6.5 10 ^3/uL (1.6-8.6); Neutrophils % (auto) 76.7 % (37.0-80.0); Nucleated Red Blood Cells % 0.1 %; Platelet Count (auto) 182 10^3/uL (140-450); Red Blood Cells 4.81 10^6/uL (4.5-5.90); Red Cell Distribution Width 14.3 % (11.8-14.3); White Blood Cell 8.5 10^3/uL (4.4-10.8)
[2024-12-01 22:32] LABS: Alanine Aminotransferase 36 U/L (7-40); Albumin 3.9 g/dL (3.2-4.8); Anion Gap 7 (5-15); Aspartate Aminotransferase 35 U/L (13-40); BUN/Creatinine Ratio 7.4 (10.0-20.0); Calcium 9.3 mg/dL (8.7-10.4); Carbon Dioxide 27 mmol/L (20-31); Chloride 103 mmol/L (98-107); Potassium 3.9 mmol/L (3.5-5.1); Sodium 137 mmol/L (136-145); Total Protein 7.1 g/dL (5.7-8.2)
[2024-12-01 22:36] LABS: Alkaline Phosphatase 194 U/L (46-116); Bilirubin, Total 2.5 mg/dL (0.2-1.0); Blood Urea Nitrogen 7 mg/dL (9-23); Glucose 140 mg/dL (74-106)
[2024-12-01] MEDS: IOHEXOL 300 MG/ML 100ML BOTTLE IJ ONE (23:15)
--- NOTE | 2024-12-01 23:35 | DVH ---
Exam: CT AB PEL WITH IV CON ONLY History: ruq abdominal pain Comparison Study: Prior MRCP August 2024 Contrast: Type of contrast: Omnipaque 300 Contrast injected: 50 mL Contrast wasted: 50 ML wasted TECHNIQUE: Multidetector CT of abdomen and pelvis without intravenous contrast IV contrast. Radiation Dose Information: CT Dose: CTDI volume is 27.11 mGy. Dose-length product is 1653.61 mGy*cm FINDINGS: lung bases are clear. Heart size is within normal limits. Lower esophagus is unremarkable. Spleen is enlarged measuring 13.1 cm in span. Pancreas is slightly fatty replaced. Patient has had a cholecystectomy common bile duct is dilated which is not unusual status post cholecystectomy. Adrena ls and kidneys are generally unremarkable except for simple cysts. There appears to be a stent in the pancreatic duct in the head of the pancreas projecting into the du odenum. Through the papilla pancreatic duct is not dilated There are innumerable diverticuli in the sigmoid and descending colon without definite diverticulitis colon is is unremarkable. Terminal ileum is normal small bowel is unremarkable. Bladder is partially contracted the prostate is small. There are no fluid collections in the abdomen or pelvis common bile duct measures 14.6 mm in caliber which is unusual even for patient with cholecy stectomy. Patientt has disc disease no focal bony lesions. IMPRESSION: 1. There is a pancreatic duodenal stent. Pancreatic duct is not dilated. Common bile duct is abnormal ly dilated. I suggest close attention should be paid to prior MRCP August 2024 where the common bile duct in the intrahepatic ducts are dilated.
[2024-12-02] MEDS: ONDANSETRON HCL 4 MG/2 ML VIAL IV ONE (01:30)
[2024-12-02] MEDS: SODIUM CHLORIDE 0.9% 1,000 ML IV ONE (01:30)
[2024-12-02] MEDS: MORPHINE SULFATE 4 MG/ML SYR/VIAL IV ONE (01:31)
[2024-12-02] MEDS ORDERED: ACETAMINOPHEN 325 MG TAB PO PRN (02:15)
[2024-12-02] MEDS: SODIUM CHLORIDE 0.9% 1,000 ML IV SCH (02:15)
[2024-12-02] MEDS ORDERED: hydrALAZINE HCL 20 MG/ML VL IV PRN (02:15)
[2024-12-02] MEDS ORDERED: DOCUSATE SOD 100 MG CAP PO PRN (02:15)
--- NOTE | 2024-12-02 03:22 | DVHHP2 ---
History of Present Illness Reason for Visit: Intractable abdominal pain History of Present Illness The patient is a 74-year-old male with past medical history of anxiety, CHF, depression, TIA, hyperlipidemia, and hypertension who presented to [facility] ED with complaint of abdominal pain and anxiety. Patient reports status post extraction of the gallstone and placement of the biliary stent at [facility] on 08/11/2024. Recently got admitted this time to [facility] for small bowel obstruction last October 07, 2024. Three days ago, patient started experiencing right upper quadrant abdominal pain again, noted to be constipated, so patient started taking stool softeners and Dulcolax. Patient's symptoms progressively get worse with diarrhea, persistent of right upper quadrant abdominal pain and concern for possible small bowel obstruction that prompted this visit. Patient was seen and evaluated in the ED, laboratory data shows WBC 8.5, platelets 182, sodium 137, potassium 3.9, BUN 7, creatinine 0.94, glucose 140, total bilirubin 2.5, blood pressure 152/77, heart rate 64, temperature 99.6 F, O2 saturation 97% on room air. Abdomen/pelvis CT revealing dilated bile duct. Please see medication orders section in the computer. On my assessment, at bedside, patient denied chest pain, no headache, no dizziness, no shortness a breath, no nausea, no vomiting, no fever, no chills. Patient was admitted for further evaluation and medical management. Past Medical History Anxiety, CHF, Depression, High Lipids, HTN, TIA Past Surgical History Cholecystectomy, Pacemaker, Tonsillectomy Family History Reviewed, noncontributory to the management of this case. Past Social History The patient lives at home, denies smoking, alcohol or illicit drugs abuse. Review of Systems Constitutional: Yes: Weakness; No: Fever, Chills, Sweats, Malaise, Other Eyes: No: Pain, Vision change, Conjunctivae inflammation, Eyelid inflammation, Other, Redness ENT: No: Ear pain, Ear discharge, Nose pain, Nose discharge, Nose congestion, Mouth pain, Mouth swelling, Throat pain, Throat swelling, Other Respiratory: No: Cough, Dry, Shortness of breath, SOB with excertion, Wheezing, Hemoptysis, Pleuritic Pain, Sputum, Wheezing, Other Cardiovascular: No: Chest Pain, Palpitations, Orthopnea, Paroxysmal Noc. Dyspnea, Edema, Lt Headedness, Other Gastrointestinal: Abdominal Pain; No: Nausea, Vomiting, Diarrhea, Constipation, Melena, Hematochezia, Other Genitourinary: No Dysuria, No Frequency, No Incontinence, No Hematuria, No Retention, No Other Musculoskeletal: No: other, neck pain, shoulder pain, arm pain, back pain, hand pain, leg pain, foot pain Skin: No: Rash, Lesions, Jaundice, Bruising, Other Neurological: No: Weakness, Numbness, Incoordination, Change in speech, Confusion, Seizures, Other Allergies: Coded Allergies: NO KNOWN ALLERGIES (Unverified , 08/29/19) Medications Current Medications Medications Dose Ordered Sig/Camille Route Start Time Stop Time Status Last Admin Dose Admin Pantoprazole Sodium 40 mg DAILY IV 12/02/24 10:00 Hydralazine HCl 10 mg Q6HP PRN IV 12/02/24 02:15 Sodium Chloride 1,000 ml @ 60 mls/hr [id number] IV 12/02/24 02:15 Acetaminophen/ Hydrocodone Bitart 1 tab Q4HP PRN PO 12/02/24 02:15 Ondansetron HCl 4 mg Q4HP PRN IV 12/02/24 02:15 Docusate Sodium 100 mg BIDPRN PRN PO 12/02/24 02:15 Acetaminophen 650 mg Q6HP PRN PO 12/02/24 02:15 Morphine Sulfate 2 mg Q4HPRN PRN IV 12/02/24 02:15 Exam Vital Signs Vital Signs Date Time Temp Pulse Resp B/P (MAP) Pulse Ox O2 Delivery O2 Flow Rate FiO2 12/02/24 02:01 70 19 149/66 12/02/24 01:30 Room Air* 0 21 12/02/24 01:28 99.6 95 99.6 General Appearance: Alert, Oriented X3, Cooperative, No acute distress HEENT: Atraumatic, PERRLA, EOMI, Mucous membr. moist/pink Respiratory: Clear to auscultation, Normal air movement Cardiovascular: Regular rate, Normal S1, Normal S2, No murmurs Abdominal: Normal bowel sounds, Soft, No hepatospenomegaly, No masses, Other (Reports tenderness) Extremities: No clubbing, No cyanosis, No edema, Normal pulses, No tenderness/swelling Skin: No rashes, No breakdown, No significant lesion Neuro: Normal speech, Normal tone, Sensation intact, Cranial nerves 3-12 NL, Reflexes 2+, Other (Generalized weakness) Psych/Mental Status: Mental status NL, Mood NL, Other (Reports anxiety) Labs/Xrays Labs Test 12/01/24 22:06 12/01/24 21:45 Range/Units White Blood Count 8.5 4.4-10.8 10^3/uL Red Blood Count 4.81 4.5-5.90 10^6/uL Hemoglobin 14.3 13.5-17.5 g/dL Hematocrit 42.4 41.0-53.0 % Mean Corpuscular Volume 88.1 80.0-100.0 fL Mean Corpuscular Hemoglobin 29.9 28.0-32.0 pg Mean Corpuscular Hemoglobin Concent 33.9 32.0-36.0 g/dL Red Cell Distribution Width 14.3 11.8-14.3 % Platelet Count 182 140-450 10^3/uL Mean Platelet Volume 8.8 6.9-10.8 fL Neutrophils (%) (Auto) 76.7 37.0-80.0 % Lymphocytes (%) (Auto) 12.0 10.0-50.0 % Monocytes (%) (Auto) 10.7 0.0-12.0 % Eosinophils (%) (Auto) 0.1 0.0-7.0 % Basophils (%) (Auto) 0.5 0.0-2.0 % Neutrophils # (Auto) 6.5 1.6-8.6 10 ^3/uL Lymphocytes # (Auto) 1.0 0.4-5.4 10 ^3/uL Monocytes # (Auto) 0.9 0-1.3 10 ^3/uL Eosinophils # (Auto) 0 0-0.8 10 ^3/uL Basophils # (Auto) 0 0-0.2 10 ^3/uL Nucleated Red Blood Cells 0.1 % Sodium Level 137 136-145 mmol/L Potassium Level 3.9 3.5-5.1 mmol/L Chloride Level 103 98-107 mmol/L Carbon Dioxide Level 27 20-31 mmol/L Anion Gap 7 5-15 Blood Urea Nitrogen 7 L 9-23 mg/dL Creatinine 0.94 0.700-1.30 mg/dL Glomerular Filtration Rate Calc 86 >90 mL/min BUN/Creatinine Ratio 7.4 L 10.0-20.0 Serum Glucose 140 H 74-106 mg/dL Lactic Acid Level 1.6 0.4-2.0 mmol/L Calcium Level 9.3 8.7-10.4 mg/dL Total Bilirubin 2.5 H 0.2-1.0 mg/dL Aspartate Amino Transferase (AST) 35 13-40 U/L Alanine Aminotransferase (ALT) 36 7-40 U/L Alkaline Phosphatase 194 H 46-116 U/L Total Protein 7.1 5.7-8.2 g/dL Albumin 3.9 3.2-4.8 g/dL Urine Color Yellow Yellow Urine Clarity Clear Clear Urine pH 8.5 5.0-9.0 Urine Specific [place] 1.021 1.001-1.035 Urine Protein Negative Negative Urine Ketones Negative Negative Urine Blood Negative Negative /uL Urine Nitrite Negative Negative Urine Bilirubin Negative Negative Urine Urobilinogen 2 H Negative mg/dL Urine Leukocyte Esterase Negative Negative /uL Urine RBC 1 0 - 3 /hpf Urine Microscopic WBC 1 0-3 /HPF Urine Squamous Epithelial Cells Few <5 /hpf Urine Bacteria None seen None Seen /hpf Urine Mucus Few None Seen Urine Glucose Normal Normal mg/dL PATIENT: MICHELE WESTON ACCT: [id number] UNIT: [id number] : 1950 LOC: ER ROOM / BED: / AGE / SEX: 74 / M ADM STATUS: REG ER SERVICE 45 ORDERING PHYSICIAN: DIEGO THOMAS MD PROCEDURE(s): ABPLIV - CT AB PEL WITH IV CON ONLY REASON: ruq abdominal pain ORDER NUMBER(s): [id number], ACCESSION NUMBER(s): [id number] Exam: CT AB PEL WITH IV CON ONLY History: ruq abdominal pain Comparison Study: Prior MRCP August 2024 Contrast: Type of contrast: Omnipaque 300 Contrast injected: 50 mL Contrast wasted: 50 ML wasted TECHNIQUE: Multidetector CT of abdomen and pelvis without intravenous contrast IV contrast. Radiation Dose Information: CT Dose: CTDI volume is 27.11 mGy. Dose-length product is 1653.61 mGy*cm FINDINGS: lung bases are clear. Heart size is within normal limits. Lower esophagus is unremarkable. Spleen is enlarged measuring 13.1 cm in span. Pancreas is slightly fatty replaced. Patient has had a cholecystectomy common bile duct is dilated which is not unusual status post cholecystectomy. Adrenals and kidneys are generally unremarkable except for simple cysts. There appears to be a stent in the pancreatic duct in the head of the pancreas projecting into the duodenum. Through the papilla pancreatic duct is not dilated There are innumerable diverticuli in the sigmoid and descending colon without definite diverticulitis colon is is unremarkable. Terminal ileum is normal small bowel is unremarkable. Bladder is partially contracted the prostate is small. There are no fluid collections in the abdomen or pelvis common bile duct measures 14.6 mm in caliber which is unusual even for patient with cholecystectomy. Patientt has disc disease no focal bony lesions. IMPRESSION: 1. There is a pancreatic duodenal stent. Pancreatic duct is not dilated. Common bile duct is abnormally dilated. I suggest close attention should be paid to prior MRCP August 2024 where the common bile duct in the intrahepatic ducts are dilated. Assessment/Plan Assessment/Plan Intractable abdominal pain Dilated bile duct Morbid obesity Plan 1. Admit to med surge unit 2. Breathing treatment 3. Pain control management 4. Management of fluids and electrolytes 5. Consultation for GI for possible MRCP 6. Diagnostic tests abdomen/pelvis CT 7. DVT prophylaxis-on SCDs 8. Repeat labs CBC, CMP in a.m. 9. Continue with current medical management 10. Treatment plan discussed with patient and RN. Patient verbalized understanding. Plan discussed with: Patient, Other (RN) My Orders Orders - BETY PEREZ DNP Procedure Category Date Status Time Complete Blood Count LAB 12/02/24 Logged 04:00 Comprehensive LAB 12/02/24 Logged Metabolic Panel 04:00 Pantoprazole PHA 12/02/24 In Process (Protonix) 10:00 * [facility] [employer] CONS 12/02/24 Transmitted 02:10 Hydralazine Injection PHA 12/02/24 In Process (Apresoline Inject 02:15 Allergies SILVA 12/02/24 In Process 02:10 Code Status CODE 12/02/24 Transmitted 02:10 Sodium Chloride 0.9% PHA 12/02/24 In Process 02:15 Oxygen Per Hour RT 12/02/24 Transmitted 02:10 Hydrocodone-Acet PHA 12/02/24 In Process 5/325mg Tab ([place] 02:15 Ondansetron Hcl PHA 12/02/24 In Process (Zofran) 02:15 Docusate Sodium PHA 12/02/24 In Process Capsule (Colace 02:15 Complete Blood Count LAB 12/03/24 Verified 04:00 Comprehensive LAB 12/03/24 Verified Metabolic Panel 04:00 Condition: Serious SILVA 12/02/24 In Process 02:10 Acetaminophen Tablet PHA 12/02/24 In Process (Tylenol Tablet) 02:15 Clear Liq Diet DIET 12/02/24 Transmitted Breakfast Bedrest With Bathroom SILVA 12/02/24 In Process Privileg 02:10 Morphine Sulfate [facility] 12/02/24 In Process Injection 02:15 Sequential [facility] 12/02/24 In Process Compression Device Problem List: (1) Intractable abdominal pain (2) Dilated bile duct (3) Morbid obesity Date of Service: December 02, 2024 Billing Provider: BETY PEREZ DNP Common Visit Codes: [id number] INP/OBS CARE (HIGH) BETY PEREZ DNP December 02, 2024 03:22
[2024-12-02] MEDS ORDERED: NITROGLYCERIN 0.4 MG SL TAB SL PRN (03:30)
[2024-12-02] MEDS ORDERED: MORPHINE SULFATE INJ 2 MG/ml SYRG IV PRN (03:30)
[2024-12-02 07:56] LABS: Basophils # (auto) 0 10 ^3/uL (0-0.2); Basophils % (auto) 0.3 % (0.0-2.0); Eosinophils # (auto) 0 10 ^3/uL (0-0.8); Hematocrit 43.3 % (41.0-53.0); Hemoglobin 14.5 g/dL (13.5-17.5); Lymphocytes # (auto) 1.1 10 ^3/uL (0.4-5.4); Lymphocytes % (auto) 13.8 % (10.0-50.0); Mean Corpuscular Hemoglobin 29.2 pg (28.0-32.0); Mean Corpuscular Hgb Conc. 33.4 g/dL (32.0-36.0); Mean Corpuscular Volume 87.5 fL (80.0-100.0); Monocytes # (auto) 0.9 10 ^3/uL (0-1.3); Monocytes % (auto) 10.8 % (0.0-12.0); Neutrophils # (auto) 6.2 10 ^3/uL (1.6-8.6); Neutrophils % (auto) 75.1 % (37.0-80.0); Nucleated Red Blood Cells % 0.1 %; Platelet Count (auto) 182 10^3/uL (140-450); Red Blood Cells 4.95 10^6/uL (4.5-5.90); Red Cell Distribution Width 14.1 % (11.8-14.3); White Blood Cell 8.3 10^3/uL (4.4-10.8)
[2024-12-02 08:15] LABS: Alanine Aminotransferase 36 U/L (7-40); Anion Gap 9 (5-15); Aspartate Aminotransferase 36 U/L (13-40); Calcium 9.7 mg/dL (8.7-10.4); Carbon Dioxide 25 mmol/L (20-31); Chloride 100 mmol/L (98-107); Total Protein 7.3 g/dL (5.7-8.2)
[2024-12-02 08:17] LABS: Alkaline Phosphatase 197 U/L (46-116); Bilirubin, Total 2.6 mg/dL (0.2-1.0); Blood Urea Nitrogen 7 mg/dL (9-23); Glucose 119 mg/dL (74-106); Sodium 134 mmol/L (136-145)
[2024-12-02] MEDS: ONDANSETRON HCL 4 MG/2 ML VIAL IV PRN (09:14)
[2024-12-02] MEDS: HYDROcodone-ACET 5/325MG TAB PO PRN (09:54)
--- NOTE | 2024-12-02 10:20 | DVHINCON2 ---
Date of service: December 02, 2024 Referring Physician Pedro Lopez Reason for Consultation Abdominal pain Transaminitis History of ERCP Abnormal dilation of common bile History of Present Illness The patient is a 74-year-old male with a past medical history significant for CHF, hyperlipidemia, hypertension, history of pacemaker, depression, morbid obesity, who was admitted with symptoms of abdominal pain in noted to have di lation of the common bile duct. Patient had an ERCP done several months ago at an outside facility in [place] after being admitted here. CT scan shows stent in the pancreatic duct. Patient states that his pain has been for three days. The complains of nausea but no vomiting. The pain is made worse when he stands up and better when he lies down. There was no diarrhea or constipation. He denies any bleeding. States her after his ERCP he was not told to follow up at [place]. Patient is not quite sure what happened when he had this procedure done at [facility]. Patient states that his pain medication given at the hospital is N orco, he states that he takes stronger. At home. Past Medical History As above Past Surgical History Tonsillectomy and pacemaker Family History: FH: cancer G8 BROTHER, , Cause: Cancer FH: stroke G8 FATHER, , Cause: Stroke Family History No gastrointestinal diseases or malignancy Social History No alcohol, or drug abuse Allergies: Coded Allergies: NO KNOWN ALLERGIES (Unverified , 08/29/19) Home Meds Reported Medications Quetiapine Fumerate (QUETIAPINE FUMARATE) 100 Mg Tab, 1 TAB PO DAILY for 45 Days, #45 08/01/24 Clonidine Hydrochloride (Clonidine Hcl) 0.1 Mg Tab, 1 TAB PO BID PRN for SBP>160 for 15 Days, #30 08/01/24 Spironolactone (Spironolactone) 25 Mg Tab, 1 TAB PO DAILY for 90 Days, #90 08/01/24 Ondansetron Odt 4MG Tab (ZOFRAN PO) 4 Mg Tb, 1 TAB PO QID for 30 Days, #120 ODT TAB-DISSOLVE IN MOUTH, THEN SWALLOW 08/01/24 Pregabalin (Pregabalin) 100 Mg Cap, 1 CAP PO DAILY for 30 Days, #30 08/01/24 Hydroxyzine Pamoate (Hydroxyzine Pamoate) 25 Mg Cap, 1 CAP PO BID PRN for 30 Days, #60 08/01/24 Omeprazole (Omeprazole Dr) 20 Mg Cap, 1 CAP PO DAILY for 90 Days, #90 05/24/20 Lisinopril (Lisinopril) 40 Mg Tab, 1 TAB PO BID for 90 Days, #180 05/24/20 Tamsulosin Hcl (Tamsulosin Hcl) 0.4 Mg Cap, 1 TAB PO HS for 90 Days, #90 08/29/19 Buspirone Hcl (Buspirone Hcl) 30 Mg Tab, 1 TAB PO BID for 45 Days, #90 08/29/19 Oxycodone HCl (Oxycodone Hydrochloride) 10 Mg Tab, 1 TAB PO Q6HR PRN for 30 Days, #120 08/29/19 Morphine Sulfate (Morphine Sulfate Er) 60 Mg Tab, 1 TAB PO Q12HR for 30 Days, #60 01/03/16 Atorvastatin Calcium (Lipitor) 40 Mg Tab, 1 TAB PO HS for 90 Days, #90 01/03/16 Current Medications Current Medications Medications (Trade) Dose Ordered Sig/Camille Route PRN Reason Start Time Stop Time Status Last Admin Pantoprazole Sodium (Protonix) 40 mg DAILY IV 12/02/24 10:00 Hydralazine HCl (Apresoline Injection) 10 mg Q6HP PRN IV SBP>150 12/02/24 02:15 Sodium Chloride 1,000 ml @ 60 mls/hr [id number] IV 12/02/24 02:15 Acetaminophen/ Hydrocodone Bitart ([place] 5/325MG Tab) 1 tab Q4HP PRN PO MODERATE PAIN (4-6 PAIN SCALE) 12/02/24 02:15 12/02/24 09:54 Ondansetron HCl (Zofran) 4 mg Q4HP PRN IV NAUSEA / VOMITING 12/02/24 02:15 12/02/24 09:14 Docusate Sodium (Colace Capsule) 100 mg BIDPRN PRN PO FOR CONSTIPATION 12/02/24 02:15 Acetaminophen (Tylenol Tablet) 650 mg Q6HP PRN PO PAIN SCALE 1-3 OR TEMP>100.4 12/02/24 02:15 Morphine Sulfate 2 mg Q4HPRN PRN IV SEVERE PAIN (7-10 PAIN SCALE) 12/02/24 02:15 Buspirone HCl (Buspar Tablet) 15 mg Q12HR PO 12/02/24 10:00 Lorazepam (Ativan Inj) 1 mg Q8HP PRN IV ANXIETY 12/02/24 03:30 Nitroglycerin (Ntrostat Sublingual) 0.4 mg Q5MINP PRN SL FOR CHEST PAIN 12/02/24 03:30 Morphine Sulfate 2 mg Q30M PRN IV FOR CHEST PAIN 12/02/24 03:30 Review of Systems Review of systems as per HPI Vital Signs Vital Signs Date Time Temp Pulse Resp B/P (MAP) Pulse Ox O2 Delivery O2 Flow Rate FiO2 12/02/24 08:00 99.9 66 18 136/70 (92) 95 99.9 12/02/24 01:30 Room Air* 0 21 Physical Exam Sternal: Alert and oriented morbidly obese male lying in bed HEENT: NC/AT-C0 med as per with SOB clear new line heart: Regular rate and rhythm Abdomen: Obese, soft, nontender nondistended Extremities: No clubbing cyanosis, edema to the shins bilaterally Neuro: Cranial nerves grossly intact, moves all four extremities Labs/Diagnostic Data CT scan abdomen pelvis IMPRESSION: 1. There is a pancreatic duodenal stent. Pancreatic duct is not dilated. Common bile duct is abnormally dilated. I suggest close attention should be paid to prior MRCP August 2024 where the common bile duct in the intrahepatic ducts are dilated. Labs Test 12/02/24 07:29 12/01/24 22:06 12/01/24 21:45 Range/Units White Blood Count 8.3 4.4-10.8 10^3/uL Red Blood Count 4.95 4.5-5.90 10^6/uL Hemoglobin 14.5 13.5-17.5 g/dL Hematocrit 43.3 41.0-53.0 % Mean Corpuscular Volume 87.5 80.0-100.0 fL Mean Corpuscular Hemoglobin 29.2 28.0-32.0 pg Mean Corpuscular Hemoglobin Concent 33.4 32.0-36.0 g/dL Red Cell Distribution Width 14.1 11.8-14.3 % Platelet Count 182 140-450 10^3/uL Mean Platelet Volume 9.1 6.9-10.8 fL Neutrophils (%) (Auto) 75.1 37.0-80.0 % Lymphocytes (%) (Auto) 13.8 10.0-50.0 % Monocytes (%) (Auto) 10.8 0.0-12.0 % Eosinophils (%) (Auto) 0.0 0.0-7.0 % Basophils (%) (Auto) 0.3 0.0-2.0 % Neutrophils # (Auto) 6.2 1.6-8.6 10 ^3/uL Lymphocytes # (Auto) 1.1 0.4-5.4 10 ^3/uL Monocytes # (Auto) 0.9 0-1.3 10 ^3/uL Eosinophils # (Auto) 0 0-0.8 10 ^3/uL Basophils # (Auto) 0 0-0.2 10 ^3/uL Nucleated Red Blood Cells 0.1 % Sodium Level 134 L 136-145 mmol/L Potassium Level 4.0 3.5-5.1 mmol/L Chloride Level 100 98-107 mmol/L Carbon Dioxide Level 25 20-31 mmol/L Anion Gap 9 5-15 Blood Urea Nitrogen 7 L 9-23 mg/dL Creatinine 0.88 0.700-1.30 mg/dL Glomerular Filtration Rate Calc 91 >90 mL/min BUN/Creatinine Ratio 8.0 L 10.0-20.0 Serum Glucose 119 H 74-106 mg/dL Calcium Level 9.7 8.7-10.4 mg/dL Total Bilirubin 2.6 H 0.2-1.0 mg/dL Aspartate Amino Transferase (AST) 36 13-40 U/L Alanine Aminotransferase (ALT) 36 7-40 U/L Alkaline Phosphatase 197 H 46-116 U/L Total Protein 7.3 5.7-8.2 g/dL Albumin 4.0 3.2-4.8 g/dL Lactic Acid Level 1.6 0.4-2.0 mmol/L Urine Color Yellow Yellow Urine Clarity Clear Clear Urine pH 8.5 5.0-9.0 Urine Specific [place] 1.021 1.001-1.035 Urine Protein Negative Negative Urine Ketones Negative Negative Urine Blood Negative Negative /uL Urine Nitrite Negative Negative Urine Bilirubin Negative Negative Urine Urobilinogen 2 H Negative mg/dL Urine Leukocyte Esterase Negative Negative /uL Urine RBC 1 0 - 3 /hpf Urine Microscopic WBC 1 0-3 /HPF Urine Squamous Epithelial Cells Few <5 /hpf Urine Bacteria None seen None Seen /hpf Urine Mucus Few None Seen Urine Glucose Normal Normal mg/dL Assessment 1. Abdominal pain 2. Dilated common bile duct 3. Retained pancreatic stent? 4. Mild elevation of bilirubin Not sure what happened at [facility] however patient has is not supposed to have a stent in the pancreatic duct for prolonged period of time. Patient's common bile duct was also significantly dilated. Patient also has opioid dependence number sure how much of his pain is related to opioid dependence. His abdominal pain is in the lower abdomen likely related to the right upper quadrant and biliary duct dilatation Problems(with codes): (1) Obesity (2) Opiate dependence (3) Intractable abdominal pain (4) Dilated bile duct (5) Morbid obesity (6) Abnormal finding on GI tract imaging Plan/Recommendation 1. Patient has a pacemaker in his likely not a candidate for MRCP 2. Obtain records from [facility] 3. Follow labs 4. Pain control , patient also has opioid dependence were may be contributing with the pain, possible narcotic bowel 5. Findings do not appear to be related to his biliary issues as the pain is lower in the abdomen and worse with standing up at better with lying down 6. Consider outpatient follow up and workup 7. Consider transfer to [place] Plan discussed with: Patient SANDRA COVARRUBIAS MD December 02, 2024 10:20
[2024-12-02] MEDS: PANTOPRAZOLE 40 MG/10 ML VIAL INJ IV SCH (10:28)
[2024-12-02] MEDS: busPIRone HCL 10 MG TAB PO SCH (10:28)
[2024-12-02 13:36] VITALS: BP 142/79; PULSE 61; RESP 18; TEMP 97.6; O2SAT 94
[2024-12-02 13:55] VITALS: PULSE 60; RESP 12; O2SAT 96
[2024-12-02] MEDS: MORPHINE SULFATE INJ 2 MG/ml SYRG IV PRN (14:26)
[2024-12-02 16:00] VITALS: BP 137/74; PULSE 61; RESP 18; TEMP 99.7; O2SAT 96
[2024-12-02 21:00] VITALS: BP 136/79; PULSE 60; RESP 20; TEMP 98.8; O2SAT 98
[2024-12-02] MEDS: MORPHINE SULFATE INJ 2 MG/ml SYRG IV ONE (21:41)
[2024-12-03] VITALS (7 sets, daily range): BP systolic 125–135; BP diastolic 54–75; PULSE 58–64; RESP 17–19; TEMP 98–98.5; O2SAT 92–98
[2024-12-03 06:20] LABS: Basophils # (auto) 0 10 ^3/uL (0-0.2); Basophils % (auto) 0.5 % (0.0-2.0); Eosinophils # (auto) 0 10 ^3/uL (0-0.8); Hematocrit 41.9 % (41.0-53.0); Hemoglobin 14.1 g/dL (13.5-17.5); Lymphocytes # (auto) 0.9 10 ^3/uL (0.4-5.4); Lymphocytes % (auto) 11.9 % (10.0-50.0); Mean Corpuscular Hemoglobin 29.5 pg (28.0-32.0); Mean Corpuscular Hgb Conc. 33.6 g/dL (32.0-36.0); Mean Corpuscular Volume 87.8 fL (80.0-100.0); Monocytes # (auto) 0.9 10 ^3/uL (0-1.3); Monocytes % (auto) 11.7 % (0.0-12.0); Neutrophils # (auto) 5.6 10 ^3/uL (1.6-8.6); Neutrophils % (auto) 75.9 % (37.0-80.0); Platelet Count (auto) 159 10^3/uL (140-450); Red Blood Cells 4.77 10^6/uL (4.5-5.90); Red Cell Distribution Width 14.3 % (11.8-14.3); White Blood Cell 7.4 10^3/uL (4.4-10.8)
[2024-12-03 06:40] LABS: Alanine Aminotransferase 31 U/L (7-40); Albumin 3.5 g/dL (3.2-4.8); Anion Gap 9 (5-15); BUN/Creatinine Ratio 8.5 (10.0-20.0); Calcium 9.2 mg/dL (8.7-10.4); Carbon Dioxide 26 mmol/L (20-31); Chloride 102 mmol/L (98-107); Potassium 3.8 mmol/L (3.5-5.1); Sodium 137 mmol/L (136-145); Total Protein 6.4 g/dL (5.7-8.2)
[2024-12-03 06:41] LABS: Alkaline Phosphatase 163 U/L (46-116); Aspartate Aminotransferase 33 U/L (13-40); Bilirubin, Total 1.9 mg/dL (0.2-1.0); Blood Urea Nitrogen 8 mg/dL (9-23); Glucose 107 mg/dL (74-106)
[2024-12-03] MEDS: METOCLOPRAMIDE HCL 5MG/ml INJ 2ml VIAL IV PRN (09:13)
[2024-12-03] MEDS: HYDROmorphone HCL 2 MG/ML VL/or syr IV PRN (14:05)
[2024-12-03] MEDS: LOPERAMIDE HCL 2 MG CAP/TAB PO ONE (15:27)
[2024-12-04] VITALS (7 sets, daily range): BP systolic 95–152; BP diastolic 54–77; PULSE 58–60; RESP 12–20; TEMP 97.8–99; O2SAT 93–98
--- NOTE | 2024-12-04 12:59 | DVHPN2 ---
Progress Note Date Seen: December 04, 2024 Medical Necessity Reason Pt with a Central, PICC or Fol: No Subjective Patient reports: No new complaints Review of Systems: HEENT:Normal, CVS:Normal, RESPIRATORY:Normal, GI:Normal, :Normal, MSK:Normal, NEURO:Normal Objective vital signs Vital Sign Date Time Temp Pulse Resp B/P (MAP) Pulse Ox O2 Delivery O2 Flow Rate FiO2 12/04/24 12:50 62 17 143/66 12/04/24 09:00 98.5 97 98.5 12/04/24 08:00 Room Air* 0 21 Total Intake and Output 12/03/24 12/03/24 12/04/24 15:00 23:00 07:00 Intake Total 1100 ml 1900 ml Output Total 600 ml Balance 1100 ml 1300 ml medications Current Medications Medications Dose Ordered Sig/Camille Route Start Time Stop Time Status Last Admin Dose Admin Pantoprazole Sodium 40 mg DAILY IV 12/02/24 10:00 12/04/24 08:46 40 MG Hydralazine HCl 10 mg Q6HP PRN IV 12/02/24 02:15 Sodium Chloride 1,000 ml @ 60 mls/hr [id number] IV 12/02/24 02:15 12/04/24 04:57 60 MLS/HR Acetaminophen/ Hydrocodone Bitart 1 tab Q4HP PRN PO 12/02/24 02:15 12/02/24 20:50 1 TAB Ondansetron HCl 4 mg Q4HP PRN IV 12/02/24 02:15 Hold 12/03/24 02:58 4 MG Docusate Sodium 100 mg BIDPRN PRN PO 12/02/24 02:15 Acetaminophen 650 mg Q6HP PRN PO 12/02/24 02:15 Morphine Sulfate 2 mg Q4HPRN PRN IV 12/02/24 02:15 Hold 12/03/24 06:43 2 MG Buspirone HCl 15 mg Q12HR PO 12/02/24 10:00 12/04/24 08:32 15 MG Lorazepam 1 mg Q8HP PRN IV 12/02/24 03:30 Nitroglycerin 0.4 mg Q5MINP PRN SL 12/02/24 03:30 Morphine Sulfate 2 mg Q30M PRN IV 12/02/24 03:30 Metoclopramide HCl 10 mg Q8HPRN PRN IV 12/03/24 08:45 12/04/24 00:32 10 MG Hydromorphone HCl 1 mg Q3HPRN PRN IV 12/03/24 13:15 12/04/24 12:50 1 MG Examination: GENERAL:Normal, HEENT:Normal, NECK:Normal, LUNGS:Normal, CVS:Normal, ABDOMEN:Normal, MSK:Normal, SKIN:Normal, NEURO:Normal, :Normal laboratory and microbiology Laboratory Tests 12/03/24 05:53 Test 12/03/24 05:53 Range/Units Serum Glucose 107 H 74-106 mg/dL Problem List/Assessment/Plan Problem List/Assessment/Plan #1 abd pain: gi eval #2 s/p pancreatic stent/cbd dilatation #3 morbid obesity #4 dm: ssi #5 htn #6 s/p pacer #7 remy #8 chronic narcotic abuse #9 anxiety advance care planning- full code- time spent 19mins Plan discussed with: Patient My Orders My Orders Orders - MAX DANIEL MD Procedure Category Date Status Time Hydromorphone PHA 12/04/24 Verified Injection (Dilaudid 13:00 Ceftriaxone Ivpb PHA 12/05/24 Verified Rocephin 09:00 Ceftriaxone Ivpb PHA 12/04/24 Verified Rocephin 13:00 Metronidazole Ivpb PHA 12/04/24 Verified Flagyl 14:00 Clostridium Difficile ELLIOTT 12/04/24 Uncollected Toxin 12:50 Tamsulosin PHA 12/04/24 Verified Hydrochloride (Flomax) 18:00 Pregabalin Capsule PHA 12/04/24 Verified (Lyrica Capsule) 22:00 Pregabalin Capsule PHA 12/04/24 Verified (Lyrica Capsule) 13:00 Morphine Extended PHA 12/04/24 Verified Release Tab (Oramorph 22:00 Morphine Extended PHA 12/04/24 Verified Release Tab (Oramorph 13:00 Glucose Blood PHA 12/04/24 Verified (Accu-Chek Comfort 17:00 Mild Sliding Scale PHA 12/04/24 Verified 17:00 Dextrose 50% Syringe PHA 12/04/24 Verified 13:00 Full Liq Diet DIET 12/04/24 Verified Lunch Comprehensive LAB 12/05/24 Verified Metabolic Panel 06:00 Lipase LAB 12/05/24 Verified 05:00 Date of Service: December 04, 2024 Billing Provider: MAX DANIEL MD Common Visit Codes: [id number] INP/OBS CARE(HIGH) Secondary Visit Codes: [id number] CARE PLAN 30 MINUTES MAX DANIEL MD December 04, 2024 12:59
[2024-12-04] MEDS: MORPHINE SULF 30 mg ER tab PO ONE (13:00)
[2024-12-04] MEDS ORDERED: DEXTROSE (50%) 50ML SYRG IV PRN (13:00)
[2024-12-04] MEDS: cefTRIAXone 1GM/50ML D5W 50 ML IV ONE (13:38)
[2024-12-04] MEDS: metroNIDAZOLE 500MG/100ML 100 ML IV SCH (15:31)
[2024-12-04] MEDS: PREGABALIN 25 MG CAP PO ONE (15:39)
[2024-12-04] MEDS: LORazepam 2MG/ML-1ML VIAL IV PRN (16:18)
[2024-12-04] MEDS: InsuLIN REG 1unit/0.01ml Soln (100units/ml) SC SCH (17:00)
[2024-12-04] MEDS: TAMSULOSIN HYDROCHLORIDE 0.4 MG CAP PO SCH (17:16)
[2024-12-04] MEDS: ACCU-CHEK COMFORT CURVE STRIP VI SCH (17:16)
[2024-12-04] MEDS: HYDROmorphone HCL 2 MG/ML VL/or syr IV PRN (17:26)
[2024-12-04] MEDS: MORPHINE SULF 30 mg ER tab PO SCH (21:18)
[2024-12-04] MEDS: QUEtiapine FUMARATE 100 MG TAB PO SCH (22:08)
[2024-12-04] MEDS: PREGABALIN 25 MG CAP PO SCH (22:39)
[2024-12-05] VITALS (8 sets, daily range): BP systolic 101–130; BP diastolic 56–89; PULSE 61–94; RESP 16–19; TEMP 97.8–98.1; O2SAT 92–96
[2024-12-05 07:27] LABS: Alanine Aminotransferase 25 U/L (7-40); Albumin 3.4 g/dL (3.2-4.8); Anion Gap 8 (5-15); Aspartate Aminotransferase 30 U/L (13-40); BUN/Creatinine Ratio 8.6 (10.0-20.0); Carbon Dioxide 24 mmol/L (20-31); Chloride 107 mmol/L (98-107); Glucose 89 mg/dL (74-106); Lipase 43 U/L (12-53); Sodium 139 mmol/L (136-145); Total Protein 6.3 g/dL (5.7-8.2)
[2024-12-05 07:28] LABS: Alkaline Phosphatase 144 U/L (46-116); Blood Urea Nitrogen 7 mg/dL (9-23); Potassium 3.4 mmol/L (3.5-5.1)
[2024-12-05] MEDS: cefTRIAXone 1GM/50ML D5W 50 ML IV SCH (08:56)
--- NOTE | 2024-12-05 12:18 | DVHPN2 ---
Progress Note Date Seen: December 05, 2024 Medical Necessity Reason Pt with a Central, PICC or Fol: No Subjective Patient reports: No new complaints Review of Systems: HEENT:Normal, CVS:Normal, RESPIRATORY:Normal, GI:Normal, :Normal, MSK:Normal, NEURO:Normal Objective vital signs Vital Sign Date Time Temp Pulse Resp B/P (MAP) Pulse Ox O2 Delivery O2 Flow Rate FiO2 12/05/24 10:58 93 19 138/65 12/05/24 09:00 98.0 96 98.0 12/05/24 08:15 Room Air* 0 21 Total Intake and Output 12/04/24 12/04/24 12/05/24 15:00 23:00 07:00 Intake Total 460 ml 605 ml Output Total 400 ml 500 ml Balance 60 ml 105 ml medications Current Medications Medications Dose Ordered Sig/Camille Route Start Time Stop Time Status Last Admin Dose Admin Pantoprazole Sodium 40 mg DAILY IV 12/02/24 10:00 12/05/24 08:57 40 MG Hydralazine HCl 10 mg Q6HP PRN IV 12/02/24 02:15 Sodium Chloride 1,000 ml @ 60 mls/hr [id number] IV 12/02/24 02:15 12/04/24 04:57 60 MLS/HR Acetaminophen/ Hydrocodone Bitart 1 tab Q4HP PRN PO 12/02/24 02:15 12/02/24 20:50 1 TAB Docusate Sodium 100 mg BIDPRN PRN PO 12/02/24 02:15 Acetaminophen 650 mg Q6HP PRN PO 12/02/24 02:15 Buspirone HCl 15 mg Q12HR PO 12/02/24 10:00 12/04/24 22:08 15 MG Lorazepam 1 mg Q8HP PRN IV 12/02/24 03:30 12/05/24 11:00 1 MG Nitroglycerin 0.4 mg Q5MINP PRN SL 12/02/24 03:30 Morphine Sulfate 2 mg Q30M PRN IV 12/02/24 03:30 Metoclopramide HCl 10 mg Q8HPRN PRN IV 12/03/24 08:45 12/04/24 22:39 10 MG Hydromorphone HCl 0.5 mg Q3HPRN PRN IV 12/04/24 13:00 12/05/24 10:58 0.5 MG Ceftriaxone Sodium 50 ml @ 100 mls/hr DAILY@09 IV 12/05/24 09:00 12/05/24 08:56 100 MLS/HR Metronidazole 100 ml @ 100 mls/hr Q8HR IV 12/04/24 14:00 12/05/24 05:46 100 MLS/HR Tamsulosin HCl 0.4 mg QPM PO 12/04/24 18:00 12/04/24 17:16 0.4 MG Pregabalin 50 mg BID PO 12/04/24 22:00 12/05/24 08:56 50 MG Morphine Sulfate 60 mg Q12HR PO 12/04/24 22:00 12/05/24 08:57 60 MG Diagnostic Test (Pha) 1 strip ACHS 12/04/24 17:00 12/05/24 11:00 1 STRIP Insulin Human Regular ACHS SC 12/04/24 17:00 Dextrose 50 ml UD PRN IV 12/04/24 13:00 Quetiapine Fumarate 100 mg HS PO 12/04/24 22:00 12/04/24 22:08 100 MG Examination: GENERAL:Normal, HEENT:Normal, NECK:Normal, LUNGS:Normal, CVS:Normal, ABDOMEN:Normal, MSK:Normal, SKIN:Normal, NEURO:Normal, :Normal laboratory and microbiology Laboratory Tests 12/05/24 06:30 12/03/24 05:53 Test 12/05/24 06:30 Range/Units Serum Glucose 89 74-106 mg/dL Problem List/Assessment/Plan Problem List/Assessment/Plan #1 abd pain: gi eval, dw dr Baker #2 s/p pancreatic stent/cbd dilatation #3 morbid obesity #4 dm: ssi #5 htn #6 s/p pacer #7 remy #8 chronic narcotic abuse #9 anxiety advance care planning- full code- time spent 19mins Plan discussed with: Patient My Orders My Orders Orders - MAX DANIEL MD Procedure Category Date Status Time Hydromorphone PHA 12/04/24 In Process Injection (Dilaudid 13:00 Ceftriaxone 1gm/50ml PHA 12/05/24 In Process D5w (Rocephin) 09:00 Metronidazole PHA 12/04/24 In Process 500mg/100ml (Flagyl 14:00 Clostridium Difficile ELLIOTT 12/04/24 Uncollected Toxin 12:50 Tamsulosin PHA 12/04/24 In Process Hydrochloride (Flomax) 18:00 Pregabalin Capsule PHA 12/04/24 In Process (Lyrica Capsule) 22:00 Morphine Extended PHA 12/04/24 In Process Release Tab (Oramorph 22:00 Glucose Blood PHA 12/04/24 In Process (Accu-Chek Comfort 17:00 Insulin R (Human) PHA 12/04/24 In Process (Insulin R) 17:00 Dextrose 50% Syringe PHA 12/04/24 In Process 13:00 Full Liq Diet DIET 12/04/24 Transmitted Lunch Quetiapine Fumarate PHA 12/04/24 In Process Tablet (Seroquel Tab 22:00 Date of Service: December 05, 2024 Billing Provider: MXA DANIEL MD Common Visit Codes: [id number] INP/OBS CARE(HIGH) MAX DANIEL MD December 05, 2024 12:18
[2024-12-05] MEDS: LACTULOSE 20Gm/30ML SOLN PO ONE (14:53)
[2024-12-05] MEDS: POTASSIUM CHL 20 Meq TABLET PO ONE (14:53)
[2024-12-05] MEDS: GOLYTELY 4L KIT PO ONE (15:35)
[2024-12-05] MEDS: MAGNESIUM CITRATE SOLUTION 300 ML BTL PO ONE (15:35)
[2024-12-05] MEDS: LACTULOSE 20Gm/30ML SOLN PO SCH (22:32)
[2024-12-05] MEDS: HYDROmorphone HCL 2 MG/ML VL/or syr IV PRN (22:38)
--- NOTE | 2024-12-05 22:57 | DVHPN2 ---
Progress Note - Dictate Date Seen: December 05, 2024 Medical Necessity Reason Pt with a Central, PICC or Fol: No Subjective 74-year-old male admitted with abdominal pain Patient has history of chronic abdominal pain issues and is actually seen by pain management Patient stated he ran out of his morphine as he missed an appointment with pain management Patient is complaining of ongoing lower and mid abdominal pain There was no nausea or vomiting or hematemesis or GI bleeding Patient had some dilated biliary tree. He was referred to [facility] and underwent a ERCP with what appears to be a pancreatic stent placement His liver enzymes are normal except for mild elevation in alkaline phosphatase and imaging shows some dilation of the biliary tree or CBD Patient's last EGD in in August of 2024 showed gastroduodenitis and a small hernia ; no H.pylori indicated Patient had a colonoscopy in 2014 showing a small tubular adenoma vital signs Vital Sign Date Time Temp Pulse Resp B/P (MAP) Pulse Ox O2 Delivery O2 Flow Rate FiO2 12/05/24 22:38 76 18 112/72 12/05/24 21:02 97.9 95 97.9 12/05/24 08:15 Room Air* 0 21 Total Intake and Output 12/04/24 12/04/24 12/05/24 15:00 23:00 07:00 Intake Total 460 ml 605 ml Output Total 400 ml 500 ml Balance 60 ml 105 ml medications Current Medications Medications Dose Ordered Sig/Camille Route Start Time Stop Time Status Last Admin Dose Admin Pantoprazole Sodium 40 mg DAILY IV 12/02/24 10:00 12/05/24 08:57 40 MG Hydralazine HCl 10 mg Q6HP PRN IV 12/02/24 02:15 Sodium Chloride 1,000 ml @ 60 mls/hr [id number] IV 12/02/24 02:15 12/05/24 14:54 60 MLS/HR Acetaminophen/ Hydrocodone Bitart 1 tab Q4HP PRN PO 12/02/24 02:15 12/02/24 20:50 1 TAB Docusate Sodium 100 mg BIDPRN PRN PO 12/02/24 02:15 Acetaminophen 650 mg Q6HP PRN PO 12/02/24 02:15 Buspirone HCl 15 mg Q12HR PO 12/02/24 10:00 12/05/24 22:39 15 MG Lorazepam 1 mg Q8HP PRN IV 12/02/24 03:30 12/05/24 11:00 1 MG Nitroglycerin 0.4 mg Q5MINP PRN SL 12/02/24 03:30 Morphine Sulfate 2 mg Q30M PRN IV 12/02/24 03:30 Metoclopramide HCl 10 mg Q8HPRN PRN IV 12/03/24 08:45 12/05/24 17:57 10 MG Ceftriaxone Sodium 50 ml @ 100 mls/hr DAILY@09 IV 12/05/24 09:00 12/05/24 08:56 100 MLS/HR Metronidazole 100 ml @ 100 mls/hr Q8HR IV 12/04/24 14:00 12/05/24 22:32 100 MLS/HR Tamsulosin HCl 0.4 mg QPM PO 12/04/24 18:00 12/05/24 17:54 0.4 MG Pregabalin 50 mg BID PO 12/04/24 22:00 12/05/24 08:56 50 MG Morphine Sulfate 60 mg Q12HR PO 12/04/24 22:00 12/05/24 22:41 60 MG Diagnostic Test (Pha) 1 strip ACHS 12/04/24 17:00 12/05/24 22:42 1 STRIP Insulin Human Regular ACHS SC 12/04/24 17:00 Dextrose 50 ml UD PRN IV 12/04/24 13:00 Quetiapine Fumarate 100 mg HS PO 12/04/24 22:00 12/05/24 22:40 100 MG Hydromorphone HCl 0.5 mg Q4HP PRN IV 12/05/24 12:30 12/05/24 22:38 0.5 MG Lactulose 30 ml BID PO 12/05/24 22:00 12/05/24 22:32 30 ML objective Sternal: Alert and oriented morbidly obese male lying in bed HEENT: NC/AT-C0 med as per with SOB clear new line heart: Regular rate and rhythm Abdomen: Obese, soft, nontender nondistended Extremities: No clubbing cyanosis, edema to the shins bilaterally Neuro: Cranial nerves grossly intact, moves all four extremities laboratory and microbiology Laboratory Tests 12/05/24 06:30 12/03/24 05:53 Test 12/05/24 06:30 Range/Units Serum Glucose 89 74-106 mg/dL Problems(with codes): (1) Chronic back pain (2) Anxiety (3) Degenerative joint disease of right knee (4) Abnormal finding on GI tract imaging (5) Obesity (6) Dilated bile duct Prognosis Plan Patient has agreed to proceed with a colonoscopy for evaluation of his abdominal pain. 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
[2024-12-06] VITALS (8 sets, daily range): BP systolic 101–140; BP diastolic 60–85; PULSE 68–104; RESP 13–19; TEMP 97.5–98.2; O2SAT 93–99
[2024-12-06] MEDS: GOLYTELY 4L KIT PO ONE (05:38)
[2024-12-06] MEDS: MAGNESIUM CITRATE SOLUTION 300 ML BTL PO ONE (05:46)
[2024-12-06 08:06] LABS: Anion Gap 12 (5-15); Carbon Dioxide 24 mmol/L (20-31); Chloride 105 mmol/L (98-107); Potassium 3.5 mmol/L (3.5-5.1); Sodium 141 mmol/L (136-145)
[2024-12-06 08:08] LABS: Calcium 9.3 mg/dL (8.7-10.4)
[2024-12-06 08:13] LABS: BUN/Creatinine Ratio 7.2 (10.0-20.0)
[2024-12-06 08:20] LABS: Blood Urea Nitrogen 7 mg/dL (9-23); Glucose 114 mg/dL (74-106)
[2024-12-06 08:41] LABS: Basophils # (auto) 0 10 ^3/uL (0-0.2); Basophils % (auto) 0.8 % (0.0-2.0); Eosinophils # (auto) 0.1 10 ^3/uL (0-0.8); Eosinophils % (auto) 1.6 % (0.0-7.0); Hematocrit 48.6 % (41.0-53.0); Hemoglobin 16.1 g/dL (13.5-17.5); Lymphocytes # (auto) 2.4 10 ^3/uL (0.4-5.4); Lymphocytes % (auto) 39.2 % (10.0-50.0); Mean Corpuscular Hemoglobin 29.6 pg (28.0-32.0); Mean Corpuscular Hgb Conc. 33.2 g/dL (32.0-36.0); Monocytes % (auto) 16.1 % (0.0-12.0); Neutrophils # (auto) 2.6 10 ^3/uL (1.6-8.6); Neutrophils % (auto) 42.3 % (37.0-80.0); Nucleated Red Blood Cells % 0.4 %; Platelet Count (auto) 227 10^3/uL (140-450); Red Blood Cells 5.46 10^6/uL (4.5-5.90); Red Cell Distribution Width 14.5 % (11.8-14.3); White Blood Cell 6.2 10^3/uL (4.4-10.8)
--- NOTE | 2024-12-06 11:12 | DVHPN2 ---
Progress Note Date Seen: December 06, 2024 Medical Necessity Reason Pt with a Central, PICC or Fol: No Subjective Patient reports: No new complaints Review of Systems: HEENT:Normal, CVS:Normal, RESPIRATORY:Normal, GI:Normal, :Normal, MSK:Normal, NEURO:Normal Objective vital signs Vital Sign Date Time Temp Pulse Resp B/P (MAP) Pulse Ox O2 Delivery O2 Flow Rate FiO2 12/06/24 10:24 74 16 138/85 12/06/24 09:00 97.7 95 97.7 12/05/24 20:00 Room Air* 0 21 Total Intake and Output 12/05/24 12/05/24 12/06/24 15:00 23:00 07:00 Intake Total 750 ml 350 ml 0 ml Output Total 100 ml Balance 750 ml 350 ml -100 ml medications Current Medications Medications Dose Ordered Sig/Camille Route Start Time Stop Time Status Last Admin Dose Admin Pantoprazole Sodium 40 mg DAILY IV 12/02/24 10:00 12/06/24 10:24 40 MG Hydralazine HCl 10 mg Q6HP PRN IV 12/02/24 02:15 Sodium Chloride 1,000 ml @ 60 mls/hr [id number] IV 12/02/24 02:15 12/05/24 14:54 60 MLS/HR Acetaminophen/ Hydrocodone Bitart 1 tab Q4HP PRN PO 12/02/24 02:15 12/02/24 20:50 1 TAB Docusate Sodium 100 mg BIDPRN PRN PO 12/02/24 02:15 Acetaminophen 650 mg Q6HP PRN PO 12/02/24 02:15 Buspirone HCl 15 mg Q12HR PO 12/02/24 10:00 12/05/24 22:39 15 MG Lorazepam 1 mg Q8HP PRN IV 12/02/24 03:30 12/05/24 11:00 1 MG Nitroglycerin 0.4 mg Q5MINP PRN SL 12/02/24 03:30 Morphine Sulfate 2 mg Q30M PRN IV 12/02/24 03:30 Metoclopramide HCl 10 mg Q8HPRN PRN IV 12/03/24 08:45 12/06/24 07:02 10 MG Ceftriaxone Sodium 50 ml @ 100 mls/hr DAILY@09 IV 12/05/24 09:00 12/06/24 10:24 100 MLS/HR Metronidazole 100 ml @ 100 mls/hr Q8HR IV 12/04/24 14:00 12/06/24 05:38 100 MLS/HR Tamsulosin HCl 0.4 mg QPM PO 12/04/24 18:00 12/05/24 17:54 0.4 MG Pregabalin 50 mg BID PO 12/04/24 22:00 12/05/24 22:51 50 MG Morphine Sulfate 60 mg Q12HR PO 12/04/24 22:00 12/05/24 22:41 60 MG Diagnostic Test (Pha) 1 strip ACHS 12/04/24 17:00 12/06/24 06:42 1 STRIP Insulin Human Regular ACHS SC 12/04/24 17:00 Dextrose 50 ml UD PRN IV 12/04/24 13:00 Quetiapine Fumarate 100 mg HS PO 12/04/24 22:00 12/05/24 22:40 100 MG Hydromorphone HCl 0.5 mg Q4HP PRN IV 12/05/24 12:30 12/06/24 10:24 0.5 MG Lactulose 30 ml BID PO 12/05/24 22:00 12/05/24 22:32 30 ML Examination: GENERAL:Normal, HEENT:Normal, NECK:Normal, LUNGS:Normal, CVS:Normal, ABDOMEN:Normal, MSK:Normal, SKIN:Normal, NEURO:Normal, :Normal laboratory and microbiology Laboratory Tests 12/06/24 06:57 Test 12/06/24 06:57 Range/Units Serum Glucose 114 H 74-106 mg/dL Problem List/Assessment/Plan Problem List/Assessment/Plan #1 abd pain: colonoscopy today #2 s/p pancreatic stent/cbd dilatation #3 morbid obesity #4 dm: ssi #5 htn #6 s/p pacer #7 remy #8 chronic narcotic abuse #9 anxiety advance care planning- full code- time spent 19mins Plan discussed with: Patient My Orders My Orders Orders - MAX DANIEL MD Procedure Category Date Status Time Hydromorphone PHA 12/05/24 In Process Injection (Dilaudid 12:30 Lactulose Oral PHA 12/05/24 In Process 22:00 Urinalysis LAB 12/06/24 Logged 05:00 Order Routine Aptt SILVA 12/06/24 In Process 05:04 Date of Service: December 06, 2024 Billing Provider: MAX DANIEL MD Common Visit Codes: [id number] INP/OBS CARE(HIGH) MAX DANIEL MD December 06, 2024 11:12
[2024-12-06] MEDS ORDERED: PROPOFOL 10 MG/ML 20 ML IV ONE (13:08)
[2024-12-06] MEDS ORDERED: fentaNYL CITRATE 100 MCG/2 ML VL ONE (13:08)
[2024-12-06] MEDS ORDERED: LIDOCAINE 1% INJ PF 5ML AMP ONE (13:08)
[2024-12-06] MEDS ORDERED: ONDANSETRON HCL 4 MG/2 ML VIAL ONE (13:08)
[2024-12-06] MEDS ORDERED: MIDAZOLAM HCL 2MG/2ML 2ml VIAL (1mg/ml) ONE (13:08)
[2024-12-06] MEDS ORDERED: KETAMINE 50mg/ML 1ml syringe ONE (13:08)
[2024-12-06] MEDS ORDERED: SODIUM CHLORIDE LOCK 10 ML ONE (13:08)
--- NOTE | 2024-12-06 14:08 | DVHOP2 ---
Operative Report DATE OF OPERATION: 12/06/24 PROCEDURE: Colonoscopy with cold biopsy polypectomy. PREOPERATIVE INDICATION: The patient is a 74 -year-old male undergoing colonoscopy for lower abdominal pain and history of colon polyps POSTOPERATIVE DIAGNOSES: 1. 3-4 mm benign-appearing descending colon polyp was seen and removed by cold biopsy forceps 2. Cfar-or-ibeqioyz scattered diverticular disease more prominent in the sigmoid 3. 1+ internal hemorrhoids otherwise essentially completely normal colonoscopy examination up to the cecum and terminal ileum PROCEDURE PERFORMED BY: Ren Baker M.D. SCOPE: Olympus videocolonoscope. ASA CLASS: 3. PREOPERATIVE MEDICATIONS: Mac Dr. Ebony jackson PROCEDURE IN DETAIL: After obtaining an informed consent, the patient was placed on left lateral decubitus position. He was then sedated with the above medications. A rectal examination was performed that was normal. The colonoscope was then passed through the anus into the rectosigmoid and through the descending, transverse, and ascending colon up to the cecum with visualization of the appendiceal orifice, base of the cecum and the ileocecal valve. The colonoscope was then withdrawn. The distal 5 cm of the terminal ileum were normal The patient had no masses or colitis. Patient had a good bowel prep There was scattered diverticular disease most prominent in the sigmoid In the descending colon at about 45 cm above the anal verge there was a 3 mm polyp on a fold This was removed completely via cold biopsy forceps. On retroflexion and straight on view he had trace to 1+ internal hemorrhoids The patient tolerated the procedure well without difficulty. WITHDRAWAL TIME: 8 minutes QUALITY OF THE PREP: [place] Bowel Prep score: 9. COMPLICATIONS : None SPECIMENS: Descending colon polyp DISPOSITION: Transfer back to the floor Stable PLAN: 1. Repeat colonoscopy base on biopsy result likely in five years 2. Resume GI soft diet advance as tolerated 3. Bentyl 20 mg p.o. twice a day as needed for abdominal pain 4. Outpatient follow up with me in 4-6 weeks to review results and discuss further management REN BAKER MD December 06, 2024 14:07
[2024-12-07 01:00] VITALS: BP 118/68; PULSE 60; RESP 17; TEMP 98.5; O2SAT 97
[2024-12-07 05:00] VITALS: BP 102/62; PULSE 75; RESP 18; TEMP 98.3; O2SAT 95
[2024-12-07 08:40] VITALS: BP_SYST 104; BP_SYST 95; BP_DIAS 59; BP_DIAS 66; PULSE 71; PULSE 81; RESP 18; RESP 19; TEMP 97.9; TEMP 98.4; O2SAT 94; O2SAT 96
[2024-12-07 13:00] VITALS: BP 93/50; PULSE 71; RESP 17; TEMP 97.6; O2SAT 93
--- NOTE | 2024-12-07 14:54 | DVHDS2 ---
Discharge Summary Date of Admission December 02, 2024 at 03:18 Date of Discharge: December 07, 2024 Labs/Diagnostic Data: Laboratory Results Test 12/07/24 06:06 12/06/24 06:57 12/05/24 06:30 12/01/24 22:06 POC Glucose 124 mg/dl (70-106) White Blood Count 6.2 10^3/uL (4.4-10.8) Red Blood Count 5.46 10^6/uL (4.5-5.90) Hemoglobin 16.1 g/dL (13.5-17.5) Hematocrit 48.6 % (41.0-53.0) Mean Corpuscular Volume 89.0 fL (80.0-100.0) Mean Corpuscular Hemoglobin 29.6 pg (28.0-32.0) Mean Corpuscular Hemoglobin Concent 33.2 g/dL (32.0-36.0) Red Cell Distribution Width 14.5 % (11.8-14.3) Platelet Count 227 10^3/uL (140-450) Mean Platelet Volume 9.7 fL (6.9-10.8) Neutrophils (%) (Auto) 42.3 % (37.0-80.0) Lymphocytes (%) (Auto) 39.2 % (10.0-50.0) Monocytes (%) (Auto) 16.1 % (0.0-12.0) Eosinophils (%) (Auto) 1.6 % (0.0-7.0) Basophils (%) (Auto) 0.8 % (0.0-2.0) Neutrophils # (Auto) 2.6 10 ^3/uL (1.6-8.6) Lymphocytes # (Auto) 2.4 10 ^3/uL (0.4-5.4) Monocytes # (Auto) 1.0 10 ^3/uL (0-1.3) Eosinophils # (Auto) 0.1 10 ^3/uL (0-0.8) Basophils # (Auto) 0 10 ^3/uL (0-0.2) Nucleated Red Blood Cells 0.4 % Sodium Level 141 mmol/L (136-145) Potassium Level 3.5 mmol/L (3.5-5.1) Chloride Level 105 mmol/L (98-107) Carbon Dioxide Level 24 mmol/L (20-31) Anion Gap 12 (5-15) Blood Urea Nitrogen 7 mg/dL (9-23) Creatinine 0.97 mg/dL (0.700-1.30) Glomerular Filtration Rate Calc 83 mL/min (>90) BUN/Creatinine Ratio 7.2 (10.0-20.0) Serum Glucose 114 mg/dL (74-106) Calcium Level 9.3 mg/dL (8.7-10.4) Total Bilirubin 1.0 mg/dL (0.2-1.0) Aspartate Amino Transferase (AST) 30 U/L (13-40) Alanine Aminotransferase (ALT) 25 U/L (7-40) Alkaline Phosphatase 144 U/L (46-116) Total Protein 6.3 g/dL (5.7-8.2) Albumin 3.4 g/dL (3.2-4.8) Lipase 43 U/L (12-53) Lactic Acid Level 1.6 mmol/L (0.4-2.0) Test 12/01/24 21:45 Urine Color Yellow (Yellow) Urine Clarity Clear (Clear) Urine pH 8.5 (5.0-9.0) Urine Specific [place] 1.021 (1.001-1.035) Urine Protein Negative (Negative) Urine Ketones Negative (Negative) Urine Blood Negative /uL (Negative) Urine Nitrite Negative (Negative) Urine Bilirubin Negative (Negative) Urine Urobilinogen 2 mg/dL (Negative) Urine Leukocyte Esterase Negative /uL (Negative) Urine RBC 1 /hpf (0 - 3) Urine Microscopic WBC 1 /HPF (0-3) Urine Squamous Epithelial Cells Few /hpf (<5) Urine Bacteria None seen /hpf (None Seen) Urine Mucus Few (None Seen) Urine Glucose Normal mg/dL (Normal) Other Laboratory Tests 12/06/24 06:57 Brief Hx & Hospital Course: SEE DICTATED NOTE Condition at Discharge: Fair Final Diagnosis/Problems List ABD PAIN Discharge Disposition: Home Discharge Instruct/Medications Diet: Consistent carbohydrate, Cardiac 2g Na,low cholest Activity: No Restrictions, As Tolerated Follow Up/Referral: FU WITH DR BRUNER IN 1 WK Medications: RESUME HOME MEDS SCRIPT TO PHARMACY Discharge Statement: "Patient was advised to return to the ER or call 911 if any headaches, dizziness, shortness of breath, chest pain, abdominal pain, bleeding, fevers, or worsening of medical condition. Patient was counseled about treatment plan, medications, possible side effects, patientverbalized understanding. All questions were answered to the best of my ability. This discharge took greater then 30 minutes in planning, reviewing documentation, counseling the patient, and discussing with other team members." ASSESSMENT ASSESSMENT Assessment ABD PAIN Date of Service: December 07, 2024 Billing Provider: MAX DANIEL MD Common Visit Codes: [id number] DISCH DAY >30min MAX DANIEL MD December 07, 2024 14:54
[2024-12-07] MEDS ORDERED: LACT10SO3 PO (14:55)
--- NOTE | 2024-12-07 15:19 | DVHDS ---
DATE OF DISCHARGE: 12/07/2024 The patient is a 74-year-old gentleman who was admitted with complaints of abdominal pain and has history of CHF, hypertension, diabetes, anxiety, status post pancreatic stent, and pacemaker. HOSPITAL COURSE: The patient had a CT of abdomen and pelvis that showed evidence of a pancreatic stent. Common bile duct was also dilated. The patient was seen in GI consult by Dr. Baker. The patient underwent colonoscopy that showed colonic polyp that was removed. The patient has since had improvement in his abdominal pain. He will now be discharged home to resume his home medications as well as to be on lactulose p.r.n. for constipation. He will follow up with Dr. Cuellar to be referred for removal of the pancreatic stent. FINAL DIAGNOSES: * Abdominal pain with questionable fecal impaction. * Status post pancreatic stent with CBD dilatation. * Morbid obesity. * Diabetes mellitus. * Hypertension. * History of pacemaker. * Chronic narcotic dependence. * Obstructive sleep apnea. * Anxiety. Time spent in discharge planning including discussion of plan with the patient and at the bedside was 38 minutes. MD BETTINA Shultz/LUDA TID: [id number] RECEIPT: [id number]
[2024-12-07 16:34] VITALS: BP 122/62; PULSE 68; RESP 19; TEMP 97.5; O2SAT 95
== END 2024-12-07 18:50 | disposition home or self-care (01) | DRG 394 ==
LOC: ER 21:29 → OVERFLOW 12-02 03:18 → WEST WING 12-02 13:20
PROVIDERS: ADMIT Internal Medicine; ATTEND Internal Medicine
PROC: 0DBM8ZZ Excision of Descending Colon, Via Natural or Artificial Opening Endoscopic (ICD-10-PCS; principal; 2024-12-06 13:43)
DX: K63.5 Polyp of colon (principal); F11.20 Opioid dependence, uncomplicated; Z68.41 Body mass index [BMI] 40.0-44.9, adult; K56.41 Fecal impaction; K83.8 Other specified diseases of biliary tract; E66.01 Morbid (severe) obesity due to excess calories; F41.9 Anxiety disorder, unspecified; K64.8 Other hemorrhoids; E11.9 Type 2 diabetes mellitus without complications; E78.5 Hyperlipidemia, unspecified; G47.33 Obstructive sleep apnea (adult) (pediatric); I50.9 Heart failure, unspecified; I11.0 Hypertensive heart disease with heart failure; K57.30 Diverticulosis of large intestine without perforation or abscess without bleeding; K29.90 Gastroduodenitis, unspecified, without bleeding; G89.29 Other chronic pain; F32.A Depression, unspecified; Z79.899 Other long term (current) drug therapy; Z90.49 Acquired absence of other specified parts of digestive tract; Z82.49 Family history of ischemic heart disease and other diseases of the circulatory system; Z86.73 Personal history of transient ischemic attack (TIA), and cerebral infarction without residual deficits; Z95.0 Presence of cardiac pacemaker; Z82.3 Family history of stroke
CPT/HCPCS: 36415; 45385; 74177; 80048; 80053; 81001; 82962; 83605; 83690; 85025; 86850; 86900; 86901; 96361; 96374; 96375; 99291; G0378; J2250; J2405; J2470; J2704; J3490

== ENCOUNTER 2025-01-08 07:34 | Emergency (ER) | payer MEDICARE, MEDICAID ==
[~2025-01-08] VITALS: Ht 177.8 cm; Wt 130.0 kg
[~2025-01-08 07:34] MED LIST changes: +LACT10SO3 PO
[2025-01-08 08:17] VITALS: PULSE 82; RESP 12; TEMP 99; O2SAT 93
--- NOTE | 2025-01-08 08:32 | ED.PDOC ---
History of Present Illness HPI Comments 74-year-old male presents to the ER prior medical history of anxiety, CHF, depression, high lipids, hypertension, TIA; surgical history of cholecystectomy, pacemaker, tonsillectomy and the chief complaint of constipation since Wednesday of 01/05/2025. Patient reports the he did see his PCP for which was given laxative which usually works, but didn't. So I went to the store and got another laxative which also did not work". Patient notes on having epigastric pain when he is walking. Patient did have a colonoscopy one month ago which was normal. Denies chills, fever, N/V/D, SOB, CP. No other associated symptoms, modifiers, recent injuries or sick contacts present at this time. Chief Complaint: Constipation Time Seen by MD: 08:00 Primary Care Provider: Dr. Cuellar Reviewed Notes: Nurses Notes, Medications, Allergies Allergies: Coded Allergies: NO KNOWN ALLERGIES (Unverified , 08/29/19) Home Meds Active Scripts Lactulose (Lactulose) 10 Gm/15 Ml [place], 10 GM PO BID PRN for 30 Days, #120 ML 3 Refills Prov:MAX DANIEL MD 12/07/24 Reported Medications Quetiapine Fumerate (QUETIAPINE FUMARATE) 100 Mg Tab, 1 TAB PO DAILY for 45 Days, #45 08/01/24 Clonidine Hydrochloride (Clonidine Hcl) 0.1 Mg Tab, 1 TAB PO BID PRN for SBP>160 for 15 Days, #30 08/01/24 Spironolactone (Spironolactone) 25 Mg Tab, 1 TAB PO DAILY for 90 Days, #90 08/01/24 Ondansetron Odt 4MG Tab (ZOFRAN PO) 4 Mg Tb, 1 TAB PO QID for 30 Days, #120 ODT TAB-DISSOLVE IN MOUTH, THEN SWALLOW 08/01/24 Pregabalin (Pregabalin) 100 Mg Cap, 1 CAP PO DAILY for 30 Days, #30 08/01/24 Hydroxyzine Pamoate (Hydroxyzine Pamoate) 25 Mg Cap, 1 CAP PO BID PRN for 30 Days, #60 08/01/24 Omeprazole (Omeprazole Dr) 20 Mg Cap, 1 CAP PO DAILY for 90 Days, #90 05/24/20 Lisinopril (Lisinopril) 40 Mg Tab, 1 TAB PO BID for 90 Days, #180 05/24/20 Tamsulosin Hcl (Tamsulosin Hcl) 0.4 Mg Cap, 1 TAB PO HS for 90 Days, #90 08/29/19 Buspirone Hcl (Buspirone Hcl) 30 Mg Tab, 1 TAB PO BID for 45 Days, #90 08/29/19 Oxycodone HCl (Oxycodone Hydrochloride) 10 Mg Tab, 1 TAB PO Q6HR PRN for 30 Days, #120 08/29/19 Morphine Sulfate (Morphine Sulfate Er) 60 Mg Tab, 1 TAB PO Q12HR for 30 Days, #60 01/03/16 Atorvastatin Calcium (Lipitor) 40 Mg Tab, 1 TAB PO HS for 90 Days, #90 01/03/16 Information Source: Patient Mode of Arrival: Ambulatory Severity: Moderate Timing: Days Duration: Since onset, Days Prehospital treatment: None Past Medical History PAST MEDICAL HISTORY: Anxiety, CHF, Depression, High Lipids, HTN, TIA Surgical History: Cholecystectomy, Pacemaker, Tonsillectomy Family History Family History: Reviewed,noncontributory to illness, Unknown Social History Smoker: Non-Smoker Alcohol: Denies ETOH Use Drugs: Denies Drug Use Lives In: Home Constitutional: denies: chills, diaphoresis, fatigue, fever, malaise, sweats, weakness, others EENTM: denies: blurred vision, double vision, ear bleeding, ear discharge, ear drainage, ear pain, ear ringing, eye pain, eye redness, hearing loss, mouth pain, mouth swelling, nasal discharge, nose bleeding, nose congestion, nose pain, photophobia, tearing, throat pain, throat swelling, voice changes, others Respiratory: denies: cough, hemoptysis, orthopnea, SOB at rest, shortness of breath, SOB with excertion, stridor, wheezing, others Cardiovascular: denies: chest pain, dizzy spells, diaphoresis, Dyspnea on ex ertion, edema, irregular heart beat, left arm pain, lightheadedness, palpitations, PND, syncope, others Gastrointestinal: reports: constipated; denies: abdomen distended, abdominal pain, blood streaked bowels, diarrhea, dysphagia, difficulty swallowing, hematemesis, melena, nausea, poor appetite, poor fluid intake, rectal bleeding, rectal pain, vomiting, others Genitourinary: denies: burning, dysuria, flank pain, frequency, hematuria, incontinence, penile discharge, penile sore, pain, testicle pain, testicle swelling, urgency, others Neurological: denies: dizziness, fainting, headache, left sided numbness, left sided weakness, numbness, paresthesia, pre-existing deficit, right sided numbness, right sided weakness, seizure, speech problems, tingling, tremors, weakness, others Musculoskeletal: denies: back pain, gout, joint pain, joint swelling, muscle pain, muscle stiffness, neck pain, others Integumetry: denies: bruises, change in color, change in hair/nails, dryness, laceration, lesions, lumps, rash, wounds, others Allergic/Immunocompromised: denies: Difficulty Healing, Frequent Infections, Hives, Itching, others Hematologic/Lymphatic: denies: anemia, blood clots, easy bleeding, easy bruising, swollen glands, others Endocrine: denies: excessive hunger, excessive sweating, excessive thirst, excessive urination, flushing, intolerance to cold, intolerance to heat, unexplained weight gain, unexplained weight loss, others Psychiatric: denies: anxiety, bipolar disorder, depression, hopeless, panic disorder, schizophrenia, sleepless, suicidal, others All Other Systems: Reviewed and Negative Physical Exam General Appearance: No Apparent Distress, Normal HEENT: Normal ENT Inspection, Pharynx Normal, TMs Normal Neck: Full Range of Motion, Non-Tender, Normal, Normal Inspection Respiratory: Chest Non-Tender, Lungs Clear, No Accessory Muscle Use, No Respiratory Distress, Normal Breath Sounds Cardiovascular: No Edema, No JVD, No Murmur, No Gallop, Normal Peripheral Pulses, Regular Rate/Rhythm Breast Exam: Deferred Gastrointestinal: No Organomegaly, Non Tender, No Pulsatile Mass, Normal Bowel Sounds, Soft Genitalia: Deferred Pelvic: Deferred Rectal: Deferred Extremities: No calf tenderness, Normal capillary refill, Normal inspection, Normal range of motion, Non-tender, No pedal edema Musculoskeletal : Apperance: Normal Neurologic: Alert, non profit director II-XII nml as Tested, No Motor Deficits, Normal Affect, Normal Mood, No Sensory Deficits Cerebellar Function: Normal Reflexes: Normal Skin: Dry, Normal Color, Warm Lymphatic: No Adenopathy Was a procedure done? Was a procedure done?: No Differential Dx Considerations may include: Constipation, gastritis, X-Ray, Labs, Meds, VS Vital Signs Date Time Temp Pulse Resp B/P (MAP) Pulse Ox O2 Delivery O2 Flow Rate FiO2 01/08/25 08:17 99.0 82 12 136/87 (103) 93 99.0 01/08/25 08:17 82 12 93 Room Air* 0 21 01/08/25 08:11 90 01/08/25 07:40 97.9 95 16 149/101 (117) 96 97.9 Time of 1ST Reevaluation: 08:30 Reevaluation 1ST: Unchanged Patient Education/Counseling: Diagnosis, Treatment, Prognosis Family Education/Counseling: No Family Present Departure 1 Departure Time of Disposition: 08:35 (Patient presents with chronic constipation. Patient has no signs bowel obstruction patient's belly is soft and nontender patient is tolerating p.o.. Patient is also passing gas. We will discharge patient with GoLYTELY.) Impression: Primary Impression: Constipation Qualified Codes: K59.00 - Constipation, unspecified Disposition: HOME / SELF CARE / HOMELESS Condition: Stable Additional Instructions: You are constipated. It is important to stay well rested and well hydrated. You should eat a high-fiber diet. You were prescribed GoLYTELY. This will help you have bowel movements. Please take as directed. If your symptoms worsen or you have any other concerns please return to the emergency room. e-Prescriptions Peg [id number] Bicarb-Sod Ch (Golytely) [place] 1 BOT PO ONCE for 1 Day, #4000 ML Prov: DIEGO THOMAS MD 01/08/25 Discharged With: Self Critical Care Note Critical Care Time?: No Stability Stability form required: No I personally scribed for DIEGO THOMAS MD ([email or web address]) on 01/08/25 at 08:32. Electronically submitted by Tristan Amaya ([email or web address]). DIEGO THOMAS MD Jan 08, 2025 08:32
[2025-01-08] MEDS ORDERED: PEGSOL11 PO (08:40)
[2025-01-08 08:55] VITALS: BP 125/63; PULSE 63; RESP 13; O2SAT 92
== END 2025-01-08 09:00 | disposition home or self-care (01) ==
LOC: ER 07:34
DX: K59.00 Constipation, unspecified (principal); F41.9 Anxiety disorder, unspecified; I11.0 Hypertensive heart disease with heart failure; I50.9 Heart failure, unspecified; Z86.73 Personal history of transient ischemic attack (TIA), and cerebral infarction without residual deficits; Z90.49 Acquired absence of other specified parts of digestive tract; Z95.0 Presence of cardiac pacemaker; Z90.89 Acquired absence of other organs; Z79.899 Other long term (current) drug therapy

== ENCOUNTER 2025-04-20 09:37 | Inpatient (IN) | payer MEDICARE, MEDICAID ==
[~2025-04-20] VITALS: Ht 175.3 cm; Wt 133.0 kg
[~2025-04-20 09:37] MED LIST changes: +PEGSOL11 PO
--- NOTE | 2025-04-20 09:59 | ED.PDOC ---
GI ASSESSMENT HPI Comments 75-year-old male presents here with abdominal pain and shortness of breath. Patient states for last 1 week when he goes to sleep at night he has a increased shortness of breath. He states he puts on his CPAP machine and things do improve. However without a CPAP he is in significant shortness of breath. He almost called 911 last night. He does have a known history of CHF and has not been taking his Lasix for the last 2 weeks. Does not know why. Additionally he has been reporting abdominal pain for the last 2 weeks. States that his abdomen feels hard. States he did have a bowel movement yesterday. He states that he does take pain medications for his chronic back pain which does help his abdo roberto pain but wants the medicine wears off his abdominal pain returns. Denies any nausea vomiting or diarrhea. No recent cough cold runny nose fevers or chills. Chief Complaint: Abdominal Pain Time Seen by MD: 11:00 Primary Care Provider: Dr. Cuellar Reviewed Notes: Medications, Allergies Allergies: Coded Allergies: NO KNOWN ALLERGIES (Unverified , 08/29/19) Home Meds Active Scripts Peg [id number] Bicarb-Sod Ch (Golytely) Pine[place]l [place], 1 BOT PO ONCE for 1 Day, #4000 ML Prov:DIEGO THOMAS MD 01/08/25 Lactulose (Lactulose) 10 Gm/15 Ml [place], 10 GM PO BID PRN for 30 Days, #120 ML 3 Refills Prov:MAX DANIEL MD 12/07/24 Reported Medications Quetiapine Fumerate (QUETIAPINE FUMARATE) 100 Mg Tab, 1 TAB PO DAILY for 45 Days, #45 08/01/24 Clonidine Hydrochloride (Clonidine Hcl) 0.1 Mg Tab, 1 TAB PO BID PRN for SBP>160 for 15 Days, #30 08/01/24 Spironolactone (Spironolactone) 25 Mg Tab, 1 TAB PO DAILY for 90 Days, #90 08/01/24 Ondansetron Odt 4MG Tab (ZOFRAN PO) 4 Mg Tb, 1 TAB PO QID for 30 Days, #120 ODT TAB-DISSOLVE IN MOUTH, THEN SWALLOW 08/01/24 Pregabalin (Pregabalin) 100 Mg Cap, 1 CAP PO DAILY for 30 Days, #30 08/01/24 Hydroxyzine Pamoate (Hydroxyzine Pamoate) 25 Mg Cap, 1 CAP PO BID PRN for 30 Days, #60 08/01/24 Omeprazole (Omeprazole Dr) 20 Mg Cap, 1 CAP PO DAILY for 90 Days, #90 05/24/20 Lisinopril (Lisinopril) 40 Mg Tab, 1 TAB PO BID for 90 Days, #180 05/24/20 Tamsulosin Hcl (Tamsulosin Hcl) 0.4 Mg Cap, 1 TAB PO HS for 90 Days, #90 08/29/19 Buspirone Hcl (Buspirone Hcl) 30 Mg Tab, 1 TAB PO BID for 45 Days, #90 08/29/19 Oxycodone HCl (Oxycodone Hydrochloride) 10 Mg Tab, 1 TAB PO Q6HR PRN for 30 Days, #120 08/29/19 Morphine Sulfate (Morphine Sulfate Er) 60 Mg Tab, 1 TAB PO Q12HR for 30 Days, #60 01/03/16 Atorvastatin Calcium (Lipitor) 40 Mg Tab, 1 TAB PO HS for 90 Days, #90 01/03/16 Information Source: Patient Mode of Arrival: Ambulatory Timing: Weeks Duration: Since onset Prehospital treatment: C-Pap Quality: Cramping Vomitus: None Severity: Moderate Recent: None Recent Hx of: None Pain Location: Epigastric Modifying Factors: Nothing Associated sign and symptoms: Abdominal Pain, Other (shortness of breath, BLE swelling) Past Medical History PAST MEDICAL HISTORY: Anxiety, CHF, Depression, High Lipids, HTN, TIA Past Medical History (Other): chronic back pain Surgical History: Cholecystectomy, Pacemaker, Tonsillectomy Family History Family History: Reviewed,noncontributory to illness, Unknown Social History Smoker: Non-Smoker Alcohol: Denies ETOH Use Drugs: Denies Drug Use Lives In: Home Constitutional: denies: chills, diaphoresis, fatigue, fever, malaise, sweats, weakness, others EENTM: denies: blurred vision, double vision, ear bleeding, ear discharge, ear drainage, ear pain, ear ringing, eye pain, eye redness, hearing loss, mouth pain, mouth swelling, nasal discharge, nose bleeding, nose congestion, nose pain, photophobia, tearing, throat pain, throat swelling, voice changes, others Respiratory: reports: shortness of breath; denies: cough, hemoptysis, orthopnea, SOB at rest, SOB with excertion, stridor, wheezing, others Cardiovascular: denies: chest pain, dizzy spells, diaphoresis, Dyspnea on exertion, edema, irregular heart beat, left arm pain, lightheadedness, palpitations, PND, syncope, others Gastrointestinal: reports: abdominal pain (epigastric); denies: abdomen distended, blood streaked bowels, constipated, diarrhea, dysphagia, difficulty swallowing, hematemesis, melena, nausea, poor appetite, poor fluid intake, rectal bleeding, rectal pain, vomiting, others Genitourinary: denies: burning, dysuria, flank pain, frequency, hematuria, incontinence, penile discharge, penile sore, pain, testicle pain, testicle swelling, urgency, others Neurological: denies: dizziness, fainting, headache, left sided numbness, left sided weakness, numbness, paresthesia, pre-existing deficit, right sided numbness, right sided weakness, seizure, speech problems, tingling, tremors, weakness, others Musculoskeletal: reports: others (BLE swelling); denies: back pain, gout, joint pain, joint swelling, muscle pain, muscle stiffness, neck pain Integumetry: denies: bruises, change in color, change in hair/nails, dryness, laceration, lesions, lumps, rash, wounds, others Allergic/Immunocompromised: denies: Difficulty Healing, Frequent Infections, Hives, Itching, others Hematologic/Lymphatic: denies: anemia, blood clots, easy bleeding, easy bru ising, swollen glands, others Endocrine: denies: excessive hunger, excessive sweating, excessive thirst, e xcessive urination, flushing, intolerance to cold, intolerance to heat, unexplained weight gain, unexplained weight loss, others Psychiatric: denies: anxiety, bipolar disorder, depression, hopeless, panic disorder, schizophrenia, sleepless, suicidal, others All Other Systems: Reviewed and Negative Physical Exam General Appearance: Mild Distress, Normal, Other (Patient walking with wheelchair mild shortness of breath with walking) HEENT: Normal ENT Inspection, Pharynx Normal, TMs Normal Neck: Full Range of Motion, Non-Tender, Normal, Normal Inspection Respiratory: Chest Non-Tender, Lungs Clear, Other (Diminished breath sounds in all lung bustillos) Cardiovascular: No Edema, No JVD, No Murmur, No Gallop, Normal Peripheral Pul ses, Regular Rate/Rhythm Breast Exam: Deferred Gastrointestinal: No Organomegaly, Non Tender, No Pulsatile Mass, Normal Bowel Sounds, Soft Genitalia: Deferred Pelvic: Deferred Rectal: Deferred Extremities: No calf tenderness, Normal inspection, Normal range of motion, Non-tender, Other (2+ edema bilateral lower extremities) Musculoskeletal : Apperance: Normal Neurologic: Alert, No Motor Deficits, Normal Affect, Normal Mood, No Sensory Deficits Cerebellar Function: Normal Reflexes: Normal Skin: Dry, Normal Color, Warm Lymphatic: No Adenopathy EKG EKG : Comments Rate of 81 atrial fibrillation, LVH, no significant ST changes Was a procedure done? Was a procedure done?: No GI differential Dx Differential Diagnosis: Other Other Differential Diagnosis Pneumonia, CHF exacerbation, medication noncompliance, small-bowel obstruction, biliary colic, cholecystitis, DVT, PE X-Ray, Labs, Meds, VS Vital Signs Date Time Temp Pulse Resp B/P (MAP) Pulse Ox O2 Delivery O2 Flow Rate FiO2 04/20/25 12:10 149/78 04/20/25 12:08 60 19 149/78 (101) 95 04/20/25 09:54 81 04/20/25 09:44 98.2 82 20 153/85 96 98.2 Lab Test 04/20/25 11:21 04/20/25 11:05 04/20/25 10:20 Range/Units Troponin I High Sensitivity 3 L < 3 L </=54 ng/L Urine Color Light-yellow Yellow Urine Clarity Clear Clear Urine pH 5.5 5.0-9.0 Urine Specific [place] 1.017 1.001-1.035 Urine Protein Negative Negative Urine Ketones Negative Negative Urine Blood Negative Negative /uL Urine Nitrite Negative Negative Urine Bilirubin Negative Negative Urine Urobilinogen Normal Negative mg/dL Urine Leukocyte Esterase Negative Negative /uL Urine RBC <1 0 - 3 /hpf Urine Microscopic WBC 1 0-3 /HPF Urine Squamous Epithelial Cells Few <5 /hpf Urine Bacteria None seen None Seen /hpf Urine Glucose Normal Normal mg/dL White Blood Count 9.1 4.4-10.8 10^3/uL Red Blood Count 5.21 4.5-5.90 10^6/uL Hemoglobin 14.9 13.5-17.5 g/dL Hematocrit 44.8 41.0-53.0 % Mean Corpuscular Volume 85.9 80.0-100.0 fL Mean Corpuscular Hemoglobin 28.7 28.0-32.0 pg Mean Corpuscular Hemoglobin Concent 33.3 32.0-36.0 g/dL Red Cell Distribution Width 14.0 11.8-14.3 % Platelet Count 238 140-450 10^3/uL Mean Platelet Volume 8.7 6.9-10.8 fL Neutrophils (%) (Auto) 60.3 37.0-80.0 % Lymphocytes (%) (Auto) 27.8 10.0-50.0 % Monocytes (%) (Auto) 9.4 0.0-12.0 % Eosinophils (%) (Auto) 1.3 0.0-7.0 % Basophils (%) (Auto) 1.2 0.0-2.0 % Neutrophils # (Auto) 5.5 1.6-8.6 10 ^3/uL Lymphocytes # (Auto) 2.5 0.4-5.4 10 ^3/uL Monocytes # (Auto) 0.9 0-1.3 10 ^3/uL Eosinophils # (Auto) 0.1 0-0.8 10 ^3/uL Basophils # (Auto) 0.1 0-0.2 10 ^3/uL Nucleated Red Blood Cells 0.0 % Sodium Level 142 136-145 mmol/L Potassium Level 4.0 3.5-5.1 mmol/L Chloride Level 106 98-107 mmol/L Carbon Dioxide Level 29 20-31 mmol/L Anion Gap 7 5-15 Blood Urea Nitrogen 13 9-23 mg/dL Creatinine 0.96 0.700-1.30 mg/dL Glomerular Filtration Rate Calc 83 >90 mL/min BUN/Creatinine Ratio 13.5 10.0-20.0 Serum Glucose 141 H 74-106 mg/dL Calcium Level 8.7 8.7-10.4 mg/dL Total Bilirubin 1.2 H 0.2-1.0 mg/dL Aspartate Amino Transferase (AST) 34 13-40 U/L Alanine Aminotransferase (ALT) 40 7-40 U/L Alkaline Phosphatase 242 H 46-116 U/L B-Type Natriuretic Peptide 96.31 0-100 pg/mL Total Protein 6.7 5.7-8.2 g/dL Albumin 3.5 3.2-4.8 g/dL Lipase 24 12-53 U/L Current Medications Medications (Trade) Dose Ordered Sig/Camille Route Start Time Stop Time Status Last Admin Furosemide (Lasix Injection) 40 mg ONCE ONCE IV 04/20/25 11:15 04/20/25 11:16 DC 04/20/25 12:[address] [address] Ph: [phone] DIAGNOSTIC IMAGING Diagnostic Imaging Report : [id number] Signed PATIENT: MICHELE WESTON ACCT: [id number] UNIT: [id number] : 1950 LOC: ER ROOM / BED: / AGE / SEX: 75 / M ADM STATUS: REG ER SERVICE 8 ORDERING PHYSICIAN: NASREEN KYLE MD PROCEDURE(s): CXR2 - CHEST TWO VIEWS ROUTINE REASON: Shortness of breath rule out pneumonia fluid overload ORDER NUMBER(s): [id number], ACCESSION NUMBER(s): [id number] EXAM: XY CHEST TWO VIEWS ROUTINE CLINICAL HISTORY: Shortness of breath rule out pneumonia fluid overload COMPARISON: XY CHEST PORTABLE on DOS: 10/08/24, XY CHEST XRAY 1 VIEW on DOS: 10/07/24, XY CHEST XRAY 1 VIEW on DOS: 10/07/24, XR CHEST 1 VIEW on DOS: 08/12/24, XY CHEST XRAY 1 VIEW on DOS: 07/31/24 TECHNIQUE: Frontal and lateral view of the chest was obtained FINDINGS: Lines and Tubes: Cardiac pacemaker projects over left chest wall. Lungs: No focal consolidation. Pleura: No effusion. No pneumothorax. Cardiomediastinal contours: Unremarkable. Atherosclerotic vascular calcifications of the thoracic aorta are noted. Bones: No acute osseous abnormality. IMPRESSION: No acute cardiopulmonary disease. ATED BY: LANG SUTHERLAND MD DICTATED DATE/TIME: 04/20/251029 SIGNED BY: LANG SUTHERLAND MD SIGNED DATE/TIME: 04/20/[address] [address] Ph: [phone] DIAGNOSTIC IMAGING Diagnostic Imaging Report : [id number] Signed PATIENT: MICHELE WESTON ACCT: [id number] UNIT: [id number] : 1950 LOC: ER ROOM / BED: / AGE / SEX: 75 / M ADM STATUS: REG ER SERVICE 1114 ORDERING PHYSICIAN: NASREEN KYLE MD PROCEDURE(s): ABPL - CT AB PEL WO CON-NO ORAL OR IV REASON: Rule out small bowel obstruction ORDER NUMBER(s): [id number], ACCESSION NUMBER(s): [id number] Indication: Rule out small bowel obstruction Technique: CT axial images of the abdomen and pelvis are obtained without contrast. Coronal and sagittal reformats were obtained. Radiation Dose Information: CTDI volume is 27.29 mGy. Dose-length product is 3.92 mGy*cm Comparison: CT CT AB PEL WO CON-NO ORAL OR IV on DOS: 10/07/24, ECIDC on DOS: 05/18/22 FINDINGS: There is limited interpretation of the abdomen and pelvis without administration of intravenous contrast. Lung bases demonstrate no pleural effusion. Adrenal glands, spleen unremarkable. Pancreatic parenchymal atrophy. There is a pancreatic stent extending to the 3rd segment of the duodenum. Cholecystectomy. Dilatation of the CBD up to 1.7 cm. Intrahepatic ducts are dilated to 11 mm. No hydronephrosis. Left renal hypodense lesion measuring 4 cm, previously appear to represent cysts. Stomach partially distended. Small bowel loops are normal in caliber. Colonic diverticular disease. Moderate volume stool in the colon. Normal appendix. Bladder partially distended. No free pelvic fluid. Small bilateral fat containing inguinal hernias. [id number] bilateral sacroiliac degenerative joint disease. Qvra-np-qiwzuikh thoracolumbar degenerative disc disease. IMPRESSION: Limited evaluation without contrast. No evidence for small-bowel obstruction. Pancreatic stent. Dilated CBD, intrahepatic ducts. Correlate exclude any type of obstructing biliary etiology. Colonic diverticular disease. Cholecystectomy. 4 cm left renal hypodense lesion, likely cysts based on prior CT. Recommend MRI abdomen with and without contrast to ensure simplicity and exclude any time of complex mass/lesion. This may be done in the nonemergent setting. Other findings as described. [address] [address] Ph: [phone] DIAGNOSTIC IMAGING Diagnostic Imaging Report : [id number] Signed PATIENT: MICHELE WESTON ACCT: [id number] UNIT: [id number] : 1950 LOC: ER ROOM / BED: / AGE / SEX: 75 / M ADM STATUS: REG ER SERVICE 1114 ORDERING PHYSICIAN: NASREEN KYLE MD PROCEDURE(s): LIVUS - LIVER REASON: Rule out cholecystitis ORDER NUMBER(s): [id number], ACCESSION NUMBER(s): [id number] INDICATION: Rule out cholecystitis TECHNIQUE: Multiple real-time sonographic images were obtained of the right upper quadrant. COMPARISON: US GALLBLADDER on DOS: 08/01/24, US KIDNEY on DOS: 12/28/23, US ABDOMEN COMPLETE SONOGRAM on DOS: 10/05/23 FINDINGS: The liver demonstrates increased echotexture without focal mass lesions. The liver measures 16.9 cm. There is no intrahepatic or extrahepatic ductal dilatation. The common duct measures 1.6 cm. Post cholecystectomy. The right kidney measures 11.4 cm. The right kidney is normal in contour, size, and shape. The echogenicity is normal. There is no hydronephrosis. Left kidney measures 10.4 cm. Left lower pole cyst measures 3.0 cm. Multiple punctate nonobstructing stones in the right kidney. The pancreas is not well visualized due to overlying bowel gas. IMPRESSION: Hepatic steatosis. Post cholecystectomy. Multiple punctate nonobstructing stones in the right kidney. Increased echogenicity bilateral kidneys can be seen in chronic medical renal disease. Common bile duct is distended measuring 1.6 cm. This may be within normal limits post cholecystectomy. Clinical correlation advised. ATED BY: GIDEON CEJA MD DICTATED DATE/TIME: 04/20/25 122 SIGNED BY: GIDEON CEJA MD SIGNED DATE/TIME: 04/20/25 122 75-year-old male presents here with shortness of breath at night while sleeping and also abdominal pain. I suspect he is likely having a CHF exacerbation given the shortness of breath is worse at night he has when he lays flat. Improved with the CPAP. I have ordered him Lasix 40 mg IV here in the ER. Considered possible pneumonia however he does not have any recent cough cold runny nose fever or chills. Considered possible PE however he does not have any unilateral leg swelling. Patient is not hypoxic and saturating 96% on room air. On my examination abdomen has a mild tenderness to the epigastric region. However he does state he takes chronic pain medications. At this time I have considered possible cholecystitis, biliary colic as well as small bowel obstruction. I have ordered an ultrasound of the gallbladder as well as a CT abdomen pelvis noncontrast. I have also ordered a CBC CMP, troponin, lipase and EKG. As well as chest x-ray. CBC within normal limits. CMP with elevated bilirubin at 1.2. Mild elevated alk phos at 2:42 a.m.. Ultrasound of the liver demonstrates hepatic steatosis as well as common bile duct distended which is 1.6 cm which could be within normal limits status post cholecystectomy. However patient continues to have pain to the right upper quadrant. CT abdomen pelvis demonstrates multiple dilated ducts both internal and extrahepatic. At this time given his elevated bilirubin and has dilated biliary duct come on concerned about possible common bile duct stone. At this time hospitalist team has been contacted for admission. Time of 1ST Reevaluation: 11:30 Reevaluation 1ST: Unchanged Patient Education/Counseling: Diagnosis, Treatment Family Education/Counseling: No Family Present SEPSIS Sepsis Screen Date sepsis recognized/suspect: Apr 20, 2025 Time Sepsis recognized/suspect: 945 Recent Procedure: No On Antibiotic Therapy: No Respiratory Rate >20: No Heart Rate >90: No Temp<36 C (96.8 F) or >38.3 C: No SBP <90 or MAP <65 mmHG: No New Acute Mental Status Change: No Is the patient on CPAP, BIPAP,: No Physician Orders Chest Two Views Routine (04/20/25 09:59) Ct Ab Pel Wo Con-No Oral Or Iv (04/20/25 11:14) LIVER (04/20/25 11:14) Vital Signs Date Time Temp Pulse Resp B/P (MAP) Pulse Ox O2 Delivery O2 Flow Rate FiO2 04/20/25 12:10 149/78 04/20/25 12:08 60 19 149/78 (101) 95 04/20/25 09:54 81 04/20/25 09:44 98.2 82 20 153/85 96 98.2 Laboratory Tests Test 04/20/25 10:20 White Blood Count 9.1 10^3/uL (4.4-10.8) Medications Medications Dose Ordered Sig/Camille Route Start Time Stop Time Status Last Admin Dose Admin Furosemide 40 mg ONCE ONCE IV 04/20/25 11:15 04/20/25 11:16 DC 04/20/25 12:10 Departure 1 Departure Time of Disposition: 12:45 Impression: Primary Impression: Hyperbilirubinemia Additional Impressions: Common bile duct dilatation Right upper quadrant pain Disposition: ADMITTED INPATIENT Condition: Stable Critical Care Note Critical Care Time?: No Stability Stability form required: No Heart Score Heart Score: Heart Score Response (Comments) Value History N/A 0 EKG N/A 0 Age N/A 0 Risk Factors N/A 0 Troponin N/A 0 Total 0 I personally scribed for NASREEN KYLE MD ([email or web address]) on 04/20/25 at 11:27. Electronically submitted by Crystal Shields ([email or web address]). NASREEN KYLE MD Apr 20, 2025 09:59
[2025-04-20 10:31] LABS: Hematocrit 44.8 % (41.0-53.0); Hemoglobin 14.9 g/dL (13.5-17.5); Mean Corpuscular Hemoglobin 28.7 pg (28.0-32.0); Mean Corpuscular Volume 85.9 fL (80.0-100.0); Nucleated Red Blood Cells % 0.0 %
--- NOTE | 2025-04-20 10:33 | DVH ---
EXAM: XY CHEST TWO VIEWS ROUTINE CLINICAL HISTORY: Shortness of breath rule out pneumonia fluid overload COMPARISON: XY CHEST PORTABLE on DOS: 10/08/24, XY CHEST XRAY 1 VIEW on DOS: 10/07/24, XY CHEST XRAY 1 EW on DOS: 10/07/24, XR CHEST 1 VIEW on DOS: 08/12/24, XY CHEST XRAY 1 VIEW on DOS: 07/31/24 TECHNIQUE: Frontal and lateral view of the chest was obtained FINDINGS: Lines and Tubes: Cardiac pacemaker projects over left chest wall. Lungs: No focal consolidation. Pleura: No effusion. No pneumothorax. Cardiomediastinal contours: Unremarkable. Atherosclerotic vascular calcifications of the thoracic ao rta are noted. Bones: No acute osseous abnormality. IMPRESSION: No acute cardiopulmonary disease.
[2025-04-20 10:47] LABS: Albumin 3.5 g/dL (3.2-4.8); Anion Gap 7 (5-15); BUN/Creatinine Ratio 13.5 (10.0-20.0); Blood Urea Nitrogen 13 mg/dL (9-23); Calcium 8.7 mg/dL (8.7-10.4); Carbon Dioxide 29 mmol/L (20-31); Chloride 106 mmol/L (98-107); Lipase 24 U/L (12-53); Potassium 4.0 mmol/L (3.5-5.1); Sodium 142 mmol/L (136-145); Total Protein 6.7 g/dL (5.7-8.2)
[2025-04-20 10:48] LABS: Alanine Aminotransferase 40 U/L (7-40); Alkaline Phosphatase 242 U/L (46-116); Bilirubin, Total 1.2 mg/dL (0.2-1.0); Glucose 141 mg/dL (74-106)
[2025-04-20 11:16] LABS: Urine Protein, UAD Negative (Negative)
[2025-04-20] MEDS: FUROSEMIDE 40 MG/4 ML VIAL IV ONE (12:10)
--- NOTE | 2025-04-20 12:17 | DVH ---
Indication: Rule out small bowel obstruction Technique: CT axial images of the abdomen and pelvis are obtained without contrast. Coronal and sagit catia reformats were obtained. Radiation Dose Information: CTDI volume is 27.29 mGy. Dose-length product is 3.92 mGy*cm Comparison: CT CT AB PEL WO CON-NO ORAL OR IV on DOS: 10/07/24, ECIDC on DOS: 05/18/22 FINDINGS: There is limited interpretation of the abdomen and pelvis without administration of intravenous contr ast. Lung bases demonstrate no pleural effusion. Adrenal glands, spleen unremarkable. Pancreatic parenchymal atrophy. There is a pancreatic stent ex tending to the 3rd segment of the duodenum. Cholecystectomy. Dilatation of the CBD up to 1.7 cm. Intr ahepatic ducts are dilated to 11 mm. No hydronephrosis. Left renal hypodense lesion measuring 4 cm, previously appear to represent cysts. Stomach partially distended. Small bowel loops are normal in caliber. Colonic diverticular disease. Moderate volume stool in the colon. Normal appendix. Bladder partially distended. No free pelvic fluid. Small bilateral fat containing inguinal hernias. Ygfk-or-nedukqvh bilateral sacroiliac degenerative joint disease. Krbg-sf-[id number] thoracolumbar degenerative disc disease. IMPRESSION: Limited evaluation without contrast. No evidence for small-bowel obstruction. Pancreatic stent. Dilated CBD, intrahepatic ducts. Correlate exclude any type of obstructing biliary etiology. Colonic diverticular disease. Cholecystectomy. 4 cm left renal hypodense lesion, likely cysts based on prior CT. Recommend MRI abdomen with and wit hout contrast to ensure simplicity and exclude any time of complex mass/lesion. This may be done in the nonemergent setting. Other findings as described.
--- NOTE | 2025-04-20 12:22 | DVH ---
INDICATION: Rule out cholecystitis TECHNIQUE: Multiple real-time sonographic images were obtained of the right upper quadrant. COMPARISON: US GALLBLADDER on DOS: 08/01/24, US KIDNEY on DOS: 12/28/23, US ABDOMEN COMPLETE SONOGRAM on DOS: 10/05/23 FINDINGS: The liver demonstrates increased echotexture without focal mass lesions. The liver measure s 16.9 cm. There is no intrahepatic or extrahepatic ductal dilatation. The common duct measures 1.6 cm. Post cholecystectomy. The right kidney measures 11.4 cm. The right kidney is normal in contour, size, and shape. The echoge nicity is normal. There is no hydronephrosis. Left kidney measures 10.4 cm. Left lower pole cyst zoraida ures 3.0 cm. Multiple punctate nonobstructing stones in the right kidney. The pancreas is not well visualized due to overlying bowel gas. IMPRESSION: Hepatic steatosis. Post cholecystectomy. Multiple punctate nonobstructing stones in the right kidney. Increased echogenicity bilateral kidneys can be seen in chronic medical renal disease. Common bile duct is distended measuring 1.6 cm. This may be within normal limits post cholecystectomy . Clinical correlation advised.
--- NOTE | 2025-04-20 15:01 | ECG ---
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
[2025-04-20 19:45] LABS: INR 1.09 (0.9-1.15); Partial Thromboplastin Time 29.6 SEC (24.5-34.5); Prothrombin Time 11.5 sec (9.3-11.8)
[2025-04-20] MEDS: ATORVASTATIN 20 MG TAB PO ONE (20:57)
[2025-04-20] MEDS: MAALOX PLUS or MAALOX 30 ML PO ONE (20:58)
[2025-04-20 21:00] VITALS: BP 151/73; PULSE 62; RESP 13; TEMP 98.1; O2SAT 100
--- NOTE | 2025-04-20 21:14 | DVHHPRES ---
History of Present Illness Resident Creating Document: ANITHA THORPE RESIDENT History of Present Illness 75-year-old male with previous history of diastolic heart failure with EF 55%, hypertension, history of previous cholecystectomy with CBD stent placed, multiple nonobstructing renal stones presented to the ER with shortness of b reath, the patient reports shortness of breath improved with CPAP use. However since 1 day the shortness of breath increased, no definite aggravating or relieving factors noted. He also reports having epigastric pain radiating to the back, no relation with food intake, also complains of dry mouth. The epigastric pain started 2 weeks ago and gradually worsened to the point the pa lesli presented to the ER. He denies any chest pain, fever, abdominal pain, sick contact or recent travel history. Smoking history: Remote history of smoking at his 20s Alcohol occasionally Drugs: Never PCP: Dr. Cuellar Code status: Full code The patient was seen and examined at bedside. Presenting complaints are shortness of breath and abdominal pain. He denies any other complaints. Review of Systems Allergies: Coded Allergies: NO KNOWN ALLERGIES (Unverified , 08/29/19) Medications Current Medications Medications Dose Ordered Sig/Camille Route Start Time Stop Time Status Last Admin Dose Admin Lisinopril 40 mg DAILY PO 04/21/25 10:00 Spironolactone 25 mg DAILY PO 04/21/25 10:00 Exam Vital Signs Vital Signs Date Time Temp Pulse Resp B/P (MAP) Pulse Ox O2 Delivery O2 Flow Rate FiO2 04/20/25 12:10 149/78 04/20/25 12:08 60 19 95 04/20/25 09:44 98.2 98.2 Exam Pt is lying on bed General Appearance: Alert, Oriented X3, Cooperative, Mild distress HEENT: Atraumatic, Mucous membranes moist/pink Respiratory: Clear to auscultation, Normal air movement, No added sounds Cardiovascular: Regular rate, Normal S1, Normal S2, No murmurs Abdominal/ : Active bowel sounds, Soft, no distention, epigastric tenderness Extremities: Redness on both lower extremities, 1+ edema, Normal pulses, No tenderness/swelling Skin: No Significant rash, except past surgical scars Neuro: Normal speech, sensorimotor deficits none Psych/Mental Status: Mental status NL, Mood NL Nurse was there as pathology technologist during examination Labs/Xrays Labs Test 04/20/25 19:11 04/20/25 11:21 04/20/25 11:05 04/20/25 10:20 Range/Units Prothrombin Time 11.5 9.3-11.8 sec Prothrombin Time INR 1.09 0.9-1.15 Activated Partial Thromboplast Time 29.6 24.5-34.5 SEC Lactic Acid Level 1.1 0.4-2.0 mmol/L B-Type Natriuretic Peptide 59.43 0-100 pg/mL Troponin I High Sensitivity 3 L </=54 ng/L Urine Color Light-yellow Yellow Urine Clarity Clear Clear Urine pH 5.5 5.0-9.0 Urine Specific Mchenry 1.017 1.001-1.035 Urine Protein Negative Negative Urine Ketones Negative Negative Urine Blood Negative Negative /uL Urine Nitrite Negative Negative Urine Bilirubin Negative Negative Urine Urobilinogen Normal Negative mg/dL Urine Leukocyte Esterase Negative Negative /uL Urine RBC <1 0 - 3 /hpf Urine Microscopic WBC 1 0-3 /HPF Urine Squamous Epithelial Cells Few <5 /hpf Urine Bacteria None seen None Seen /hpf Urine Glucose Normal Normal mg/dL White Blood Count 9.1 4.4-10.8 10^3/uL Red Blood Count 5.21 4.5-5.90 10^6/uL Hemoglobin 14.9 13.5-17.5 g/dL Hematocrit 44.8 41.0-53.0 % Mean Corpuscular Volume 85.9 80.0-100.0 fL Mean Corpuscular Hemoglobin 28.7 28.0-32.0 pg Mean Corpuscular Hemoglobin Concent 33.3 32.0-36.0 g/dL Red Cell Distribution Width 14.0 11.8-14.3 % Platelet Count 238 140-450 10^3/uL Mean Platelet Volume 8.7 6.9-10.8 fL Neutrophils (%) (Auto) 60.3 37.0-80.0 % Lymphocytes (%) (Auto) 27.8 10.0-50.0 % Monocytes (%) (Auto) 9.4 0.0-12.0 % Eosinophils (%) (Auto) 1.3 0.0-7.0 % Basophils (%) (Auto) 1.2 0.0-2.0 % Neutrophils # (Auto) 5.5 1.6-8.6 10 ^3/uL Lymphocytes # (Auto) 2.5 0.4-5.4 10 ^3/uL Monocytes # (Auto) 0.9 0-1.3 10 ^3/uL Eosinophils # (Auto) 0.1 0-0.8 10 ^3/uL Basophils # (Auto) 0.1 0-0.2 10 ^3/uL Nucleated Red Blood Cells 0.0 % Sodium Level 142 136-145 mmol/L Potassium Level 4.0 3.5-5.1 mmol/L Chloride Level 106 98-107 mmol/L Carbon Dioxide Level 29 20-31 mmol/L Anion Gap 7 5-15 Blood Urea Nitrogen 13 9-23 mg/dL Creatinine 0.96 0.700-1.30 mg/dL Glomerular Filtration Rate Calc 83 >90 mL/min BUN/Creatinine Ratio 13.5 10.0-20.0 Serum Glucose 141 H 74-106 mg/dL Hemoglobin A1c 6.4 H <5.7 % A1C Calcium Level 8.7 8.7-10.4 mg/dL Magnesium Level 1.8 1.6-2.6 mg/dL Total Bilirubin 1.2 H 0.2-1.0 mg/dL Aspartate Amino Transferase (AST) 34 13-40 U/L Alanine Aminotransferase (ALT) 40 7-40 U/L Alkaline Phosphatase 242 H 46-116 U/L Total Protein 6.7 5.7-8.2 g/dL Albumin 3.5 3.2-4.8 g/dL Lipase 24 12-53 U/L Vitamin B12 Level 237 211-911 pg/mL Vitamin D 25-Hydroxy 7.4 L 30.0-100 ng/mL Folic Acid 9.85 >5.38 ng/mL Thyroid Stimulating Hormone (TSH) 2.19 0.55-4.78 uIU/mL SEPSIS Sepsis Screen Date sepsis recognized/suspect: Apr 20, 2025 Time Sepsis recognized/suspect: 945 Recent Procedure: No On Antibiotic Therapy: No Respiratory Rate >20: No Heart Rate >90: No Temp<36 C (96.8 F) or >38.3 C: No SBP <90 or MAP <65 mmHG: No New Acute Mental Status Change: No Is the patient on CPAP, BIPAP,: No Physician Orders Complete Blood Count (04/21/25 04:00) Comprehensive Metabolic Panel (04/21/25 04:00) Admit (04/20/25 16:47) Oxygen By Nasal Cannula (04/20/25 16:47) Notify Of Changes From Base (04/20/25 16:47) Loan Counselor For 24 Hours (04/20/25 16:47) Oxygen By Nasal Cannula (04/20/25 17:21) Drug Screen (04/20/25 18:40) Urinalysis (04/20/25 18:40) Bipap/Cpap For Sleep Apnea (04/20/25 19:18) Lisinopril Tablet (Zestril Tablet) (04/21/25 10:00) Spironolactone (Aldactone) (04/21/25 10:00) Laboratory Tests Test 04/20/25 10:20 04/20/25 19:11 White Blood Count 9.1 10^3/uL (4.4-10.8) Lactic Acid Level 1.1 mmol/L (0.4-2.0) Medications Medications Dose Ordered Sig/Camille Route Start Time Stop Time Status Last Admin Dose Admin Al Hydrox/Mg Hydrox/Simethicone 30 ml ONCE ONCE PO 04/20/25 17:30 04/20/25 17:40 DC 04/20/25 20:58 30 ML Atorvastatin Calcium 40 mg ONCE ONCE PO 04/20/25 20:00 04/20/25 20:10 DC 04/20/25 20:57 40 MG Furosemide 40 mg ONCE ONCE IV 04/20/25 11:15 04/20/25 11:16 DC 04/20/25 12:10 40 MG Tramadol HCl 50 mg ONCE ONCE PO 04/20/25 17:30 04/20/25 17:40 DC 04/20/25 20:57 50 MG Assessment/Plan Assessment/Plan Probable Choledocholithiasis/cholangitis Status/Post cholecystectomy Hepatic steatosis Liver ultrasound: Hepatic steatosis post cholecystectomy multiple punctate nonobstructing stone in the right kidney chronic renal disease CBD distended 1.6 cm could be normal for post cholecystectomy patients Morphine IV p.r.n., cautious use due to concern for sphincter of Oddi contraction The pain is unresponsive to [place] and tramadol. IV normal saline NPO Ordered social media strategist to evaluate Transfer to higher level of care for possible ERCP Multiple nonobstructing stones in the right kidney Outpatient follow up Monitor renal functions Tamsulosin Avoid nephrotoxic drugs History of heart failure with EF 55%: Likely not exacerbated, given absent clinical signs symptoms of fluid overload Continue atorvastatin and spironolactone Hypertension Lisinopril Consider Metoprolol GI prophylaxis: Pantoprazole DVT prophylaxis: SCD Goals of care discussed with the patient for more than 27 minutes: Full code status Case discussed with Dr. Harris, patient and RN Plan discussed with: Patient, Other My Orders Orders - ANITHA THORPE RESIDENT Procedure Category Date Status Time Complete Blood Count LAB 04/21/25 Verified 04:00 Comprehensive LAB 04/21/25 Verified Metabolic Panel 04:00 Admit ADMIT 04/20/25 Transmitted 16:47 Oxygen By Nasal RT 04/20/25 Transmitted Cannula 16:47 Notify Of Changes SILVA 04/20/25 In Process From Base 16:47 Loan Counselor For SILVA 04/20/25 In Process 24 Hours 16:47 Oxygen By Nasal RT 04/20/25 Transmitted Cannula 17:21 Drug Screen LAB 04/20/25 Logged 18:40 Urinalysis LAB 04/20/25 Logged 18:40 Lisinopril Tablet PHA 04/21/25 In Process (Zestril Tablet) 10:00 Spironolactone PHA 04/21/25 In Process (Aldactone) 10:00 Date of Service: Apr 20, 2025 Billing Provider: LAMBERTO HARRIS MD Common Visit Codes: [id number] INP/OBS CARE (HIGH) ANITHA THORPE RESIDENT Apr 20, 2025 21:14 MAGNUS CARDOZA RESIDENT Apr 24, 2025 12:01 LAMBERTO HARRIS MD Apr 25, 2025 20:28
[2025-04-20] MEDS: FUROSEMIDE 20 MG/2 ML VIAL IV ONE (21:22)
[2025-04-20] MEDS: SODIUM CHLORIDE 0.9% 1,000 ML IV SCH (22:15)
[2025-04-20 22:31] VITALS: BP 142/85; PULSE 60; RESP 16; TEMP 97.7; O2SAT 99
[2025-04-20 22:43] LABS: Urine Protein, UAD Negative (Negative)
[2025-04-20 22:53] VITALS: BP 151/73; PULSE 62; TEMP 98.1; O2SAT 96
[2025-04-20 23:01] LABS: Amphetamine Screen, Urine Neg (NEGATIVE); Barbiturate Scree,Urine Neg (NEGATIVE); Benzodiazephine Screen, Urine Neg (NEGATIVE); Cannabinoid Screen, Urine Neg (NEGATIVE); Cocaine Screen, Urine Neg (NEGATIVE); Opiate Scree,Urine Pos (NEGATIVE); Phencyclidine Screen, Urine Neg (NEGATIVE)
[2025-04-20] MEDS: MORPHINE SULFATE INJ 2 MG/ml SYRG IM ONE (23:44)
[2025-04-21] VITALS (10 sets, daily range): BP systolic 135–153; BP diastolic 67–99; PULSE 60–68; RESP 14–18; TEMP 97.4–99; O2SAT 93–100
[2025-04-21] MEDS: ONDANSETRON HCL 4 MG/2 ML VIAL IV ONE (00:49)
[2025-04-21] MEDS: MORPHINE SULFATE INJ 2 MG/ml SYRG IV PRN (05:11)
[2025-04-21 07:48] LABS: Hematocrit 40.9 % (41.0-53.0); Hemoglobin 13.8 g/dL (13.5-17.5); Mean Corpuscular Hemoglobin 28.8 pg (28.0-32.0); Mean Corpuscular Volume 85.6 fL (80.0-100.0); Nucleated Red Blood Cells % 0.1 %
[2025-04-21 08:01] LABS: Chloride 102 mmol/L (98-107); Sodium 142 mmol/L (136-145)
[2025-04-21 08:04] LABS: Potassium 3.4 mmol/L (3.5-5.1)
[2025-04-21 08:26] LABS: Anion Gap 13 (5-15); Carbon Dioxide 27 mmol/L (20-31)
[2025-04-21 08:31] LABS: BUN/Creatinine Ratio 11.4 (10.0-20.0); Blood Urea Nitrogen 10 mg/dL (9-23); Glucose 98 mg/dL (74-106)
[2025-04-21 08:32] LABS: Calcium 8.6 mg/dL (8.7-10.4); Total Protein 6.8 g/dL (5.7-8.2)
[2025-04-21 08:33] LABS: Alanine Aminotransferase 31 U/L (7-40); Albumin 3.5 g/dL (3.2-4.8)
[2025-04-21 08:34] LABS: Alkaline Phosphatase 204 U/L (46-116)
[2025-04-21 08:40] LABS: Bilirubin, Total 2.1 mg/dL (0.2-1.0)
[2025-04-21] MEDS ORDERED: ACETAMINOPHEN 325 MG TAB PO PRN (09:00)
[2025-04-21] MEDS ORDERED: ONDANSETRON HCL 4 MG/2 ML VIAL IM ONE (09:00)
[2025-04-21] MEDS: SPIRONOLACTONE 25 MG TAB PO SCH (09:21)
[2025-04-21] MEDS: LISINOPRIL 20 MG TAB PO SCH (09:22)
[2025-04-21] MEDS: KETOROLAC TROMETH 30 MG/ML 1ML VIAL IV ONE (10:35)
[2025-04-21] MEDS: HYDROMORPHONE HCL 1 MG/ML INJ IV PRN (16:41)
--- NOTE | 2025-04-21 17:50 | DVHPNRES ---
Progress Note Date Seen: Apr 21, 2025 Resident Creating Document: ANITHA THORPE RESIDENT Medical Necessity Reason Pt with a Central, PICC or Fol: No Subjective Review of Systems 75-year-old male with previous history of diastolic heart failure with EF 55%, hypertension, history of previous cholecystectomy with CBD stent placed, multiple nonobstructing renal stones presented to the ER with shortness of breath, the patient reports shortness of breath improved with CPAP use. However since 1 day the shortness of breath increased, no definite aggravating or relieving factors noted. He also reports having epigastric pain radiating to the back, no relation with food intake, also complains of dry mouth. The epigastric pain started 2 weeks ago and gradually worsened to the point the patient presented to the ER. He denies any chest pain, fever, abdominal pain, sick contact or recent travel history. Smoking history: Remote history of smoking at his 20s Alcohol occasionally Drugs: Never PCP: Dr. Cuellar Code status: Full code The patient was seen and examined at bedside. Presenting complaints are shortness of breath and abdominal pain. He denies any other complaints. Objective vital signs Vital Sign Date Time Temp Pulse Resp B/P (MAP) Pulse Ox O2 Delivery O2 Flow Rate FiO2 04/21/25 17:25 97.7 61 14 144/75 (98) 97 97.7 04/21/25 07:50 Nasal Cannula* 2 28 Total Intake and Output 04/20/25 04/20/25 04/21/25 15:00 23:00 07:00 Intake Total 1200 ml Balance 1200 ml medications Current Medications Medications Dose Ordered Sig/Camille Route Start Time Stop Time Status Last Admin Dose Admin Lisinopril 40 mg DAILY PO 04/21/25 10:00 04/21/25 09:22 40 MG Spironolactone 25 mg DAILY PO 04/21/25 10:00 04/21/25 09:21 25 MG Sodium Chloride 1,000 ml @ 100 mls/hr Q10H IV 04/20/25 22:15 04/21/25 13:47 100 MLS/HR Morphine Sulfate 1 mg Q6HP PRN IV 04/20/25 22:15 04/21/25 12:26 1 MG Ceftriaxone Sodium 50 ml @ 100 mls/hr DAILY@09 IV 04/21/25 09:00 04/21/25 09:21 100 MLS/HR Metronidazole 100 ml @ 100 mls/hr Q8HR IV 04/21/25 06:00 04/21/25 13:39 100 MLS/HR Ondansetron HCl 4 mg Q8HPRN PRN IV 04/21/25 09:00 Hydromorphone HCl 0.5 mg Q3HPRN PRN IV 04/21/25 16:15 04/21/25 16:41 0.5 MG Examination Exam Pt is lying on bed General Appearance: Alert, Oriented X3, Cooperative, Mild distress HEENT: Atraumatic, Mucous membranes moist/pink Respiratory: Clear to auscultation, Normal air movement, No added sounds Cardiovascular: Regular rate, Normal S1, Normal S2, No murmurs Abdominal/ : Active bowel sounds, Soft, no distention, epigastric tenderness Extremities: Redness on both lower extremities, 1+ edema, Normal pulses, No tenderness/swelling Skin: No Significant rash, except past surgical scars Neuro: Normal speech, sensorimotor deficits none Psych/Mental Status: Mental status NL, Mood NL Nurse was there as community pharmacist during examination laboratory and microbiology Laboratory Tests 04/21/25 05:31 Test 04/21/25 05:31 Range/Units Serum Glucose 98 74-106 mg/dL Labs and/or images reviewed: Labs reviewed by me, Image(s) reviewed by me Problem List/Assessment/Plan Problem List/Assessment/Plan Choledocholithiasis/cholangitis Post cholecystectomy Hepatic steatosis Liver ultrasound: Hepatic steatosis post cholecystectomy multiple punctate nonobstructing stone in the right kidney chronic renal disease CBD distended 1.6 cm could be normal for post cholecystectomy patients Morphine IV p.r.n., cautious use due to concern for sphincter of Oddi contraction Toradol and Dilaudid for pain management given The pain is unresponsive to [place] and tramadol. IV normal saline NPO Transfer to higher level of care for possible ERCP Multiple nonobstructing stones in the right kidney Outpatient follow up Monitor renal functions Tamsulosin Avoid nephrotoxic drugs History of heart failure with EF 55%: Likely not exacerbated, given absent clinical signs symptoms of fluid overload Continue atorvastatin and spironolactone Hypertension Lisinopril Consider Metoprolol ATTENDING NOTE: DW hospitalist and GI specialist at [facility],regarding to the need to transfer patient to [facility]. They request MRCP. Will order MRCP GI prophylaxis: Pantoprazole DVT prophylaxis: SCD Plan discussed with: Patient, Other (RN) My Orders My Orders Orders - ANITHA THORPE RESIDENT Procedure Category Date Status Time Lisinopril Tablet PHA 04/21/25 In Process (Zestril Tablet) 10:00 Spironolactone PHA 04/21/25 In Process (Aldactone) 10:00 * Feather Duster Winder CONS 04/20/25 Transmitted Consult Npo (Nothing By DIET 04/21/25 Transmitted Mouth) Diet Breakfast Sodium Chloride 0.9% PHA 04/20/25 In Process 22:15 Morphine Sulfate PHA 04/20/25 In Process Injection 22:15 Ceftriaxone 1gm/50ml PHA 04/21/25 In Process (Rocephin) 09:00 Metronidazole PHA 04/21/25 In Process 500mg/100ml (Flagyl 06:00 Ondansetron Hcl PHA 04/21/25 In Process (Zofran) 09:00 Hydromorphone Hcl Inj PHA 04/21/25 In Process (Dilaudid Injectio 16:15 Date of Service: Apr 21, 2025 Billing Provider: YORDAN ALEMAN MD Common Visit Codes: [id number] INP/OBS CARE(HIGH) ANITHA THORPE RESIDENT Apr 21, 2025 17:50 YORDAN ALEMAN MD Apr 22, 2025 08:31
[2025-04-21] MEDS: ONDANSETRON HCL 4 MG/2 ML VIAL IV PRN (21:14)
[2025-04-22] VITALS (9 sets, daily range): BP systolic 121–178; BP diastolic 58–101; PULSE 59–93; RESP 15–18; TEMP 97.3–98.1; O2SAT 93–99
[2025-04-22] MEDS: POTASSIUM CHL 20MEQ/100ML 100 ML IV ONE (10:24)
[2025-04-22] MEDS: LORazepam 0.5 MG TAB PO ONE (13:56)
[2025-04-22] MEDS ORDERED: KETOROLAC TROMETH 30 MG/ML 1ML VIAL IV PRN (17:30)
--- NOTE | 2025-04-22 17:36 | DVHPNRES ---
Progress Note Date Seen: Apr 22, 2025 Resident Creating Document: REAL EAST RESIDENT Medical Necessity Reason Pt with a Central, PICC or Fol: No Medical Necessity Reason 75-year-old male with previous history of diastolic heart failure with EF 55%, PPM 2021, hypertension, history of previous cholecystectomy with CBD stent placed, multiple nonobstructing renal stones presented to the ER with shortness of breath, the patient reports shortness of breath improved with CPAP use. However since 1 day the shortness of breath increased, no definite aggravating or relieving factors noted. He also reports having epigastric pain radiating to the back, no relation with food intake, also complains of dry mouth. The epigastric pain started 2 weeks ago and gradually worsened to the point the patient presented to the ER. He denies any chest pain, fever, abdominal pain, sick contact or recent travel history. Smoking history: Remote history of smoking at his 20s Alcohol occasionally Drugs: Never PCP: Dr. Cuellar Code status: Full code Patient seen and evaluated in bedside today. Patient complaint abdominal pain and mild nausea but no vomiting or diarrhea. No acute event overnight. Pending transfer high level of care for ERCP, before transfer need to do MRCP. Patient having PPM, need to evaluate if comfortable. Subjective Review of Systems Pt is lying on bed General Appearance: Alert, Oriented X3, Cooperative, Mild distress HEENT: Atraumatic, Mucous membranes moist/pink Respiratory: Clear to auscultation, Normal air movement, No added sounds Cardiovascular: Regular rate, Normal S1, Normal S2, No murmurs Abdominal/ : Active bowel sounds, Soft, no distention, epigastric tenderness Extremities: Redness on both lower extremities, 1+ edema, Normal pulses, No tenderness/swelling Skin: No Significant rash, except past surgical scars Neuro: Normal speech, sensorimotor deficits none Psych/Mental Status: Mental status NL, Mood NL Nurse was there as needle grinder during examination Objective vital signs Vital Sign Date Time Temp Pulse Resp B/P (MAP) Pulse Ox O2 Delivery O2 Flow Rate FiO2 04/22/25 16:53 97.8 60 18 178/101 (126) 93 97.8 04/22/25 07:50 Nasal Cannula* 2 28 Total Intake and Output 04/21/25 04/21/25 04/22/25 15:00 23:00 07:00 Intake Total 550 ml 600 ml 200 ml Balance 550 ml 600 ml 200 ml medications Current Medications Medications Dose Ordered Sig/Camille Route Start Time Stop Time Status Last Admin Dose Admin Lisinopril 40 mg DAILY PO 04/21/25 10:00 04/22/25 09:28 40 MG Spironolactone 25 mg DAILY PO 04/21/25 10:00 04/22/25 09:28 25 MG Sodium Chloride 1,000 ml @ 100 mls/hr Q10H IV 04/20/25 22:15 04/22/25 10:17 100 MLS/HR Morphine Sulfate 1 mg Q6HP PRN IV 04/20/25 22:15 04/22/25 06:31 1 MG Ceftriaxone Sodium 50 ml @ 100 mls/hr DAILY@09 IV 04/21/25 09:00 04/22/25 09:27 100 MLS/HR Metronidazole 100 ml @ 100 mls/hr Q8HR IV 04/21/25 06:00 04/22/25 14:45 100 MLS/HR Ondansetron HCl 4 mg Q8HPRN PRN IV 04/21/25 09:00 04/22/25 06:31 4 MG Hydromorphone HCl 0.5 mg Q3HPRN PRN IV 04/21/25 16:15 04/22/25 14:45 0.5 MG Lorazepam 0.5 mg Q12HP PRN PO 04/22/25 22:00 Metoprolol Tartrate 25 mg BID PO 04/22/25 22:00 UNV laboratory and microbiology Laboratory Tests 04/21/25 05:31 Test 04/21/25 05:31 Range/Units Serum Glucose 98 74-106 mg/dL Problem List/Assessment/Plan Problem List/Assessment/Plan Choledocholithiasis/cholangitis Post cholecystectomy Hepatic steatosis Liver ultrasound: Hepatic steatosis post cholecystectomy multiple punctate nonobstructing stone in the right kidney chronic renal disease CBD distended 1.6 cm could be normal for post cholecystectomy patients MRCP(08/03/2024)-marked intrahepatic and extrahepatic biliary dilatation s/p cholecystectomy, no choledocholithiasis. Ketorolac Pantoprazole IVF NPO except med Transfer to higher level of care for possible ERCP 04/21/25: Contacted [facility] at [phone] to f/u on pending transfer to [facility] for ERCP. P2P was completed with Dr Ramos and GI Dr Jean patient needs a MRCP before deciding if ERCP is appropriate treatment. Continue empiric antibiotic ceftriaxone and metronidazole Ondansetron Monitor vital Multiple nonobstructing stones in the right kidney Outpatient follow up Monitor renal functions Tamsulosin IVF Ketorolac Avoid nephrotoxic drugs History of heart failure with EF 55% not on exacerbation Hypertension Hyperlipidemia Given absent clinical signs symptoms of fluid overload Atorvastatin spironolactone Lisinopril Metoprolol Home Medication- furosemide Prediabetes Hemoglobin A1c 6.4 Avoid sugar and sugar containing food Hypokalemia Supplemented Hyperbilirubinemia Anxiety/depression Ativan 0.5 mg p.o. q.12h p.r.n. Home medication quetiapine Buspiron We will resume accordingly Benign prostatic hyperplasia Tamsulosin GERD Home medication- omeprazole Morbid obesity, BMI 42.7 Lifestyle modification GI prophylaxis pantoprazole DVT prophylaxis Lovenox Goals of care discussions. More than 21 minute spent with patient. Full code status. Case discussed with Dr. Aleman Plan discussed with: Patient, Other (Nurse) My Orders My Orders Orders - REAL EAST Procedure Category Date Status Time Basic Metabolic Panel LAB 04/23/25 Verified 04:00 Complete Blood Count LAB 04/23/25 Verified 04:00 Lorazepam Tablet PHA 04/22/25 In Process (Ativan Tablet) 22:00 Npo Except For SILVA 04/22/25 In Process Medications 12:53 Metoprolol Tartrate PHA 04/22/25 Logged Tablet (Lopressor Ta 22:00 Dietary Evaluation Review Recommendations by RD: Dietary education by RD Comments: 1) If patient remains NPO > 7 days, consider EN/TPN to meet at least 75% of estimated daily needs 2) Advance to 60g CCHO cardiac diet when medically feasible 3) Refer to outpatient RD/CDCES for weight management 4) Follow-up with gastroenterology and cardiology 5) Continue to monitor I&O, labs, and skin integrity Expected Outcomes/Goals: 1) patient to receive nutritional support within 7 days of NPO status 2) labs and GI symptoms to improve 3) diet to advance 4) gradual wt loss 5) f/u in 3-5 days Date of Service: Apr 22, 2025 Billing Provider: YORDAN ALEMAN MD Common Visit Codes: [id number] INP/OBS CARE(HIGH) REAL EAST RESIDENT Apr 22, 2025 17:36 YORDAN ALEMAN MD Apr 22, 2025 23:18
[2025-04-22] MEDS: KETOROLAC TROMETH 30 MG/ML 1ML VIAL IV PRN (18:22)
[2025-04-22] MEDS: TAMSULOSIN HYDROCHLORIDE 0.4 MG CAP PO SCH (18:24)
[2025-04-22] MEDS: SODIUM CHLORIDE 0.9% 1,000 ML IV SCH (18:24)
[2025-04-22] MEDS ORDERED: LORazepam 0.5 MG TAB PO PRN (22:00)
[2025-04-22] MEDS: PANTOPRAZOLE 40 MG/10 ML VIAL INJ IV SCH (22:06)
[2025-04-22] MEDS: METOPROLOL TARTRATE 25 MG TAB PO SCH (22:07)
[2025-04-22] MEDS: HYDROMORPHONE HCL 1 MG/ML INJ IV PRN (22:11)
[2025-04-23] VITALS (9 sets, daily range): BP systolic 93–156; BP diastolic 55–112; PULSE 55–83; RESP 15–18; TEMP 97.4–98.4; O2SAT 92–98
[2025-04-23 06:41] LABS: Hematocrit 43.5 % (41.0-53.0); Hemoglobin 14.9 g/dL (13.5-17.5); Mean Corpuscular Hemoglobin 29.5 pg (28.0-32.0); Mean Corpuscular Volume 86.0 fL (80.0-100.0); Nucleated Red Blood Cells % 0.1 %
[2025-04-23 06:43] LABS: Chloride 106 mmol/L (98-107); Potassium 3.6 mmol/L (3.5-5.1); Sodium 144 mmol/L (136-145)
[2025-04-23 06:44] LABS: Anion Gap 10 (5-15); Carbon Dioxide 28 mmol/L (20-31)
[2025-04-23 06:49] LABS: BUN/Creatinine Ratio 11.5 (10.0-20.0); Blood Urea Nitrogen 12 mg/dL (9-23); Glucose 81 mg/dL (74-106)
[2025-04-23 06:51] LABS: Calcium 8.7 mg/dL (8.7-10.4)
[2025-04-23] MEDS: ENOXAPARIN SOD 40 MG/0.4 ML SYRINGE SC SCH (09:22)
--- NOTE | 2025-04-23 16:07 | DVHPNRES ---
Progress Note Date Seen: Apr 23, 2025 Resident Creating Document: JARRELL RAMIREZ RESIDENT Medical Necessity Reason Pt with a Central, PICC or Fol: No Subjective Review of Systems 75-year-old male with previous history of diastolic heart failure with EF 55%, PPM 2021, hypertension, history of previous cholecystectomy with CBD stent placed, multiple nonobstructing renal stones presented to the ER with shortness of breath, the patient reports shortness of breath improved with CPAP use. However since 1 day the shortness of breath increased, no definite aggravating or relieving factors noted. He also reports having epigastric pain radiating to the back, no relation with food intake, also complains of dry mouth. The epigastric pain started 2 weeks ago and gradually worsened to the point the patient presented to the ER. He denies any chest pain, fever, abdominal pain, sick contact or recent travel history. Smoking history: Remote history of smoking at his 20s Alcohol occasionally Drugs: Never PCP: Dr. Cuellar Code status: Full code 04/22/2025: Patient seen and evaluated in bedside today. Patient complaint abdominal pain and mild nausea but no vomiting or diarrhea. No acute event overnight. Pending transfer high level of care for ERCP, before transfer need to do MRCP. Patient having PPM, need to evaluate if comfortable. 04/23/2025: Patient was seen and evaluated in the bedside today. Patient complains of epigastric pain that is intermittent. He says that the Dilaudid is not helping him and neither is the Toradol. We have continued his home medication of morphine 60 mg per orally b.i.d., oxycodone 10 mg p.o. q.6 PRN and stopped ketorolac and hydromorphone. We are also giving the patient MiraLAX 17 g. Gastro consult, pending for CBD distention of 1.6 cm. MRCP to be done, pending. Objective vital signs Vital Sign Date Time Temp Pulse Resp B/P (MAP) Pulse Ox O2 Delivery O2 Flow Rate FiO2 04/23/25 13:00 98.4 58 16 125/88 (100) 97 98.4 04/22/25 20:00 Nasal Cannula* 2 28 Total Intake and Output 04/22/25 04/22/25 04/23/25 15:00 23:00 07:00 Intake Total 100 ml 625 ml 200 ml Output Total 500 ml Balance 100 ml 625 ml -300 ml medications Current Medications Medications Dose Ordered Sig/Camille Route Start Time Stop Time Status Last Admin Dose Admin Lisinopril 40 mg DAILY PO 04/21/25 10:00 04/22/25 09:28 40 MG Spironolactone 25 mg DAILY PO 04/21/25 10:00 04/22/25 09:28 25 MG Ceftriaxone Sodium 50 ml @ 100 mls/hr DAILY@09 IV 04/21/25 09:00 04/23/25 09:21 100 MLS/HR Metronidazole 100 ml @ 100 mls/hr Q8HR IV 04/21/25 06:00 04/23/25 15:11 100 MLS/HR Ondansetron HCl 4 mg Q8HPRN PRN IV 04/21/25 09:00 04/23/25 09:13 4 MG Lorazepam 0.5 mg Q12HP PRN PO 04/22/25 22:00 Metoprolol Tartrate 25 mg BID PO 04/22/25 22:00 04/22/25 22:07 25 MG Pantoprazole Sodium 40 mg BID IV 04/22/25 22:00 04/23/25 09:21 40 MG Tamsulosin HCl 0.4 mg QPM PO 04/22/25 18:00 04/22/25 18:24 0.4 MG Enoxaparin Sodium 40 mg DAILY SC 04/23/25 10:00 04/23/25 09:22 40 MG Sodium Chloride 1,000 ml @ 75 mls/hr [id number] IV 04/22/25 18:00 04/22/25 18:24 75 MLS/HR Morphine Sulfate 60 mg Q12HR PO 04/23/25 22:00 Oxycodone HCl 10 mg Q6HPRN PRN PO 04/23/25 10:30 04/23/25 12:00 10 MG Examination General Appearance: Alert, Oriented X3, Cooperative, Mild distress HEENT: Atraumatic, Mucous membranes moist/pink Respiratory: Clear to auscultation, Normal air movement, No added sounds Cardiovascular: Regular rate, Normal S1, Normal S2, No murmurs Abdominal/ : Active bowel sounds, Soft, no distention, epigastric tenderness Extremities: Redness on both lower extremities, 1+ edema, Normal pulses, No tenderness/swelling Skin: No Significant rash, except past surgical scars Neuro: Normal speech, sensorimotor deficits none Psych/Mental Status: Mental status NL, Mood NL Nurse was there as criminal justice lawyer during examination laboratory and microbiology Laboratory Tests 04/23/25 04:26 Test 04/23/25 04:26 Range/Units Serum Glucose 81 74-106 mg/dL Labs and/or images reviewed: Labs reviewed by me, Image(s) reviewed by me Problem List/Assessment/Plan Problem List/Assessment/Plan #Choledocholithiasis/cholangitis #Post cholecystectomy #Hepatic steatosis Liver ultrasound: Hepatic steatosis post cholecystectomy multiple punctate nonobstructing stone in the right kidney chronic renal disease CBD distended 1.6 cm could be normal for post cholecystectomy patients MRCP(08/03/2024)-marked intrahepatic and extrahepatic biliary dilatation s/p cholecystectomy, no choledocholithiasis. Ketorolac Pantoprazole IVF NPO after midnight MRCP, pending Gastro consulted for distended CBD, pending Hydromorphone, Ketoralac stopped, continue home medication oxycodone 10 mg p.o. q.6 PRN, morphine 60 mg p.o. b.i.d. Transfer to higher level of care for possible ERCP 04/21/25: Contacted [facility] at [phone] to f/u on pending transfer to [facility] for ERCP. P2P was completed with Dr Ramos and GI Dr Jean patient needs a MRCP before deciding if ERCP is appropriate treatment. Continue empiric antibiotic ceftriaxone and metronidazole Ondansetron Monitor vital #Multiple nonobstructing stones in the right kidney Outpatient follow up Monitor renal functions Tamsulosin IVF Ketorolac Avoid nephrotoxic drugs #History of heart failure with EF 55% not on exacerbation #Hypertension #Hyperlipidemia Given absent clinical signs symptoms of fluid overload Atorvastatin spironolactone Lisinopril Metoprolol Home Medication- furosemide #Prediabetes Hemoglobin A1c 6.4 Avoid sugar and sugar containing food #Hypokalemia Supplemented #Hyperbilirubinemia #Anxiety/depression Ativan 0.5 mg p.o. q.12h p.r.n. Home medication quetiapine Buspiron We will resume accordingly #Benign prostatic hyperplasia Tamsulosin #GERD Home medication- omeprazole #Morbid obesity, BMI 42.7 Lifestyle modification GI prophylaxis: pantoprazole DVT prophylaxis: Lovenox Diet: cardiac, NPO after midnight Goals of care discussions. More than 21 minute spent with patient. Full code status. Case discussed with Dr. Harris Plan discussed with: Patient, Other (Nurse) Plan discussed with: Patient, Other (rn) My Orders My Orders Orders - JARRELL RAMIREZ Procedure Category Date Status Time * Gi [facility] Professional [employer] CONS 04/23/25 Transmitted 15:20 Npo (Nothing By DIET 04/24/25 Transmitted Mouth) Diet Breakfast Cardiac DIET 04/23/25 Transmitted Diet-2gna,Lofat,Lochol Dinner Dietary Evaluation Review Recommendations by RD: Dietary education by RD Comments: 1) If patient remains NPO > 7 days, consider EN/TPN to meet at least 75% of estimated daily needs 2) Advance to 60g CCHO cardiac diet when medically feasible 3) Refer to outpatient RD/CDCES for weight management 4) Follow-up with gastroenterology and cardiology 5) Continue to monitor I&O, labs, and skin integrity Expected Outcomes/Goals: 1) patient to receive nutritional support within 7 days of NPO status 2) labs and GI symptoms to improve 3) diet to advance 4) gradual wt loss 5) f/u in 3-5 days Date of Service: Apr 23, 2025 Billing Provider: LAMBERTO HARRIS MD Common Visit Codes: [id number] INP/OBS CARE(HIGH) JARRELL RAMIREZ Apr 23, 2025 16:07 LAMBERTO HARRIS MD Apr 26, 2025 13:30
[2025-04-23] MEDS: MORPHINE SULF 30 mg ER tab PO SCH (21:33)
[2025-04-24] VITALS (8 sets, daily range): BP systolic 122–154; BP diastolic 68–99; PULSE 57–79; RESP 16–18; TEMP 97.8–98.6; O2SAT 94–99
[2025-04-24 07:30] LABS: Sodium 143 mmol/L (136-145)
[2025-04-24 07:31] LABS: Anion Gap 11 (5-15); Carbon Dioxide 25 mmol/L (20-31)
[2025-04-24 07:34] LABS: Calcium 8.3 mg/dL (8.7-10.4); Chloride 107 mmol/L (98-107); Potassium 3.4 mmol/L (3.5-5.1)
[2025-04-24 07:36] LABS: BUN/Creatinine Ratio 16.5 (10.0-20.0); Blood Urea Nitrogen 15 mg/dL (9-23); Glucose 82 mg/dL (74-106); Hematocrit 40.5 % (41.0-53.0); Hemoglobin 13.7 g/dL (13.5-17.5); Mean Corpuscular Hemoglobin 29.1 pg (28.0-32.0); Mean Corpuscular Volume 86.1 fL (80.0-100.0); Nucleated Red Blood Cells % 0.2 %
[2025-04-24] MEDS: POTASSIUM CHL 20MEQ/100ML 100 ML IV SCH (09:16)
--- NOTE | 2025-04-24 13:55 | DVHINCON2 ---
GI Consult Consult Note GI consult note Date of Consultation: 04/24/2025 Chief Complaint: CBD distended 1.6 cm Referring Physician: Dr. Becker H&P: 75-year-old male admitted with complains of shortness of breath. Patient also is complaining of epigastric pain radiating to the back, which started two weeks ago. Patient complains of mild nausea denies vomiting. Patient is status post ERCP January 2025 at [facility]. Patient is status post cholecystectomy more than 10 years ago. Past Medical History: Anxiety, CHF, Depression, High Lipids, HTN, TIA, chronic back pain Past Surgical History: Cholecystectomy, Pacemaker, Tonsillectomy Social History: NO smoking, drinking ETOH and use of illegal drugs. Family History: Noncontributory Review of Systems: Constitutional: no fever, chill, weight loss HEENT: no eye pain, no hearing loss, no oral lesion, no scleral icterus Heart: no chest pain, no chest pressure Lung: no cough, no dyspnea with exertion Abdomen: see HPI Physical exam: General: NAD, AAOX3 Chest: lung bustillos clear to auscultation Heart: RRR, no murmur Abdomen: + epigastric tenderness to palpation, +BS Labs: Labs Test 04/24/25 05:48 04/21/25 05:31 04/20/25 22:00 04/20/25 19:11 Range/Units White Blood Count 6.4 # 4.4-10.8 10^3/uL Red Blood Count 4.71 4.5-5.90 10^6/uL Hemoglobin 13.7 13.5-17.5 g/dL Hematocrit 40.5 L 41.0-53.0 % Mean Corpuscular Volume 86.1 80.0-100.0 fL Mean Corpuscular Hemoglobin 29.1 28.0-32.0 pg Mean Corpuscular Hemoglobin Concent 33.8 32.0-36.0 g/dL Red Cell Distribution Width 13.6 11.8-14.3 % Platelet Count 194 140-450 10^3/uL Mean Platelet Volume 9.1 6.9-10.8 fL Neutrophils (%) (Auto) 55.4 37.0-80.0 % Lymphocytes (%) (Auto) 33.1 10.0-50.0 % Monocytes (%) (Auto) 10.1 0.0-12.0 % Eosinophils (%) (Auto) 0.7 0.0-7.0 % Basophils (%) (Auto) 0.7 0.0-2.0 % Neutrophils # (Auto) 3.5 1.6-8.6 10 ^3/uL Lymphocytes # (Auto) 2.1 0.4-5.4 10 ^3/uL Monocytes # (Auto) 0.6 0-1.3 10 ^3/uL Eosinophils # (Auto) 0 0-0.8 10 ^3/uL Basophils # (Auto) 0 0-0.2 10 ^3/uL Nucleated Red Blood Cells 0.2 % Sodium Level 143 136-145 mmol/L Potassium Level 3.4 L 3.5-5.1 mmol/L Chloride Level 107 98-107 mmol/L Carbon Dioxide Level 25 20-31 mmol/L Anion Gap 11 5-15 Blood Urea Nitrogen 15 9-23 mg/dL Creatinine 0.91 0.700-1.30 mg/dL Glomerular Filtration Rate Calc 89 >90 mL/min BUN/Creatinine Ratio 16.5 10.0-20.0 Serum Glucose 82 74-106 mg/dL Calcium Level 8.3 L 8.7-10.4 mg/dL Total Bilirubin 2.1 H 0.2-1.0 mg/dL Aspartate Amino Transferase (AST) 26 13-40 U/L Alanine Aminotransferase (ALT) 31 7-40 U/L Alkaline Phosphatase 204 H 46-116 U/L Total Protein 6.8 5.7-8.2 g/dL Albumin 3.5 3.2-4.8 g/dL Urine Color Colorless Yellow Urine Clarity Clear Clear Urine pH 7.0 5.0-9.0 Urine Specific [place] 1.009 1.001-1.035 Urine Protein Negative Negative Urine Ketones Negative Negative Urine Blood Negative Negative /uL Urine Nitrite Negative Negative Urine Bilirubin Negative Negative Urine Urobilinogen Normal Negative mg/dL Urine Leukocyte Esterase Negative Negative /uL Urine RBC None seen 0 - 3 /hpf Urine Microscopic WBC < 1 0-3 /HPF Urine Squamous Epithelial Cells Few <5 /hpf Urine Bacteria None seen None Seen /hpf Urine Glucose Normal Normal mg/dL Urine Opiates Screen Pos NEGATIVE Urine Fentanyl Screen Neg NEGATIVE Urine Barbiturates Screen Neg NEGATIVE Urine Phencyclidine Screen Neg NEGATIVE Urine Amphetamines Screen Neg NEGATIVE Urine Benzodiazepines Screen Neg NEGATIVE Urine Cocaine Screen Neg NEGATIVE Urine Cannabinoids Screen Neg NEGATIVE Prothrombin Time 11.5 9.3-11.8 sec Prothrombin Time INR 1.09 0.9-1.15 Activated Partial Thromboplast Time 29.6 24.5-34.5 SEC D-Dimer, Quantitative 0.68 H 0.0-0.49 mg/L FEU Lactic Acid Level 1.1 0.4-2.0 mmol/L B-Type Natriuretic Peptide 59.43 0-100 pg/mL Test 04/20/25 11:21 04/20/25 10:20 Range/Units Troponin I High Sensitivity 3 L </=54 ng/L Hemoglobin A1c 6.4 H <5.7 % A1C Magnesium Level 1.8 1.6-2.6 mg/dL Lipase 24 12-53 U/L Vitamin B12 Level 237 211-911 pg/mL Vitamin D 25-Hydroxy 7.4 L 30.0-100 ng/mL Folic Acid 9.85 >5.38 ng/mL Thyroid Stimulating Hormone (TSH) 2.19 0.55-4.78 uIU/mL Imaging: CT abdomen pelvis IMPRESSION: Limited evaluation without contrast. No evidence for small-bowel obstruction. Pancreatic stent. Dilated CBD, intrahepatic ducts. Correlate exclude any type of obstructing biliary etiology. Colonic diverticular disease. Cholecystectomy. 4 cm left renal hypodense lesion, likely cysts based on prior CT. Recommend MRI abdomen with and without contrast to ensure simplicity and exclude any time of complex mass/lesion. This may be done in the nonemergent setting. Other findings as described. Liver ultrasound IMPRESSION: Hepatic steatosis. Post cholecystectomy. Multiple punctate nonobstructing stones in the right kidney. Increased echogenicity bilateral kidneys can be seen in chronic medical renal disease. Common bile duct is distended measuring 1.6 cm. This may be within normal limits post cholecystectomy. Clinical correlation advised. Assessment: Abdominal pain Dilated CBD Status post ERCP Hepatic steatosis Status post cholecystectomy more than 10 years ago Plan: -discussed with Dr. Baker MRCP MRI pending Possible transferred to higher level of care if patient needs ERCP Monitor labs Plan discussed with patient and at bedside Thank you for this consult Date of Service: Apr 24, 2025 Billing Provider: BI TRONCOSO Common Visit Codes: CONSULT ONLY Consultation Codes: [id number] CONSULT <60MIN BI TRONCOSO Apr 24, 2025 13:55
--- NOTE | 2025-04-24 15:57 | DVH ---
PROCEDURE: MRI MRCP MRI Indication: CBD dilation COMPARISON: MRI MRCP MRI on DOS: 08/03/24 report only, ultrasound abdomen 04/13/2025 TECHNIQUE: Multiplanar multisequence images of the brain are obtained. FINDINGS: Gallbladder is removed. No hydronephrosis. Bilateral renal cysts including left renal cysts up to 3.6 cm and right renal cys ts up to 1.8 cm. Spleen unremarkable. Pancreatic body cystic lesion measuring 10 mm. Pancreatic duct measures up to 3 mm. Common bile duct measures 11 mm. Intrahepatic ducts dilated up to 11 mm. No evidence for choledocholithiasis. Stomach is partially distended. The small bowel loops are normal in caliber. Colonic diverticular disease. IMPRESSION: Dilated common bile duct, intrahepatic ducts which can be secondary to reservoir effect/ cholecystect violette. Correlate clinically to exclude obstructive biliary/ ampullary etiology. No evidence for tierra docholithiasis. 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 Other considerations include cyst, pseudocyst, cystic neoplasm. Recommend surgical consultation for further evaluation mihai hardwick
--- NOTE | 2025-04-24 19:09 | DVHPNRES ---
Progress Note Date Seen: Apr 24, 2025 Resident Creating Document: JARRELL RAMIREZ RESIDENT Medical Necessity Reason Pt with a Central, PICC or Fol: No Subjective Review of Systems 75-year-old male with previous history of diastolic heart failure with EF 55%, PPM 2021, hypertension, history of previous cholecystectomy with CBD stent placed, multiple nonobstructing renal stones presented to the ER with shortness of breath, the patient reports shortness of breath improved with CPAP use. However since 1 day the shortness of breath increased, no definite aggravating or relieving factors noted. He also reports having epigastric pain radiating to the back, no relation with food intake, also complains of dry mouth. The epigastric pain started 2 weeks ago and gradually worsened to the point the patient presented to the ER. He denies any chest pain, fever, abdominal pain, sick contact or recent travel history. Smoking history: Remote history of smoking at his 20s Alcohol occasionally Drugs: Never PCP: Dr. Cuellar Code status: Full code 04/22/2025: Patient seen and evaluated in bedside today. Patient complaint abdominal pain and mild nausea but no vomiting or diarrhea. No acute event overnight. Pending transfer high level of care for ERCP, before transfer need to do MRCP. Patient having PPM, need to evaluate if comfortable. 04/23/2025: Patient was seen and evaluated in the bedside today. Patient complains of epigastric pain that is intermittent. He says that the Dilaudid is not helping him and neither is the Toradol. We have continued his home medication of morphine 60 mg per orally b.i.d., oxycodone 10 mg p.o. q.6 PRN and stopped ketorolac and hydromorphone. We are also giving the patient MiraLAX 17 g. Gastro consult, pending for CBD distention of 1.6 cm. MRCP to be done, pending. 04/24/2025: patient seen and evaluated in the bedside. Patient reports feeling better today. MRCP was done today which revealed pancreatic body cystic lesion measuring 10 mm, likely side branch IPMN. patient started on a clear liquid diet from today. Objective vital signs Vital Sign Date Time Temp Pulse Resp B/P (MAP) Pulse Ox O2 Delivery O2 Flow Rate FiO2 04/24/25 17:24 97.8 57 18 145/99 (114) 98 97.8 04/24/25 08:00 Nasal Cannula* 2 28 Total Intake and Output 04/23/25 04/23/25 04/24/25 15:00 23:00 07:00 Intake Total 50 ml 200 ml 0 ml Balance 50 ml 200 ml 0 ml medications Current Medications Medications Dose Ordered Sig/Camille Route Start Time Stop Time Status Last Admin Dose Admin Lisinopril 40 mg DAILY PO 04/21/25 10:00 04/24/25 12:06 40 MG Spironolactone 25 mg DAILY PO 04/21/25 10:00 04/24/25 12:10 25 MG Ceftriaxone Sodium 50 ml @ 100 mls/hr DAILY@09 IV 04/21/25 09:00 04/24/25 14:39 100 MLS/HR Metronidazole 100 ml @ 100 mls/hr Q8HR IV 04/21/25 06:00 04/24/25 15:45 100 MLS/HR Ondansetron HCl 4 mg Q8HPRN PRN IV 04/21/25 09:00 04/23/25 09:13 4 MG Lorazepam 0.5 mg Q12HP PRN PO 04/22/25 22:00 Metoprolol Tartrate 25 mg BID PO 04/22/25 22:00 04/24/25 12:05 25 MG Pantoprazole Sodium 40 mg BID IV 04/22/25 22:00 04/24/25 14:39 40 MG Tamsulosin HCl 0.4 mg QPM PO 04/22/25 18:00 04/24/25 17:48 0.4 MG Enoxaparin Sodium 40 mg DAILY SC 04/23/25 10:00 04/24/25 12:06 40 MG Sodium Chloride 1,000 ml @ 75 mls/hr [id number] IV 04/22/25 18:00 04/23/25 21:36 75 MLS/HR Morphine Sulfate 60 mg Q12HR PO 04/23/25 22:00 04/24/25 10:12 60 MG Oxycodone HCl 10 mg Q6HPRN PRN PO 04/23/25 10:30 04/24/25 15:45 10 MG Examination General Appearance: Alert, Oriented X3, Cooperative, Mild distress HEENT: Atraumatic, Mucous membranes moist/pink Respiratory: Clear to auscultation, Normal air movement, No added sounds Cardiovascular: Regular rate, Normal S1, Normal S2, No murmurs Abdominal/ : Active bowel sounds, Soft, no distention, epigastric tenderness Extremities: Redness on both lower extremities, 1+ edema, Normal pulses, No tenderness/swelling Skin: No Significant rash, except past surgical scars Neuro: Normal speech, sensorimotor deficits none Psych/Mental Status: Mental status NL, Mood NL Nurse was there as core oven tender during examination laboratory and microbiology Laboratory Tests 04/24/25 05:48 Test 04/24/25 05:48 Range/Units Serum Glucose 82 74-106 mg/dL Labs and/or images reviewed: Labs reviewed by me, Image(s) reviewed by me Problem List/Assessment/Plan Problem List/Assessment/Plan #Choledocholithiasis/cholangitis #Post cholecystectomy #Hepatic steatosis Liver ultrasound: Hepatic steatosis post cholecystectomy multiple punctate nonobstructing stone in the right kidney chronic renal disease CBD distended 1.6 cm could be normal for post cholecystectomy patients MRCP(08/03/2024)-marked intrahepatic and extrahepatic biliary dilatation s/p cholecystectomy, no choledocholithiasis. MRCP ( 04/24/2025) Shows: Dilated common bile duct, intrahepatic ducts which can be secondary to reservoir effect/ cholecystectomy. Correlate clinically to exclude obstructive biliary/ ampullary etiology. No evidence for choledocholithiasis. 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 Other considerations include cyst, pseudocyst, cystic neoplasm. Recommend surgical consultation for further evaluation management. -Ketorolac -Pantoprazole -IVF -Gastro consulted for distended CBD, pending -Hydromorphone, Ketoralac stopped, continue home medication oxycodone 10 mg p.o. q.6 PRN, morphine 60 mg p.o. b.i.d. -Continue empiric antibiotic ceftriaxone and metronidazole -Ondansetron -Monitor vital -clear liquid diet #Multiple nonobstructing stones in the right kidney -Outpatient follow up -Monitor renal functions -Tamsulosin -IVF -Ketorolac -Avoid nephrotoxic drugs #History of heart failure with EF 55% not on exacerbation #Hypertension #Hyperlipidemia -Given absent clinical signs symptoms of fluid overload -Atorvastatin -spironolactone -Lisinopril -Metoprolol -Home Medication- furosemide #Prediabetes -Hemoglobin A1c 6.4 -Avoid sugar and sugar containing food #Hypokalemia -Supplemented #Hyperbilirubinemia #Anxiety/depression -Ativan 0.5 mg p.o. q.12h p.r.n. -Home medication quetiapine -Buspiron -We will resume accordingly #Benign prostatic hyperplasia -Tamsulosin #GERD -Home medication- omeprazole #Morbid obesity, BMI 42.7 -Lifestyle modification GI prophylaxis: pantoprazole DVT prophylaxis: Lovenox Diet: cardiac, NPO after midnight Goals of care discussions. More than 21 minute spent with patient. Full code status. Case discussed with Dr. Harris Plan discussed with: Patient, Other (Nurse) Plan discussed with: Patient, Other (rn) Plan discussed with: Patient, Other (rn) My Orders My Orders Orders - JARRELL RAMIREZ RESIDENT Procedure Category Date Status Time Clear Liq Diet DIET 04/25/25 Transmitted Breakfast Dietary Evaluation Review Recommendations by RD: Dietary education by RD Comments: 1) If patient remains NPO > 7 days, consider EN/TPN to meet at least 75% of estimated daily needs 2) Advance to 60g CCHO cardiac diet when medically feasible 3) Refer to outpatient RD/CDCES for weight management 4) Follow-up with gastroenterology and cardiology 5) Continue to monitor I&O, labs, and skin integrity Expected Outcomes/Goals: 1) patient to receive nutritional support within 7 days of NPO status 2) labs and GI symptoms to improve 3) diet to advance 4) gradual wt loss 5) f/u in 3-5 days JARRELL RAMIREZ RESIDENT Apr 24, 2025 19:09
[2025-04-25 00:55] VITALS: BP 130/84; PULSE 63; RESP 18; TEMP 98.2; O2SAT 99
[2025-04-25 05:00] VITALS: BP 134/74; PULSE 61; RESP 18; TEMP 98.4; O2SAT 97
[2025-04-25 07:12] LABS: Hematocrit 41.2 % (41.0-53.0); Hemoglobin 13.6 g/dL (13.5-17.5); Mean Corpuscular Hemoglobin 28.5 pg (28.0-32.0); Mean Corpuscular Volume 86.2 fL (80.0-100.0); Nucleated Red Blood Cells % 0.1 %
[2025-04-25 07:32] LABS: Alanine Aminotransferase 35 U/L (7-40); Albumin 3.3 g/dL (3.2-4.8); Anion Gap 10 (5-15); BUN/Creatinine Ratio 11.8 (10.0-20.0); Blood Urea Nitrogen 11 mg/dL (9-23); Carbon Dioxide 28 mmol/L (20-31); Chloride 105 mmol/L (98-107); Glucose 81 mg/dL (74-106); Potassium 3.8 mmol/L (3.5-5.1); Sodium 143 mmol/L (136-145); Total Protein 6.3 g/dL (5.7-8.2)
[2025-04-25 07:38] LABS: Alkaline Phosphatase 145 U/L (46-116); Bilirubin, Total 1.4 mg/dL (0.2-1.0); Calcium 8.4 mg/dL (8.7-10.4)
[2025-04-25 08:00] VITALS: PULSE 57; PULSE 65; RESP 16; O2SAT 99
[2025-04-25 09:00] VITALS: BP 126/73; PULSE 57; RESP 16; TEMP 98.1; O2SAT 94
[2025-04-25 12:41] VITALS: BP 155/88; PULSE 57; RESP 16; TEMP 98.1; O2SAT 94
--- NOTE | 2025-04-25 15:31 | DVHPN2 ---
Subjective Patient feeling better Discharge planning Changes from previous H/P or p: No Changes Objective Vitals Vital Signs Date Time Temp Pulse Resp B/P (MAP) Pulse Ox O2 Delivery O2 Flow Rate FiO2 04/25/25 12:41 98.1 57 16 155/88 (110) 94 98.1 04/25/25 08:00 Nasal Cannula* 2 28 Intake/Output Intake and Output 04/25/25 07:00 Intake Total 1200 ml Output Total 600 ml Balance 600 ml Intake Oral 200 ml IV Total 1000 ml Output Urine Total 600 ml General Appearance: Alert, Oriented X3, No acute distress Lungs: Clear to auscultation, Normal air movement, Other Cardiovascular: Regular rate, Normal S1, Normal S2, No murmurs, Gallops, Rubs, Other Abdomen: Normal bowel sounds, Soft, No tenderness, No hepatospenomegaly, No masses, Other Laboratory Results Laboratory Tests 04/25/25 06:31 Chemistry Test 04/25/25 06:31 Albumin 3.3 g/dL (3.2-4.8) Calcium Level 8.4 mg/dL (8.7-10.4) L Total Protein 6.3 g/dL (5.7-8.2) LFT Test 04/25/25 06:31 Alanine Aminotransferase (ALT) 35 U/L (7-40) Alkaline Phosphatase 145 U/L (46-116) H Aspartate Amino Transferase (AST) 51 U/L (13-40) H Total Bilirubin 1.4 mg/dL (0.2-1.0) H Urinalysis Test 04/20/25 22:00 Urine Color Colorless (Yellow) Urine Clarity Clear (Clear) Urine pH 7.0 (5.0-9.0) Urine Specific [place] 1.009 (1.001-1.035) Urine Protein Negative (Negative) Urine Ketones Negative (Negative) Urine Blood Negative /uL (Negative) Urine Nitrite Negative (Negative) Urine Bilirubin Negative (Negative) Urine Urobilinogen Normal mg/dL (Negative) Urine Leukocyte Esterase Negative /uL (Negative) Urine RBC None seen /hpf (0 - 3) Urine Microscopic WBC < 1 /HPF (0-3) Urine Squamous Epithelial Cells Few /hpf (<5) Urine Bacteria None seen /hpf (None Seen) Urine Glucose Normal mg/dL (Normal) Assessment/Plan Assessment/Plan Abdominal pain Dilated CBD status post MRCP no choledocholithiasis Status post ERCP Hepatic steatosis Status post cholecystectomy more than 10 years ago Plan: -discussed with Dr. Baker Diet as tolerated DC alcohol discussed extensively Outpatient GI follow-up recommended in 4-6 weeks Plan discussed with: Patient, Spouse Date of Service: Apr 25, 2025 Billing Provider: BI TRONCOSO Common Visit Codes: [id number] INP/OBS CARE(HIGH) BI TRONCOSO Apr 25, 2025 15:31
--- NOTE | 2025-04-25 17:26 | DVHDSRES ---
Discharge Summary Date of Admission Resident Creating Document: JARRELL RAMIREZ RESIDENT Apr 20, 2025 at 16:47 Date of Discharge: Apr 25, 2025 Admitting Diagnosis Abdominal pain Labs/Diagnostic Data: Laboratory Results Test 04/25/25 06:31 04/20/25 22:00 04/20/25 19:11 04/20/25 11:21 White Blood Count 5.4 10^3/uL (4.4-10.8) Red Blood Count 4.78 10^6/uL (4.5-5.90) Hemoglobin 13.6 g/dL (13.5-17.5) Hematocrit 41.2 % (41.0-53.0) Mean Corpuscular Volume 86.2 fL (80.0-100.0) Mean Corpuscular Hemoglobin 28.5 pg (28.0-32.0) Mean Corpuscular Hemoglobin Concent 33.1 g/dL (32.0-36.0) Red Cell Distribution Width 13.6 % (11.8-14.3) Platelet Count 186 10^3/uL (140-450) Mean Platelet Volume 8.9 fL (6.9-10.8) Neutrophils (%) (Auto) 54.5 % (37.0-80.0) Lymphocytes (%) (Auto) 32.3 % (10.0-50.0) Monocytes (%) (Auto) 10.1 % (0.0-12.0) Eosinophils (%) (Auto) 2.4 % (0.0-7.0) Basophils (%) (Auto) 0.7 % (0.0-2.0) Neutrophils # (Auto) 3.0 10 ^3/uL (1.6-8.6) Lymphocytes # (Auto) 1.8 10 ^3/uL (0.4-5.4) Monocytes # (Auto) 0.6 10 ^3/uL (0-1.3) Eosinophils # (Auto) 0.1 10 ^3/uL (0-0.8) Basophils # (Auto) 0 10 ^3/uL (0-0.2) Nucleated Red Blood Cells 0.1 % Sodium Level 143 mmol/L (136-145) Potassium Level 3.8 mmol/L (3.5-5.1) Chloride Level 105 mmol/L (98-107) Carbon Dioxide Level 28 mmol/L (20-31) Anion Gap 10 (5-15) Blood Urea Nitrogen 11 mg/dL (9-23) Creatinine 0.93 mg/dL (0.700-1.30) Glomerular Filtration Rate Calc 87 mL/min (>90) BUN/Creatinine Ratio 11.8 (10.0-20.0) Serum Glucose 81 mg/dL (74-106) Calcium Level 8.4 mg/dL (8.7-10.4) Total Bilirubin 1.4 mg/dL (0.2-1.0) Aspartate Amino Transferase (AST) 51 U/L (13-40) Alanine Aminotransferase (ALT) 35 U/L (7-40) Alkaline Phosphatase 145 U/L (46-116) Total Protein 6.3 g/dL (5.7-8.2) Albumin 3.3 g/dL (3.2-4.8) Urine Color Colorless (Yellow) Urine Clarity Clear (Clear) Urine pH 7.0 (5.0-9.0) Urine Specific [place] 1.009 (1.001-1.035) Urine Protein Negative (Negative) Urine Ketones Negative (Negative) Urine Blood Negative /uL (Negative) Urine Nitrite Negative (Negative) Urine Bilirubin Negative (Negative) Urine Urobilinogen Normal mg/dL (Negative) Urine Leukocyte Esterase Negative /uL (Negative) Urine RBC None seen /hpf (0 - 3) Urine Microscopic WBC < 1 /HPF (0-3) Urine Squamous Epithelial Cells Few /hpf (<5) Urine Bacteria None seen /hpf (None Seen) Urine Glucose Normal mg/dL (Normal) Urine Opiates Screen Pos (NEGATIVE) Urine Fentanyl Screen Neg (NEGATIVE) Urine Barbiturates Screen Neg (NEGATIVE) Urine Phencyclidine Screen Neg (NEGATIVE) Urine Amphetamines Screen Neg (NEGATIVE) Urine Benzodiazepines Screen Neg (NEGATIVE) Urine Cocaine Screen Neg (NEGATIVE) Urine Cannabinoids Screen Neg (NEGATIVE) Prothrombin Time 11.5 sec (9.3-11.8) Prothrombin Time INR 1.09 (0.9-1.15) Activated Partial Thromboplast Time 29.6 SEC (24.5-34.5) D-Dimer, Quantitative 0.68 mg/L FEU (0.0-0.49) Lactic Acid Level 1.1 mmol/L (0.4-2.0) B-Type Natriuretic Peptide 59.43 pg/mL (0-100) Troponin I High Sensitivity 3 ng/L (</=54) Test 04/20/25 10:20 Hemoglobin A1c 6.4 % A1C (<5.7) Magnesium Level 1.8 mg/dL (1.6-2.6) Lipase 24 U/L (12-53) Vitamin B12 Level 237 pg/mL (211-911) Vitamin D 25-Hydroxy 7.4 ng/mL (30.0-100) Folic Acid 9.85 ng/mL (>5.38) Thyroid Stimulating Hormone (TSH) 2.19 uIU/mL (0.55-4.78) Other Laboratory Tests 04/25/25 06:31 Brief Hx & Hospital Course: 75-year-old male with previous history of diastolic heart failure with EF 55%, PPM 2021, hypertension, history of previous cholecystectomy with CBD stent placed, multiple nonobstructing renal stones presented to the ER with shortness of breath, the patient reports shortness of breath improved with CPAP use. However since 1 day the shortness of breath increased, no definite aggravating or relieving factors noted. He also reports having epigastric pain radiating to the back, no relation with food intake, also complains of dry mouth. The epigastric pain started 2 weeks ago and gradually worsened to the point the patient presented to the ER. He denies any chest pain, fever, abdominal pain, sick contact or recent travel history. Smoking history: Remote history of smoking at his 20s Alcohol occasionally Drugs: Never PCP: Dr. Cuellar Code status: Full code Brief history of hospitalization: patient came in with initial complaints of epigastric pain radiating to the back. Liver ultrasound and CT abdomen and pelvis showed hepatic steatosis, post cholecystectomy and CBD distention of 1.6 cm. Patient was given ketorolac for pain IV fluids and GI prophylaxis Protonix 40 mg daily. Gastrology was consulted and patient was given ceftriaxone and metronidazole intravenously. For nausea ondansetron was given and we monitored the patient. We kept the patient NPO and a device interrogation for pacemaker was done after which MRCP was conducted. MRCP on 04/24/2025 showed dilated common bile duct, intrahepatic duct which can be secondary to reservoir effect/cholecystectomy. There was no evidence of choledocholithiasis. 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 We started the patient on a clear liquid diet which he was able to tolerate overnight. Ultrasound also showed multiple nonobstructing stones in the right kidney and patient has been counseled for outpatient follow up. Tamsulosin was also given to the patient and nephrotoxic agents were avoided. For patient's history of heart failure with ejection fraction 55% not on exacerbation, hypertension and hyperlipidemia we continued home medication atorvastatin, spironolactone, lisinopril, metoprolol and furosemide. HbA1c 6.4 was seen in labs and patient is prediabetic and we have counseled patient extensively on maintaining healthy diet, exercise and low-cholesterol low-fat diet. Labs also showed hypokalemia and potassium was supplemented. For his anxiety/ depression Ativan 0.5 mg p.o., QT or pain, buspirone were resumed. During the hospitalization stay we gave the patient Lovenox to prevent DVT and pantoprazole for GI prophylaxis. Patient is now stable for discharge and has been tolerating liquid diet. Since the pancreatic cyst is very small, we have asked the patient to monitor for symptoms and to follow up if any symptoms such as jaundice, fever, abdominal pain arise again. Patient reports feeling much better and has agreed to the discharge plan. We have asked him to follow up with his primary care physician and discharge clinic within 2 weeks. General Appearance: Alert, Oriented X3, Cooperative, Mild distress HEENT: Atraumatic, Mucous membranes moist/pink Respiratory: Clear to auscultation, Normal air movement, No added sounds Cardiovascular: Regular rate, Normal S1, Normal S2, No murmurs Abdominal/ : Active bowel sounds, Soft, no distention, epigastric tenderness Extremities: Redness on both lower extremities, 1+ edema, Normal pulses, No tenderness/swelling Skin: No Significant rash, except past surgical scars Neuro: Normal speech, sensorimotor deficits none Psych/Mental Status: Mental status NL, Mood NL Nurse was there as vinyl installer during examination Operations or Procedures CXR: IMPRESSION: No acute cardiopulmonary disease. PROCEDURE(s): ABPL - CT AB PEL WO CON-NO ORAL OR IV REASON: Rule out small bowel obstruction IMPRESSION: Limited evaluation without contrast. No evidence for small-bowel obstruction. Pancreatic stent. Dilated CBD, intrahepatic ducts. Correlate exclude any type of obstructing biliary etiology. Colonic diverticular disease. Cholecystectomy. 4 cm left renal hypodense lesion, likely cysts based on prior CT. Recommend MRI abdomen with and without contrast to ensure simplicity and exclude any time of complex mass/lesion. This may be done in the nonemergent setting. Other findings as described. PROCEDURE(s): LIVUS - LIVER REASON: Rule out cholecystitis INDICATION: Rule out cholecystitis IMPRESSION: Hepatic steatosis. Post cholecystectomy. Multiple punctate nonobstructing stones in the right kidney. Increased echogenicity bilateral kidneys can be seen in chronic medical renal disease. Common bile duct is distended measuring 1.6 cm. This may be within normal limits post cholecystectomy. Clinical correlation advised. PROCEDURE: MRI MRCP MRI Indication: CBD dilation IMPRESSION: Dilated common bile duct, intrahepatic ducts which can be secondary to reservoir effect/ cholecystectomy. Correlate clinically to exclude obstructive biliary/ ampullary etiology. No evidence for choledocholithiasis. 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 Other considerations include cyst, pseudocyst, cystic neoplasm. Recommend surgical consultation for further evaluation management. Condition at Discharge: Stable Final Diagnosis/Problems List #cholangitis #Ruled out Choledocholithiasis #Post cholecystectomy #Hepatic steatosis #Multiple nonobstructing nephrolithiasis in the right kidney #History of heart failure with EF 55% not on exacerbation #Hypertension #Hyperlipidemia #Prediabetes #Hypokalemia #Hyperbilirubinemia #Anxiety/depression #Benign prostatic hyperplasia #GERD #Morbid obesity, BMI 42.7 Discharge Disposition: Home Discharge Instruct/Medications Diet: Consistent carbohydrate, Cardiac 2g Na,low cholest Diet comment: Continue taking liquid diet and increase to solids as tolerated Activity: No Restrictions, As Tolerated Follow Up/Referral: For primary care physician in 10 days Follow up with gastroenterology soon as appointment is made Follow up with discharge clinic within two weeks Medications: Resume home medications Scheduled Atorvastatin Calcium (Lipitor), 1 TAB PO HS, (Reported) Buspirone Hcl (Buspirone Hcl), 1 TAB PO BID, (Reported) Hydroxyzine Pamoate (Hydroxyzine Pamoate), 1 CAP PO BID PRN, (Reported) Lisinopril (Lisinopril), 1 TAB PO BID, (Reported) Morphine Sulfate (Morphine Sulfate Er), 1 TAB PO Q12HR, (Reported) Omeprazole (Omeprazole Dr), 1 CAP PO DAILY, (Reported) Ondansetron Odt 4MG Tab (Zofran Po), 1 TAB PO QID, (Reported) Oxycodone HCl (Oxycodone Hydrochloride), 1 TAB PO Q6HR PRN, (Reported) Peg [id number] Bicarb-Sod Ch (Golytely), 1 BOT PO ONCE Pregabalin (Pregabalin), 1 CAP PO DAILY, (Reported) Quetiapine Fumerate (Quetiapine Fumarate), 1 TAB PO DAILY, (Reported) Spironolactone (Spironolactone), 1 TAB PO DAILY, (Reported) Tamsulosin Hcl (Tamsulosin Hcl), 1 TAB PO HS, (Reported) Scheduled PRN Clonidine Hydrochloride (Clonidine Hcl), 1 TAB PO BID PRN for SBP>160, (Reported) Lactulose (Lactulose), 10 GM PO BID PRN Discharge Statement: "Patient was advised to return to the ER or call 911 if any headaches, dizziness, shortness of breath, chest pain, abdominal pain, bleeding, fevers, or worsening of medical condition. Patient was counseled about treatment plan, medications, possible side effects, patientverbalized understanding. All questions were answered to the best of my ability. This discharge took greater then 30 minutes in planning, reviewing documentation, counseling the patient, and discussing with other team members." ASSESSMENT ASSESSMENT Assessment Cholangitis JARRELL RAMIREZ RESIDENT Apr 25, 2025 17:26
== END 2025-04-25 13:30 | disposition home or self-care (01) | DRG 445 ==
LOC: ER 09:37 → OVERFLOW 16:47 → TELE-WESTW 22:43 → WEST WING 04-25 09:33
PROVIDERS: ADMIT Student in an Organized Health Care Education/Training Program; ATTEND Student in an Organized Health Care Education/Training Program
PROC: 5A09357 Assistance with Respiratory Ventilation, Less than 24 Consecutive Hours, Continuous Positive Airway Pressure (ICD-10-PCS; principal; 2025-04-21)
PROC: 4B02XSZ Measurement of Cardiac Pacemaker, External Approach (ICD-10-PCS; 2025-04-25)
DX: K83.09 Other cholangitis (principal); Z68.41 Body mass index [BMI] 40.0-44.9, adult; N20.0 Calculus of kidney; K21.9 Gastro-esophageal reflux disease without esophagitis; E78.5 Hyperlipidemia, unspecified; R73.03 Prediabetes; E87.6 Hypokalemia; K76.0 Fatty (change of) liver, not elsewhere classified; F41.9 Anxiety disorder, unspecified; I50.9 Heart failure, unspecified; M54.9 Dorsalgia, unspecified; F32.A Depression, unspecified; N40.0 Benign prostatic hyperplasia without lower urinary tract symptoms; E66.01 Morbid (severe) obesity due to excess calories; G89.29 Other chronic pain; I11.0 Hypertensive heart disease with heart failure; E80.6 Other disorders of bilirubin metabolism; K83.8 Other specified diseases of biliary tract; Z90.49 Acquired absence of other specified parts of digestive tract; Z86.73 Personal history of transient ischemic attack (TIA), and cerebral infarction without residual deficits
CPT/HCPCS: 36415; 71046; 74176; 74181; 76705; 80048; 80053; 80307; 81001; 82306; 82607; 82746; 83036; 83605; 83690; 83735; 83880; 84443; 84484; 85025; 85379; 85610; 85730; 93005; 94660; 96374; G0378; J1885; J2405; J2470; J3480; J3490

== ENCOUNTER 2025-04-29 15:12 | Emergency (ER) | payer MEDICARE, MEDICAID ==
[~2025-04-29] VITALS: Ht 172.7 cm; Wt 130.0 kg
[2025-04-29] MEDS: MORPHINE SULFATE 4 MG/ML SYR/VIAL IM ONE (17:43)
[2025-04-29 17:46] VITALS: TEMP 97.9; O2SAT 95
--- NOTE | 2025-04-29 17:48 | ED.PDOC ---
Musculoskeletal HPI Comments 75-year-old male patient presents to the emergency room for left wrist pain. Patient is currently sitting in a wheelchair. Patient states that he took sleeping pills as he regularly does to sleep. Patient states that at approximately 1:00 p.m. he stood up to go to the bathroom. Patient states that on his way walking back he felt dizzy and fell landing on his bottom and left wrist. Patient denies any other pain. Patient had limited to the left wrist. Patient states that he took OxyContin at approximately 1:45-2 p.m.. Patient denies any other pain. Chief Complaint: Fall Injury Time Seen by MD: 15:40 Primary Care Provider: Dr. Cuellar Reviewed Notes: Nurses Notes, Medications, Allergies Allergies: Coded Allergies: NO KNOWN ALLERGIES (Unverified , 08/29/19) Home Meds Active Scripts Peg [id number] Bicarb-Sod Ch (Golytely) [place], 1 BOT PO ONCE for 1 Day, #4000 ML Prov:DIEGO THOMAS MD 01/08/25 Lactulose (Lactulose) 10 Gm/15 Ml [place], 10 GM PO BID PRN for 30 Days, #120 ML 3 Refills Prov:MAX DANIEL MD 12/07/24 Reported Medications Quetiapine Fumerate (QUETIAPINE FUMARATE) 100 Mg Tab, 1 TAB PO DAILY for 45 Days, #45 08/01/24 Clonidine Hydrochloride (Clonidine Hcl) 0.1 Mg Tab, 1 TAB PO BID PRN for SBP>160 for 15 Days, #30 08/01/24 Spironolactone (Spironolactone) 25 Mg Tab, 1 TAB PO DAILY for 90 Days, #90 08/01/24 Ondansetron Odt 4MG Tab (ZOFRAN PO) 4 Mg Tb, 1 TAB PO QID for 30 Days, #120 ODT TAB-DISSOLVE IN MOUTH, THEN SWALLOW 08/01/24 Pregabalin (Pregabalin) 100 Mg Cap, 1 CAP PO DAILY for 30 Days, #30 08/01/24 Hydroxyzine Pamoate (Hydroxyzine Pamoate) 25 Mg Cap, 1 CAP PO BID PRN for 30 Days, #60 08/01/24 Omeprazole (Omeprazole Dr) 20 Mg Cap, 1 CAP PO DAILY for 90 Days, #90 05/24/20 Lisinopril (Lisinopril) 40 Mg Tab, 1 TAB PO BID for 90 Days, #180 05/24/20 Tamsulosin Hcl (Tamsulosin Hcl) 0.4 Mg Cap, 1 TAB PO HS for 90 Days, #90 08/29/19 Buspirone Hcl (Buspirone Hcl) 30 Mg Tab, 1 TAB PO BID for 45 Days, #90 08/29/19 Oxycodone HCl (Oxycodone Hydrochloride) 10 Mg Tab, 1 TAB PO Q6HR PRN for 30 Days, #120 08/29/19 Morphine Sulfate (Morphine Sulfate Er) 60 Mg Tab, 1 TAB PO Q12HR for 30 Days, #60 01/03/16 Atorvastatin Calcium (Lipitor) 40 Mg Tab, 1 TAB PO HS for 90 Days, #90 01/03/16 Information Source: Patient Mode of Arrival: Ambulatory Location: Left Extremity Location: Wrist Timing: Hours Severity: Mild Able to Move Extremity: Yes Bear Weight: No Pain: Severe Hand Dominance: Right Past Medical History PAST MEDICAL HISTORY: Anxiety, CHF, Depression, High Lipids, HTN, TIA Surgical History: Cholecystectomy, Pacemaker, Tonsillectomy Family History Family History: Reviewed,noncontributory to illness, Unknown Social History Smoker: Non-Smoker Alcohol: Denies ETOH Use Drugs: Denies Drug Use Lives In: Home Constitutional: denies: chills, diaphoresis, fatigue, fever, malaise, sweats, weakness, others EENTM: denies: blurred vision, double vision, ear bleeding, ear discharge, ear drainage, ear pain, ear ringing, eye pain, eye redness, hearing loss, mouth pain, mouth swelling, nasal discharge, nose bleeding, nose congestion, nose pain, photophobia, tearing, throat pain, throat swelling, voice changes, others Respiratory: denies: cough, hemoptysis, orthopnea, SOB at rest, shortness of breath, SOB with excertion, stridor, wheezing, others Cardiovascular: denies: chest pain, dizzy spells, diaphoresis, Dyspnea on exertion, edema, irregular heart beat, left arm pain, lightheadedness, palpitations, PND, syncope, others Gastrointestinal: denies: abdomen distended, abdominal pain, blood streaked bowels, constipated, diarrhea, dysphagia, difficulty swallowing, hematemesis, melena, nausea, poor appetite, poor fluid intake, rectal bleeding, rectal pain, vomiting, others Genitourinary: denies: burning, dysuria, flank pain, frequency, hematuria, incontinence, penile discharge, penile sore, pain, testicle pain, testicle swelling, urgency, others Neurological: denies: dizziness, fainting, headache, left sided numbness, left sided weakness, numbness, paresthesia, pre-existing deficit, right sided numbness, right sided weakness, seizure, speech problems, tingling, tremors, weakness, others Musculoskeletal: reports: joint pain (Wrist pain, left) Integumetry: denies: bruises, change in color, change in hair/nails, dryness, laceration, lesions, lumps, rash, wounds, others Allergic/Immunocompromised: denies: Difficulty Healing, Frequent Infections, Hives, Itching, others Hematologic/Lymphatic: denies: anemia, blood clots, easy bleeding, easy bruising, swollen glands, others Psychiatric: denies: anxiety, bipolar disorder, depression, hopeless, panic disorder, schizophrenia, sleepless, suicidal, others All Other Systems: Reviewed and Negative Physical Exam Exam Comments Patient has swelling to the left wrist. The appears to have a mild deformity. Patient has tenderness to the left wrist. Cap refill is less than 3 seconds. PMS intact General Appearance: No Apparent Distress, Normal HEENT: Normal ENT Inspection, Pharynx Normal, TMs Normal Neck: Full Range of Motion, Non-Tender, Normal, Normal Inspection Respiratory: Chest Non-Tender, Lungs Clear, No Accessory Muscle Use, No Respiratory Distress, Normal Breath Sounds Cardiovascular: No Edema, No JVD, No Murmur, No Gallop, Normal Peripheral Pulses, Regular Rate/Rhythm Breast Exam: Deferred Gastrointestinal: No Organomegaly, Non Tender, No Pulsatile Mass, Normal Bowel Sounds, Soft Genitalia: Deferred Pelvic: Deferred Rectal: Deferred Extremities: Decreased range of motion (This), Swelling (Left wrist), Tender (Left wrist), Other (Deformity noted at the base of the left wrist) Neurologic: Alert, business continuity planning director II-XII nml as Tested, No Motor Deficits, Normal Affect, Normal Mood, No Sensory Deficits Cerebellar Function: Normal Reflexes: Normal Skin: Dry, Normal Color, Warm Lymphatic: No Adenopathy Was a procedure done? Was a procedure done?: No Differential Diagnosis EXT Differential Diagnosis: Fracture, Sprain, Dislocation X-Ray, Labs, Meds, VS Vital Signs Date Time Temp Pulse Resp B/P (MAP) Pulse Ox O2 Delivery O2 Flow Rate FiO2 04/29/25 17:46 97.9 78 18 165/100 (121) 95 97.9 04/29/25 17:46 78 17 95 Room Air 04/29/25 17:43 78 17 165/100 04/29/25 15:14 98.5 101 20 154/95 95 98.5 Current Medications Medications (Trade) Dose Ordered Sig/Camille Route Start Time Stop Time Status Last Admin Morphine Sulfate 4 mg ONCE ONCE IM 04/29/25 17:45 04/29/25 17:46 DC 04/29/25 17:43 X-Ray, Labs, Meds, VS Comment FINDINGS/IMPRESSION: : There is a mildly displaced and impacted fracture of the distal left radius metaphysis with intra-articular extension into the radiocarpal joint. Ventral inclination of the distal radius fracture . [place] dorsal angulation. Bony demineralization. Ulnar positive variance. Mild 1st CMC joint osteoarthritis. Soft tissue swelling about the distal left forearm and wrist. On re-evaluation patient has symptomatic improvement. Patient is stable for discharge at this time. All test results and diagnostic imaging have been interpreted. All diagnostic findings, discharge care, and education instruction provided to the patient. Follow-up with PCP in 2-3 days for referral to Ortho for consult and evaluation Patient verbalized understanding, discharge instructions and agrees to treatment plan Vital signs are stable Patient is ambulatory Patient placed in splint and sling for mildly displaced and impacted fracture of the distal left radius metaphysis with intra-articular extension into the radiocarpal joint. Patient advised of which symptoms necessitate a return visit to the emergency room. Patient to return emergency room for any new worsening symptoms. Patient is aware that the purpose of this visit is for an acute medical emergency requiring emergent stabilization. Chronic conditions, including malignancies have not been ruled out. Patient is instructed to follow up with PCP as directed for continued care and workup. If unable to arrange follow up, patient is to return to the emergency room for reassessment. Patient was given verbal and written discharge instructions and acknowledges understanding Images Reviewed?: Images reviewed and evaluated by me Time of 1ST Reevaluation: 17:47 Reevaluation 1ST: Unchanged Time of 2ND Reevaluation: 18:48 Reevaluation 2ND: Improved Patient Education/Counseling: Diagnosis, Treatment, Prognosis Family Education/Counseling: Diagnosis, Treatment, Prognosis Departure 1 Departure Time of Disposition: 18:48 Impression: Primary Impression: Closed fracture of metaphysis of distal end of radius Disposition: 01 HOME / SELF CARE / HOMELESS Condition: Stable Discharged With: Spouse Critical Care Note Critical Care Time?: No Stability Stability form required: No Heart Score Heart Score: Heart Score Response (Comments) Value History N/A 0 EKG N/A 0 Age N/A 0 Risk Factors N/A 0 Troponin N/A 0 Total 0 LOLIS TILLEY [facility] Apr 29, 2025 17:48 BABATUNDE HUDSON [facility] Apr 29, 2025 18:24
--- NOTE | 2025-04-29 18:25 | DVH ---
CLINICAL INDICATION: left wrist pain TECHNIQUE: XY L WRIST 3+ VIEW XRAY Comparison: RKN3 on DOS: 05/30/22 FINDINGS/IMPRESSION: : There is a mildly displaced and impacted fracture of the distal left radius metaphysis with intra-art icular extension into the radiocarpal joint. Ventral inclination of the distal radius fracture . [place] dorsal angulation. Bony demineralization. Ulnar positive variance. Mild 1st CMC joint osteoarthritis. Soft tissue swelling about the distal left forearm and wrist.
[2025-04-29 18:49] VITALS: BP 152/97; PULSE 78; RESP 17
== END 2025-04-29 19:02 | disposition home or self-care (01) ==
LOC: ER 15:12
DX: S52.392A Other fracture of shaft of radius, left arm, initial encounter for closed fracture (principal); I11.0 Hypertensive heart disease with heart failure; I50.9 Heart failure, unspecified; E78.5 Hyperlipidemia, unspecified; F32.A Depression, unspecified; F41.9 Anxiety disorder, unspecified; Z79.899 Other long term (current) drug therapy; Z86.73 Personal history of transient ischemic attack (TIA), and cerebral infarction without residual deficits; Z90.49 Acquired absence of other specified parts of digestive tract; Z90.89 Acquired absence of other organs; Z95.0 Presence of cardiac pacemaker; W18.39XA Other fall on same level, initial encounter; Y93.01 Activity, walking, marching and hiking; Y92.098 Other place in other non-institutional residence as the place of occurrence of the external cause; Y99.8 Other external cause status
CPT/HCPCS: 29125; 73110; 96372; 99283; J2270

== ENCOUNTER → 2025-05-09 | Outpatient (CLI) | payer MEDICARE, MEDICAID ==
--- NOTE | 2025-05-10 08:24 | DVHSR ---
APPROVED REPORT EXAM: LIMITED Two-dimensional and M-mode echocardiogram with Doppler and color Doppler. Surgery/Intervention Pacemaker: RISK FACTORS Obesity: Height: 5'8, Weight: 300 DIMENSIONS LVDd5.1 (3.8-5.7cm)LA (2D) (1.9-4.0cm)Aortic Root3.4 (2.0-3.7cm) LVDs3.4 (2.5-4.0cm)LA (MM) (1.9-4.0cm)Aortic Cusp Exc2.0 (1.5-2.0cm) EF (%) 55.0 (55-70%)Rt. Atrium (1.9-4.0cm)Asc. Aorta cm IVSd1.3 (0.7-1.1cm)RV (D) (1.8-2.4cm) PWd1.3 (0.7-1.1cm) Mitral Valve MitralMitral Stenosis E wave0.69m/sMV Mean GR.mmHg A wave1.10m/sMV Peak GR.28mmHg E/A ratio0.62D MVAcm2 DECEL [id number] 1/2 Tim[place] Aortic Valve Aortic ValveAortic Stenosis V11.32m/Mehrdad Mean GR.9mmHg V22.02m/Mehrdad Peak GR.17mmHg LVOT Diameter2.0 (1.8-2.4cm)Doppler AVA2.05cm2 LEFT VENTRICLE The left ventricle is normal size. The left ventricle is normal in structure and function. The Ejection Fraction is within normal limits. The Ejection Fraction is >55%. RIGHT VENTRICLE The right ventricle is normal size. ATRIA The left atrial size is normal. The right atrium size is normal. MITRAL VALVE The mitral valve is normal in structure and function. Mitral regurgitation is trace to mild. PULMONIC VALVE The pulmonic valve is not well visualized. TRICUSPID VALVE The tricuspid valve is grossly normal. AORTIC VALVE The aortic valve opens well. No aortic regurgitation is present. GREAT VESSELS The aortic root is normal size. PERICARDIAL EFFUSION There is no pericardial effusion. Other Information Quality : Technically LimitedRhythm : Technically limited study due to body habitus.patient unable to turn on left side, left arm in sling . Conclusion MILD TR EF 55% LVH
== END | disposition home or self-care (01) ==
LOC: Rad HDHVI 12:48
PROVIDERS: ATTEND Internal Medicine Cardiovascular Disease
DX: Z01.810 Encounter for preprocedural cardiovascular examination (principal); I34.0 Nonrheumatic mitral (valve) insufficiency
CPT/HCPCS: 93306

== ENCOUNTER 2025-05-14 06:24 | Day surgery (SDC) | payer MEDICAID, MEDICARE ==
[2025-05-11 16:42] LABS: Hematocrit 44.3 % (41.0-53.0); Hemoglobin 14.9 g/dL (13.5-17.5); Mean Corpuscular Hemoglobin 29.0 pg (28.0-32.0); Mean Corpuscular Volume 86.3 fL (80.0-100.0); Nucleated Red Blood Cells % 0.0 %
[2025-05-11 16:43] LABS: Urine Protein, UAD Negative (Negative)
[2025-05-11 16:49] LABS: Albumin 3.8 g/dL (3.2-4.8); Anion Gap 10 (5-15); BUN/Creatinine Ratio 7.1 (10.0-20.0); Calcium 9.1 mg/dL (8.7-10.4); Carbon Dioxide 28 mmol/L (20-31); Chloride 104 mmol/L (98-107); Potassium 4.0 mmol/L (3.5-5.1); Sodium 142 mmol/L (136-145); Total Protein 7.3 g/dL (5.7-8.2)
[2025-05-11 16:52] LABS: Alanine Aminotransferase 63 U/L (7-40); Alkaline Phosphatase 320 U/L (46-116); Bilirubin, Total 1.3 mg/dL (0.2-1.0); Blood Urea Nitrogen 7 mg/dL (9-23); Glucose 112 mg/dL (74-106)
[2025-05-11 16:54] LABS: INR 1.03 (0.9-1.15); Partial Thromboplastin Time 29.9 SEC (24.5-34.5); Prothrombin Time 10.9 sec (9.3-11.8)
[~2025-05-14] VITALS: Ht 172.7 cm; Wt 133.8 kg
[~2025-05-14 06:24] MED LIST changes: +METO25TA93 PO
[2025-05-14] MEDS ORDERED: KETAMINE 50mg/ML 1ml syringe IM ONE (06:25)
[2025-05-14 06:56] VITALS: TEMP 97.1
[2025-05-14] MEDS ORDERED: MIDAZOLAM HCL 2MG/2ML 2ml VIAL (1mg/ml) ONE (09:02)
[2025-05-14] MEDS ORDERED: LIDOCAINE 2%HCL (LOCAL ANESTH.) INJ 20ML MDV ONE (09:02)
[2025-05-14] MEDS ORDERED: GLYCOPYRROLATE 0.2 MG/ML 1ML VIAL ONE (09:02)
[2025-05-14] MEDS ORDERED: HYDROmorphone HCL 2 MG/ML VL/or syr ONE (09:02)
[2025-05-14] MEDS ORDERED: ONDANSETRON HCL 4 MG/2 ML VIAL ONE (09:02)
[2025-05-14] MEDS ORDERED: fentaNYL CITRATE 100 MCG/2 ML VL ONE (09:02)
[2025-05-14] MEDS ORDERED: PROPOFOL 10 MG/ML 20 ML IV ONE (09:02)
[2025-05-14] MEDS ORDERED: KETOROLAC TROMETH 30 MG/ML 1ML VIAL ONE (09:02)
[2025-05-14] MEDS ORDERED: ROCURONIUM 10MG/ML 10ML VIAL IV ONE (09:02)
[2025-05-14] MEDS: ceFAZolin 2 GM/D5W50ml 50 ML IV ONE (10:00)
[2025-05-14] MEDS ORDERED: LIDOCAINE W/ EPINEPHRINE 2% INJ 20ML VIAL ONE (10:31)
[2025-05-14] MEDS ORDERED: METOPROLOL TARTRATE 1MG/1ML-5ML VIAL IV ONE (10:33)
[2025-05-14] MEDS: LIDOCAINE 1% HCL (LOCAL ANESTH.) INJ 20ML MDV ONE (10:45)
[2025-05-14] MEDS: BUPIVACAINE 0.25% INJ 50ML VIAL ONE (10:45)
[2025-05-14] MEDS ORDERED: HYDROmorphone HCL 2 MG/ML VL/or syr IV PRN (11:15)
[2025-05-14] MEDS ORDERED: ONDANSETRON HCL 4 MG/2 ML VIAL IV PRN (11:15)
[2025-05-14] MEDS ORDERED: hydrALAZINE HCL 20 MG/ML VL IV PRN (11:15)
[2025-05-14] MEDS ORDERED: ACETAMINOPHEN IV 1000 MG/100ML (10MG/ML) IV ONE (11:15)
[2025-05-14 11:32] VITALS: PULSE 91; RESP 12; O2SAT 94
--- NOTE | 2025-05-14 12:04 | DVH ---
FLUOROSCOPY TIME: 12.6 seconds TECHNIQUE: Intraoperative radiographs of the left wrist were obtained. COMPARISON: XY L WRIST 3+ VIEW XRAY on DOS: 05/07/25, XY L WRIST 3+ VIEW XRAY on DOS: 04/29/25 FINDINGS: Refer to intraoperative report for further evaluation. IMPRESSION: Refer to intraoperative report for further evaluation.
[2025-05-14 12:05] VITALS: BP 129/74; PULSE 88; RESP 16; O2SAT 95
--- NOTE | 2025-05-14 18:36 | DVHOP2 ---
Operative Report - 2 Report Details Date: 05/14/25 Preop Diagnosis: Right distal radius fracture Postop Diagnosis: Right distal radius fracture Surgeon: Abhi Rojas MD Supply Chain Program Manager: Nate PACHECO Anesthesiologist: Filiberto OPSADAS Anesthesia: General Implant: ITS Distal radius plate Consent: The patient was informed of the risks and benefits of the procedure. These include but are not limited to complications of anesthesia, postoperative infection, incomplete relief of symptoms, recurrence of symptoms, damage to blood vessels, nerves and tendons, deep venous thrombosis, pulmonary embolism and possible need for repeat surgery in the future. Indications for Surgery: 75 yo M with greater than 3-part intra-articular distal radius fracture Name of Procedure Performed Open reduction internal fixation of right distal radius fracture; intraop fluoroscopy Procedure Details Procedure Details: DESCRIPTION OF OPERATION: Risks and benefits of the operation were explained to the patient. Alternatives were also discussed with the patient. The patient elected to proceed. Consent for surgery was obtained. The patient was brought to the operating room and placed on the operating table in the supine position. After administration of general anesthesia, the left upper extremity was prepped and draped in the usual sterile fashion. The extremity was exsanguinated with an Esmarch and tourniquet on the upper arm was inflated. An incision was made on the volar aspect of the wrist over the distal flexor carpi radialis tendon. Dissection was taken through the subcutaneous tissues to the tendon sheath. The tendon sheath was incised longitudinally and the tendon was retracted. The floor of the sheath was then incised longitudinally. Distal fascia was also incised. The pronator was exposed. The fracture was seen disrupting a portion of the pronator. The pronator was detached radially and distally and reflected off of the volar surface of the distal radius. Intra- articular comminuted fracture greater than 3 parts. The fracture was then reduced. Manipulation of all fragments produced excellent reduction of the fracture. A 0.062 K-wire was then passed percutaneously to the radial styloid. This pin was then passed across the fracture and engaged the more proximal ulnar cortex of the radius, maintaining reduction of the fracture. A volar distal radial plate was then applied to the bone and positioned under the image intensifier. A proximal screw was then placed to secure the plate. Distally, locking screws were placed through the plate into the distal fragment. Each of these was placed under fluoroscopic guidance. The radial-most screw was placed at the styloid. The ulnar-most screw captured dorsal ulnar corner of the distal radius. The K-wire was then removed. Two additional proximal screws were placed through the plate. Reduction of the fracture was near anatomic. Position of the plate and all screws were visualized in multiple projections with the image intensifier. The fracture was stable with fixation. The wound was irrigated with copious amounts of sterile solution. Pronator was repaired to the radial side with 3-0 PDS suture. The floor of the FCR sheath was also repaired with PDS suture. The subcutaneous tissues and skin were then closed with nylon. A dressing was applied. The tourniquet was deflated. Splint was applied. The patient was awoken from anesthesia and taken to the recovery room in stable condition. Disposition Home ABHI ROJAS MD May 14, 2025 18:36
== END 2025-05-14 12:15 | disposition home or self-care (01) ==
LOC: SUR 06:24
PROVIDERS: ATTEND Orthopaedic Surgery Adult Reconstructive Orthopaedic Surgery
DX: S52.571A Other intraarticular fracture of lower end of right radius, initial encounter for closed fracture (principal); G89.18 Other acute postprocedural pain; I10 Essential (primary) hypertension; I48.91 Unspecified atrial fibrillation; F32.A Depression, unspecified; F41.9 Anxiety disorder, unspecified; Z79.899 Other long term (current) drug therapy; Z98.890 Other specified postprocedural states; X58.XXXA Exposure to other specified factors, initial encounter; Y93.89 Activity, other specified; Y92.89 Other specified places as the place of occurrence of the external cause; Y99.8 Other external cause status
CPT/HCPCS: 25609; 36415; 64415; 73100; 80053; 81001; 85025; 85610; 85730; C1713; J0690; J1100; J1171; J1885; J2003; J2250; J2405; J2704; J3010; 76000; J3490

== ENCOUNTER 2025-06-13 12:53 | Outpatient (CLI) | payer MEDICARE, MEDICAID ==
[~2025-06-13] VITALS: Ht 174 cm; Wt 131.5 kg
[2025-06-13] MEDS ORDERED: ADENOSINE 110 MG in GIVE UN-DILUTED 0 ML IV ONE (15:30)
[2025-06-13] MEDS ORDERED: ADENOSINE 90 MG/30 ML INJ IV ONE (17:10)
== END 2025-06-13 17:00 | disposition home or self-care (01) ==
LOC: Rad HDHVI 12:53
PROVIDERS: ATTEND Internal Medicine Cardiovascular Disease
DX: I13.0 Hypertensive heart and chronic kidney disease with heart failure and stage 1 through stage 4 chronic kidney disease, or unspecified chronic kidney disease (principal); E11.22 Type 2 diabetes mellitus with diabetic chronic kidney disease; I50.32 Chronic diastolic (congestive) heart failure; N18.9 Chronic kidney disease, unspecified; E11.42 Type 2 diabetes mellitus with diabetic polyneuropathy; E78.00 Pure hypercholesterolemia, unspecified; I49.5 Sick sinus syndrome; I25.10 Atherosclerotic heart disease of native coronary artery without angina pectoris; Z95.0 Presence of cardiac pacemaker
CPT/HCPCS: 78452; 93017; A9500; J0153